=== PATIENT | male | born 1960 | race Caucasian/White ===

== ENCOUNTER 2023-01-26 08:10 | Outpatient (OUT) | payer OTHER, SELFPAY ==
[2023-01-26 08:33] LABS: Basophils Percent Auto 0.6 % (0.2-2.0); Eosinophils Absolute Auto 0.2 10^3/uL (0.0-0.7); Eosinophils Percent Auto 2.9 % (0.9-7.0); Hematocrit 41.9 % (42.0-54.0); Hemoglobin 14.2 g/dL (14.0-18.0); Immature Granulocytes Abs Auto 0.03 10^3/uL (0.00-0.03); Immature Granulocytes Pct Auto 0.4 % (0.0-0.5); Lymphocytes Absolute Auto 1.2 10^3/uL (1.2-3.8); Lymphocytes Percent Auto 17.4 % (20.5-60.0); Mean Corpuscular HGB Conc 33.9 g/dL (29.9-35.2); Mean Corpuscular Hemoglobin 29.8 pg (25.9-34.0); Mean Platelet Volume 7.7 fL (9.5-13.5); Monocytes Absolute Auto 0.7 10^3/uL (0.3-0.8); Monocytes Percent Auto 9.1 % (1.7-12.0); Neutrophils Percent Auto 69.6 % (43.0-75.0); Platelet Count 237 10^3/uL (150-450); Red Blood Count 4.76 10^6/uL (4.70-6.10); Red Cell Distribution Width 12.8 % (11.0-15.0); White Blood Count 7.1 10^3/uL (4.0-11.0)
[2023-01-26 08:52] LABS: Alanine Aminotransferase 31 U/L (16-63); Albumin Globulin Ratio 1.2; Albumin Level 3.9 g/dL (3.4-5.0); Alkaline Phosphatase 53 U/L (46-116); Anion Gap 12.2; Aspartate Amino Transferase 17 U/L (15-37); Bilirubin Total 0.6 mg/dL (0.2-1.0); Calcium 8.9 mg/dL (8.5-10.1); Carbon Dioxide 29.5 mmol/L (21.0-32.0); Chloride 103 mmol/L (98-107); Chol HDL Ratio 5.6; Cholesterol 225 mg/dL (<=200); Estimated GFR (African America >60 (>=60); Estimated GFR (Non-African Ame 52 (>=60); Globulin 3.3 g/dL; Glucose 102 mg/dL (74-106); HDL Cholesterol 40 mg/dL (40-60); Potassium 3.7 mmol/L (3.5-5.1); Sodium 141 mmol/L (136-145); Total Protein 7.2 g/dL (6.4-8.2); Triglycerides 177 mg/dL (<=150); VLDL CHOLESTEROL 35.4 mg/dL
[2023-01-26 10:10] LABS: Prostate Specific Antigen Scrn 1.54 ng/mL (<=4.00)
== END 2023-01-26 08:11 | disposition home or self-care (01) ==
PROVIDERS: PCP Internal Medicine; Visit Provider Internal Medicine
DX: Z00.00 Encounter for general adult medical examination without abnormal findings (principal); Z12.5 Encounter for screening for malignant neoplasm of prostate
CPT/HCPCS: 36415; 80053; 80061; 85025; G0103

== ENCOUNTER 2023-03-08 08:54 | Outpatient (OUT) | payer OTHER, SELFPAY ==
[2023-03-08 09:40] LABS: Anion Gap 10.4; BUN Creatinine Ratio 16.5; Calcium 8.6 mg/dL (8.5-10.1); Carbon Dioxide 25.9 mmol/L (21.0-32.0); Chloride 104 mmol/L (98-107); Estimated GFR (African America >60 (>=60); Estimated GFR (Non-African Ame 52 (>=60); Glucose 100 mg/dL (74-106); Potassium 3.3 mmol/L (3.5-5.1); Sodium 137 mmol/L (136-145)
== END 2023-03-08 08:55 | disposition home or self-care (01) ==
LOC: LAB 08:56
PROVIDERS: PCP Internal Medicine; Visit Provider Internal Medicine
DX: N18.31 Chronic kidney disease, stage 3a (principal)
CPT/HCPCS: 36415; 80048

== ENCOUNTER 2023-08-09 13:22 | Outpatient (OUT) | payer OTHER, SELFPAY ==
--- NOTE | 2023-08-09 13:31 | MR_ITS ---
The [address] [address] Patient Name: RICHY AVERY MRN: [id number] date: 1960 Sex: M Assigned Patient Location: MRI Current Patient Location: MRI Accession/Order Number: [id number] Exam Date: 08/09/2023 13:55 Report Date: 08/09/2023 14:37 At the request of: JOHNNIE GILL Procedure: MR head/brain wo con MR head/brain wo con HISTORY: Dysesthesia, Intermittent Paresthesia Of Right Hand Foot COMPARISON: None. TECHNIQUE: Multi-planar, multi-sequence brain MRI was performed without IV contrast. FINDINGS: Brain volume: Normal. Sagittal midline structures: Normal. Ventricles: Normal. Acute ischemic changes: None. Hemorrhage: None. Masses/edema: None. Kelly-white: Negative. White matter: Small number of nonspecific subcortical and periventricular white matter hyperintensities. Vessels: Normal. Extra-axial: None. Calvarium/scalp: Negative. Skull base: Negative. Visualized sinuses/orbits: Mucous retention cyst left maxillary sinus. Minimal mucoperiosteal thickening. Visualized upper neck: Negative. MR/MR head/brain wo con IMPRESSION: 1. No acute ischemia. 2. Small number of nonspecific white matter hyperintensities, likely related to microangiopathy. Electronically authenticated by: PARTH VILLELA Date: 08/09/2023 14:37
--- NOTE | 2023-08-09 13:40 | XR_ITS ---
The [address] [address] Patient Name: RICHY AVERY MRN: [id number] date: 1960 Sex: M Assigned Patient Location: MRI Current Patient Location: MRI Accession/Order Number: [id number] Exam Date: 08/09/2023 13:40 Report Date: 08/09/2023 13:57 At the request of: JOHNNIE GILL Procedure: XR foreign body eye EXAMINATION: XR foreign body eye HISTORY: Foreign Body Eye COMPARISON: No relevant comparison available. FINDINGS: ORBITS: Negative for a metallic foreign body. OTHER: Negative. XR/XR foreign body eye IMPRESSION: 1. No metallic foreign body within the orbits. Electronically authenticated by: NICOLLE MATTSON Date: 08/09/2023 13:57
[2023-08-09 14:56] LABS: Basophils Percent Auto 0.4 % (0.2-2.0); Eosinophils Absolute Auto 0.2 10^3/uL (0.0-0.7); Eosinophils Percent Auto 2.6 % (0.9-7.0); Hematocrit 42.7 % (42.0-54.0); Immature Granulocytes Abs Auto 0.02 10^3/uL (0.00-0.03); Immature Granulocytes Pct Auto 0.3 % (0.0-0.5); Lymphocytes Absolute Auto 1.2 10^3/uL (1.2-3.8); Mean Corpuscular HGB Conc 32.8 g/dL (29.9-35.2); Mean Corpuscular Hemoglobin 28.9 pg (25.9-34.0); Mean Corpuscular Volume 88.2 fL (80.0-94.0); Mean Platelet Volume 8.1 fL (9.5-13.5); Monocytes Absolute Auto 0.8 10^3/uL (0.3-0.8); Monocytes Percent Auto 11.1 % (1.7-12.0); Neutrophils Absolute Auto 4.6 10^3/uL (1.4-6.5); Neutrophils Percent Auto 67.6 % (43.0-75.0); Platelet Count 257 10^3/uL (150-450); Red Blood Count 4.84 10^6/uL (4.70-6.10); Red Cell Distribution Width 13.1 % (11.0-15.0); White Blood Count 6.8 10^3/uL (4.0-11.0)
[2023-08-09 15:11] LABS: Alanine Aminotransferase 30 U/L (16-63); Albumin Globulin Ratio 1.1; Albumin Level 3.7 g/dL (3.4-5.0); Alkaline Phosphatase 57 U/L (46-116); Anion Gap 13.3; Aspartate Amino Transferase 17 U/L (15-37); BUN Creatinine Ratio 18.7; Bilirubin Total 0.4 mg/dL (0.2-1.0); Calcium 9.2 mg/dL (8.5-10.1); Carbon Dioxide 30.3 mmol/L (21.0-32.0); Chloride 104 mmol/L (98-107); Estimated GFR (African America 55 (>=60); Estimated GFR (Non-African Ame 46 (>=60); Globulin 3.4 g/dL; Glucose 99 mg/dL (74-106); Potassium 3.6 mmol/L (3.5-5.1); Sodium 144 mmol/L (136-145); Thyroid Stimulating Hormone 2.981 uIU/mL (0.358-3.740); Total Protein 7.1 g/dL (6.4-8.2)
== END 2023-08-09 13:23 | disposition home or self-care (01) ==
LOC: MRI 13:23
PROVIDERS: PCP Internal Medicine; Visit Provider Internal Medicine
DX: R20.8 Other disturbances of skin sensation (principal); R20.2 Paresthesia of skin; G45.9 Transient cerebral ischemic attack, unspecified; I10 Essential (primary) hypertension; E78.00 Pure hypercholesterolemia, unspecified
CPT/HCPCS: 36415; 70030; 70551; 80053; 82607; 84443; 85025

== ENCOUNTER 2023-08-15 18:51 | Outpatient (OUT) | payer OTHER, SELFPAY ==
--- OUTSIDE RECORDS SUMMARY | 2023-08-15 18:54 | XMS_ITS | CCD ---
Author Organization [facility] Care Team Providers Care Personal Development Educator Name Role Phone Rice, Jos W Unavailable Unavailable Rice, Jos W Unavailable Unavailable Rice, Jos W Unavailable Unavailable BALL, MARCELO~[phone] UNKNOWN Unavailable Unavailable Marcelo Thompson DO Primary Care Provider [phone] MARCELO THOMPSON Primary Care Unavailable Marcelo Thompson Unavailable JAY, DR BLAIR Consulting Unavailable BALL, DR BLAIR Primary Care Unavailable BALL, DR BLAIR Admitting Unavailable BALL, DR BLAIR Attending Unavailable WEST, DR ANSHUL Aguilera Consulting Unavailable BALL, DR BLAIR Consulting Unavailable BALL, DR BLAIR Primary Care Unavailable BALL, DR BLAIR Admitting Unavailable BALL, DR BLAIR Attending Unavailable BALL, DR BLAIR Consulting Unavailable BALL, DR BLAIR Primary Care Unavailable BALL, DR BLAIR Admitting Unavailable BALL, DR BLAIR Attending Unavailable Allergies Allergy Classification Reported Allergen(s) Allergy Type Date of Onset Reaction(s) Facility (1 source) Sulfonamides (Antibiotic); Translations: [sulfa drugs] Propensity to adverse reactions (disorder) [facility]ository (1 source) Sulfonamides (Antibiotic) Propensity to adverse reactions to drug 09-25-19 Nausea And Vomiting [facility] (9 sources) Ciprofloxacin Drug Allergy 07-19-19 Unknown, Unknown Reaction [facility] (4 sources) Hmg-Coa Reductase Inhibitors (Statins) Propensity to adverse reactions MUSCLE PAIN [facility] Other (8 sources) Sulfacetamide / Sulfur Drug Allergy Unknown [facility] Other (9 sources) sulfADIAZINE Drug Allergy 07-19-19 Unknown, Comment:Sulfa [facility] (8 sources) tamsulosin Drug Allergy Unknown [facility] Other (1 source) black walnut pollen extract Drug Allergy [facility] (1 source) Sulfonamides (Antibiotic) Drug allergy (disorder) 03-02-20 14 [facility] Rep[facility] (5 sources) predniSONE Drug Allergy 07-19-19 Unknown, Unknown Reaction [facility] (4 sources) Statins Depletion *DIETARY PRODUCTS/DIETARY MANAGE Propensity to adverse reactions Comment:ALL Statins [facility] Other (1 source) tamsulosin Drug Allergy 07-19-19 24 Unknown Reaction [facility] (1 source) Vmpexel-ZTA-FiG Reductase Inhibitor Allergy to substance 07-19-19 Comment:ALL Statins [facility] Medications Current Medications Medication Drug Class(es) Dates Sig (Normalized) Sig (Original) amLODIPine 5 mg oral tablet (4 sources) Dihydropyridine Calcium Channel Cate take 1 tablet by mouth every twelve hours amLODIPine Besylate 5 MG 1 tablet Orally TWICE A DAY Active amLODIPine 10 mg / hydroCHLOROthiazide 25 mg / olmesartan medoxomil 40 mg oral tablet (5 sources) Thiazide Diuretic, Dihydropyridine Calcium Channel Cate, Angiotensin 2 Receptor Cate Start: 07-18-2023 take 1 tablet by mouth once daily Olmesartan-Aml odipin-Hcthiaz id Active 1 TAB PO Daily July 18, 2023 12:00am Start: 01-25-2023 take 1 tablet by james th every twenty-four hours Pxpynwisrg-wvKCAJHiet-TCBD 40-10-25 MG 1 tablet Orally Once a day for 30 days Dec, Active benazepril hydrochloride 40 mg oral tablet (4 sources) Angiotensin Converting Enzyme Inhibitor take 1 tablet by mouth every twenty-four hours Benazepril HCl 40 MG 1 tablet Orally Once a day Active chlorthalidone 25 mg oral tablet (3 sources) Thiazide-like Diuretic Start: 023 take 0.5 tablet by mouth once daily Chlorthalidone 25 MG 1/2 tablet Orally Once a day for 30 days Jul, Active doxycycline hyclate 100 mg oral tablet (1 source) Tetracycline-class Drug Start: 022 End: take 1 tablet by mouth twice daily doxycycline hyclate (VIBRA-TABS) 100 MG tablet Take 1 tablet by mouth 2 times daily for 7 days 14 tablet 0 09/24/2021 10/01/2021 Active ezetimibe 10 mg oral tablet (9 sources) Dietary Cholesterol Absorption Inhibitor Start: 024 take 10 mg by mouth once daily Ezetimibe Active 10 MG PO Daily July 18, 2023 12:00am take 1 tablet by mouth once abdirizak y Ezetimibe 10 MG TAKE 1 TABLET BY MOUTH EVERY DAY Active fluticasone propionate 0.05 mg/actuat metered dose nasal spray (9 sources) Corticosteroid Start: 07-18-2023 Fluticasone Pr opionate Active 2 SPRAY INTRANASAL Daily July 18, 2023 12:00am take 2 spray(s) nasal route once daily Fluticasone Propionate 50 MCG/ACT USE 2 SPRAYS IN EACH NOSTRIL ONCE DAILY for 30 Active take 2 spray(s) nasal route once daily Fluticasone Propionate 50 MCG/ACT USE 2 SPRAYS IN EACH NOSTRIL ONCE DAILY for 30 Active labetalol hydrochloride 300 mg oral tablet (9 sources) beta-Adrenergic Cate Start: 07-18-2023 take 300 mg by mouth twice daily Labetalol Active 300 MG PO Twice daily July 18, 2023 12:00am Labetalol HCl 30 0 MG TAKE 1 TABLET BY MOUTH TWICE A DAY FOR 30 DAYS for 30 Active take 2 tablets by mo [facility] every twelve hours Labetalol HCl 100 MG 2 TABLETS Orally Twice a day Active Completed/Discontinued Medications Medication Drug Class(es) Dates Sig (Normalized) Sig (Original) potassium chloride 10 meq extended release oral tablet (3 sources) Start: 07-18-2023 End: 07-19-2023 take 10 mEq by mouth once daily Potassium Chloride Discontinued 10 MEQ PO Daily July 18, 2023 12:00am July 19, 2023 1:31pm Start: 03-08-2023 take 1 tablet by james every twenty-four hours Potassium Chloride ER 10 MEQ 1 tablet with food Orally Once a day for 30 days Feb, Active Problems Active Problems Problem Classification Problem Date Documented Date Episodic/Chronic Abdominal pain (6 sources) Left lower quadrant pain; Translations: [LEFT LOWER QUADRANT PAIN] Onset: 08-17-2022 Episodic Calculus of urinary tract (11 sources) History of calculus of kidney; Translations: [Personal history of urinary calculi] Episodic Cardiac dysrhythmias (8 sources) Ventricular premature complex; Translations: [Ventricular premature depolarization] Chronic Chronic kidney disease (20 sources) Chronic kidney disease stage 3; Translations: [Chronic kidney disease, stage 3 (moderate)] 07-18-2023 Chronic Chronic ulcer of skin (8 sources) Non-pressure chronic ulcer of other part of left foot limited to breakdown of skin; Translations: [Ulcer of left foot (disorder)] Chronic Deficiency and other anemia (8 sources) Anemia; Translations: [Anemia, unspecified] Episodic Disorders of lipid metabolism (20 sources) Dyslipidemia; Translations: [Hyperlipidemia, unspecified] Chronic Essential hypertension (14 sources) Essential hypertension; Translations: [Essential (primary) hypertension] Chronic Fluid and electrolyte disorders (1 source) Hypokalemia Episodic Genitourinary symptoms and ill-defined conditions (8 sources) Francisco J hematuria; Translations: [Gross hematuria] Episodic Hyperplasia of prostate (9 sources) Lower urinary tract symptoms due to benign prostatic hypertrophy; Translations: [Benign prostatic hyperplasia with lower urinary tract symptoms] Chronic Hypertension with complications and secondary hypertension (8 sources) Chronic kidney disease due to hypertension; Translations: [Hypertensive chronic kidney disease with stage 1 through stage 4 chronic kidney disease, or unspecified chronic kidney disease] Chronic Osteoarthritis (8 sources) Localized, primary osteoarthritis of the shoulder region; Translations: [Primary osteoarthritis, right shoulder] Chronic Other connective tissue disease (8 sources) Synovial cyst of popliteal space; Translations: [Synovial cyst of popliteal space [Yousif], left knee] Episodic Other connective tissue disease (8 sources) Prepatellar bursitis, left knee; Translations: [Bursitis, prepatellar, left] Episodic Other diseases of kidney and ureters (8 sources) Acquired renal cystic disease; Translations: [Cyst of kidney, acquired] Episodic Other diseases of kidney and ureters (1 source) Cyst of kidney; Translations: [Cyst of kidney, acquired] 07-18-2023 Episodic Other diseases of kidney and ureters (1 source) Cyst of kidney, acquired; Translations: [Cystic kidney disease, unspecified] 07-19-2023 Episodic Other hereditary and degenerative nervous system conditions (8 sources) Restless legs; Translations: [Restless legs syndrome] Chronic Other nutritional; endocrine; and metabolic disorders (1 source) Overweight Episodic Skin and subcutaneous tissue infections (9 sources) Cellulitis of left lower limb; Translations: [Cellulitis of left lower limb] Episodic Past or Other Problems Problem Classification Problem Date Documented Da te Episodic/Chronic Chronic kidney disease (6 sources) Chronic kidney disease; Translations: [CHRONIC KIDNEY DISEASE STAGE 3A] Onset: 07-13-2022 Other screening for suspected conditions (not mental disorders or infectious disease) (1 source) Encounter for screening for malignant neoplasm of prostate; Translations: [ENC SCREEN MALIG NEOPLASM PROSTATE] Onset: 01-23-2022 Episodic Results Test Name Value Interpretation Reference Range Facility CREATININEon 08-17-2022 Creatinine [Mass/Vol] 1.59 mg/dL Critically high 0.70-1.30 [facility] Comment on above: Performed By: #### C DIANELYS #### [facility] [address] [address] [address] Keanu Shafer EGFR-AF DOMINICAN 54 mL/min/1.73m2 Critically low >=60 [facility] Comment on above: Performed By: #### C DIANELYS #### [facility] [address] [address] [address] Keanu Shafer EGFR-NON AF DOMINICAN 44 mL/min/1.73m2 Critically low >=60 [facility] Comment on above: Performed By: #### C DIANELYS #### [facility] [address] [address] ABD/PELV W CONon 08-18-19 CT ABD/PELV W CON EXAMINATION: CT ABD/PELV W CON, 08/17/2022 7:13 AM EDT HISTORY: Left lower quadrant pain COMPARISON: 02/04/2020 TECHNIQUE: CT scan of the abdomen and pelvis was performed with IV contrast. CT dose reduction technique was used, including Automated Exposure Control. FINDINGS: LUNG BASES: No visible pulmonary or pleural disease. LIVER: No enlargement, atrophy, abnormal density, or significant focal lesion. BILIARY: No dilatation or calcification. PANCREAS: No lesion, fluid collection, ductal dilatation, or atrophy. SPLEEN: No enlargement or focal lesion. ADRENALS: No mass or enlargement. KIDNEYS: 2.1 cm left renal cortical cyst. No hydronephrosis or obstructing nephrolithiasis BOWEL/MESENTERY: Nonobstructive bowel gas pattern. Mild colonic diverticulosis. AORTA/VASCULAR: Mild atherosclerosis. Fusiform ectasia of the distal abdominal aorta measuring up to 2.6 cm. RETROPERITONEUM: No mass or adenopathy. LYMPH NODES: No adenopathy. URINARY BLADDER: No visible focal wall thickening, lesion, or calculus. PELVIC ORGANS: Heterogeneous prostate gland with central calcifications ABDOMINAL WALL: No mass or hernia. BONES: No bony lesion or fracture. OTHER: Negative. IMPRESSION: No acute intraperitoneal abnormality Electronically authenticated by: ANSHUL AMADOR Date: 2022-08-17 08:53 Normal [facility] Basic Metabolic Panelon 06-27 Calcium [Mass/Vol] 9.5464776 mg/dL 8.5-10 .1 mg/dL [facility] Other CO2 [Moles/Vol] 28.19351715 mmol/L 21.0-3 2.0 mmol/L [facility] Other Creatinine [Mass/Vol] 1.57468761 mg/dL Critically high 0.70-1.30 mg/dL [facility] Other Potassium [Moles/Vol] 4.46502937 mmol/L 3.5-5.1 mmol/L [facility] Other Urea nitrogen [Mass/Vol] 21.4447824 mg/dL Critically high 7.0-18.0 mg/dL [facility] Other Basic Metabolic Panel see note [facility] Other Basic Metabolic Panel 144 mmol/L 136-145 mmol/L [facility] Other Basic Metabolic Panel 99 mg/dL 74-106 mg/dL [facility] Other Basic Metabolic Panel 55 mL/min/1.73m2 Critically low >=60 mL/min/1.73m2 [facility] Other Basic Metabolic Panel >60 mL/min/1.73m2 >=60 mL/min/1.73m2 [facility] Other Anion gap [Moles/Vol] 11.0 mmol/L Normal [facility] Other Comment on above: Performed By: #### B MP #### [facility] [address] [place], [place] [id number] Dr. Keanu Shafer Chloride [Moles/Vol] 109 mmol/L Critically high 98-107 [facility] Other Comment on above: Performed By: #### B MP #### [facility] [address] [place] [address] Dr. Keanu Shafer Urea nitrogen/Creatinine [Mass ratio] 16.0 mg/mg Normal [facility] Other Comment on above: Performed By: #### B MP #### [facility] [address] [place] [address] Dr. Keanu Shafer PROF CHEM 8 (BAS METB)on Calcium [Mass/Vol] 9.0 mg/dL Normal 8.5-10.1 [facility] Comment on above: Performed By: #### B MP #### [facility] [address] [place] [address] Dr. Keanu Shafer CO2 [Moles/Vol] 28.3 mmol/L Normal 21.0-32.0 [facility] Comment on above: Performed By: #### B MP #### [facility] [address] [place] [address] Dr. Keanu Shafer Creatinine [Mass/Vol] 1.31 mg/dL Critically high 0.70-1.30 [facility] Comment on above: Performed By: #### B MP #### [facility] [address] [place] [address] Dr. Keanu Shafer EGFR-AF DOMINICAN >60 Normal >=60 [facility] Comment on above: Performed By: #### B MP #### [facility] [address] [place] [address] Dr. Keanu Shafer EGFR-NON AF DOMINICAN 55 mL/min/1.73m2 Critically low >=60 [facility] Comment on above: Performed By: #### B MP #### [facility] [address] [place] [address] Dr. Keanu Shafer Glucose [Mass/Vol] 99 mg/dL Normal 74-106 [facility] Comment on above: Performed By: #### B MP #### [facility] [address] [address] [address] Keanu Shafer Potassium [Moles/Vol] 4.3 mmol/L Normal 3.5-5.1 [facility] Comment on above: Performed By: #### B MP #### [facility] [address] [place] [address] Dr. Keanu Shafer Sodium [Moles/Vol] 144 mmol/L Normal 136-145 [facility] Comment on above: Performed By: #### B MP #### [facility] [address] [place] [address] Dr. Keanu Shafer Urea nitrogen [Mass/Vol] 21.0 mg/dL Critically high 7.0-18.0 [facility] Comment on above: Performed By: #### B MP #### [facility] [address] [place] [address] Dr. Keanu Shafer CBC AUTO DIFFon 01-19-2022 BASO # 0.0 103/ul Normal 0.0-0.1 [facility] Comment on above: Performed By: #### C BC #### [facility] [address] [place] [address] Dr. Keanu Shafer Basophils/100 WBC (Bld) 0.3 % Normal 0.2-2.0 [facility] Comment on above: Performed By: #### C BC #### [facility] [address] [place] [address] Dr. Keanu Shafer EO # 0.2 103/ul Normal 0.0-0.7 [facility] Comment on above: Performed By: #### C BC #### [facility] [address] [place] [address] Dr. Keanu Shafer Eosinophils/100 WBC (Bld) 2.4 % Normal 0.9-7.0 [facility] Comment on above: Performed By: #### C BC #### [facility] [address] [place] [address] Dr. Kenau Shafer Erythrocyte distribution width (RBC) [Ratio] 13.2 % Normal 11.0-15.0 [facility] Comment on above: Performed By: #### C BC #### [facility] [address] [address] [address] Keanu Shafer Hematocrit (Bld) [Volume fraction] 42.1 % Normal 42.0-54.0 [facility] Comment on above: Performed By: #### C BC #### [facility] [address] [address] [address] Keanu Shafer Hemoglobin (Bld) [Mass/Vol] 14.2 g/dL Normal 14.0-18.0 [facility] Comment on above: Performed By: #### C BC #### [facility] [address] [address] [address] Keanu Shafer IG # 0.02 10e3/ul Normal 0.00-0.03 [facility] Comment on above: Performed By: #### C BC #### [facility] [address] [place] [address] Dr. Keanu Shafer IG % 0.3 % Normal 0.0-0.5 [facility] Comment on above: Performed By: #### C BC #### [facility] [address] [place] [address] Dr. Keanu Shafer LYMPH # 1.0 103/ul Critically low 1.2-3.8 [facility] Comment on above: Performed By: #### C BC #### [facility] [address] [place] [address] Dr. Keanu Shafer Lymphocytes/100 WBC (Bld) 16.0 % Critically low 20.5-60.0 [facility] Comment on above: Performed By: #### C BC #### [facility] [address] [place] [address] Dr. Keanu Shafer MANUAL DIFF REQ NO Normal [facility] Comment on above: Performed By: #### C BC #### [facility] [address] [place] [address] Dr. Keanu Shafer MCH (RBC) [Entitic mass] 29.2 pg Normal 25.9-34.0 [facility] Comment on above: Performed By: #### C BC #### [facility] [address] [address] [address] Keanu Shafer MCHC (RBC) [Mass/Vol] 33.7 g/dL Normal 29.9-35.2 [facility] Comment on above: Performed By: #### C BC #### [facility] [address] [address] [address] Keanu Shafer MCV (RBC) [Entitic vol] 86.6 fL Normal 80.0-94.0 [facility] Comment on above: Performed By: #### C BC #### [facility] [address] [address] [address] Keanu Shafer MONO # 0.6 103/ul Normal 0.3-0.8 [facility] Comment on above: Performed By: #### C BC #### [facility] [address] [place] [address] Dr. Keanu Shafer Monocytes/100 WBC (Bld) 9.2 % Normal 1.7-12.0 [facility] Comment on above: Performed By: #### C BC #### [facility] [address] [place] [address] Dr. Keanu Shafer NEUT # 4.5 103/ul Normal 1.4-6.5 [facility] Comment on above: Performed By: #### C BC #### [facility] [address] [place] [address] Dr. Keanu Shafer Neutrophils/100 WBC (Bld) 71.8 % Normal 43.0-75.0 [facility] Comment on above: Performed By: #### C BC #### [facility] [address] [place] [address] Dr. Keanu Shafer Platelet mean volume (Bld) [Entitic vol] 7.8 fL Critically low 9.5-13.5 [facility] Comment on above: Performed By: #### C BC #### [facility] [address] [place] [address] Dr. Keanu Shafer PLT 233 103/ul Normal 150-450 [facility] Comment on above: Performed By: #### C BC #### [facility] [address] [address] [address] Keanu Shafer RBC 4.86 106/ul Normal 4.70-6.10 [facility] Comment on above: Performed By: #### C BC #### [facility] [address] [address] [address] Keanu Shafer WBC 6.2 103/ul Normal 4.0-11.0 [facility] Comment on above: Performed By: #### C BC #### [facility] [address] [address] [address] Keanu Shafer LIPID PROFILEon 01-19-2022 CHOL-HDL RATIO NORM SEE BELOW Normal [facility] Comment on above: Result Comment: 3.3 - 4.4 LOW RISK 4.4 - 7.1 AVERAGE RISK 7.1 - 11.0 MODERATE RISK >11.0 HIGH RISK Performed By: #### C MP, LIPID #### [facility] [address] [place] [address] Dr. Keanu Shafer Cholesterol [Mass/Vol] 222 mg/dL Critically high <=200 [facility] Comment on above: Performed By: #### C MP, LIPID #### [facility] [address] [place] [address] Dr. Keanu Shafer Cholesterol in HDL [Mass/Vol] 40 mg/dL Normal 40-60 [facility] Comment on above: Performed By: #### C MP, LIPID #### [facility] [address] [address] [address] Keanu Shafer Cholesterol in LDL [Mass/Vol] 160.6 mg/dL Normal [facility] Comment on above: Performed By: #### C MP, LIPID #### [facility] [address] [address] [address] Keanu Shafer Cholesterol.total/C holesterol in HDL [Mass ratio] 5.6 {ratio} Normal [facility] Comment on above: Performed By: #### C MP, LIPID #### [facility] [address] [place] [address] Dr. Keanu Shafer HDL NORMAL > or = 60 mg/dl - LO W CARDIOVASCULAR RISK <40 mg/dl - HIGH CARDIOVASCULAR RISK Normal [facility] Comment on above: Performed By: #### C MP, LIPID #### [facility] [address] [address] [address] Keanu Shafer LDL CALC NORMAL SEE BELOW Normal [facility] Comment on above: Result Comment: <100 mg/dl OPTIMAL 100 - 129 mg/dl NEAR OR ABOVE OPTIMAL 130 - 159 mg/dl BORDERLINE HIGH 160 - 189 mg/dl HIGH >190 mg/dl VERY HIGH Performed By: #### C MP, LIPID #### [facility] [address] [place] [address] Dr. Keanu Shafer Triglyceride [Mass/Vol] 107 mg/dL Normal <=150 [facility] Comment on above: Performed By: #### C MP, LIPID #### [facility] [address] [place] [address] Dr. Keanu Shafer VLDL CALC 21.4 mg/dL Normal [facility] Comment on above: Performed By: #### C MP, LIPID #### [facility] [address] [place] [address] Dr. Keanu Shafer PROF 14(COMP METB)on 022 Albumin [Mass/Vol] 3.9 g/dL Normal 3.4-5.0 [facility] Comment on above: Performed By: #### C MP, LIPID #### [facility] [address] [place] [address] Dr. Keanu Shafer Albumin/Globulin [Mass ratio] 1.3 {ratio} Normal [facility] Comment on above: Performed By: #### C MP, LIPID #### [facility] [address] [place] [address] Dr. Keanu Shafer ALP [Catalytic activity/Vol] 55 U/L Normal 46-116 [facility] Comment on above: Performed By: #### C MP, LIPID #### [facility] [address] [place] [address] Dr. Keanu Shafer ALT [Catalytic activity/Vol] 25 U/L Normal 16-63 [facility] Comment on above: Performed By: #### C MP, LIPID #### [facility] [address] [place] [address] Dr. Keanu Shafer Anion gap [Moles/Vol] 8.8 mmol/L Normal [facility] Comment on above: Performed By: #### C MP, LIPID #### [facility] [address] [place] [address] Dr. Keanu Shafer AST [Catalytic activity/Vol] 15 U/L Normal 15-37 [facility] Comment on above: Performed By: #### C MP, LIPID #### [facility] [address] [place] [address] Dr. Keanu Shafer Bilirubin [Mass/Vol] 0.7 mg/dL Normal 0.2-1.0 [facility] Comment on above: Performed By: #### C MP, LIPID #### [facility] [address] [place] [address] Dr. Keanu Shafer Calcium [Mass/Vol] 8.7 mg/dL Normal 8.5-10.1 [facility] Comment on above: Performed By: #### C MP, LIPID #### [facility] [address] [place] [address] Dr. Keanu Shafer Chloride [Moles/Vol] 106 mmol/L Normal 98-107 [facility] Comment on above: Performed By: #### C MP, LIPID #### [facility] [address] [place] [address] Dr. Keanu Shafer CO2 [Moles/Vol] 28.4 mmol/L Normal 21.0-32.0 [facility] Comment on above: Performed By: #### C MP, LIPID #### [facility] [address] [place] [address] Dr. Keanu Shafer Creatinine [Mass/Vol] 1.25 mg/dL Normal 0.70-1.30 [facility] Comment on above: Performed By: #### C MP, LIPID #### [facility] [address] [place] [address] Dr. Keanu Shafer EGFR-AF DOMINICAN >60 Normal >=60 [facility] Comment on above: Performed By: #### C MP, LIPID #### [facility] [address] [place] [address] Dr. Keanu Shafer EGFR-NON AF DOMINICAN 59 mL/min/1.73m2 Critically low >=60 [facility] Comment on above: Performed By: #### C MP, LIPID #### [facility] [address] [address] [address] Keanu Shafer Globulin (S) [Mass/Vol] 3.1 g/dL Normal [facility] Comment on above: Performed By: #### C MP, LIPID #### [facility] [address] [address] [address] Keanu Shafer Glucose [Mass/Vol] 99 mg/dL Normal 74-106 [facility] Comment on above: Performed By: #### C MP, LIPID #### [facility] [address] [place] [address] Dr. Keanu Shafer Potassium [Moles/Vol] 4.2 mmol/L Normal 3.5-5.1 [facility] Comment on above: Performed By: #### C MP, LIPID #### [facility] [address] [place] [address] Dr. Keanu Shfaer Protein [Mass/Vol] 7.0 g/dL Normal 6.4-8.2 [facility] Comment on above: Performed By: #### C MP, LIPID #### [facility] [address] [place] [address] Dr. Keanu Shafer Sodium [Moles/Vol] 139 mmol/L Normal 136-145 [facility] Comment on above: Performed By: #### C MP, LIPID #### [facility] [address] [place] [address] Dr. Keanu Shafer Urea nitrogen [Mass/Vol] 18.0 mg/dL Normal 7.0-18.0 [facility] Comment on above: Performed By: #### C MP, LIPID #### [facility] [address] [place] [address] Dr. Keanu Shafer Urea nitrogen/Creatinine [Mass ratio] 14.4 mg/mg Normal [facility] Comment on above: Performed By: #### C MP, LIPID #### [facility] [address] [place], [place] [id number] Dr. Keanu Shafer CBC With Platelet and Differ entialon 09-24-2021 Basophils (Bld) [#/Vol] 0.0 10*3/uL Normal 0.0-0.2 [facility] Comment on above: Performed By: #### C BCWD #### [facility] [address] [place] [address] Basophils/100 WBC (Bld) 0.3 % Normal [facility] Comment on above: Performed By: #### C BCWD #### [facility] [address] [place] [address] Eosinophils (Bld) [#/Vol] 0.1 10*3/uL Normal 0.0-0.7 [facility] Comment on above: Performed By: #### C BCWD #### [facility] [address] [place] [address] Eosinophils/100 WBC (Bld) 0.9 % Normal [facility] Comment on above: Performed By: #### C BCWD #### [facility] [address] [place] [address] Erythrocyte distribution width (RBC) [Ratio] 13.9 % Normal 11.5-14.5 [facility] Comment on above: Performed By: #### C BCWD #### [facility] [address] [place] [address] Hematocrit (Bld) [Volume fraction] 42.6 % Normal 42.0-52.0 [facility] Comment on above: Performed By: #### C BCWD #### [facility] [address] [place] [address] Hemoglobin (Bld) [Mass/Vol] 14.2 g/dL Normal 14.0-18.0 [facility] Comment on above: Performed By: #### C BCWD #### [facility] [address] [place] [address] Lymphocytes (Bld) [#/Vol] 0.9 10*3/uL Low 1.0-4.8 [facility] Comment on above: Performed By: #### C BCWD #### [facility] [address] [place] [address] Lymphocytes/100 WBC (Bld) 8.1 % Normal [facility] Comment on above: Performed By: #### C BCWD #### [facility] [address] [place] [address] MCH (RBC) [Entitic mass] 28.9 pg Normal 27.0-31.3 [facility] Comment on above: Performed By: #### C BCWD #### [facility] [address] [place] [address] MCHC 33.3 % Normal 33.0-37.0 [facility] Comment on above: Performed By: #### C BCWD #### [facility] [address] [place] [address] MCV (RBC) [Entitic vol] 86.8 fL Normal 80.0-100.0 [facility] Comment on above: Performed By: #### C BCWD #### [facility] [address] [place] [address] Monocytes (Bld) [#/Vol] 0.8 10*3/uL Normal 0.2-0.8 [facility] Comment on above: Performed By: #### C BCWD #### [facility] [address] [place] [address] Monocytes/100 WBC (Bld) 7.4 % Normal [facility] Comment on above: Performed By: #### C BCWD #### [facility] [address] [place] [address] Neutrophils (Bld) [#/Vol] 9.5 10*3/uL Critically high 1.4-6.5 [facility] Comment on above: Performed By: #### C BCWD #### [facility] [address] [place] [address] Neutrophils/100 WBC (Bld) 83.3 % Normal [facility] Comment on above: Performed By: #### C BCWD #### [facility] [address] [place] [address] Platelets (Bld) [#/Vol] 289 10*3/uL Normal 130-400 [facility] Comment on above: Performed By: #### C BCWD #### [facility] [address] [place] [address] RBC (Bld) [#/Vol] 4.90 10*6/uL Normal 4.70-6.10 [facility] Comment on above: Performed By: #### C BCWD #### [facility] [address] [place] [address] WBC (Bld) [#/Vol] 11.4 10*3/uL Critically high 4.8-10.8 [facility] Comment on above: Performed By: #### C BCWD #### [facility] [address] [place] [address] CBC with Auto Differentialon 09-24-2021 Basophils (Bld) [#/Vol] 0.0 10*3/uL 0.0 - 0.2 K/uL [facility] Basophils/100 WBC (Bld) 0.3 % [facility] Eosinophils (Bld) [#/Vol] 0.1 10*3/uL 0.0 - 0.7 K/uL [facility] Eosinophils/100 WBC (Bld) 0.9 % [facility] Hematocrit (Bld) [Volume fraction] 42.6 % 42.0 - 52.0 % [facility] Hemoglobin.gastroin testinal spec 1 Ql (Stl) 14.2 g/dL 14.0 - 18.0 g/dL [facility] Interpretation and review of laboratory results Abnormal [facility] Lymphocytes (Bld) [#/Vol] 0.9 10*3/uL Low 1.0 - 4.8 K/uL [facility] Lymphocytes/100 WBC (Bld) 8.1 % [facility] MCH (RBC) [Entitic mass] 28.9 pg 27.0 - 31.3 pg [facility] MCHC (RBC) [Mass/Vol] 33.3 % 33.0 - 37.0 % [facility] MCV (RBC) [Entitic vol] 86.8 fL 80.0 - 100.0 fL [facility] Monocytes (Bld) [#/Vol] 0.8 10*3/uL 0.2 - 0.8 K/uL [facility] Monocytes/100 WBC (Bld) 7.4 % [facility] Neutrophils Absolute 9.5 K/uL High 1.4 - 6.5 K/uL [facility] Neutrophils/100 WBC (Bld) 83.3 % [facility] Platelet distribution width (Bld) [Ratio] 13.9 % 11.5 - 14.5 % [facility] Platelets (Bld) [#/Vol] 289 10*3/uL 130 - 400 K/uL [facility] RBC (Bld) [#/Vol] 4.90 10*6/uL [facility] WBC (Bld) [#/Vol] 11.4 10*3/uL High 4.8 - 10.8 K/uL [facility] Comprehensive Metabolic Pane erasmo 09-24-2021 Albumin [Mass/Vol] 4.3 g/dL Normal 3.5-4.6 [facility] Comment on above: Performed By: #### C MP #### [facility] [address] [place] [address] ALP [Catalytic activity/Vol] 68 U/L Normal 35-104 [facility] Comment on above: Performed By: #### C MP #### [facility] [address] [place] [address] ALT [Catalytic activity/Vol] 14 U/L Normal 0-41 [facility] Comment on above: Performed By: #### C MP #### [facility] [address] [place] [address] Anion gap [Moles/Vol] 11 mmol/L Normal 9-15 [facility] Comment on above: Performed By: #### C MP #### [facility] [address] [place] [address] AST [Catalytic activity/Vol] 14 U/L Normal 0-40 [facility] Comment on above: Result Comment: Spec imen hemolysis has exceeded the interference as defined by Ayla. Value may be falsely increased. Suggest recollection if clinically indicated. Performed By: #### C MP #### [facility] [address] [place] [address] Bilirubin [Mass/Vol] 0.3 mg/dL Normal 0.2-0.7 [facility] Comment on above: Performed By: #### C MP #### [facility] [address] [place] [address] Calcium [Mass/Vol] 9.0 mg/dL Normal 8.5-9.9 [facility] Comment on above: Performed By: #### C MP #### [facility] [address] [place] [address] Chloride [Moles/Vol] 102 mmol/L Normal 95-107 [facility] Comment on above: Performed By: #### C MP #### [facility] [address] [place] [address] CO2 [Moles/Vol] 27 mmol/L Normal 20-31 [facility] Comment on above: Performed By: #### C MP #### [facility] [address] [place] [address] Creatinine [Mass/Vol] 1.27 mg/dL Critically high 0.70-1.20 [facility] Comment on above: Performed By: #### C MP #### [facility] [address] [place] [address] GFR 57.5 Low >60 [facility] Comment on above: Result Comment: >60 mL/min/1.73m2 EGFR, calc. for ages 18 and older using the MDRD formula (not corrected for weight), is valid for stable renal function. Performed By: #### C MP #### [facility] [address] [place] [address] GFR/1.73 sq M.predicted among blacks MDRD (S/P/Bld) [Vol rate/Area] mL/min/{1.73_m2} Normal >60 [facility] Comment on above: Result Comment: >60 mL/min/1.73m2 EGFR, calc. for ages 18 and older using the MDRD formula (not corrected for weight), is valid for stable renal function. Performed By: #### C MP #### [facility] [address] [place] [address] Globulin (S) [Mass/Vol] 2.9 g/dL Normal 2.3-3.5 [facility] Comment on above: Performed By: #### C MP #### [facility] [address] [place] [address] Glucose [Mass/Vol] 114 mg/dL Critically high 70-99 [facility] Comment on above: Performed By: #### C MP #### [facility] [address] [place] [address] Potassium [Moles/Vol] 4.2 mmol/L Normal 3.4-4.9 [facility] Comment on above: Performed By: #### C MP #### [facility] [address] [place] [address] Protein [Mass/Vol] 7.2 g/dL Normal 6.3-8.0 [facility] Comment on above: Performed By: #### C MP #### [facility] [address] [place] [address] Sodium [Moles/Vol] 140 mmol/L Normal 135-144 [facility] Comment on above: Performed By: #### C MP #### [facility] [address] [place] [address] Urea nitrogen [Mass/Vol] 18 mg/dL Normal 8-23 [facility] Comment on above: Performed By: #### C MP #### [facility] [address] [place] [address] Albumin [Mass/Vol] 4.3 g/dL 3.5 - 4.6 g/dL [facility] ALP (Bld) [Catalytic activity/Vol] 68 U/L 35 - 104 U/L [facility] ALT [Catalytic activity/Vol] 14 U/L 0 - 41 U/L [facility] Anion gap [Moles/Vol] 11 mmol/L [facility] AST [Catalytic activity/Vol] 14 U/L 0 - 40 U/L [facility] Comment on above: Specimen hemolysis h as exceeded the interference as defined by Ayla. Value may be falsely increased. Suggest recollection if clinically indicated. Bilirubin [Mass/Vol] 0.3 mg/dL 0.2 - 0.7 mg/dL [facility] Calcium [Mass/Vol] 9.0 mg/dL 8.5 - 9.9 mg/dL [facility] Chloride [Moles/Vol] 102 mmol/L [facility] CO2 [Moles/Vol] 27 mmol/L [facility] Creatinine [Mass/Vol] 1.27 mg/dL High 0.70 - 1.20 mg/dL [facility] Free PSA/Total PSA [Mass fraction] 7.2 g/dL 6.3 - 8.0 g/dL [facility] GFR >60.0 >60 [facility] Comment on above: >60 mL/min/1.73m2 EG FR, calc. for ages 18 and older using the MDRD formula (not corrected for weight), is valid for stable renal function. GFR Non- 57.5 Low >60 [facility] Comment on above: >60 mL/min/1.73m2 EG FR, calc. for ages 18 and older using the MDRD formula (not corrected for weight), is valid for stable renal function. Globulin (S) [Mass/Vol] 2.9 g/dL 2.3 - 3.5 g/dL [facility] Glucose [Mass/Vol] 114 mg/dL High 70 - 99 mg/dL [facility] Interpretation and review of laboratory results Abnormal [facility] Potassium [Moles/Vol] 4.2 mmol/L [facility] Sodium [Moles/Vol] 140 mmol/L [facility] Urea nitrogen (BldV) [Mass/Vol] 18 mg/dL 8 - 23 mg/dL [facility] US DUP LOWER EXTREMITY LEFT VENon 09-24-2021 US DUP LOWER EXTREMITY LEFT MEGAN LEFT LOWER EXTREMITY DEEP VENOUS ULTRASOUND WITH DOPPLER IMAGING CLINICAL HISTORY: Lower extremity swelling COMPARISON: None TECHNIQUE: Kelly scale with compression maneuvers, Color Doppler and Spectral Doppler at rest and with augmentation of the left distal external iliac, common femoral, femoral and popliteal veins was performed. Rutledge scale with compression maneuvers of the peroneal and posterior tibial veins was performed. The great and small saphenous veins were imaged in rutledge scale with compression maneuvers at their insertion to the deep system. The contralateral external iliac vein and common femoral vein were imaged for comparison. Images were obtained and stored in a permanent archive. RESULT: LEFT LOWER EXTREMITY PROXIMAL DEEP VEINS Distal External Iliac and Common Femoral Veins: Compression: Normal Doppler: Normal, spontaneous respirophasic flow Normal response to augmentation Femoral vein: Compression: Normal Doppler: Normal, spontaneous flow Normal response to augmentation Popliteal vein: Compression: Normal Doppler: Normal, spontaneous flow Normal response to augmentation CALF DEEP VEINS Peroneal veins: Normal compression Posterior tibial veins: Normal compression Gastrocnemius and Soleal veins: Not imaged SUPERFICIAL VEINS Great saphenous: Patent and compressible at insertion into common femoral vein; not otherwise assessed. Small Saphenous: Patent and compressible in the proximal calf, not otherwise assessed. IMPRESSION: NEGATIVE STUDY FOR ACUTE PROXIMAL DVT IN THE LEFT LOWER EXTREMITY. NEGATIVE STUDY FOR ACUTE CALF DVT IN THE LEFT LOWER EXTREMITY. NEGATIVE STUDY FOR SUPERFICIAL THROMBOPHLEBITIS IN THE LEFT LOWER EXTREMITY Interpreted by: Jamie Thornton MD Signed by: Jamie Thornton MD 09/24/21 Final result Normal [facility] NEGATIVE STUDY FOR ACUTE PROXIMAL DVT IN THE LEFT LOWER EXTREMITY. NEGATIVE STUDY FOR ACUTE CALF DVT IN THE LEFT LOWER EXTREMITY. NEGATIVE STUDY FOR SUPERFICIAL THROMBOPHLEBITIS IN THE LEFT LOWER EXTREMITY [facility] LEFT LOWER EXTREMITY DEEP VENOUS ULTRASOUND WITH DOPPLER IMAGING CLINICAL HISTORY: Lower extremity swelling COMPARISON: None TECHNIQUE: Kelly scale with compression maneuvers, Color Doppler and Spectral Doppler at rest and with augmentation of the left distal external iliac, common femoral, femoral and popliteal veins was performed. Rutledge scale with compression maneuvers of the peroneal and posterior tibial veins was performed. The great and small saphenous veins were imaged in rutledge scale with compression maneuvers at their insertion to the deep system. The contralateral external iliac vein and common femoral vein were imaged for comparison. Images were obtained and stored in a permanent archive. RESULT: LEFT LOWER EXTREMITY PROXIMAL DEEP VEINS Distal External Iliac and Common Femoral Veins: Compression: Normal Doppler: Normal, spontaneous respirophasic flow Normal response to augmentation Femoral vein: Compression: Normal Doppler: Normal, spontaneous flow Normal response to augmentation Popliteal vein: Compression: Normal Doppler: Normal, spontaneous flow Normal response to augmentation CALF DEEP VEINS Peroneal veins: Normal compression Posterior tibial veins: Normal compression Gastrocnemius and Soleal veins: Not imaged SUPERFICIAL VEINS Great saphenous: Patent and compressible at insertion into common femoral vein; not otherwise assessed. Small Saphenous: Patent and compressible in the proximal calf, not otherwise assessed. [facility] Jamie Thornton M D - 09/24/2021 LEFT LOWER EXTREMITY DEEP VENOUS ULTRASOUND WITH DOPPLER IMAGING CLINICAL HISTORY: Lower extremity swelling COMPARISON: None TECHNIQUE: Kelly scale with compression maneuvers, Color Doppler and Spectral Doppler at rest and with augmentation of the left distal external iliac, common femoral, femoral and popliteal veins was performed. Rutledge scale with compression maneuvers of the peroneal and posterior tibial veins was performed. The great and small saphenous veins were imaged in rutledge scale with compression maneuvers at their insertion to the deep system. The contralateral external iliac vein and common femoral vein were imaged for comparison. Images were obtained and stored in a permanent archive. RESULT: LEFT LOWER EXTREMITY PROXIMAL DEEP VEINS Distal External Iliac and Common Femoral Veins: Compression: Normal Doppler: Normal, spontaneous respirophasic flow Normal response to augmentation Femoral vein: Compression: Normal Doppler: Normal, spontaneous flow Normal response to augmentation Popliteal vein: Compression: Normal Doppler: Normal, spontaneous flow Normal response to augmentation CALF DEEP VEINS Peroneal veins: Normal compression Posterior tibial veins: Normal compression Gastrocnemius and Soleal veins: Not imaged SUPERFICIAL VEINS Great saphenous: Patent and compressible at insertion into common femoral vein; not otherwise assessed. Small Saphenous: Patent and compressible in the proximal calf, not otherwise assessed. IMPRESSION: NEGATIVE STUDY FOR ACUTE PROXIMAL DVT IN THE LEFT LOWER EXTREMITY. NEGATIVE STUDY FOR ACUTE CALF DVT IN THE LEFT LOWER EXTREMITY. NEGATIVE STUDY FOR SUPERFICIAL THROMBOPHLEBITIS IN THE LEFT LOWER EXTREMITY [employer] Phone: Radiology Study observation (narrative) [employer] Phone: US DUP LOWER EXTREMITY LEFT VENOrdered By: Jamie Thornton on 09-24-2021 [employer] Phone: Coding Summary.on 01-21-2017 Coding Summary. CODING DATE: 01/21/2017 FINAL [facility] DSC STATUS: Home (Routine DC) PAYOR: [facility] [place] APC DESCRIPTION 5372 Level 2 Urology and Related Services ADMIT DX: REASON FOR VISIT DX: R31.0 Gross hematuria FINAL DX: PRINCIPAL: R31.0 Gross hematuria SECONDARY: N40.1 Benign prostatic hyperplasia with lower urinary tract symptoms R31.21 Asymptomatic microscopic hematuria R36.1 Hematospermia I10 Essential (primary) hypertension J30.2 Other seasonal allergic rhinitis PYMT PROC APC STAT DESCRIPTION DOCTOR NAME DATE NOTE: The code number assigned matches the documented diagnosis and / or procedure in the patient's chart. However, the narrative phrase printed from the coding software may appear abbreviated, or result in slightly different terminology. Coded By: Kelsie Arriaza Date Saved: 01/21/2017 08:35 pm Normal [facility] Main OR Intraoperative Recor don 01-17-2017 Main OR Intraoperative Record IntraOp Document Type FTURO Summary Primary Physician: Royer Daniels Jr., MD Finalized Date/Time: 01/17/17 15:22:06 Pt. Name: ASHWIN AVERY/Sex: 1960 Male Med Rec #: [id number] Physician: Royer Daniels Jr., MD Financial #: [id number] Pt. Type: O Room/Bed: / Admit/Disch: 01/17/17 14:24:05 - Institution: Case Times FTURO Entry 1 Patient Times In Room 01/17/17 15:04:00 Out Room 01/17/17 15:17:00 Procedure Times Start 01/17/17 15:09:00 Stop 01/17/17 15:12:00 Anesthesia Times Last Modified By: ARIELLE Alejandro RN, Radha 01/17/17 15:12:44 Case Attendance FTURO Entry 1 Entry 2 Entry 3 Case Attendee Javon MCCOLLUM, KAROLINAOR, [facility], Ivy Daniels Jr., MD, Royer Garcia Role Performed Wind Energy Engineer - Primary Scrub - Primary Surgeon - Primary Time In 01/17/17 15:04:00 01/17/17 15:04:00 01/17/17 15:04:00 Time Out 01/17/17 15:17:00 01/17/17 15:17:00 01/17/17 15:17:00 Procedure CYSTOSCOPY LOCAL(.) CYSTOSCOPY LOCAL(.) CYSTOSCOPY LOCAL(.) Comments Last Modified By: KAROLINA Alejandro RNOR, ARIELLE Alejandro RN, ARIELLE Alejandro RN, Radha 01/17/17 Radha 01/17/17 Radha 01/17/17 15:17:54 15:17:54 15:17:54 Surgical Procedures FTURO Entry 1 Procedure Description Procedure CYSTOSCOPY LOCAL Modifiers . Surgeon Description CYSTOSCOPY, Primary Procedure Yes Primary Surgeon eJremiah Moore MD, Royer Stuart Start 01/17/17 15:09:00 Stop 01/17/17 15:12:00 Anesthesia Type Local Surgical Service Urology Wound Class 2 - Clean-Contaminated Last Modified By: ARIELLE Alejandro RN, Ruthann 01/17/17 15:17:58 General Case Data FTURO Pre-Care Text: Classifies surgical wound, implements aseptic technique, initiates traffic control Entry 1 Case Information OR URO 1 FT Case Level None Wound Class 2 - Clean-Contaminated Specialty Urology Preop Diagnosis GROSS HEMATURIA, BPH Postop Same As Preop No WITH LUTS Postop Diagnosis , BPH WITH LUTS Outcomes Met? Yes Last Modified By: ARIELLE Alejandro RN, Ruthann 01/17/17 15:10:43 Post-Care Text: The patient is free from signs and symptoms of infection EU IntraOp - FTURO Pre-Care Text: Implements protective measures prior to operative or invasive procedure, confirms identity before the operative or invasive procedure, verifies operative procedure, surgical site, and laterality Entry 1 EU Perioperative Protocols Procedure(s) CYSTOSCOPY LOCAL(.) Patient Identity Birthday, ID Band Verified (select at Check, Patient least 2): Participation Consents / H and P HandP, Surgery/Procedure Operative Site N/A Verified Consent Marking Verified Surgical Site Yes Laterality Verified Yes Verified Procedure Verified Yes Availability Equipment, Medication Verified (If Applicable) Time Out Jenny SUBRAMANIAN Ivy Lopez, Time Out Complete 01/17/17 15:08:00 Participants ARIELLE Alejandro RN, Ruthann, Royer Daniels Jr., MD Allergies Reviewed? Yes Allergies Reviewed Self/Patient With Body Position Supine Prep Area PENIS Prep Agents Betadine Solution Skin. Condition Intact Additional None Specimens Collected Vitals - EU Blood Pressure 132/80 Pulse 85 bpm Respirations SPO2 EBL 0 IandO - EU Total Intake 0 mL Total Output 0 mL Outcomes Met? Yes Last Modified By: ARIELLE Alejandro RN, Ruthann 01/17/17 15:22:02 Post-Care Text: The patient is free from signs and symptoms of injury caused by extraneous objects Case Comments Finalized By: ARIELLE Alejandro RN, Ruthann Document Signatures Signed By: ARIELLE Alejandro RN, Ruthann 01/17/17 15:22 Normal [facility] Main OR Preoperative Recordo n 01-17-2017 Main OR Preoperative Record Holding Area Document Type FTURO Summary Primary Physician: Royer Daniels Jr., MD Finalized Date/Time: 01/17/17 15:14:14 Pt. Name: ASHWIN AVERY Elvis/Sex: 1960 Male Med Rec #: [id number] Physician: Royer Daniels Jr., MD Financial #: [id number] Pt. Type: O Room/Bed: / Admit/Disch: 01/17/17 14:24:05 - Institution: Case Times Holding FTURO Pre-Care Text: Verifies consent for planned procedure, identifies individual values and wishes concerning care, includes family members in perioperative teaching Secures patient's records' belongings, and valuables, maintains patient's dignity and privacy, and maintains patient confidentiality Entry 1 In Holding 01/17/17 14:34:00 Outcomes Met? Yes Last Modified By: Kamla Spears LPN 01/17/17 14:34:54 Post-Care Text: The patient participates in decisions affecting his or her perioperative plan of care The patient's right to privacy is maintained Surgery Checklist FTURO Entry 1 Patient Birthday, ID Band Procedure History and Physical, Identification: Check, Patient Verification: Surgical Consent, With Participation Patient NPO after Midnight: n/a Personal Items: Jewelry Personal Items watch on Complaints of Pain: No Comment: Skin Integrity Intact, [place], Warm, & Dry Vitals - EU Blood Pressure 132/80 Pulse 88 bpm Respirations 16 br/min SPO2 RN Reviewed Yes Last Modified By: ARIELLE Alejandro RN, Ruthann 01/17/17 15:14:11 Finalized By: ARIELLE Alejandro RN, Ruthann Document Signatures Signed By: Kamla Spears LPN 01/17/17 14:38 ARIELLE Alejandro RN, Ruthann 01/17/17 15:13 ARIELLE Alejandro RN, Ruthann 01/17/17 15:14 Normal [facility] Operative Reporton Operative Report Patient: ASHWIN AVERY Age: 56 years Sex: Male : 1960 Associated Diagnoses: None Author: Jeremiah Moore MD, Royer Stuart Procedure Operative Information Details: Date/ Time: 01/17/17 15:13:00. Pre-Op Dx: Gross Hematuria - R31.0, Micro Hematuria - Asymptomatic - R31.21, BPH w/ LUTS - N40.1. Post-Op Dx: Same. Anesthesia Type: Local. Procedure: Local Cystoscopy. Complications: None. Risks/Benefits/Inform ed Consent: Surgical risks, benefits, details of the procedure have been explained to the patient, Full informed consent has been obtained. Intraoperative Information Prepped: Patient is brought back to the endoscopy suite, Patient is placed in supine position, Patient prepped in the usual fashion with Betadine solution, 2% Xylocaine Jelly is placed per Urethra, After waiting several minutes the Cystoscope is introduced. The Urethra is: Normal. The Prostatic Urethra is: Moderate Hypertrophy. The Bladder is: Normal, Trabeculated None (0), No tumor or other mucocal lesion noted.. The ureteral orifices: Show efflux of clear urine. Specimens Removed: Both are pending.. Devices Implanted: None. Removal: Cystoscope is removed, The patient tolerated it well. Postoperative Information Discharge: Patient is discharged home with antibiotic coverage, Follow up arranged. Normal [facility] Comment on above: Result Comment: Elec tronically Signed By: Jeremiah Moore MD, Royer Haney.ricky\Date and Time Signed: 01/17/17 15:16 EDT Vital Signs Date Time Vital Sign Value Performing Clinician Facility 07-19-2023 13:32-0400 Body height 177.8 cm [facility] 07-19-2023 13:32-0400 Body mass index (BMI) [Ratio] 30 kg/m2 [facility] 07-19-2023 13:32-0400 Body weight 94.97 kg [facility] 07-19-2023 13:32-0400 Diastolic blood pressure 77 mm[Hg] [facility] 07-19-2023 13:32-0400 Heart rate 71 /min [facility] 07-19-2023 13:32-0400 Systolic blood pressure 128 mm[Hg] [facility] 08-10-2022 10:00-0400 Body height 177.8 cm Marcelo Ball Other [facility] Other 08-10-2022 10:00-0400 Body mass index (BMI) [Ratio] 28.15 kg/m2 Marcelo Ball Other [facility] Other 08-10-2022 10:00-0400 Body weight 89 kg Marcelo Ball Other [facility] Other 08-10-2022 10:00-0400 Diastolic blood pressure 80 mm[Hg] Marcelo Ball Other [facility] Other 08-10-2022 10:00-0400 Respiratory rate 12 /min Marcelo Ball Other [facility] Other 08-10-2022 10:00-0400 Systolic blood pressure 143 mm[Hg] Marcelo Ball Other [facility] Other 07-13-2022 11:00-0400 Body height 177.8 cm Marcelo Ball Other [facility] Other 07-13-2022 11:00-0400 Body mass index (BMI) [Ratio] 28.64 kg/m2 Marcelo Ball Other [facility] Other 07-13-2022 11:00-0400 Body weight 90.54 kg Marcelo Ball Other [facility] Other 07-13-2022 11:00-0400 Diastolic blood pressure 85 mm[Hg] Marcelo Ball Other [facility] Other 07-13-2022 11:00-0400 Respiratory rate 16 /min Marcelo Ball Other [facility] Other 07-13-2022 11:00-0400 Systolic blood pressure 141 mm[Hg] Marcelo Ball Other [facility] Other 09-24-2021 14:07-0400 Body height 177.8 cm Marcelo Ball DO Work Phone: [facility] 09-24-2021 14:07-0400 Body mass index (BMI) [Ratio] 27.98 kg/m2 Marcelo Ball DO Work Phone: [facility] 09-24-2021 14:07-0400 Body temperature 97.7 [degF] Marcelo Ball DO Work Phone: [facility] 09-24-2021 14:07-0400 Body weight 88.45 kg Marcelo Ball DO Work Phone: [facility] 09-24-2021 14:07-0400 Diastolic blood pressure 83 mm[Hg] Marcelo Ball DO Work Phone: [facility] 09-24-2021 14:07-0400 Heart rate 82 /min Marcelo Ball DO Work Phone: [facility] 09-24-2021 14:07-0400 Respiratory rate 18 /min Marcelo Thompson DO Work Phone: [facility] 09-24-2021 14:07-0400 SaO2% (BldA) [Mass fraction] 97 % Marcelo Thompson DO Work Phone: [facility] 09-24-2021 14:07-0400 Systolic blood pressure 138 mm[Hg] Marcelo Thompson DO Work Phone: [facility] Encounters Encounter Date Encounter Type Care Provider Facility Start: 07-19-2023 End: 07-19-2023 ambulatory [facility] Work Phone: Start: 07-19-2023 End: 07-19-2023 Patient encounter procedure [facility] Work Phone: Start: 06-07-2023 End: 06-07-2023 ambulatory Marcelo Thompson Other [facility] Other Start: 06-07-2023 Telephone encounter Marcelo [facility] Start: 03-08-2023 End: 03-08-2023 ambulatory Marcelo Thompson Other [facility] Other Start: 03-08-2023 Telephone encounter Marcelo [facility]OU [facility] Start: 02-22-2023 End: 02-22-2023 ambulatory Marcelo Thompson Other [facility] Other Start: 02-22-2023 Telephone encounter Marcelo [facility] Start: 01-26-2023 End: 01-26-2023 ambulatory Marcelo Thompson Other [facility] Other Start: 01-26-2023 Encounter for genera l adult medical examination without abnormal findings Marcelo Thompson [facility] Start: 01-26-2023 Telephone encounter Marcelo [facility] Start: 08-17-2022 End: 08-18-[address] MARCELO THOMPSON Facility:[facility] Start: 08-15-2022 End: 08-15-2022 ambulatory Marcelo Thompson Other [facility] Other Start: 08-15-2022 Telephone encounter Marcelo LOU [facility] Start: 08-10-2022 End: 08-10-2022 ambulatory Marcelo Thomposn Other [facility] Other Start: 08-10-2022 Office outpatient vi sit 15 minutes Marcelo Thompson [facility] Start: 07-30-2022 End: 07-30-2022 ambulatory Marcelo Thompson Other [facility] Other Start: 07-30-2022 Telephone encounter Marcelo LOU [facility] Start: 07-13-2022 Office outpatient vi sit 25 minutes Marcelo Thompson [facility] Start: 07-13-2022 End: 07-14-[address] MARCELO THOMPSON [facility] Other Start: 01-23-2022 Encounter for genera l adult medical examination without abnormal findings DR MARCELO THOMPSON [facility] Start: 01-19-2022 End: 01-20-[address] MARCELO THOMPSON Facility:[facility] Start: 01-19-2022 End: 01-20-2022 Encounter for general adult medical examination without abnormal findings DR MARCELO THOMPSON Facility:[facility] Start: 09-24-2021 End: 09-24-2021 Emergency department patient visit MARCELO THOMPSON [facility] Start: 09-24-2021 End: 09-24-2021 Emergency department patient visit Marcelo Thompson DO Work Phone: [facility] Comment on above: Cellulitis of left l ower extremity (Primary Dx) Start: 01-17-2017 End: 01-18-2017 Ambulatory Jos Mclaughlin Facility:[facility] Procedures Date Procedure Procedure Detail Performing Clinician Start: 01-19-[address] MITESH THOMPSON Comment on above: Performed By: #### [facility] #### [facility] [address] [place] [address] Dr. Keanu Shafer Start: 09-24-2021 Dup-scan xtr veins unilateral/limited study Luciano Maradiaga PA-C Work Phone: Start: 09-24-2021 Comprehensive metabo lic panel Luciano Maradiaga PA-C Work Phone: Plan of Treatment Date Care Activity Detail Author Start: 12-28-2021 Influenza vaccination Flu vacc ine (Season Ended) [facility] Start: 10-20-2009 Shingles vaccine (1 of 2) Shingles vaccine (1 of 2) [facility] Start: 10-20-2004 Screening for malign ant neoplasm of colon [facility] Start: 1999 Lipid panel Lipids [facility] Start: 1999 Prostate specific antigen measurement Prostate Specific Antigen (PSA) Screening or Monitoring [facility] Start: 10-20-1994 Diabetes screen Diabetes screen [facility] Start: 10-20-1978 DTaP/Tdap/Td vaccine (1 - Tdap) DTaP/Tdap/Td vaccine (1 - Tdap) [facility] Start: 10-20-1977 Hepatitis C screening Hepatitis C sc reen [facility] Start: 10-20-1974 HIV screening HIV screen [facility] Start: 1971 Depression Screen Depression Screen [facility] Start: 10-20-1964 COVID-19 Vaccine (1) COVID-19 Vaccin e (1) [facility] Payers Date Payer Category Payer Unknown [id number] 1960 Unknown [id number] 1960 Unknown [id number] 1960 Unknown [id number] [id number] 1960 Unknown [id number] 1960 Unknown [id number] Self-pay Self Pay [id number] Social History Date Type Detail Facility Start: 09-24-2021 End: 07-19-2023 Tobacco smoking status NHIS Never smoked tobacco [employer] Phone: Start: 09-24-2021 Tobacco use and exposure Smokeless tobacco non-user [employer] Phone: Start: 09-24-2021 Alcohol intake Ex-drinker (finding) [employer] Phone: Start: 1960 Sex Assigned At Not on file B [facility] Phone: Start: 09-14-2021 End: 09-24-2021 Exposure to SARS-CoV-2 (event) Not sure [employer] Phone: Sex Assigned At Sex Assigned At Bir th [facility] Other Start: 1960 Sex Assigned At Male F [facility] Clinical Notes 07-13-2022 to 07-19-2023 Note Date & Type Note Facility 07-19-2023 Evaluation note Diagnosis Onset Date Elevated cholesterol acute Essential hypertension acute Renal cyst, left acute Stage 3a chronic kidney disease [facility] Work Phone: [phone] 258-553811-10-2023 Evaluation note* Encounter Date Diagnosis Assessment Notes Treatment Notes Treatment Clinical Notes Feb, Hypokalemia (ICD-10 - E87.6) [facility] Other 10-27-2023 Evaluation note* Encounter Date Diagnosis Assessment Notes Treatment Notes Treatment Clinical Notes Jan, Stage 3a chronic kidney disease (ICD-10 - N18.31) [facility] Other 09-30-2023 Evaluation note* Encounter Date Diagnosis Assessment Notes Treatment Notes Treatment Clinical Notes Dec, Essential hypertension (ICD-10 - I10) Dec, Wellness examination (ICD-10 - Z00.00) [facility] Other 04-19-2023 Evaluation note* Encounter Date Diagnosis Assessment Notes Treatment Notes Treatment Clinical Notes Jul, Left lower quadrant abdominal pain (ICD-10 - R10.32) [facility] Other 04-14-2023 Evaluation note* Encounter Date Diagnosis Assessment Notes Treatment Notes Treatment Clinical Notes Jul, Left lower quadrant abdominal pain (ICD-10 - R10.32) Increase dietary fiber. Hydrate CT to r/o ureteral stone, hydronephrosis and diverticulitis Jul, Essential hypertension (ICD-10 - I10) This patient is instructed to consume a healthy, low-fat, low-salt diet. They are also encouraged to continue exercise to achieve/maintain a normal BMI. Jul, History of nephrolithiasis (ICD-10 - Z87.442) Push fluids, check CT [facility] Other 04-03-2023 Evaluation note* Encounter Date Diagnosis Assessment Notes Treatment Notes Treatment Clinical Notes Jul, Essential hypertension (ICD-10 - I10) [facility] Other 03-17-2023 Evaluation note* Encounter Date Diagnosis Assessment Notes Treatment Notes Treatment Clinical Notes Jun, Essential hypertension (ICD-10 - I10) This patient is instructed to consume a healthy, low-fat, low-salt diet. They are also encouraged to continue exercise to achieve/maintain a normal BMI. Elevated in office today. INstructed on checking BP at home over the next week. - feet on floor, arm supported and take 3 readings - average lowest 2 readings together Jun, Stage 3a chronic kidney disease (ICD-10 - N18.31) The patient is instructed on adequate control of hypertension and diabetes, if appropriate. They are also educated on the associated risks of NSAIDs and PPI use with kidney disease. They were instructed on adequate fluid balance and to avoid dehydration. Jun, Hyperlipidemia type II (ICD-10 - E78.01) Diet and exercise with continued statin therapy. Jun, Overweight (BMI 25.0-29.9) (ICD-10 - E66.3) This patient has been instructed on a low-fat, high-fiber diet. They are instructed to reduce calories, portion sizes and snacks. It is recommended that they exercise for 30 minutes, 3-5 times weekly. Jun, Benign prostatic hyperplasia with lower urinary tract symptoms (ICD-10 - N40.1) Symptoms tolerable, yearly PSA Jun, History of nephrolithiasis (ICD-10 - Z87.442) Push fluids [facility] Other Evaluation note* Diagnosis Cellulitis of left lower extremity- Primary Cellulitis and abscess of leg, except foot documented in this encounter [facility] Phone: evaluation noteNo [employer] Other History general Narrative - Reported* Type Description Date Medical History hypertension Medical History CKD CHRONIC KIDNEY DISEASE STAGE 3 Medical History History of nephrolithiasis Medical History Arthritis of shoulder region, ri ght Medical History Benign prostatic hyp erplasia with lower urinary tract symptoms Medical History Premature ventricular contractio ns Medical History Hyperlipidemia type II Medical History Ulcer of left foot, limited to b reakdown of skin Medical History Gross hematuria Medical History Anemia Medical History Cellulitis of left leg Medical History Bursitis, prepatellar, left Medical History Unruptured cyst of left poplitea l space Medical History Restless leg syndrome Medical History Cyst of right kidney Medical History Essential hypertension Surgical History knee surgery Surgical History hernia repair Surgical History RIGHT SHOULDER AND RIGHT ARM 20 18 Hospitalization History See Above [facility] Other Hospital Discharge instructions* Attachments The following attachments cannot be sent through Care Everywhere. * Cellulitis (Amharic) documented in this encounterBON [facility] Phone: Summary Purpose Family History Relationship Condition Age at Onset Recorded Date/T kameron father Heart disease Unknown Diabetes mellitus Unknown Dementia Unknown Malignant neoplasm Unknown Not Specified Unknown Hypertension Unknown Heart disease Unknown sister Hypertension Unknown Advance Directives Advance Directive Response Recorded Date/ Time Advance Directives No May 21, 2023 4:29pm Chief Complaint and Reason for Visit Chief Complaint 6 month follow up Reason for Visit Elevated cholesterol Essential hypertension Renal cyst, left Stage 3a chronic kidney disease Additional Source Comments (unrecognized sect ion and content) No Status Records FoundNo Status Records FoundNo Status Records Found INFORMATION SOURCE (unrecogn ized section and content) DATE CREATED AUTHOR 10/23/2017 Stuart Bravo [facility] DATE CREATED AUTHOR AUTHOR'S ORGANIZ ATION 09/24/2021 [facility] DATE CREATED AUTHOR AUTHOR'S ORGANIZ ATION 08/24/2022 [facility] Reason for Visit (unrecogniz ed section and content) Reason Comments Leg Swelling left lower leg Ordered Prescriptions (unrec ognized section and content) Prescription Sig Dispensed Refills Start Date End Da te doxycycline hyclate (VIBRA-TABS) 100 MG tablet Take 1 tablet by mouth 2 times daily for 7 days 14 tablet 0 09/24/2021 10/01/2021 Care Teams (unrecognized sec tion and content) Personal Development Educator Relationship Specialty Start Date End Date Marcelo Thompson DO [address] [facility] [place] [address] PCP - General Internal Medicine 09/24/21 Team Status: Active Member Role Status Dates Marcelo Thompson DO Primary Care Provider Active Team Status: Inactive Member Role Status Dates Marcelo Thompson DO Primary Care Provide r, Attending Provider Active Start: July 19, 2023 End: July 19, 2023 Goals (unrecognized section and content) Goals may be documented in a n alternate section FOR RECORDS PERTAINING TO PATIENTS WHO ARE OR HAVE BEEN ENROLLED IN A CHEMICAL DEPENDENCY/SUBSTANCEABUSE PROGRAM, SOME INFORMATION MAY BE OMITTED. This clinical summary was aggregated from multiple sources. Caution should be exercised in using it in the provision of clinical care. This summary normalizes information from multiple sources, and as a consequence, information in this document may materially change the coding, format and clinical context of patient data. In addition, data may be omitted in some cases. CLINICAL DECISIONS SHOULD BE BASED ON THE PRIMARY CLINICAL RECORDS. [facility]. provides no warranty or guarantee of the accuracy or completeness of information in this document.
--- NOTE | 2023-08-15 19:07 | US_ITS ---
[address] [address] Patient Name: RICHY AVERY MRN: [id number] date: 1960 Sex: M Assigned Patient Location: Current Patient Location: Accession/Order Number: [id number] Exam Date: 08/15/2023 19:10 Report Date: 08/16/2023 13:11 At the request of: JOHNNIE GILL Procedure: US carotid duplex BI EXAMINATION: US carotid duplex BI HISTORY: Transient cerebral Ischaemic attack, unspecified G45.9 COMPARISON: No relevant comparison available. TECHNIQUE: Duplex Doppler ultrasound analysis of carotid and vertebral arteries. . Bilateral carotid arterial duplex examination was performed using B-mode, color flow and spectral analysis. Carotid stenosis is reported according to validated velocity parameters, similar to NASCET criteria. FINDINGS: RIGHT CAROTID ARTERY: Mild plaque without significant stenosis. RIGHT VERTEBRAL: Antegrade flow. Subclavian: PSV: 229.2 cm/s EDV: 15.8 cm/s CCA: Prox: PSV: 196.7 cm/s EDV: 22.3 cm/s Mid: PSV: 125.1 cm/s EDV: 19.2 cm/s Distal: PSV: 108.3 cm/s EDV: 27.6 cm/s BULB: PSV: 99.9 cm/s EDV: 19.2 cm/s ICA: Prox: PSV: 72.7 cm/s EDV: 21.5 cm/s Mid: PSV: 76.7 cm/s EDV: 21.5 cm/s Distal: PSV: 90.5 cm/s EDV: 29.4 cm/s ECA: PSV: 141.4 cm/s EDV: 25.3 cm/s VERTEBRAL: PSV: 44.9 cm/s EDV: 9.8 cm/s ICA/CCA ratio: PSV: 0.7 EDV: 1.5 LEFT CAROTID ARTERY: Mild plaque without significant stenosis. LEFT VERTEBRAL: Antegrade flow. Subclavian: PSV: 255.0 cm/s EDV: 0.0 cm/s CCA: Prox: PSV: 135.3 cm/s EDV: 22.3 cm/s Mid: PSV: 115.9 cm/s EDV: 28.7 cm/s Distal: PSV: 108.3 cm/s EDV: 27.6 cm/s BULB: PSV: 72.7 cm/s EDV: 23.5 cm/s ICA: Prox: PSV: 102.3 cm/s EDV: 27.4 cm/s Mid: PSV: 68.8 cm/s EDV: 19.5 cm/s Distal: PSV: 82.6 cm/s EDV: 31.3 cm/s ECA: PSV: 139.2 cm/s EDV: 20.7 cm/s VERTEBRAL: PSV: 54.8 cm/s EDV: 12.8 cm/s ICA/CCA ratio: PSV: 0.9 EDV: 1.0 US/US carotid duplex BI IMPRESSION: 1. 0-49% flow stenosis within the right and left carotid arteries. 2. Mild atherosclerotic disease. Spectral Doppler US Thresholds Stenosis (%) PSV (cm/sec) VICA/VCCA 0-49 <150 <2.5 50-69 150-225 2.5-4.0 >70 >225 >4.0 Electronically authenticated by: NICOLLE MATTSON Date: 08/16/2023 13:11
== END 2023-08-15 18:52 | disposition home or self-care (01) ==
LOC: US 18:51
PROVIDERS: PCP Internal Medicine; Visit Provider Internal Medicine
DX: R20.8 Other disturbances of skin sensation (principal); R20.2 Paresthesia of skin; G45.9 Transient cerebral ischemic attack, unspecified; I10 Essential (primary) hypertension; E78.00 Pure hypercholesterolemia, unspecified; I70.90 Unspecified atherosclerosis
CPT/HCPCS: 93880

== ENCOUNTER 2023-10-13 14:12 | Emergency (ER) | payer OTHER, SELFPAY ==
[2023-10-13 14:17] VITALS: BP 125/79; PULSE 86; TEMP 37; O2SAT 98; BMI 29.4
--- OUTSIDE RECORDS SUMMARY | 2023-10-13 14:32 | XMS_ITS | CCD ---
Author Organization [facility] Inform ion Partnership [facility] Care Team Providers Care Medical Billing Associate Name Role Phone Arnoldo, Jos W Unavailable Unavailable Rice, Jos W Unavailable Unavailable Rice, Jos W Unavailable Unavailable JAY, MARCELO~[phone] UNKNOWN Unavailable Unavailable Marcelo Thompson DO Primary Care Provider [phone] MARCELO THOMPSON Primary Care Unavailable Marcelo Thompson [...] [sulfa drugs] Propensity to adverse reactions (disorder) [facility] (1 source) Sulfonamides (Antibiotic) Propensity to adverse reactions to drug 09-25-19 Nausea And Vomiting [facility] (10 sources) Ciprofloxacin Drug Allergy 07-19-19 Unknown, Unknown Reaction [facility] (4 sources) Hmg-Coa Reductase Inhibitors (Statins) Propensity to adverse reactions MUSCLE PAIN [facility] (8 sources) Sulfacetamide / Sulfur Drug Allergy Unknown [facility] (10 sources) sulfADIAZINE Drug Allergy 07-19-19 Unknown, Comment:Sulfa [facility] (8 sources) tamsulosin Drug Allergy Unknown [facility] (1 source) black walnut pollen extract Drug Allergy [facility] (1 source) Sulfonamides (Antibiotic) Drug allergy (disorder) 03-02-20 14 [facility] (6 sources) predniSONE Drug Allergy 07-19-19 Unknown, Unknown Reaction [facility] (4 sources) Statins Depletion *DIETARY PRODUCTS/DIETARY MANAGE Propensity to adverse reactions Comment:ALL Statins [facility] (2 sources) tamsulosin Drug Allergy 07-19-19 Unknown Reaction [facility] (2 sources) Kgdwbed-SXI-OwJ Reductase Inhibitor Allergy to substance 07-19-19 Comment:ALL Statins [facility] Medications Current Medications Medication Drug Class(es) Dates Sig (Normalized) Sig (Original) amLODIPine 5 mg oral tablet (4 sources) Dihydropyridine Calcium Channel Cate take 1 tablet by mouth every twelve hours amLODIPine Besylate 5 MG 1 tablet Orally TWICE A DAY Active amLODIPine 10 mg / hydroCHLOROthiazide 25 mg / olmesartan medoxomil 40 mg oral tablet (6 sources) Thiazide Diuretic, Dihydropyridine Calcium Channel Cate, Angiotensin 2 Receptor Cate Start: 07-18-2023 take 1 tablet by mouth once daily Olmesartan-Aml odipin-Hcthiaz id Active 1 TAB PO Daily July 18, 2023 12:00am Start: 01-25-2023 take 1 tablet by james th every twenty-four hours Kzohrieqab-nkCHILCsdk-YVSX 40-10-25 MG 1 tablet Orally Once a day for 30 days Dec, Active azithromycin 250 mg oral tablet (1 source) Macrolide Antimicrobial Start: 10-07-2023 Azithromycin Active 250 MG PO As Directed 6 October 07, 2023 12:00am benazepril hydrochloride 40 mg oral tablet (4 sources) Angiotensin Converting Enzyme Inhibitor take 1 tablet by mouth every twenty-four hours Benazepril HCl 40 MG 1 tablet Orally Once a day Active chlorthalidone 25 mg oral tablet (3 sources) Thiazide-like Diuretic Start: 07-30-2022 take 0.5 tablet by mouth once daily Chlorthalidone 25 MG 1/2 tablet Orally Once a day for 30 days Jul, Active doxycycline hyclate 100 mg oral tablet (1 source) Tetracycline-class Drug Start: 09-24-2021 End: 06-05-2022 take 1 tablet by mouth twice daily doxycycline hyclate (VIBRA-TABS) 100 MG tablet Take 1 tablet by mouth 2 times daily for 7 days 14 tablet 0 09/24/2021 10/01/2021 Active ezetimibe 10 mg oral tablet (10 sources) Dietary Cholesterol Absorption Inhibitor Start: 07-18-2023 take 10 mg by mouth once daily Ezetimibe Active 10 MG PO Daily July 18, 2023 12:00am take 1 tablet by mouth once abdirizak y Ezetimibe 10 MG TAKE 1 TABLET BY MOUTH EVERY DAY Active fluticasone propionate 0.05 mg/actuat metered dose nasal spray (10 sources) Corticosteroid Start: 07-18-2023 Fluticasone Pr opionate [...] Active labetalol hydrochloride 300 mg oral tablet (10 sources) beta-Adrenergic Cate Start: 07-18-2023 take 300 mg by mouth twice daily Labetalol Active 300 MG PO Twice daily July 18, 2023 12:00am Labetalol HCl 30 0 MG TAKE 1 TABLET BY MOUTH TWICE A DAY FOR 30 DAYS for 30 Active take 2 tablets by mo [facility] every twelve hours Labetalol HCl 100 MG 2 TABLETS Orally Twice a day Active Completed/Discontinued Medications Medication Drug Class(es) Dates Sig (Normalized) Sig (Original) potassium chloride 10 meq extended release oral tablet (4 sources) Start: 07-18-2023 End: 07-19-2023 take 10 [...] [LEFT LOWER QUADRANT PAIN] Onset: 08-17-2022 Episodic Acute bronchitis (1 source) Acute bronchitis due to other specified organisms; Translations: [Acute bronchitis] 10-07-2023 Episodic Calculus of urinary tract (12 sources) History of calculus of kidney; Translations: [...] Dyslipidemia; Translations: [Hyperlipidemia, unspecified] Chronic Essential hypertension (17 sources) Essential hypertension; Translations: [Essential (primary) hypertension] [...] disease, or unspecified chronic kidney disease] Chronic Mycoses (2 sources) Onychomycosis due to dermatophyte ; Translations: [Tinea unguium] 07-19-2023 Episodic Osteoarthritis (8 sources) Localized, primary osteoarthritis of [...] Episodic Other diseases of kidney and ureters (2 sources) Cyst of kidney; Translations: [Cyst of kidney, acquired] 07-18-2023 Episodic Other diseases of kidney and ureters (2 sources) Cyst of kidney, acquired; Translations: [Cystic kidney disease, unspecified] 07-19-2023 Episodic Other hereditary and degenerative nervous system conditions (8 sources) Restless legs; Translations: [Restless legs syndrome] Chronic Other nervous system disorders (1 source) Abnormal sensation; Translations: [Other disturbances of skin sensation] 07-19-2023 Episodic Other nervous system disorders (1 source) Other disturbances of skin sensation; Translations: [Disturbance of skin sensation] 07-19-2023 Episodic Other nervous system disorders (1 source) Paresthesia of skin; Translations: [Disturbance of skin sensation] 07-19-2023 Episodic Other nutritional; endocrine; and metabolic disorders (1 source) Overweight Episodic Skin and subcutaneous tissue infections (9 sources) Cellulitis of left lower limb; Translations: [Cellulitis of left lower limb] Episodic Transient cerebral ischemia (1 source) Transient cerebral ischemia; Translations: [Transient cerebral ischemic attack, unspecified] 07-19-2023 Chronic Past or Other Problems Problem Classification Problem [...] Test Name Value Interpretation Reference Range Facility Basophils Auto (Bld) [#/Vol] on 08-09-2023 Basophils (Bld) [#/Vol] 0.0 10 3/uL 0.0-0.1 [facility] Basophils/100 WBC Auto (Bld) on 08-09-2023 Basophils/100 WBC (Bld) 0.4 % 0.2-2.0 [facility] Eosinophils/100 WBC Auto (Bl d)on 08-09-2023 Eosinophils/100 WBC (Bld) 2.6 % 0.9-7.0 [facility] Erythrocyte distribution wid th Auto (RBC) [Ratio]on 08-09-2023 Erythrocyte distribution width (RBC) [Ratio] 13.1 % 11.0-15.0 [facility] Estimated glomerular filtrat ion rate (GFR) non- Americanon 08-09-2023 GFR/1.73 sq M.predicted among non-blacks MDRD (S/P/Bld) [Vol rate/Area] 46 mL/min/{1.73_m2} >=60 [facility] Globulin Calc (S) [Mass/Vol] on 08-09-2023 Globulin (S) [Mass/Vol] 3.4 g/dL [facility] Hematocrit Auto (Bld) [Volum e fraction]on 08-09-2023 Hematocrit (Bld) [Volume fraction] 42.7 % 42.0-54.0 [facility] Hemoglobin [Mass/volume] in Bloodon 08-09-2023 Hemoglobin (Bld) [Mass/Vol] 14.0 g/dL 14.0-18.0 [facility] Laboratory - Chemistry and C hemistry - challengeon 08-09-2023 Albumin [Mass/Vol] 3.7 g/dL 3.4-5.0 [facility] ALP [Catalytic activity/Vol] 57 U/L 46-116 [facility] ALT [Catalytic activity/Vol] 30 U/L 16-63 [facility] AST [Catalytic activity/Vol] 17 U/L 15-37 [facility] Bilirubin [Mass/Vol] 0.4 mg/dL 0.2-1.0 [facility] Calcium [Mass/Vol] 9.2 mg/dL 8.5-10.1 [facility] Chloride [Moles/Vol] 104 mmol/L 98-107 [facility] CO2 [Moles/Vol] 30.3 mmol/L 21.0-32.0 [facility] Cobalamin (Vitamin B12) [Mass/Vol] 270.0 pg/mL 193.0-986.0 [facility] Creatinine [Mass/Vol] 1.55 mg/dL 0.70-1.30 [facility] GFR/1.73 sq M.predicted MDRD (S/P/Bld) [Vol rate/Area] 55 mL/min/{1.73_m2} >=60 [facility] Glucose [Mass/Vol] 99 mg/dL 74-106 [facility] Potassium [Moles/Vol] 3.6 mmol/L 3.5-5.1 [facility] Protein [Mass/Vol] 7.1 g/dL 6.4-8.2 [facility] Sodium [Moles/Vol] 144 mmol/L 136-145 [facility] TSH Qn 2.981 m[IU]/L 0.358-3.740 [facility] Urea nitrogen [Mass/Vol] 29.0 mg/dL 7.0-18.0 [facility] Urea nitrogen/Creatinine [Mass ratio] 18.7 mg/mg [facility] Laboratory - Hematology and Cell countson 08-09-2023 Immature granulocytes/100 WBC (Bld) 0.3 % 0.0-0.5 [facility] Leukocytes [#/volume] correc cipriano for nucleated erythrocytes in Blood by Automated counon 08-09-2023 WBC corrected for nucl RBC Auto (Bld) [#/Vol] 6.8 10 3/uL 4.0-11.0 [facility] Lymphocytes Auto (Bld) [#/Vo l]on 08-09-2023 Lymphocytes (Bld) [#/Vol] 1.2 10 3/uL 1.2-3.8 [facility] Lymphocytes/100 WBC Auto (Bl d)on 08-09-2023 Lymphocytes/100 WBC (Bld) 18.0 % 20.5-60.0 [facility] MCH Auto (RBC) [Entitic mass ]on 08-09-2023 MCH (RBC) [Entitic mass] 28.9 pg 25.9-34.0 [facility] MCHC Auto (RBC) [Mass/Vol]on 08-09-2023 MCHC (RBC) [Mass/Vol] 32.8 g/dL 29.9-35.2 [facility] MCV Auto (RBC) [Entitic vol] on 08-09-2023 MCV (RBC) [Entitic vol] 88.2 fL 80.0-94.0 [facility] Monocytes Auto (Bld) [#/Vol] on 08-09-2023 Monocytes (Bld) [#/Vol] 0.8 10 3/uL 0.3-0.8 [facility] Monocytes/100 WBC Auto (Bld) on 08-09-2023 Monocytes/100 WBC (Bld) 11.1 % 1.7-12.0 [facility] Neutrophils Auto (Bld) [#/Vo l]on 08-09-2023 Neutrophils (Bld) [#/Vol] 4.6 10 3/uL 1.4-6.5 [facility] Neutrophils/100 WBC Auto (Bl d)on 08-09-2023 Neutrophils/100 WBC (Bld) 67.6 % 43.0-75.0 [facility] No Panel Informationon 08-08 Eosinophils # (Auto) 0.2 10 3/uL 0.0-0.7 [facility] Immature Granulocyte # (Auto) 0.02 10 3/uL 0.00-0.03 [facility] Platelet mean volume Auto (B ld) [Entitic vol]on 08-09-2023 Platelet mean volume (Bld) [Entitic vol] 8.1 fL 9.5-13.5 [facility] Platelets Auto (Bld) [#/Vol] on 08-09-2023 Platelets (Bld) [#/Vol] 257 10 3/uL 150-450 [facility] RBC Auto (Bld) [#/Vol]on RBC (Bld) [#/Vol] 4.84 10 6/uL 4.70-6.10 [facility] [place] [facility] Serum or plasma albumin/glob ulin mass ratioon 08-09-2023 Albumin/Globulin [Mass ratio] 1.1 {ratio} [facility] Serum or plasma anion gap de terminationon 08-09-2023 Anion gap [Moles/Vol] 13.3 mmol/L [facility] CREATININEon 08-17-2022 Creatinine [Mass/Vol] 1.59 mg/dL Critically high 0.70-1.30 [facility] Comment on above: Performed By: #### C DIANELYS #### [facility] [address] [address] [address] Keanu Shafer EGFR-AF CZECH 54 mL/min/1.73m2 Critically low >=60 [facility] Comment on above: Performed By: #### C DIANELYS #### [facility] [address] [place], [place] [address] Dr. Keanu Shafer EGFR-NON AF CZECH 44 mL/min/1.73m2 Critically low >=60 [facility] Comment on above: Performed By: #### C DIANELYS #### [facility] [address] [place], [place] [address] ABD/PELV W CONon 08-18-[address] ABD/PELV W CON EXAMINATION: CT ABD/PELV [...] ANSHUL AMADOR Date: 2022-08-17 08:53 Normal [facility] Basic Metabolic Panelon 03-1 Calcium [Mass/Vol] 9.4131119 mg/dL 8.5-10 .1 mg/dL [facility] Other CO2 [Moles/Vol] 28.41336878 mmol/L 21.0-3 2.0 mmol/L [facility] Other Creatinine [Mass/Vol] 1.86760241 mg/dL Critically high 0.70-1.30 mg/dL [facility] Other Potassium [Moles/Vol] 4.28871133 mmol/L 3.5-5.1 mmol/L [facility] Other Urea nitrogen [Mass/Vol] 21.2311993 mg/dL Critically high 7.0-18.0 mg/dL [facility] Other Basic Metabolic Panel see note [facility] Other Basic Metabolic Panel 144 mmol/L 136-145 mmol/L [facility] Other Basic Metabolic Panel 99 mg/dL 74-106 mg/dL [facility] Other Basic Metabolic Panel 55 mL/min/1.73m2 Critically low >=60 mL/min/1.73m2 [facility] Other Basic Metabolic Panel >60 mL/min/1.73m2 >=60 mL/min/1.73m2 [facility] Other Anion gap [Moles/Vol] 11.0 mmol/L Normal [facility] Other Comment on above: Performed By: #### B MP #### [facility] [address] [place] [address] Dr. Keanu Shafer Chloride [Moles/Vol] 109 mmol/L Critically high 98-107 [facility] Other Comment on above: Performed By: #### B MP #### [facility] [address] [address] [address] Keanu Shafer Urea nitrogen/Creatinine [Mass ratio] 16.0 mg/mg Normal [facility] [employer] Other Comment on above: Performed By: #### B MP #### [facility] [address] [place] [address] Dr. Keanu Shafer PROF CHEM 8 (BAS METB)on Calcium [Mass/Vol] 9.0 mg/dL Normal 8.5-10.1 [facility] Comment on above: Performed By: #### B MP #### [facility] [address] [address] [address] Keanu Shafer CO2 [Moles/Vol] 28.3 mmol/L Normal 21.0-32.0 [facility] Comment on above: Performed By: #### B MP #### [facility] [address] [address] [address] Keanu Shafer Creatinine [Mass/Vol] 1.31 mg/dL Critically high 0.70-1.30 [facility] Comment on above: Performed By: #### B MP #### [facility] [address] [address] [address] Keanu Shafer EGFR-AF CZECH >60 Normal >=60 [facility] Comment on above: Performed By: #### B MP #### [facility] [address] [address] [address] Keanu Shafer EGFR-NON AF CZECH 55 mL/min/1.73m2 Critically low >=60 [facility] Comment on above: Performed By: #### B MP #### [facility] [address] [address] [address] Keanu Shafer Glucose [Mass/Vol] 99 mg/dL Normal 74-106 [facility] Comment on above: Performed By: #### B MP #### [facility] [address] [address] [address] Keanu Shafer Potassium [Moles/Vol] 4.3 mmol/L Normal 3.5-5.1 [facility] Comment on above: Performed By: #### B MP #### [facility] [address] [address] [address] Keanu Shafer Sodium [Moles/Vol] 144 mmol/L Normal 136-145 [facility] Comment on above: Performed By: #### B MP #### [facility] [address] [address] [address] Keanu Shafer Urea nitrogen [Mass/Vol] 21.0 mg/dL Critically high 7.0-18.0 [facility] Comment on above: Performed By: #### B MP #### [facility] [address] [address] [address] Keanu Shafer CBC AUTO DIFFon 01-19-2022 BASO # 0.0 103/ul Normal 0.0-0.1 [facility] Comment on above: Performed By: #### C BC #### [facility] [address] [place] [address] Dr. Keanu Shafer Basophils/100 WBC (Bld) 0.3 % Normal 0.2-2.0 [facility] Comment on above: Performed By: #### C BC #### [facility] [address] [place] [address] Dr. Keanu Shafer EO # 0.2 103/ul Normal 0.0-0.7 [facility] Comment on above: Performed By: #### C BC #### [facility] [address] [place] [address] Dr. Keanu Shafer Eosinophils/100 WBC (Bld) 2.4 % Normal 0.9-7.0 [facility] Comment on above: Performed By: #### C BC #### [facility] [address] [place] [address] Dr. Keanu Shafer Erythrocyte distribution width (RBC) [Ratio] 13.2 % Normal 11.0-15.0 [facility] Comment on above: Performed By: #### C BC #### [facility] [address] [place] [address] Dr. Keanu Shafer Hematocrit (Bld) [Volume fraction] 42.1 % Normal 42.0-54.0 [facility] Comment on above: Performed By: #### C BC #### [facility] [address] [place] [address] Dr. Keanu Shafer Hemoglobin (Bld) [Mass/Vol] 14.2 g/dL Normal 14.0-18.0 [facility] Comment on above: Performed By: #### C BC #### [facility] [address] [place] [address] Dr. Keanu Shafer IG # 0.02 10e3/ul Normal 0.00-0.03 [facility] Comment on above: Performed By: #### C BC #### [facility] [address] [place] [address] Dr. Keanu Shafer IG % 0.3 % Normal 0.0-0.5 [facility] Comment on above: Performed By: #### C BC #### [facility] [address] [place] [address] Dr. Keanu Shafer LYMPH # 1.0 103/ul Critically low 1.2-3.[address] [facility] Comment on above: Performed By: #### C BC #### [facility] [address] [place] [address] Dr. Keanu Shafer Lymphocytes/100 WBC (Bld) 16.0 % Critically low 20.5-60.0 [facility] Comment on above: Performed By: #### C BC #### [facility] [address] [place] [address] Dr. Keanu Shafer MANUAL DIFF REQ NO Normal [facility] Comment on above: Performed By: #### C BC #### [facility] [address] [place] [address] Dr. Keanu Shafer MCH (RBC) [Entitic mass] 29.2 pg Normal 25.9-34.0 [facility] Comment on above: Performed By: #### C BC #### [facility] [address] [place] [address] Dr. Keanu Shafer MCHC (RBC) [Mass/Vol] 33.7 g/dL Normal 29.9-35.2 [facility] Comment on above: Performed By: #### C BC #### [facility] [address] [place] [address] Dr. Keanu Shafer MCV (RBC) [Entitic vol] 86.6 fL Normal 80.0-94.0 [facility] Comment on above: Performed By: #### C BC #### [facility] [address] [place] [address] Dr. Keanu Shafer MONO # 0.6 103/ul Normal 0.3-0.8 [facility] Comment on above: Performed By: #### C BC #### [facility] [address] [place] [address] Dr. Keanu Shafer Monocytes/100 WBC (Bld) 9.2 % Normal 1.7-12.0 [facility] Comment on above: Performed By: #### C BC #### [facility] [address] [place] [address] Dr. Keanu Shafer NEUT # 4.5 103/ul Normal 1.4-6.5 [facility] Comment on above: Performed By: #### C BC #### [facility] [address] [place] [address] Dr. Keanu Shafer Neutrophils/100 WBC (Bld) 71.8 % Normal 43.0-75.0 [facility] Comment on above: Performed By: #### C BC #### [facility] [address] [place] [address] Dr. Keanu Shafer Platelet mean volume (Bld) [Entitic vol] 7.8 fL Critically low 9.5-13.5 [facility] Comment on above: Performed By: #### C BC #### [facility] [address] [place] [address] Dr. Keanu Shafer PLT 233 103/ul Normal 150-450 [facility] Comment on above: Performed By: #### C BC #### [facility] [address] [place] [address] Dr. Keanu Shafer RBC 4.86 106/ul Normal 4.70-6.10 [facility] Comment on above: Performed By: #### C BC #### [facility] [address] [place] [address] Dr. Keanu Shafer WBC 6.2 103/ul Normal 4.0-11.0 [facility] Comment on above: Performed By: #### C BC #### [facility] [address] [place] [address] Dr. Keanu Shafer LIPID PROFILEon 01-19-2022 CHOL-HDL RATIO NORM SEE BELOW Normal [facility] Comment on above: Result Comment: 3.3 - 4.4 LOW RISK 4.4 - 7.1 AVERAGE RISK 7.1 - 11.0 MODERATE RISK >11.0 HIGH RISK Performed By: #### C MP, LIPID #### [facility] [address] [address] [address] Keanu Shafer Cholesterol [Mass/Vol] 222 mg/dL Critically high <=200 [facility] Comment on above: Performed By: #### C MP, LIPID #### [facility] [address] [address] [address] Keanu Shafer Cholesterol in HDL [Mass/Vol] 40 mg/dL Normal 40-60 [facility] Comment on above: Performed By: #### C MP, LIPID #### [facility] [address] [address] [address] Keanu Shafer Cholesterol in LDL [Mass/Vol] 160.6 mg/dL Normal [facility] Comment on above: Performed By: #### C MP, LIPID #### [facility] [address] [address] [address] Keanu Shafer Cholesterol.total/Ch olesterol in HDL [Mass ratio] 5.6 {ratio} Normal [facility] Comment on above: Performed By: #### C MP, LIPID #### [facility] [address] [address] [address] Keanu Shafer HDL NORMAL > or = 60 mg/dl - LOW CARDIOVASCULAR RISK <40 mg/dl - HIGH CARDIOVASCULAR RISK Normal [facility] Comment on above: Performed By: #### C MP, LIPID #### [facility] [address] [address] [address] Keanu Shafer LDL CALC NORMAL SEE BELOW Normal [facility] Comment on above: Result Comment: <100 mg/dl OPTIMAL 100 - 129 mg/dl NEAR OR ABOVE OPTIMAL 130 - 159 mg/dl BORDERLINE HIGH 160 - 189 mg/dl HIGH >190 mg/dl VERY HIGH Performed By: #### C MP, LIPID #### [facility] [address] [address] [address] Keanu Shafer Triglyceride [Mass/Vol] 107 mg/dL Normal <=150 [facility] Comment on above: Performed By: #### C MP, LIPID #### [facility] [address] [address] [address] Keanu Shafer VLDL CALC 21.4 mg/dL Normal [facility] Comment on above: Performed By: #### C MP, LIPID #### [facility] [address] [place] [address] Dr. Keanu Shafer PROF 14(COMP METB)on 022 Albumin [Mass/Vol] 3.9 g/dL Normal 3.4-5.0 [facility] Comment on above: Performed By: #### C MP, LIPID #### [facility] [address] [place] [address] Dr. Keanu Shafer Albumin/Globulin [Mass ratio] 1.3 {ratio} Normal [facility] Comment on above: Performed By: #### C MP, LIPID #### [facility] [address] [place] [address] Dr. Keanu Shafer ALP [Catalytic activity/Vol] 55 U/L Normal 46-116 [facility] Comment on above: Performed By: #### C MP, LIPID #### [facility] [address] [place] [address] Dr. Keanu Shafer ALT [Catalytic activity/Vol] 25 U/L Normal 16-63 [facility] Comment on above: Performed By: #### C MP, LIPID #### [facility] [address] [place] [address] Dr. Keanu Shafer Anion gap [Moles/Vol] 8.8 mmol/L Normal [facility] Comment on above: Performed By: #### C MP, LIPID #### [facility] [address] [place] [address] Dr. Keanu Shafer AST [Catalytic activity/Vol] 15 U/L Normal 15-37 [facility] Comment on above: Performed By: #### C MP, LIPID #### [facility] [address] [place] [address] Dr. Keanu Shafer Bilirubin [Mass/Vol] 0.7 mg/dL Normal 0.2-1.0 [facility] Comment on above: Performed By: #### C MP, LIPID #### [facility] [address] [place] [address] Dr. Keanu Shafer Calcium [Mass/Vol] 8.7 mg/dL Normal 8.5-10.1 [facility] Comment on above: Performed By: #### C MP, LIPID #### [facility] [address] [place] [address] Dr. Keanu Shafer Chloride [Moles/Vol] 106 mmol/L Normal 98-107 [facility] Comment on above: Performed By: #### C MP, LIPID #### [facility] [address] [place] [address] Dr. Keanu Shafer CO2 [Moles/Vol] 28.4 mmol/L Normal 21.0-32.0 [facility] Comment on above: Performed By: #### C MP, LIPID #### [facility] [address] [place] [address] Dr. Keanu Shafer Creatinine [Mass/Vol] 1.25 mg/dL Normal 0.70-1.30 [facility] Comment on above: Performed By: #### C MP, LIPID #### [facility] [address] [place] [address] Dr. Keanu Shafer EGFR-AF CZECH >60 Normal >=60 [facility] Comment on above: Performed By: #### C MP, LIPID #### [facility] [address] [place] [address] Dr. Keanu Shafer EGFR-NON AF CZECH 59 mL/min/1.73m2 Critically low >=60 [facility] Comment on above: Performed By: #### C MP, LIPID #### [facility] [address] [place] [address] Dr. Keanu Shafer Globulin (S) [Mass/Vol] 3.1 g/dL Normal [facility] Comment on above: Performed By: #### C MP, LIPID #### [facility] [address] [place] [address] Dr. Keanu Shafer Glucose [Mass/Vol] 99 mg/dL Normal 74-106 [facility] Comment on above: Performed By: #### C MP, LIPID #### [facility] [address] [place] [address] Dr. Keanu Shafer Potassium [Moles/Vol] 4.2 mmol/L Normal 3.5-5.1 [facility] Comment on above: Performed By: #### C MP, LIPID #### [facility] [address] [place] [address] Dr. Keanu Shafer Protein [Mass/Vol] 7.0 g/dL Normal 6.4-8.2 [facility] Comment on above: Performed By: #### C MP, LIPID #### [facility] [address] [address] [address] Keanu Shafer Sodium [Moles/Vol] 139 mmol/L Normal 136-145 [facility] Comment on above: Performed By: #### C MP, LIPID #### [facility] [address] [place] [address] Dr. Keanu Shafer Urea nitrogen [Mass/Vol] 18.0 mg/dL Normal 7.0-18.0 [facility] Comment on above: Performed By: #### C MP, LIPID #### [facility] [address] [place] [address] Dr. Keanu Shafer Urea nitrogen/Creatinine [Mass ratio] 14.4 mg/mg Normal [facility] Comment on above: Performed By: #### C MP, LIPID #### [facility] [address] [place] [address] Dr. Keanu Shafer CBC With Platelet and Differ entialon 09-24-2021 Basophils (Bld) [#/Vol] 0.0 10*3/uL Normal 0.0-0.2 [facility] Comment on above: Performed By: #### C BCWD #### [facility] [address] [place] [address] Basophils/100 WBC (Bld) 0.3 % Normal [facility] Comment on above: Performed By: #### C BCWD #### [facility] [address] [place] [address] Eosinophils (Bld) [#/Vol] 0.1 10*3/uL Normal 0.0-0.7 [facility] Comment on above: Performed By: #### C BCWD #### [facility] [address] [place] [address] Eosinophils/100 WBC (Bld) 0.9 % Normal [facility] Comment on above: Performed By: #### C BCWD #### [facility] [address] [place] [address] Erythrocyte distribution width (RBC) [Ratio] 13.9 % Normal 11.5-14.5 [facility] Comment on above: Performed By: #### C BCWD #### [facility] [address] [place] [address] Hematocrit (Bld) [Volume fraction] 42.6 % Normal 42.0-52.0 [facility] Comment on above: Performed By: #### C BCWD #### [facility] [address] [place] [address] Hemoglobin (Bld) [Mass/Vol] 14.2 g/dL Normal 14.0-18.0 [facility] Comment on above: Performed By: #### C BCWD #### [facility] [address] [place] [address] Lymphocytes (Bld) [#/Vol] 0.9 10*3/uL Low 1.0-4.8 [facility] Comment on above: Performed By: #### C BCWD #### [facility] [address] [place] [address] Lymphocytes/100 WBC (Bld) 8.1 % Normal [facility] Comment on above: Performed By: #### C BCWD #### [facility] [address] [place] [address] MCH (RBC) [Entitic mass] 28.9 pg Normal 27.0-31.3 [facility] Comment on above: Performed By: #### C BCWD #### [facility] [address] [place] [address] MCHC 33.3 % Normal 33.0-37.0 [facility] Comment on above: Performed By: #### C BCWD #### [facility] [address] [place] [address] MCV (RBC) [Entitic vol] 86.8 fL Normal 80.0-100.0 [facility] Comment on above: Performed By: #### C BCWD #### [facility] [address] [place] [address] Monocytes (Bld) [#/Vol] 0.8 10*3/uL Normal 0.2-0.8 [facility] Comment on above: Performed By: #### C BCWD #### [facility] [address] [place] [address] Monocytes/100 WBC (Bld) 7.4 % Normal [facility] Comment on above: Performed By: #### C BCWD #### [facility] [address] [place] [address] Neutrophils (Bld) [#/Vol] 9.5 10*3/uL Critically high 1.4-6.5 [facility] Comment on above: Performed By: #### C BCWD #### [facility] [address] [place] [address] Neutrophils/100 WBC (Bld) 83.3 % Normal [facility] Comment on above: Performed By: #### C BCWD #### [facility] [address] [place] [address] Platelets (Bld) [#/Vol] 289 10*3/uL Normal 130-400 [facility] Comment on above: Performed By: #### C BCWD #### [facility] [address] [place] [address] RBC (Bld) [#/Vol] 4.90 10*6/uL Normal 4.70-6.10 [facility] Comment on above: Performed By: #### C BCWD #### [facility] [address] [place] [address] WBC (Bld) [#/Vol] 11.4 10*3/uL Critically high 4.8-10.8 [facility] Comment on above: Performed By: #### C BCWD #### [facility] [address] [place] [id number] CBC with Auto Differentialon 09-24-2021 Basophils (Bld) [#/Vol] 0.0 10*3/uL 0.0 - 0.2 K/uL [facility] Basophils/100 WBC (Bld) 0.3 % [facility] Eosinophils (Bld) [#/Vol] 0.1 10*3/uL 0.0 - 0.7 K/uL [facility] Eosinophils/100 WBC (Bld) 0.9 % [facility] Hematocrit (Bld) [Volume fraction] 42.6 % 42.0 - 52.0 % [facility] Hemoglobin.gastroint estinal spec 1 Ql (Stl) 14.2 g/dL 14.0 - 18.0 g/dL [facility] Interpretation and review of laboratory results Abnormal [facility] Lymphocytes (Bld) [#/Vol] 0.9 10*3/uL Low 1.0 - 4.8 K/uL [facility] Lymphocytes/100 WBC (Bld) 8.1 % [facility] MCH (RBC) [Entitic mass] 28.9 pg 27.0 - 31.3 pg [facility] MCHC (RBC) [Mass/Vol] 33.3 % 33.0 - 37.0 % [facility] MCV (RBC) [Entitic vol] 86.8 fL 80.0 - 100.0 fL [facility] Monocytes (Bld) [#/Vol] 0.8 10*3/uL 0.2 - 0.8 K/uL [facility] Monocytes/100 WBC (Bld) 7.4 % [facility] Neutrophils Absolute 9.5 K/uL High 1.4 - 6 .5 K/uL [facility] Neutrophils/100 WBC (Bld) 83.3 % [facility] Platelet distribution width (Bld) [Ratio] 13.9 % 11.5 - 14.5 % [facility] Platelets (Bld) [#/Vol] 289 10*3/uL 130 - 400 K/uL [facility] RBC (Bld) [#/Vol] 4.90 10*6/uL KRISTEN Marie ECOGILDARDO [facility] WBC (Bld) [#/Vol] 11.4 10*3/uL High 4.8 - 10.8 K/uL [facility] Comprehensive Metabolic Pane erasmo 09-24-2021 Albumin [Mass/Vol] 4.3 g/dL Normal 3.5-4.6 [facility] Comment on above: Performed By: #### C MP #### [facility] [address] [place] [address] ALP [Catalytic activity/Vol] 68 U/L Normal 35-104 [facility] Comment on above: Performed By: #### C MP #### [facility] [address] [place] [address] ALT [Catalytic activity/Vol] 14 U/L Normal 0-41 [facility] Comment on above: Performed By: #### C MP #### [facility] [address] [place] [address] Anion gap [Moles/Vol] 11 mmol/L Normal 9-15 [facility] Comment on above: Performed By: #### C MP #### [facility] [address] [place] [address] AST [Catalytic activity/Vol] 14 U/L Normal 0-40 [facility] Comment on above: Result Comment: Spec imen hemolysis has exceeded the interference as defined by Ayla. Value may be falsely increased. Suggest recollection if clinically indicated. Performed By: #### C MP #### [facility] [address] [place] [address] Bilirubin [Mass/Vol] 0.3 mg/dL Normal 0.2-0.7 [facility] Comment on above: Performed By: #### C MP #### [facility] [address] [place] [address] Calcium [Mass/Vol] 9.0 mg/dL Normal 8.5-9.9 [facility] Comment on above: Performed By: #### C MP #### [facility] [address] [place] [address] Chloride [Moles/Vol] 102 mmol/L Normal 95-107 [facility] Comment on above: Performed By: #### C MP #### [facility] [address] [place] [address] CO2 [Moles/Vol] 27 mmol/L Normal 20-31 [facility] Comment on above: Performed By: #### C MP #### [facility] [address] [place] [address] Creatinine [Mass/Vol] 1.27 mg/dL Critically high 0.70-1.20 [facility] Comment on above: Performed By: #### C MP #### [facility] [address] [place] [address] GFR 57.5 Low >60 [facility] Comment on above: Result Comment: >60 mL/min/1.73m2 EGFR, calc. for ages 18 and older using the MDRD formula (not corrected for weight), is valid for stable renal function. Performed By: #### C MP #### [facility] [address] [place] [address] GFR/1.73 sq M.predicted among blacks MDRD (S/P/Bld) [Vol rate/Area] mL/min/{1.73_m2} Normal >60 [facility] Comment on above: Result Comment: >60 mL/min/1.73m2 EGFR, calc. for ages 18 and older using the MDRD formula (not corrected for weight), is valid for stable renal function. Performed By: #### C MP #### [facility] [address] [place] [address] Globulin (S) [Mass/Vol] 2.9 g/dL Normal 2.3-3.5 [facility] Comment on above: Performed By: #### C MP #### [facility] [address] [place] [address] Glucose [Mass/Vol] 114 mg/dL Critically high 70-99 [facility] Comment on above: Performed By: #### C MP #### [facility] [address] [place] [address] Potassium [Moles/Vol] 4.2 mmol/L Normal 3.4-4.9 [facility] Comment on above: Performed By: #### C MP #### [facility] [address] [place] [address] Protein [Mass/Vol] 7.2 g/dL Normal 6.3-8.0 [facility] Comment on above: Performed By: #### C MP #### [facility] [address] [place] [address] Sodium [Moles/Vol] 140 mmol/L Normal 135-144 [facility] Comment on above: Performed By: #### C MP #### [facility] [address] [place] [address] Urea nitrogen [Mass/Vol] 18 mg/dL Normal 8-23 [facility] Comment on above: Performed By: #### C MP #### [facility] [address] [place] [address] Albumin [Mass/Vol] 4.3 g/dL 3.5 - 4.6 g/dL [facility] ALP (Bld) [Catalytic activity/Vol] 68 U/L 35 - 104 U/L [facility] ALT [Catalytic activity/Vol] 14 U/L 0 - 41 U/L [facility] Anion gap [Moles/Vol] 11 mmol/L [facility] AST [Catalytic activity/Vol] 14 U/L 0 - 40 U/L [facility] Comment on above: Specimen hemolysis h as exceeded the interference as defined by Ayla. Value may be falsely increased. Suggest recollection if clinically indicated. Bilirubin [Mass/Vol] 0.3 mg/dL 0.2 - 0 .7 mg/dL [facility] Calcium [Mass/Vol] 9.0 mg/dL 8.5 - 9.9 mg/dL [facility] Chloride [Moles/Vol] 102 mmol/L [facility] CO2 [Moles/Vol] 27 mmol/L [facility] Creatinine [Mass/Vol] 1.27 mg/dL High 0.70 - 1.20 mg/dL [facility] Free PSA/Total PSA [Mass fraction] 7.2 g/dL 6.3 - 8.0 g/dL [facility] GFR >60.0 >60 [facility] Comment on above: >60 mL/min/1.73m2 EG FR, calc. for ages 18 and older using the MDRD formula (not corrected for weight), is valid for stable renal function. GFR Non- 57.5 Low >60 [facility] Comment on above: >60 mL/min/1.73m2 EG FR, calc. for ages 18 and older using the MDRD formula (not corrected for weight), is valid for stable renal function. Globulin (S) [Mass/Vol] 2.9 g/dL 2.3 - 3.5 g/dL [facility] Glucose [Mass/Vol] 114 mg/dL High 70 - 99 mg/dL [facility] Interpretation and review of laboratory results Abnormal [facility] Potassium [Moles/Vol] 4.2 mmol/L [facility] Sodium [Moles/Vol] 140 mmol/L [facility] Urea nitrogen (BldV) [Mass/Vol] 18 mg/dL 8 - 23 mg/dL [facility] US DUP LOWER EXTREMITY LEFT VENon 09-24-2021 [...] Jamie Thornton MD 09/24/[address] [facility] NEGATIVE STUDY FOR ACUTE PROXIMAL DVT IN THE LEFT LOWER EXTREMITY. NEGATIVE STUDY FOR ACUTE CALF DVT IN THE LEFT LOWER EXTREMITY. NEGATIVE STUDY FOR SUPERFICIAL THROMBOPHLEBITIS IN THE LEFT LOWER EXTREMITY [facility] LEFT LOWER EXTREMITY DEEP VENOUS ULTRASOUND WITH DOPPLER IMAGING CLINICAL HISTORY: Lower extremity swelling COMPARISON: None TECHNIQUE: Kelly scale with compression maneuvers, Color Doppler and Spectral Doppler at rest and with augmentation of the left distal external iliac, common femoral, femoral and popliteal veins was performed. Urtledge scale with compression maneuvers of the peroneal [...] in the proximal calf, not otherwise assessed. [facility] RADIOLOGY Jamie Thornton MD - 09/24/2021 LEFT LOWER EXTREMITY DEEP VENOUS [...] SUPERFICIAL THROMBOPHLEBITIS IN THE LEFT LOWER EXTREMITY [employer] Phone: Radiology Study observation (narrative) [employer]: DUP LOWER EXTREMITY LEFT VENOrdered By: Jamie Thornton on 09-24-2021 [employer]: Coding Summary.on 01-21-2017 Coding Summary. CODING DATE: 01/21/2017 FINAL [facility] STATUS: Home (Routine DC) PAYOR: [facility] [place] [facility] DESCRIPTION 5372 Level 2 Urology and [...] Arriaza Date Saved: 01/21/2017 08:35 pm Normal [facility] Main OR Intraoperative Recor hali 01-17-2017 Main OR Intraoperative Record IntraOp Document Type FTURO Summary Primary Physician: Royer Daniels Jr., MD Finalized Date/Time: 01/17/17 15:22:06 Pt. Name: ASHWIN AVERY /Sex: 1960 Male Med Rec #: [id number] Physician: Royer Daniels Jr., MD Financial #: [id number] Pt. Type: O Room/Bed: / Admit/Disch: 01/17/17 14:24:05 - Institution: Case Times FTURO Entry 1 Patient Times In Room 01/17/17 15:04:00 Out Room 01/17/17 15:17:00 Procedure Times Start 01/17/17 15:09:00 Stop 01/17/17 15:12:00 Anesthesia Times Last Modified By: ARIELLE Alejandro RN, Ruthann 01/17/17 15:12:44 Case Attendance FTURO Entry 1 Entry 2 Entry 3 Case Attendee Javon MCCOLLUM, KAROLINAOR, [facility], Royer Coleman Jr., MD Role Performed Osteologist - Primary Scrub - Primary Surgeon - Primary Time In 01/17/17 15:04:00 01/17/17 15:04:00 01/17/17 15:04:00 Time Out 01/17/17 15:17:00 01/17/17 15:17:00 01/17/17 15:17:00 Procedure CYSTOSCOPY LOCAL(.) CYSTOSCOPY LOCAL(.) CYSTOSCOPY LOCAL(.) Comments Last Modified By: Javon RN, KAROLINAOR, Javon MCCOLLUM, KAROLINAOR, Javon MCCOLLUM, Radha GUZMÁN 01/17/17 Radha 01/17/17 Radha 01/17/17 15:17:54 15:17:54 15:17:54 Surgical Procedures FTURO Entry 1 Procedure Description Procedure CYSTOSCOPY LOCAL Modifiers . Surgeon Description CYSTOSCOPY, Primary Procedure Yes Primary Surgeon Royer Daniels Jr., MD Start 01/17/17 15:09:00 Stop 01/17/17 15:12:00 Anesthesia [...] Equipment, Medication Verified (If Applicable) Time Out Ivy Alvarado CST Time Out Complete 01/17/17 15:08:00 Participants ARIELLE Alejandro RN, Jeremiah Garcia Jr., MD, Royer Stuart Allergies Reviewed? Yes Allergies Reviewed Self/Patient With [...] ARIELLE Alejandro RN, Ruthann 01/17/17 15:22 Normal [facility] Main OR Preoperative Recordo n 01-17-2017 Main OR Preoperative Record Holding Area Document Type FTURO Summary Primary Physician: Royer Daniels Jr., MD Finalized Date/Time: 01/17/17 15:14:14 Pt. Name: ASHWIN AVERY Elvis/Sex: 1960 Male Med Rec #: [id number] Physician: Royer Daniels Jr., MD Financial #: [id number] Pt. Type: O Room/Bed: / Admit/Disch: 01/17/17 [...] of Pain: No Comment: Skin Integrity Intact, [place], Warm, & Dry Vitals - EU Blood Pressure 132/80 Pulse 88 bpm Respirations 16 br/min SPO2 RN Reviewed Yes Last Modified By: ARIELLE Alejandro RN, Ruthann 01/17/17 15:14:11 Finalized By: ARIELLE Alejandro RN, Ruthann Document Signatures Signed By: Kamla Spears LPN 01/17/17 14:38 ARIELLE Alejandro RN, Ruthann 01/17/17 15:13 ARIELLE Alejandro RN, Ruthann 01/17/17 15:14 Normal [facility] Operative Reporton 7 Operative Report Patient: ASHWIN AVERY Age: 56 years Sex: Male : 1960 Associated Diagnoses: None Author: Royer Daniels Jr., MD Procedure Operative Information Details: Date/ Time: 01/17/17 15:13:00. Pre-Op Dx: Gross Hematuria - R31.0, Micro Hematuria - Asymptomatic - R31.21, BPH w/ LUTS - N40.1. Post-Op Dx: Same. Anesthesia Type: Local. Procedure: Local Cystoscopy. Complications: None. Risks/Benefits/Infor med Consent: Surgical risks, benefits, details of the [...] with antibiotic coverage, Follow up arranged. Normal [facility] Comment on above: Result Comment: Elec tronically Signed By: Jeremiah Moore MD, Royer Stuart\.br\Date and Time Signed: 01/17/17 15:16 EDT Vital Signs Date Time Vital Sign Value Performing Clinician Facility 07-19-2023 [id number] Body height 177.8 cm [facility] 07-19-2023 13:32-0400 Body mass index (BMI) [Ratio] 30 kg/m2 [facility] 07-19-2023 13:32-0400 Body weight 94.97 kg [facility] 07-19-2023 13:32-0400 Diastolic blood pressure 77 mm[Hg] [facility] 07-19-2023 13:32-0400 Heart rate 71 /min [facility] 07-19-2023 13:32-0400 Systolic blood pressure 128 mm[Hg] [facility] 08-10-2022 10:00-0400 Body height 177.8 cm Marcelo Ball Other [facility] Other 08-10-2022 10:00-0400 Body mass index (BMI) [Ratio] 28.15 kg/m2 Marcelo Ball Other [facility] Other 08-10-2022 10:00-0400 Body weight 89 kg Marcelo Ball Other [facility] Other 08-10-2022 10:00-0400 Diastolic blood pressure 80 mm[Hg] Marcelo Ball Other [facility] Other 08-10-2022 10:00-0400 Respiratory rate 12 /min Marcelo Ball Other [facility] Other 08-10-2022 10:00-0400 Systolic blood pressure 143 mm[Hg] Marcelo Ball Other [facility] Other 07-13-2022 11:00-0400 Body height 177.8 cm Marcelo Ball Other [facility] Other 07-13-2022 11:00-0400 Body mass index (BMI) [Ratio] 28.64 kg/m2 Marcelo Ball Other [facility] Other 07-13-2022 11:00-0400 Body weight 90.54 kg Marcelo Ball Other [facility] Other 07-13-2022 11:00-0400 Diastolic blood pressure 85 mm[Hg] Marcelo Ball Other [facility] Other 07-13-2022 11:00-0400 Respiratory rate 16 /min Marcelo Ball Other [facility] Other 07-13-2022 11:00-0400 Systolic blood pressure 141 mm[Hg] Marcelo Thompson Other [facility] Other 09-24-2021 14:07-0400 Body height 177.8 cm [email or web address] [email or web address] DO Work Phone: [employer] 09-24-2021 14:07-0400 Body mass index (BMI) [Ratio] 27.98 kg/m2 Marcelo [email or web address] DO Work Phone: [employer] 09-24-2021 14:07-0400 Body temperature 97.7 [degF] Marcelo [email or web address] DO Work Phone: [employer] 09-24-2021 14:07-0400 Body weight 88.45 kg Marcelo [email or web address] DO Work Phone: [employer] 09-24-2021 14:07-0400 Diastolic blood pressure 83 mm[Hg] Marcelo [email or web address] DO Work Phone: [employer] 09-24-2021 14:07-0400 Heart rate 82 /min [email or web address] [email or web address] DO Work Phone: [employer] 09-24-2021 14:07-0400 Respiratory rate 18 /min [email or web address] [email or web address] DO Work Phone: [employer] 09-24-2021 14:07-0400 SaO2% (BldA) [Mass fraction] 97 % Marcelo [email or web address] DO Work Phone: [employer] 09-24-2021 14:07-0400 Systolic blood pressure 138 mm[Hg] Marcelo [email or web address] DO Work Phone: [employer] Encounters Encounter Date Encounter Type Care Provider Facility Start: 10-07-2023 End: 10-07-2023 ambulatory [facility] Work Phone: Start: 10-07-2023 End: 10-07-2023 Patient encounter procedure [facility] Work Phone: Start: 08-09-2023 Non-patient / Non-visit [facility] [employer] Work Phone: Start: 07-19-2023 End: 07-19-2023 ambulatory [facility] Work Phone: Start: 07-19-2023 End: 07-19-2023 Patient encounter procedure [facility] Work Phone: Start: 06-07-2023 End: 06-07-2023 ambulatory Marcelo Thompson Other [employer] Other Start: 06-07-2023 Telephone encounter Marcelo LOU [facility] Start: 03-08-2023 End: 03-08-2023 ambulatory Marcelo Thompson Other [employer] Other Start: 03-08-2023 Telephone encounter Marcelo Thompson [facility] Start: 02-22-2023 End: 02-22-2023 ambulatory Marcelo Thompson Other [employer] Other Start: 02-22-2023 Telephone encounter Marcelo Thompson [facility] Start: 01-26-2023 End: 01-26-2023 ambulatory Marcelo Thompson Other [employer] Other Start: 01-26-2023 Encounter for genera l adult medical examination without abnormal findings Marcelo Thompson [facility] Start: 01-26-2023 Telephone encounter Marcelo LOU [facility] Start: 08-17-2022 End: 08-18-[address] MARCELO THOMPSON Facility:[facility] Start: 08-15-2022 End: 08-15-2022 ambulatory Marcelo Thompson Other [employer] Other Start: 08-15-2022 Telephone encounter Marcelo Thompson [facility] Start: 08-10-2022 End: 08-10-2022 ambulatory Marcelo Thompson Other [employer] Other Start: 08-10-2022 Office outpatient vi sit 15 minutes Marcelo Thompson [facility] Start: 07-30-2022 End: 07-30-2022 ambulatory Marcelo Thompson Other [employer] Other Start: 07-30-2022 Telephone encounter Marcelo Thompson [facility] Start: 07-13-2022 Office outpatient vi sit 25 minutes Marcelo Thompson [facility] Start: 07-13-2022 End: 07-14-[address] MARCELO THOMPSON [facility] [employer] Other Start: 01-23-2022 Encounter for genera l adult medical examination without abnormal findings DR MARCELO THOMPSON [facility] Start: 01-19-2022 End: 01-20-[address] MARCELO THOMPSON Facility:[facility] Start: 01-19-2022 End: 01-20-2022 Encounter for general adult medical examination without abnormal findings DR MARCELO THOMPSON Facility:[facility] Start: 09-24-2021 End: 09-24-2021 Emergency department patient visit MARCELO THOMPSON [facility] Start: 09-24-2021 End: 09-24-2021 Emergency department patient visit Marcelo Thompson DO Work Phone: [facility] ED Comment on above: Cellulitis of left l ower extremity (Primary Dx) Start: 01-17-2017 End: 01-18-2017 Ambulatory Jos Mclaughlin Facility:[facility] Procedures Date Procedure Procedure Detail Performing Clinician Start: 01-19-[address] MITESH THOMPSON Comment on above: Performed By: #### P [facility] #### [facility] [address] [place] [address] Dr. Keanu Shafer Start: 09-24-2021 Dup-scan xtr veins unilateral/limited study Luciano Maradiaga PA-C Work Phone: Start: 09-24-2021 Comprehensive metabo lic panel Luciano Maradiaga PA-C Work Phone: Plan of Treatment Date Care Activity Detail Author Start: 12-28-2021 Influenza vaccination Flu vacc ine (Season Ended) [facility] Start: 10-20-2009 Shingles vaccine (1 of 2) [place] gles vaccine (1 of 2) [facility] Start: 10-20-2004 Screening for malign ant neoplasm of colon [facility] Start: 1999 Lipid panel Lipids [facility] Start: 1999 Prostate specific an tigen measurement Prostate Specific Antigen (PSA) Screening or Monitoring [facility] Start: 10-20-1994 Diabetes screen Diabetes screen [facility] Start: 10-20-1978 DTaP/Tdap/Td vaccine (1 - Tdap) DTaP/Tdap/Td vaccine (1 - Tdap) [facility] Start: 10-20-1977 Hepatitis C screening Hepatitis C sc reen [facility] Start: 10-20-1974 HIV screening HIV screen [facility] Start: 1971 Depression Screen Depression Screen [facility] Start: 10-20-1964 COVID-19 Vaccine (1) COVID-19 Vaccin e (1) [facility] Comprehensive metabo lic 2000 panel - Serum or Plasma [facility] MR Brain WO contrast [facility] US.doppler Carotid arteries - bilateral [facility] Payers Date Payer Category Payer Unknown [id number] 1960 Unknown [id number] 1960 Unknown [id number] [id number] [id number] 1960 Unknown [id number] [id number] 1960 Unknown [id number] [id number] 1960 Unknown [id number] Self-pay Self Pay [id number] Social History Date Type Detail Facility Start: 09-24-2021 End: 07-19-2023 Tobacco smoking status NHIS Never smoked tobacco [facility] Phone: Start: 09-24-2021 Tobacco use and exposure Smokeless tobacco non-user [facility]: Start: 09-24-2021 Alcohol intake Ex-drinker (finding) [facility]: Start: 1960 Sex Assigned At Not on file [facility] Phone: Start: 09-14-2021 End: 09-24-2021 Exposure to SARS-CoV-2 (event) Not sure [facility]: Sex Assigned At Sex Assigned At [facility] Start: 1960 Sex Assigned At Male F [facility] Clinical Notes 07-13-2022 to 10-07-2023 Note Date & Type Note Facility 10-07-2023 Evaluation note Diagnosis Onset Date Dysesthesia acute Elevated cholesterol acute Essential hypertension acute Renal cyst, left acute Stage 3a chronic kidney disease acute Tinea unguium acute Intermittent paresthesia of right hand and foot noneactive Essential hypertension acute Acute bronchitis due to othe r specified organisms noneactive [facility] Work Phone: 1(403) 572-314603-22-2024 Evaluation note* Diagnosis Onset Date Resolution Status Elevated cholesterol acute Essential hypertension acute Renal cyst, left acute Stage 3a chronic kidney disease acute [facility] Work Phone: [phone]) 811-321011-10-2023 Evaluation note* Encounter Date Diagnosis Assessment Notes Treatment Notes Treatment Clinical Notes Feb, Hypokalemia (ICD-10 - E87.6) [facility] 10-27-2023 Evaluation note* Encounter Date Diagnosis Assessment Notes Treatment Notes Treatment Clinical Notes Jan, Stage 3a chronic kidney disease (ICD-10 - N18.31) [facility] 09-30-2023 Evaluation note* Encounter Date Diagnosis Assessment Notes Treatment Notes Treatment Clinical Notes Dec, Essential hypertension (ICD-10 - I10) Dec, Wellness examination (ICD-10 - Z00.00) [facility] 04-19-2023 Evaluation note* Encounter Date Diagnosis Assessment Notes Treatment Notes Treatment Clinical Notes Jul, Left lower quadrant abdominal pain (ICD-10 - R10.32) [facility] 04-14-2023 Evaluation note* Encounter Date Diagnosis [...] (ICD-10 - Z87.442) Push fluids, check CT [facility] 04-03-2023 Evaluation note* Encounter Date Diagnosis Assessment Notes Treatment Notes Treatment Clinical Notes Jul, Essential hypertension (ICD-10 - I10) [facility] 03-17-2023 Evaluation note* Encounter Date Diagnosis [...] of nephrolithiasis (ICD-10 - Z87.442) Push fluids [facility] Other Evaluation note* Diagnosis Cellulitis of left lower extremity- Primary Cellulitis and abscess of leg, except foot documented in this encounter [facility] Phone: evaluation noteNo InformationNort[facility] Other History general Narrative - Reported* Type [...] ARM 20 18 Hospitalization History See Above [facility] Other Hospital Discharge instructions* Attachments The following attachments cannot be sent through Care Everywhere. * Cellulitis (Spanish) documented in this encounterBON [facility] Phone: Summary Purpose Family History Relationship Condition [...] cyst, left Stage 3a chronic kidney disease Chief Complaint 6 month follow up [phone] URI Reason for Visit Dysesthesia Elevated cholesterol Essential hypertension Renal cyst, left Stage 3a chronic kidney disease Tinea unguium Intermittent paresthesia of right hand and foot Essential hypertension Acute bronchitis due to other specified organisms Additional Source Comments (unrecognized sect ion and content) No Status Records FoundNo Status Records FoundNo Status Records Found INFORMATION SOURCE (unrecogn ized section and content) DATE CREATED AUTHOR 10/23/2017 [place] [employer] [facility] DATE CREATED AUTHOR AUTHOR'S ORGANIZ ATION 09/24/2021 [facility] DATE CREATED AUTHOR AUTHOR'S ORGANIZ ATION 08/24/2022 [...] Care Teams (unrecognized sec tion and content) Medical Billing Associate Relationship Specialty Start Date End Date Marcelo Thompson DO [address] [place] [address] PCP - General Internal Medicine 09/24/21 Team Status: Active Member Role Status Dates Marcelo Thompson DO Primary Care Provider Active Team Status: Inactive Member Role Status Dates Marcelo Thompson DO Primary Care Provide r, Attending Provider Active Start: July 19, 2023 End: July 19, 2023 Team Status: Active Member Role Status Dates Marcelo Thompson DO Primary Care Provide r, Attending Provider Active Start: August 09, 2023 Team Status: Inactive Member Role Status Dates Marcelo Thompson DO Primary Care Provide r, Attending Provider Active Start: October 07, 2023 End: October 07, 2023 Goals (unrecognized section and content) Goals [...] BE BASED ON THE PRIMARY CLINICAL RECORDS. [facility] [employer] [facility]. provides no warranty or guarantee of the accuracy or completeness of information in this document.
--- NOTE | 2023-10-13 14:49 | ECG_ITS ---
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
--- NOTE | 2023-10-13 14:50 | XR_ITS ---
[address] [address] Patient Name: RICHY AVERY MRN: [id number] date: 1960 Sex: M Assigned Patient Location: ER Current Patient Location: ER Accession/Order Number: [id number] Exam Date: 10/13/2023 15:00 Report Date: 10/13/2023 15:54 At the request of: ELIO AGUILAR Procedure: XR chest 1V EXAM: XR chest 1V HISTORY: SOB, cough COMPARISON: None FINDINGS/IMPRESSION: 1. Lungs are clear 2. No pneumothorax. No pleural effusion. 3. Heart size and mediastinal contours are normal 4. No acute osseous abnormality Electronically authenticated by: GIOVANNI WASHINGTON Date: 10/13/2023 15:54
--- NOTE | 2023-10-13 14:50 | ED_ITS ---
HPI - URI/Sore Throat General Chief Complaint: Upper Respiratory Infection Stated Complaint: SOB Time Seen by Provider: 10/13/23 14:39 Source: patient History of Present Illness HPI Narrative: 62-year-old male presents to the emergency department for chief complaint of shortness of breath and cough. He has had it for about 10 days and finished a course of Zithromax, prescribed by his PCP. This started while he was on a trip to [place], about 10 days ago. His cough has been nonproductive, no hemoptysis either. No documented fever. No personal history of DVT or PE. Related Data Home Medications ?Medication ?Instructions ?Recorded ?Confirmed amlodipine 5 mg tablet mg 10/13/23 ezetimibe 10 mg tablet mg 10/13/23 fluticasone propionate 50 intranasal 10/13/23 mcg/actuation nasal spray,suspension labetalol 300 mg tablet mg 10/13/23 olmesartan 40 mg-amlodipine 10 tab PO 10/13/23 mg-hydrochlorothiazide 25 mg tablet Previous Rx's ?Medication ?Instructions ?Recorded benzonatate 100 mg capsule 100 mg PO TID PRN cough #20 caps 10/13/23 levofloxacin 750 mg tablet 750 mg PO DAILY 7 days #7 tabs 10/13/23 loratadine 5 mg-pseudoephedrine ER 1 tab PO Q12H PRN nasal congestion 10/13/23 120 mg tablet,extended #20 tabs release,12hr (Claritin-D 12 Hour) Allergies Allergy/AdvReac Type Severity Reaction Status Date / Time No Known Drug Allergies Allergy Verified 10/13/23 14:21 Review of Systems ROS Narrative A ten point review of systems is negative except as noted above. Exam Narrative Exam Narrative: Nurses note and vital signs reviewed and patient is not hypoxic. General: The patient appears well and in no apparent distress. Patient is resting comfortably on cart. Skin: Warm, dry, no pallor noted. There is no rash noted. Head: Normocephalic, atraumatic Eye: Normal conjunctiva, no drainage Ears, Nose, Mouth, and Throat: oral mucosa is moist. Nares patent. Cardiovascular: Regular Rate and Rhythm Respiratory: Patient is in no distress, no accessory muscle use, lungs are clear to auscultation, no wheezing, rales or rhonchi Back: non-tender GI: Soft and nontender Musculoskeletal: The patient has no evidence of calf tenderness, no pitting edema, symmetrical pulses noted bilaterally Neurological: A&O, normal speech Psychiatric: Cooperative Constitutional Vital Signs, click to edit/add: Last Vital Signs Temp 98.6 F 10/13/23 14:17 Pulse 71 10/13/23 16:00 Resp 94 H 10/13/23 16:00 BP 128/77 10/13/23 16:00 Pulse Ox 95 10/13/23 16:00 O2 Del Method Room Air 10/13/23 14:17 Course Vital Signs Vital signs: Vital Signs Temperature 98.6 F 10/13/23 14:17 Pulse Rate 86 10/13/23 14:17 Respiratory Rate 24 H 10/13/23 14:17 Blood Pressure 125/79 10/13/23 14:17 Pulse Oximetry 98 10/13/23 14:17 Oxygen Delivery Method Room Air 10/13/23 14:17 Temperature 98.6 F 10/13/23 14:17 Pulse Rate 71 10/13/23 16:00 Respiratory Rate 94 H 10/13/23 16:00 Blood Pressure 128/77 10/13/23 16:00 Pulse Oximetry 95 10/13/23 16:00 Oxygen Delivery Method Room Air 10/13/23 14:17 MDM - URI/Sore Throat MDM Narrative Medical decision making narrative: His workup including CTA chest is negative. He was offered a COVID test but does not feel he needs 1. He is prescribed Levaquin and Tessalon and Claritin- D. Treatment diagnosis and follow-up were discussed with the patient and his . Differential Diagnosis Differential diagnosis: Likely upper respiratory infection, viral infection, bro nchitis and other (PE, pneumonia) Lab Data Attestation: I reviewed the patient's lab results. Labs: Lab Results 10/13/23 Range/Units 14:30 WBC 5.0 (4.0-11.0) 10^3/uL RBC 4.61 L (4.70-6.10) 10^6/uL Hgb 13.3 L (14.0-18.0) g/dL Hct 39.9 L (42.0-54.0) % MCV 86.6 (80.0-94.0) fL MCH 28.9 (25.9-34.0) pg MCHC 33.3 (29.9-35.2) g/dL RDW 12.9 (11.0-15.0) % Plt Count 233 (150-450) 10^3/uL MPV 8.3 L (9.5-13.5) fL Neut % (Auto) 65.0 (43.0-75.0) % Lymph % (Auto) 23.8 (20.5-60.0) % Lewis % (Auto) 8.8 (1.7-12.0) % Eos % (Auto) 1.8 (0.9-7.0) % Baso % (Auto) 0.2 (0.2-2.0) % Neut # (Auto) 3.2 (1.4-6.5) 10^3/uL Lymph # (Auto) 1.2 (1.2-3.8) 10^3/uL Lewis # (Auto) 0.4 (0.3-0.8) 10^3/uL Eos # (Auto) 0.1 (0.0-0.7) 10^3/uL Baso # (Auto) 0.0 (0.0-0.1) 10^3/uL Abs Immat Gran (auto) 0.02 (0.00-0.03) 10^3/uL Imm/Tot Granulo (auto) 0.4 (0.0-0.5) % Sodium 141 (136-145) mmol/L Potassium 4.2 (3.5-5.1) mmol/L Chloride 102 (98-107) mmol/L Carbon Dioxide 25.9 (21.0-32.0) mmol/L Anion Gap 17.3 BUN 32.0 H (7.0-18.0) mg/dL Creatinine 1.59 H (0.70-1.30) mg/dL Est GFR ( Amer) 54 L (>=60) Est GFR (Non-Af Amer) 44 L (>=60) BUN/Creatinine Ratio 20.1 Glucose 100 (74-106) mg/dL Calcium 8.7 (8.5-10.1) mg/dL Troponin I High Sens 6.5 (4.0-76.1) pg/mL Imaging Data Chest x-ray: Radiologist's impression: ITS Impressions Chest CTA 10/13/23 15:22 IMPRESSION:No evidence of pulmonary embolus or acute intrathoracic abnormality. Electronically authenticated by: BYRON YARELYBLAINE Date: 10/13/2023 16:22 ECG Data Attestation: I personally reviewed and interpreted this ECG as follows: (EKG on my interpretation shows sinus rhythm with a rate of 61) Discharge Plan Discharge Stand Alone Forms: Portal Instructions Chief Complaint: Upper Respiratory Infection Clinical Impression: Upper respiratory infection Patient Disposition: Home, Self-Care Time of Disposition Decision: 16:39 Condition: Good Mode of Transportation: Private Vehicle Prescriptions / Home Meds: New levofloxacin 750 mg tablet 750 mg PO DAILY 7 Days Qty: 7 0RF benzonatate 100 mg capsule 100 mg PO TID PRN (Reason: cough) Qty: 20 0RF Claritin-D 12 Hour 5-120 mg tablet extended release 12 hr 1 tab PO Q12H PRN (Reason: nasal congestion) Qty: 20 0RF No Action amlodipine 5 mg tablet labetalol 300 mg tablet fluticasone propionate 50 mcg/actuation spray,suspension INTRANASAL ezetimibe 10 mg tablet ysxqilihoa-mzowmbkos-scuvlunfn 40-10-25 mg tablet PO Print Language: Lithuanian Instructions: Upper Respiratory Infection (ED) Referrals: Marcelo Thompson DO [Primary Care Provider] - 1 week
[2023-10-13 15:03] LABS: Basophils Percent Auto 0.2 % (0.2-2.0); Eosinophils Absolute Auto 0.1 10^3/uL (0.0-0.7); Eosinophils Percent Auto 1.8 % (0.9-7.0); Hematocrit 39.9 % (42.0-54.0); Hemoglobin 13.3 g/dL (14.0-18.0); Immature Granulocytes Abs Auto 0.02 10^3/uL (0.00-0.03); Immature Granulocytes Pct Auto 0.4 % (0.0-0.5); Lymphocytes Absolute Auto 1.2 10^3/uL (1.2-3.8); Lymphocytes Percent Auto 23.8 % (20.5-60.0); Mean Corpuscular HGB Conc 33.3 g/dL (29.9-35.2); Mean Corpuscular Hemoglobin 28.9 pg (25.9-34.0); Mean Corpuscular Volume 86.6 fL (80.0-94.0); Mean Platelet Volume 8.3 fL (9.5-13.5); Monocytes Absolute Auto 0.4 10^3/uL (0.3-0.8); Monocytes Percent Auto 8.8 % (1.7-12.0); Neutrophils Absolute Auto 3.2 10^3/uL (1.4-6.5); Platelet Count 233 10^3/uL (150-450); Red Blood Count 4.61 10^6/uL (4.70-6.10); Red Cell Distribution Width 12.9 % (11.0-15.0)
[2023-10-13 15:10] LABS: Anion Gap 17.3; BUN Creatinine Ratio 20.1; Calcium 8.7 mg/dL (8.5-10.1); Carbon Dioxide 25.9 mmol/L (21.0-32.0); Chloride 102 mmol/L (98-107); Estimated GFR (African America 54 (>=60); Estimated GFR (Non-African Ame 44 (>=60); Glucose 100 mg/dL (74-106); Potassium 4.2 mmol/L (3.5-5.1); Sodium 141 mmol/L (136-145)
[2023-10-13 15:18] LABS: Troponin I High Sensitivity 6.5 pg/mL (4.0-76.1)
--- NOTE | 2023-10-13 15:22 | CT_ITS ---
The [address] [address] Patient Name: RICHY AVERY MRN: [id number] date: 1960 Sex: M Assigned Patient Location: ER Current Patient Location: ER Accession/Order Number: [id number] Exam Date: 10/13/2023 15:35 Report Date: 10/13/2023 16:22 At the request of: ELIO AGUILAR Procedure: CT angio chest EXAM: CT angio chest HISTORY: Short of breath, rule out PE COMPARISON: None. TECHNIQUE: CT chest with intravenous contrast was performed with timing for the evaluation for pulmonary arteries. Multiplanar reformats were performed. MIP (maximum intensity projection) images or 3D post processing was performed. Dose reduction techniques were achieved by using automated exposure control and/or adjustment of mA and/or kV according to patient size and/or use of iterative reconstruction technique. FINDINGS: Lungs: No consolidation, pneumothorax, or effusion. Airways: Normal. Mediastinum: No adenopathy. Aorta: No aneurysm. Cardiac: Normal size. No pericardial effusion. Pulmonary vasculature: Diagnostic opacification of pulmonary arteries without evidence of pulmonary embolus. Normal morphology. Bones: No acute bony abnormality. Axilla: No adenopathy. Thyroid gland: No abnormality demonstrated on provided imaging. Soft tissues: Unremarkable. Upper abdomen: Unremarkable. Additional findings: None. CT/CT angio chest IMPRESSION:No evidence of pulmonary embolus or acute intrathoracic abnormality. Electronically authenticated by: BYRON GARCIA Date: 10/13/2023 16:22
[2023-10-13 16:00] VITALS: BP 128/77; PULSE 71; O2SAT 95
[2023-10-13 16:44] VITALS: BP 117/68; PULSE 88; O2SAT 98
== END 2023-10-13 16:51 | disposition home or self-care (01) ==
PROVIDERS: Emergency Provider Emergency Medicine; PCP Internal Medicine
DX: J06.9 Acute upper respiratory infection, unspecified (principal)
CPT/HCPCS: 36415; 71045; 71275; 80048; 84484; 85025; 93005; 99285; Q9966

== ENCOUNTER 2023-12-24 12:58 | Outpatient (OUT) | payer OTHER, SELFPAY ==
--- NOTE | 2023-12-24 13:01 | FL_ITS ---
[address] [address] Patient Name: RICHY AVERY MRN: [id number] date: 1960 Sex: M [facility] Accession/Order Number: [id number] Exam Date: 12/24/2023 13:15 Report Date: 12/24/2023 14:31 At the request of: JOHNNIE GILL Procedure: FL modified barium swallow EXAMINATION: FL modified barium swallow HISTORY: Thyromegaly, Globus Sensation FLUORO DOSE: 0.4 minutes of fluoroscopy COMPARISON: No relevant comparison available. TECHNIQUE: A swallowing evaluation was performed with fluoroscopy in the usual manner. Standard level fluoroscopic mode of operation utilized. Speech pathology was present for the procedure was recorded FINDINGS: ORAL PHASE: Normal deglutition. PHARYNGEAL PHASE: Normal swallowing. ASPIRATION: None. STRUCTURE: Normal. No visible obstruction, stricture, or dilatation. OTHER: Negative. FL/FL modified barium swallow IMPRESSION: Normal examination. Electronically authenticated by: ANSHUL AMADOR Date: 12/24/2023 14:31
--- NOTE | 2023-12-24 13:01 | US_ITS ---
The [address] [address] Patient Name: RICHY AVERY MRN: [id number] date: 1960 Sex: M Assigned Patient Location: [place] Current Patient Location: Accession/Order Number: [id number] Exam Date: 12/24/2023 13:02 Report Date: 12/25/2023 09:14 At the request of: JOHNNIE GILL Procedure: US thyroid EXAMINATION: US thyroid HISTORY: Thyromegaly, Globus Sensation COMPARISON: No relevant comparison available. FINDINGS: RIGHT LOBE: Normal size and echotexture. Lobe size: 4.0 x 2.1 x 1.2 cm LEFT LOBE: Within medial mid body versus between the left lobe and larynx is a 12 x 8 x 6 mm TR 3 nodule. Lobe size: 3.2 x 1.0 x 1.0 cm ISTHMUS: Minimally thickened. Normal echogenicity. Thickness: 4 mm US/US thyroid IMPRESSION: 1. Nonspecific 12 mm nodule/lesion which appears to be between the left thyroid lobe and larynx, but may be within the thyroid gland. Given patient's symptoms, consider CT neck soft tissue with IV contrast for further evaluation. Electronically authenticated by: NICOLLE MATTSON Date: 12/25/2023 09:14
== END 2023-12-24 12:59 | disposition home or self-care (01) ==
LOC: FL 12:58
PROVIDERS: PCP Internal Medicine; Visit Provider Internal Medicine
DX: R09.A2 Foreign body sensation, throat (principal); E01.0 Iodine-deficiency related diffuse (endemic) goiter
CPT/HCPCS: 74230; 76536; 92611

== ENCOUNTER 2024-01-08 07:23 | Outpatient (OUT) | payer OTHER, SELFPAY ==
--- OUTSIDE RECORDS SUMMARY | 2024-01-08 07:25 | XMS_ITS | CCD ---
Author Organization [facility] Inform ion Partnership [facility] Care Team Providers Care Salvage Repairer Name Role Phone Arnoldo, Jos W Unavailable Unavailable Rice, Jos W Unavailable Unavailable Rice, Jos W Unavailable Unavailable BALL, MARCELO~[phone] UNKNOWN Unavailable Unavailable Marcelo Thompson DO Primary Care Provider MARCELO THOMPSON Primary Care Unavailable Marcelo Thompson [...] [sulfa drugs] Propensity to adverse reactions (disorder) [facility] Repository (1 source) Sulfonamides (Antibiotic) Propensity to adverse reactions to drug 09-25-19 Nausea And Vomiting [facility] (12 sources) Ciprofloxacin Drug Allergy 07-19-19 Unknown, Unknown Reaction [facility] (4 sources) Hmg-Coa Reductase Inhibitors (Statins) Propensity to adverse reactions MUSCLE PAIN [facility] [employer] Other (8 sources) Sulfacetamide / Sulfur Drug Allergy Unknown [employer] Other (12 sources) sulfADIAZINE Drug Allergy 07-19-19 Unknown, Comment:Sulfa [facility] (8 sources) tamsulosin Drug Allergy Unknown [employer] Other (1 source) black walnut pollen extract Drug Allergy [facility] Repository (1 source) Sulfonamides (Antibiotic) Drug allergy (disorder) 03-02-20 14 [facility] Repository (8 sources) predniSONE Drug Allergy 07-19-19 Unknown, Unknown Reaction [facility] (4 sources) Statins Depletion *DIETARY PRODUCTS/DIETARY MANAGE Propensity to adverse reactions Comment:ALL Statins [employer] Other (4 sources) tamsulosin Drug Allergy 07-19-19 24 Unknown Reaction [facility] (4 sources) Luikxnr-GJT-PkE Reductase Inhibitor Allergy to substance 07-19-19 Comment:ALL Statins [facility] Medications Current Medications Medication Drug Class(es) Dates Sig (Normalized) Sig (Original) amLODIPine 5 mg oral tablet (4 sources) Dihydropyridine Calcium Channel Cate take 1 tablet by mouth every twelve hours amLODIPine Besylate 5 MG 1 tablet Orally TWICE A DAY Active amLODIPine 10 mg / hydroCHLOROthiazide 25 mg / olmesartan medoxomil 40 mg oral tablet (8 sources) Thiazide Diuretic, Dihydropyridine Calcium Channel Cate, Angiotensin 2 Receptor Cate Start: 07-18-2023 take 1 tablet by mouth once daily Olmesartan-Aml odipin-Hcthiaz id Active 1 TAB PO Daily July 18, 2023 12:00am Start: 01-25-2023 take 1 tablet by james th every twenty-four hours Kcellmrpya-ejBYVAKdmt-VRSB 40-10-25 MG 1 tablet Orally Once a day for 30 days Dec, Active benazepril hydrochloride 40 mg oral tablet (4 sources) Angiotensin Converting Enzyme Inhibitor take 1 tablet by mouth every twenty-four hours Benazepril HCl 40 MG 1 tablet Orally Once a day Active chlorthalidone 25 mg oral tablet (3 sources) Thiazide-like Diuretic Start: take 0.5 tablet by mouth once daily [...] 10/01/2021 Active ezetimibe 10 mg oral tablet (13 sources) Dietary Cholesterol Absorption Inhibitor Start: take 1 tablet by mouth once daily Ezetimibe Active 0 .ROUTE .COMPLEX November 01, 2023 7:29am TAKE 1 TABLET BY MOUTH EVERY DAY Start: 07-18-2023 End: 11-01-2023 take 10 mg by mouth once daily Ezetimibe Discontinued 10 MG PO Daily July 18, 2023 12:00am November 01, 2023 7:29am take 1 tablet by james th once daily Ezetimibe 10 MG TAKE 1 TABLET BY MOUTH EVERY DAY Active fluticasone propionate 0.05 mg/actuat metered dose nasal spray (12 sources) Corticosteroid Start: 07-18-2023 Fluticasone Pr opionate [...] Active labetalol hydrochloride 300 mg oral tablet (12 sources) beta-Adrenergic Cate Start: 07-18-2023 take 300 mg by mouth twice daily Labetalol Active 300 MG PO Twice daily July 18, 2023 12:00am Labetalol HCl 30 0 MG TAKE 1 TABLET BY MOUTH TWICE A DAY FOR 30 DAYS for 30 Active take 2 tablets by mo [facility] every twelve hours Labetalol HCl 100 MG 2 TABLETS Orally Twice a day Active Completed/Discontinued Medications Medication Drug Class(es) Dates Sig (Normalized) Sig (Original) azithromycin 250 mg oral tablet (3 sources) Macrolide Antimicrobial Start: 10-07-2023 End: 12-13-2023 Azithromycin Discontinued 250 MG PO As Directed 6 October 07, 2023 12:00am December 13, 2023 11:50am potassium chloride 10 meq extended release oral tablet (6 sources) Start: 07-18-2023 End: 07-19-2023 take 10 mEq by mouth once daily Potassium Chloride Discontinued 10 MEQ PO Daily July 18, 2023 12:00am July 19, 2023 1:31pm Start: 03-08-2023 take 1 tablet by james th every twenty-four hours Potassium Chloride ER 10 MEQ 1 tablet with food Orally Once a day for 30 days Feb, Active Problems Active Problems Problem Classification Problem Date Documented Date Episodic/Chronic Abdominal pain (6 sources) Left lower quadrant pain; Translations: [LEFT LOWER QUADRANT PAIN] Onset: 08-17-2022 Episodic Acute bronchitis (4 sources) Acute bronchitis due to other specified organisms; Translations: [Acute bronchitis] 10-07-2023 Episodic Calculus of urinary tract (14 sources) History of calculus of kidney; Translations: [...] Dyslipidemia; Translations: [Hyperlipidemia, unspecified] Chronic Essential hypertension (20 sources) Essential hypertension; Translations: [Essential (primary) hypertension] [...] or unspecified chronic kidney disease] Chronic Mycoses (4 sources) Onychomycosis due to dermatophyte ; Translations: [...] Episodic Other diseases of kidney and ureters (4 sources) Cyst of kidney; Translations: [Cyst of kidney, acquired] 07-18-2023 Episodic Other diseases of kidney and ureters (2 sources) Cyst of kidney, acquired; Translations: [Cystic kidney disease, unspecified] 07-19-2023 Episodic Other hereditary and degenerative nervous system conditions (8 sources) Restless legs; Translations: [Restless legs syndrome] Chronic Other lower respiratory disease (1 source) Postviral cough; Translations: [Cough with frothy sputum] 2023 Episodic Other nervous system disorders (3 sources) Abnormal sensation; Translations: [Other disturbances of skin sensation] 07-19-2023 Episodic Other nervous system disorders (1 source) Other disturbances of skin sensation; Translations: [Disturbance of skin sensation] 07-19-2023 Episodic Other nervous system disorders (1 source) Paresthesia of skin; Translations: [Disturbance of skin sensation] 07-19-2023 Episodic Other nutritional; endocrine; and metabolic disorders (1 source) Overweight Episodic Other upper respiratory disease (1 source) Allergic rhinitis; Translations: [Allergic rhinitis, unspecified] 2023 Chronic Other upper respiratory disease (1 source) Allergic rhinitis, unspecified; Translations: [Allergic rhinitis, cause unspecified] 2023 Chronic Skin and subcutaneous tissue infections (9 sources) Cellulitis of left lower limb; Translations: [Cellulitis of left lower limb] Episodic Transient cerebral ischemia (3 sources) Transient cerebral ischemia; Translations: [Transient cerebral ischemic [...] [facility] Basophils Auto (Bld) [#/Vol] on 10-13-2023 Basophils (Bld) [#/Vol] 0.0 10 3/uL 0.0-0.1 [facility] Basophils/100 WBC Auto (Bld) on 10-13-2023 Basophils/100 WBC (Bld) 0.2 % 0.2-2.0 [facility] Eosinophils/100 WBC Auto (Bl d)on 10-13-2023 Eosinophils/100 WBC (Bld) 1.8 % 0.9-7.0 [facility] Erythrocyte distribution wid th Auto (RBC) [Ratio]on 10-13-2023 Erythrocyte distribution width (RBC) [Ratio] 12.9 % 11.0-15.0 [facility] Estimated glomerular filtrat ion rate (GFR) non- Americanon 10-13-2023 GFR/1.73 sq M.predicted among non-blacks MDRD (S/P/Bld) [Vol rate/Area] 44 mL/min/{1.73_m2} Low >=60 [facility] Hematocrit Auto (Bld) [Volum e fraction]on 10-13-2023 Hematocrit (Bld) [Volume fraction] 39.9 % Low 42.0-54.0 [facility] Hemoglobin [Mass/volume] in Bloodon 10-13-2023 Hemoglobin (Bld) [Mass/Vol] 13.3 g/dL Low 14.0-18.0 [facility] Laboratory - Chemistry and C hemistry - challengeon 10-13-2023 Calcium [Mass/Vol] 8.7 mg/dL 8.5-10.1 [facility] Chloride [Moles/Vol] 102 mmol/L 98-107 [facility] CO2 [Moles/Vol] 25.9 mmol/L 21.0-32.0 [facility] Creatinine [Mass/Vol] 1.59 mg/dL High 0.70-1.30 [facility] GFR/1.73 sq M.predicted MDRD (S/P/Bld) [Vol rate/Area] 54 mL/min/{1.73_m2} Low >=60 [facility] Glucose [Mass/Vol] 100 mg/dL 74-106 [facility] Potassium [Moles/Vol] 4.2 mmol/L 3.5-5.1 [facility] Sodium [Moles/Vol] 141 mmol/L 136-145 [facility] Urea nitrogen [Mass/Vol] 32.0 mg/dL High 7.0-18.0 [facility] Urea nitrogen/Creatinine [Mass ratio] 20.1 mg/mg [facility] Laboratory - Hematology and Cell countson 10-13-2023 Immature granulocytes/100 WBC (Bld) 0.4 % 0.0-0.5 [facility] Leukocytes [#/volume] correc cipriano for nucleated erythrocytes in Blood by Automated counon 10-13-2023 WBC corrected for nucl RBC Auto (Bld) [#/Vol] 5.0 10 3/uL 4.0-11.0 [facility] Lymphocytes Auto (Bld) [#/Vo l]on 10-13-2023 Lymphocytes (Bld) [#/Vol] 1.2 10 3/uL 1.2-3.8 [facility] Lymphocytes/100 WBC Auto (Bl d)on 10-13-2023 Lymphocytes/100 WBC (Bld) 23.8 % 20.5-60.0 [facility] MCH Auto (RBC) [Entitic mass ]on 10-13-2023 MCH (RBC) [Entitic mass] 28.9 pg 25.9-34.0 [facility] MCHC Auto (RBC) [Mass/Vol]on 10-13-2023 MCHC (RBC) [Mass/Vol] 33.3 g/dL 29.9-35.2 [facility] MCV Auto (RBC) [Entitic vol] on 10-13-2023 MCV (RBC) [Entitic vol] 86.6 fL 80.0-94.0 [facility] Monocytes Auto (Bld) [#/Vol] on 10-13-2023 Monocytes (Bld) [#/Vol] 0.4 10 3/uL 0.3-0.8 [facility] Monocytes/100 WBC Auto (Bld) on 10-13-2023 Monocytes/100 WBC (Bld) 8.8 % 1.7-12.0 [facility] Neutrophils Auto (Bld) [#/Vo l]on 10-13-2023 Neutrophils (Bld) [#/Vol] 3.2 10 3/uL 1.4-6.5 [facility] Neutrophils/100 WBC Auto (Bl d)on 10-13-2023 Neutrophils/100 WBC (Bld) 65.0 % 43.0-75.0 [facility] No Panel Informationon 10-12 Eosinophils # (Auto) 0.1 10 3/uL 0.0-0.7 [facility] Immature Granulocyte # (Auto) 0.02 10 3/uL 0.00-0.03 [facility] Troponin I High Sensitivity 6.5 pg/mL 4.0-76.1 [facility] Comment on above: CUT-OFF POINTS HAVE BEEN ESTABLISHED BASED ON THE FOURTHUNIVERSAL DEFINITION OF MYOCARDIAL INFARCTION. THE UPPERREFERENCE LIMIT (URL) OF TROPONIN, DEFINED THE 99THPERCENTILE OF cTnI DISTRIBUTION IN A REFERENCE POPULATION,HAS BEEN CONFIRMED THE DECISION THRESHOLD FOR MIDIAGNOSIS.99TH PERCENTILE = 76.2 PG/MLNOTE: HIGH-SENSITIVITY TROPONIN ASSAY IS NOT INTENDED TO BEUSED IN ISOLATION BUT SHOULD BE INTERPRETED IN CONJUNCTIONWITH OTHER DIAGNOSTIC AND CLINICAL INFORMATION. Platelet mean volume Auto (B ld) [Entitic vol]on 10-13-2023 Platelet mean volume (Bld) [Entitic vol] 8.3 fL Low 9.5-13.5 [facility] Platelets Auto (Bld) [#/Vol] on 10-13-2023 Platelets (Bld) [#/Vol] 233 10 3/uL 150-450 [facility] RBC Auto (Bld) [#/Vol]on RBC (Bld) [#/Vol] 4.61 10 6/uL Low 4.70-6.10 [facility] Serum or plasma anion gap de terminationon 10-13-2023 Anion gap [Moles/Vol] 17.3 mmol/L [facility] Basophils Auto (Bld) [#/Vol] on 08-09-2023 Basophils (Bld) [#/Vol] 0.0 10 3/uL 0.0-0.1 [facility] Basophils/100 WBC Auto (Bld) on 08-09-2023 Basophils/100 WBC (Bld) 0.4 % 0.2-2.0 [facility] Eosinophils/100 WBC Auto (Bl d)on 08-09-2023 Eosinophils/100 WBC (Bld) 2.6 % 0.9-7.0 [facility] Erythrocyte distribution wid th Auto (RBC) [Ratio]on 08-09-2023 Erythrocyte distribution width (RBC) [Ratio] 13.1 % 11.0-15.0 [facility] Estimated glomerular filtrat ion rate (GFR) non- Americanon 08-09-2023 GFR/1.73 sq M.predicted among non-blacks MDRD (S/P/Bld) [Vol rate/Area] 46 mL/min/{1.73_m2} >=60 [facility] Globulin Calc (S) [Mass/Vol] on 08-09-2023 Globulin (S) [Mass/Vol] 3.4 g/dL [facility] Hematocrit Auto (Bld) [Volum e fraction]on 08-09-2023 Hematocrit (Bld) [Volume fraction] 42.7 % 42.0-54.0 [facility] Hemoglobin [Mass/volume] in Bloodon 08-09-2023 Hemoglobin (Bld) [Mass/Vol] 14.0 g/dL 14.0-18.0 [facility] Laboratory - Chemistry and C hemistry - challengeon 08-09-2023 Albumin [Mass/Vol] 3.7 g/dL 3.4-5.0 [facility] ALP [Catalytic activity/Vol] 57 U/L 46-116 [facility] ALT [Catalytic activity/Vol] 30 U/L 16-63 [facility] AST [Catalytic activity/Vol] 17 U/L 15-37 [facility] Bilirubin [Mass/Vol] 0.4 mg/dL 0.2-1.0 [facility] Calcium [Mass/Vol] 9.2 mg/dL 8.5-10.1 [facility] Chloride [Moles/Vol] 104 mmol/L 98-107 [facility] CO2 [Moles/Vol] 30.3 mmol/L 21.0-32.0 [facility] Cobalamin (Vitamin B12) [Mass/Vol] 270.0 pg/mL 193.0-986.0 [facility] Creatinine [Mass/Vol] 1.55 mg/dL 0.70-1.30 [facility] GFR/1.73 sq M.predicted MDRD (S/P/Bld) [Vol rate/Area] 55 mL/min/{1.73_m2} >=60 [facility] Glucose [Mass/Vol] 99 mg/dL 74-106 [facility] Potassium [Moles/Vol] 3.6 mmol/L 3.5-5.1 [facility] Protein [Mass/Vol] 7.1 g/dL 6.4-8.2 [facility] Sodium [Moles/Vol] 144 mmol/L 136-145 [facility] TSH Qn 2.981 m[IU]/L 0.358-3.740 [facility] Urea nitrogen [Mass/Vol] 29.0 mg/dL 7.0-18.0 [facility] Urea nitrogen/Creatinine [Mass ratio] 18.7 mg/mg [facility] Laboratory - Hematology and Cell countson 08-09-2023 Immature granulocytes/100 WBC (Bld) 0.3 % 0.0-0.5 [facility] Leukocytes [#/volume] correc cipriaon for nucleated erythrocytes in Blood by Automated counon 08-09-2023 WBC corrected for nucl RBC Auto (Bld) [#/Vol] 6.8 10 3/uL 4.0-11.0 [facility] Lymphocytes Auto (Bld) [#/Vo l]on 08-09-2023 Lymphocytes (Bld) [#/Vol] 1.2 10 3/uL 1.2-3.8 [facility] Lymphocytes/100 WBC Auto (Bl d)on 08-09-2023 Lymphocytes/100 WBC (Bld) 18.0 % 20.5-60.0 [facility] MCH Auto (RBC) [Entitic mass ]on 08-09-2023 MCH (RBC) [Entitic mass] 28.9 pg 25.9-34.0 [facility] MCHC Auto (RBC) [Mass/Vol]on 08-09-2023 MCHC (RBC) [Mass/Vol] 32.8 g/dL 29.9-35.2 [facility] MCV Auto (RBC) [Entitic vol] on 08-09-2023 MCV (RBC) [Entitic vol] 88.2 fL 80.0-94.0 [facility] Monocytes Auto (Bld) [#/Vol] on 08-09-2023 Monocytes (Bld) [#/Vol] 0.8 10 3/uL 0.3-0.8 [facility] Monocytes/100 WBC Auto (Bld) on 08-09-2023 Monocytes/100 WBC (Bld) 11.1 % 1.7-12.0 [facility] Neutrophils Auto (Bld) [#/Vo l]on 08-09-2023 Neutrophils (Bld) [#/Vol] 4.6 10 3/uL 1.4-6.5 [facility] Neutrophils/100 WBC Auto (Bl d)on 08-09-2023 Neutrophils/100 WBC (Bld) 67.6 % 43.0-75.0 [facility] No Panel Informationon 08-08 Eosinophils # (Auto) 0.2 10 3/uL 0.0-0.7 [facility] Immature Granulocyte # (Auto) 0.02 10 3/uL 0.00-0.03 [facility] Platelet mean volume Auto (B ld) [Entitic vol]on 08-09-2023 Platelet mean volume (Bld) [Entitic vol] 8.1 fL 9.5-13.5 [facility] Platelets Auto (Bld) [#/Vol] on 08-09-2023 Platelets (Bld) [#/Vol] 257 10 3/uL 150-450 [facility] RBC Auto (Bld) [#/Vol]on RBC (Bld) [#/Vol] 4.84 10 6/uL 4.70-6.10 [facility] Serum or plasma albumin/glob ulin mass ratioon 08-09-2023 Albumin/Globulin [Mass ratio] 1.1 {ratio} [facility] Serum or plasma anion gap de terminationon 08-09-2023 Anion gap [Moles/Vol] 13.3 mmol/L [facility] CREATININEon 08-17-2022 Creatinine [Mass/Vol] 1.59 mg/dL Critically high 0.70-1.30 [facility] Comment on above: Performed By: #### C DIANELYS #### [facility] [address] [address] [address] Keanu Shafer EGFR-AF LITHUANIAN 54 mL/min/1.73m2 Critically low >=60 [facility] Comment on above: Performed By: #### C DIANELYS #### [facility] [address] [address] [address] Keanu Shafer EGFR-NON AF LITHUANIAN 44 mL/min/1.73m2 Critically low >=60 [facility] Comment on above: Performed By: #### C DIANELYS #### [facility] [address] ABD/PELV W CONon [...] ANSHUL AMADOR Date: 2022-08-17 08:[address] [facility] Basic Metabolic Panelon 03-1 7-2023 Calcium [Mass/Vol] 9.5023369 mg/dL 8.5-10 .1 mg/dL [employer] Other CO2 [Moles/Vol] 28.58063869 mmol/L 21.0-3 2.0 mmol/L [employer] Other Creatinine [Mass/Vol] 1.47959279 mg/dL Critically high 0.70-1.30 mg/dL [employer] Other Potassium [Moles/Vol] 4.38827619 mmol/L 3.5-5.1 mmol/L [employer] Other Urea nitrogen [Mass/Vol] 21.8532049 mg/dL Critically high 7.0-18.0 mg/dL [employer] Other Basic Metabolic Panel see note [employer] Other Basic Metabolic Panel 144 mmol/L 136-145 mmol/L [employer] Other Basic Metabolic Panel 99 mg/dL 74-106 mg/dL [employer] Other Basic Metabolic Panel 55 mL/min/1.73m2 Critically low >=60 mL/min/1.73m2 [employer] Other Basic Metabolic Panel >60 mL/min/1.73m2 >=60 mL/min/1.73m2 [employer] Other Anion gap [Moles/Vol] 11.0 mmol/L Normal [employer] Other Comment on above: Performed By: #### B MP #### [facility] [address] [address] [address] Keanu Shafer Chloride [Moles/Vol] 109 mmol/L Critically high 98-107 [employer] Other Comment on above: Performed By: #### B MP #### [facility] [address] [address] [address] Keanu Shafer Urea nitrogen/Creatinine [Mass ratio] 16.0 mg/mg Normal [employer] Other Comment on above: Performed By: #### B MP #### [facility] [address] [address] [address] Keanu Shafer PROF CHEM 8 (BAS METB)on Calcium [Mass/Vol] 9.0 mg/dL Normal 8.5-10.1 [facility] Comment on above: Performed By: #### B MP #### [facility] [address] [address] [address] Keanu Shafer CO2 [Moles/Vol] 28.3 mmol/L Normal 21.0-32.0 [facility] Comment on above: Performed By: #### B MP #### [facility] [address] [place] [address] Dr. Keanu Shafer Creatinine [Mass/Vol] 1.31 mg/dL Critically high 0.70-1.[address] [facility] Comment on above: Performed By: #### B MP #### [facility] [address] [address] [address] Keanu Shafer EGFR-AF LITHUANIAN >60 Normal >=60 [facility] Comment on above: Performed By: #### B MP #### [facility] [address] [place] [address] Dr. Keanu Shafer EGFR-NON AF LITHUANIAN 55 mL/min/1.73m2 Critically low >=[address] [facility] Comment on above: Performed By: #### B MP #### [facility] [address] [address] [address] Keanu Shafer Glucose [Mass/Vol] 99 mg/dL Normal 74-106 [facility] Comment on above: Performed By: #### B MP #### [facility] [address] [address] [address] Keanu Shafer Potassium [Moles/Vol] 4.3 mmol/L Normal 3.5-5.[address] [facility] Comment on above: Performed By: #### B MP #### [facility] [address] [address] [address] Keanu Shafer Sodium [Moles/Vol] 144 mmol/L Normal 136-145 [facility] Comment on above: Performed By: #### B MP #### [facility] [address] [place] [address] Dr. Keanu Shafer Urea nitrogen [Mass/Vol] 21.0 mg/dL Critically high 7.0-18.0 [facility] Comment on above: Performed By: #### B MP #### [facility] [address] [place] [address] Dr. Keanu Shafer CBC AUTO DIFFon 01-19-2022 BASO # 0.0 103/ul Normal 0.0-0.1 [facility] Comment on above: Performed By: #### C BC #### [facility] [address] [place] [address] Dr. Keanu Shafer Basophils/100 WBC (Bld) 0.3 % Normal 0.2-2.0 [facility] Comment on above: Performed By: #### C BC #### [facility] [address] [place] [address] Dr. Keanu Shafer EO # 0.2 103/ul Normal 0.0-0.7 [facility] Comment on above: Performed By: #### C BC #### [facility] [address] [place] [address] Dr. Keanu Shafer Eosinophils/100 WBC (Bld) 2.4 % Normal 0.9-7.0 [facility] Comment on above: Performed By: #### C BC #### [facility] [address] [place] [address] Dr. Keanu Shafer Erythrocyte distribution width (RBC) [Ratio] 13.2 % Normal 11.0-15.0 [facility] Comment on above: Performed By: #### C BC #### [facility] [address] [place] [address] Dr. Keanu Shafer Hematocrit (Bld) [Volume fraction] 42.1 % Normal 42.0-54.0 [facility] Comment on above: Performed By: #### C BC #### [facility] [address] [place] [address] Dr. Keanu Shafer Hemoglobin (Bld) [Mass/Vol] 14.2 g/dL Normal 14.0-18.0 [facility] Comment on above: Performed By: #### C BC #### [facility] [address] [place] [address] Dr. Keanu Shafer IG # 0.02 10e3/ul Normal 0.00-0.03 [facility] Comment on above: Performed By: #### C BC #### [facility] [address] [place] [address] Dr. Keanu Shafer IG % 0.3 % Normal 0.0-0.5 [facility] Comment on above: Performed By: #### C BC #### [facility] [address] [place] [address] Dr. Keanu Shafer LYMPH # 1.0 103/ul Critically low 1.2-3.8 [facility] Comment on above: Performed By: #### C BC #### [facility] [address] [place] [address] Dr. Keanu Shafer Lymphocytes/100 WBC (Bld) 16.0 % Critically low 20.5-60.0 [facility] Comment on above: Performed By: #### C BC #### [facility] [address] [place] [address] Dr. Keanu Shafer MANUAL DIFF REQ NO Normal [facility] Comment on above: Performed By: #### C BC #### [facility] [address] [place] [address] Dr. Keanu Shafer MCH (RBC) [Entitic mass] 29.2 pg Normal 25.9-34.0 [facility] Comment on above: Performed By: #### C BC #### [facility] [address] [place] [address] Dr. Keanu Shafer MCHC (RBC) [Mass/Vol] 33.7 g/dL Normal 29.9-35.2 [facility] Comment on above: Performed By: #### C BC #### [facility] [address] [place] [address] Dr. Keanu Shafer MCV (RBC) [Entitic vol] 86.6 fL Normal 80.0-94.0 [facility] Comment on above: Performed By: #### C BC #### [facility] [address] [place] [address] Dr. Keanu Shafer MONO # 0.6 103/ul Normal 0.3-0.8 [facility] Comment on above: Performed By: #### C BC #### [facility] [address] [address] [address] Keanu Shafer Monocytes/100 WBC (Bld) 9.2 % Normal 1.7-12.0 [facility] Comment on above: Performed By: #### C BC #### [facility] [address] [place] [address] Dr. Keanu Shafer NEUT # 4.5 103/ul Normal 1.4-6.5 [facility] Comment on above: Performed By: #### C BC #### [facility] [address] [place] [address] Dr. Keanu Shafer Neutrophils/100 WBC (Bld) 71.8 % Normal 43.0-75.0 [facility] Comment on above: Performed By: #### C BC #### [facility] [address] [place] [address] Dr. Keanu Shafer Platelet mean volume (Bld) [Entitic vol] 7.8 fL Critically low 9.5-13.5 [facility] Comment on above: Performed By: #### C BC #### [facility] [address] [place] [address] Dr. Keanu Shafer PLT 233 103/ul Normal 150-[address] [facility] Comment on above: Performed By: #### C BC #### [facility] [address] [place] [address] Dr. Keanu Shafer RBC 4.86 106/ul Normal 4.70-6.[address] [facility] Comment on above: Performed By: #### C BC #### [facility] [address] [place] [address] Dr. Keanu Shafer WBC 6.2 103/ul Normal 4.0-11.[address] [facility] Comment on above: Performed By: #### C BC #### [facility] [address] [address] [address] Keanu Shafer LIPID PROFILEon 01-19-2022 CHOL-HDL RATIO NORM SEE BELOW Normal [facility] Comment on above: Result Comment: 3.3 - 4.4 LOW RISK 4.4 - 7.1 AVERAGE RISK 7.1 - 11.0 MODERATE RISK >11.0 HIGH RISK Performed By: #### C MP, LIPID #### [facility] [address] [address] [address] Keanu Shafer Cholesterol [Mass/Vol] 222 mg/dL Critically high <=200 [facility] Comment on above: Performed By: #### C MP, LIPID #### [facility] [address] [address] [address] Keanu Shafer Cholesterol in HDL [Mass/Vol] 40 mg/dL Normal 40-60 [facility] Comment on above: Performed By: #### C MP, LIPID #### [facility] [address] [address] [address] Keanu Shafer Cholesterol in LDL [Mass/Vol] 160.6 mg/dL Normal [facility] Comment on above: Performed By: #### C MP, LIPID #### [facility] [address] [place] [address] Dr. Keanu Shafer Cholesterol.total/Ch olesterol in HDL [Mass ratio] 5.6 {ratio} Normal [facility] Comment on above: Performed By: #### C MP, LIPID #### [facility] [address] [address] [address] Keanu Shafer HDL NORMAL > or = 60 mg/dl - LOW CARDIOVASCULAR RISK <40 mg/dl - HIGH CARDIOVASCULAR RISK Normal [facility] Comment on above: Performed By: #### C MP, LIPID #### [facility] [address] [address] [address] Keanu Shafer LDL CALC NORMAL SEE BELOW Normal [facility] Comment on above: Result Comment: <100 mg/dl OPTIMAL 100 - 129 mg/dl NEAR OR ABOVE OPTIMAL 130 - 159 mg/dl BORDERLINE HIGH 160 - 189 mg/dl HIGH >190 mg/dl VERY HIGH Performed By: #### C MP, LIPID #### [facility] [address] [address] [address] Keanu Shafer Triglyceride [Mass/Vol] 107 mg/dL Normal <=150 [facility] Comment on above: Performed By: #### C MP, LIPID #### [facility] [address] [place] [address] Dr. Keanu Shafer VLDL CALC 21.4 mg/dL Normal [facility] Comment on above: Performed By: #### C MP, LIPID #### [facility] [address] [address] [address] Keanu Shafer PROF 14(COMP METB)on 022 Albumin [Mass/Vol] 3.9 g/dL Normal 3.4-5.0 [facility] Comment on above: Performed By: #### C MP, LIPID #### [facility] [address] [place] [address] Dr. Keanu Shafer Albumin/Globulin [Mass ratio] 1.3 {ratio} Normal [facility] Comment on above: Performed By: #### C MP, LIPID #### [facility] [address] [place] [address] Dr. Keanu Shafer ALP [Catalytic activity/Vol] 55 U/L Normal 46-116 [facility] Comment on above: Performed By: #### C MP, LIPID #### [facility] [address] [place] [address] Dr. Keanu Shafer ALT [Catalytic activity/Vol] 25 U/L Normal 16-63 [facility] Comment on above: Performed By: #### C MP, LIPID #### [facility] [address] [place] [address] Dr. Keanu Shafer Anion gap [Moles/Vol] 8.8 mmol/L Normal [facility] Comment on above: Performed By: #### C MP, LIPID #### [facility] [address] [place] [address] Dr. Keanu Shafer AST [Catalytic activity/Vol] 15 U/L Normal 15-37 [facility] Comment on above: Performed By: #### C MP, LIPID #### [facility] [address] [address] [address] Keanu Shafer Bilirubin [Mass/Vol] 0.7 mg/dL Normal 0.2-1.0 [facility] Comment on above: Performed By: #### C MP, LIPID #### [facility] [address] [address] [address] Keanu Shafer Calcium [Mass/Vol] 8.7 mg/dL Normal 8.5-10.1 [facility] Comment on above: Performed By: #### C MP, LIPID #### [facility] [address] [address] [address] Keanu Shafer Chloride [Moles/Vol] 106 mmol/L Normal 98-107 [facility] Comment on above: Performed By: #### C MP, LIPID #### [facility] [address] [place] [address] Dr. Keanu Shafer CO2 [Moles/Vol] 28.4 mmol/L Normal 21.0-32.0 [facility] Comment on above: Performed By: #### C MP, LIPID #### [facility] [address] [place] [address] Dr. Keanu Shafer Creatinine [Mass/Vol] 1.25 mg/dL Normal 0.70-1.30 [facility] Comment on above: Performed By: #### C MP, LIPID #### [facility] [address] [place] [address] Dr. Keanu Shafer EGFR-AF LITHUANIAN >60 Normal >=60 [facility] Comment on above: Performed By: #### C MP, LIPID #### [facility] [address] [place] [address] Dr. Keanu Shafer EGFR-NON AF LITHUANIAN 59 mL/min/1.73m2 Critically low >=60 [facility] Comment on above: Performed By: #### C MP, LIPID #### [facility] [address] [address] [address] Keanu Shafer Globulin (S) [Mass/Vol] 3.1 g/dL Normal [facility] Comment on above: Performed By: #### C MP, LIPID #### [facility] [address] [address] [address] Keanu Shafer Glucose [Mass/Vol] 99 mg/dL Normal 74-106 [facility] Comment on above: Performed By: #### C MP, LIPID #### [facility] [address] [address] [address] Keanu Shafer Potassium [Moles/Vol] 4.2 mmol/L Normal 3.5-5.1 [facility] Comment on above: Performed By: #### C MP, LIPID #### [facility] [address] [address] [address] Keanu Shafer Protein [Mass/Vol] 7.0 g/dL Normal 6.4-8.2 [facility] Comment on above: Performed By: #### C MP, LIPID #### [facility] [address] [place] [address] Dr. Keanu Shafer Sodium [Moles/Vol] 139 mmol/L Normal 136-145 [facility] Comment on above: Performed By: #### C MP, LIPID #### [facility] [address] [address] [address] Keanu Shafer Urea nitrogen [Mass/Vol] 18.0 mg/dL Normal 7.0-18.0 [facility] Comment on above: Performed By: #### C MP, LIPID #### [facility] [address] [place] [address] Dr. Keanu Shafer Urea nitrogen/Creatinine [Mass ratio] 14.4 mg/mg Normal [facility] Comment on above: Performed By: #### C MP, LIPID #### [facility] [address] [address] [address] Keanu Shafer CBC With Platelet and Differ entialon 09-24-2021 Basophils (Bld) [#/Vol] 0.0 10*3/uL Normal 0.0-0.2 [facility] Comment on above: Performed By: #### C BCWD #### [facility] [address] [place] [address] Basophils/100 WBC (Bld) 0.3 % Normal [facility] Comment on above: Performed By: #### C BCWD #### [facility] [address] [place] [address] Eosinophils (Bld) [#/Vol] 0.1 10*3/uL Normal 0.0-0.7 [facility] Comment on above: Performed By: #### C BCWD #### [facility] [address] [place] [address] Eosinophils/100 WBC (Bld) 0.9 % Normal [facility] Comment on above: Performed By: #### C BCWD #### [facility] [address] [place] [address] Erythrocyte distribution width (RBC) [Ratio] 13.9 % Normal 11.5-14.5 [facility] Comment on above: Performed By: #### C BCWD #### [facility] [address] [place] [address] Hematocrit (Bld) [Volume fraction] 42.6 % Normal 42.0-52.0 [facility] Comment on above: Performed By: #### C BCWD #### [facility] [address] [place] [address] Hemoglobin (Bld) [Mass/Vol] 14.2 g/dL Normal 14.0-18.0 [facility] Comment on above: Performed By: #### C BCWD #### [facility] [address] [place] [address] Lymphocytes (Bld) [#/Vol] 0.9 10*3/uL Low 1.0-4.8 [facility] Comment on above: Performed By: #### C BCWD #### [facility] [address] [place] [address] Lymphocytes/100 WBC (Bld) 8.1 % Normal [facility] Comment on above: Performed By: #### C BCWD #### [facility] [address] [place] [address] MCH (RBC) [Entitic mass] 28.9 pg Normal 27.0-31.3 [facility] Comment on above: Performed By: #### C BCWD #### [facility] [address] [place] [address] MCHC 33.3 % Normal 33.0-37.0 [facility] Comment on above: Performed By: #### C BCWD #### [facility] [address] [place] [address] MCV (RBC) [Entitic vol] 86.8 fL Normal 80.0-100.0 [facility] Comment on above: Performed By: #### C BCWD #### [facility] [address] [place] [address] Monocytes (Bld) [#/Vol] 0.8 10*3/uL Normal 0.2-0.8 [facility] Comment on above: Performed By: #### C BCWD #### [facility] [address] [place] [address] Monocytes/100 WBC (Bld) 7.4 % Normal [facility] Comment on above: Performed By: #### C BCWD #### [facility] [address] [place] [address] Neutrophils (Bld) [#/Vol] 9.5 10*3/uL Critically high 1.4-6.5 [facility] Comment on above: Performed By: #### C BCWD #### [facility] [address] [place] [address] Neutrophils/100 WBC (Bld) 83.3 % Normal [facility] Comment on above: Performed By: #### C BCWD #### [facility] [address] [place] [address] Platelets (Bld) [#/Vol] 289 10*3/uL Normal 130-400 [facility] Comment on above: Performed By: #### C BCWD #### [facility] [address] [place] [address] RBC (Bld) [#/Vol] 4.90 10*6/uL Normal 4.70-6.10 [facility] Comment on above: Performed By: #### C BCWD #### [facility] [address] [place] [address] WBC (Bld) [#/Vol] 11.4 10*3/uL Critically high 4.8-10.8 [facility] Comment on above: Performed By: #### C BCWD #### [facility] [address] [place] [address] CBC with Auto Differentialon 09-24-2021 Basophils (Bld) [#/Vol] 0.0 10*3/uL 0.0 - 0.2 K/uL [facility] Basophils/100 WBC (Bld) 0.3 % [facility] Eosinophils (Bld) [#/Vol] 0.1 10*3/uL 0.0 - 0.7 K/uL [facility] Eosinophils/100 WBC (Bld) 0.9 % [facility] Hematocrit (Bld) [Volume fraction] 42.6 % 42.0 - 52.0 % [facility] Hemoglobin.gastroint estinal spec 1 Ql (Stl) 14.2 g/dL 14.0 - 18.0 g/dL [facility] Interpretation and review of laboratory results Abnormal [facility] Lymphocytes (Bld) [#/Vol] 0.9 10*3/uL Low 1.0 - 4.8 K/uL [facility] Lymphocytes/100 WBC (Bld) 8.1 % [facility] MCH (RBC) [Entitic mass] 28.9 pg 27.0 - 31.3 pg [facility] MCHC (RBC) [Mass/Vol] 33.3 % 33.0 - 37.0 % [facility] MCV (RBC) [Entitic vol] 86.8 fL 80.0 - 100.0 fL [facility] Monocytes (Bld) [#/Vol] 0.8 10*3/uL 0.2 - 0.8 K/uL [facility] Monocytes/100 WBC (Bld) 7.4 % [facility] Neutrophils Absolute 9.5 K/uL High 1.4 - 6 .5 K/uL [facility] Neutrophils/100 WBC (Bld) 83.3 % [facility] Platelet distribution width (Bld) [Ratio] 13.9 % 11.5 - 14.5 % [facility] Platelets (Bld) [#/Vol] 289 10*3/uL 130 - 400 K/uL [facility] RBC (Bld) [#/Vol] 4.90 10*6/uL [facility] WBC (Bld) [#/Vol] 11.4 10*3/uL High 4.8 - 10.8 K/uL [facility] Comprehensive Metabolic Pane erasmo 09-24-2021 Albumin [Mass/Vol] 4.3 g/dL Normal 3.5-4.6 [facility] Comment on above: Performed By: #### C MP #### [facility] [address] [place] [address] ALP [Catalytic activity/Vol] 68 U/L Normal 35-104 [facility] Comment on above: Performed By: #### C MP #### [facility] [address] [place] [address] ALT [Catalytic activity/Vol] 14 U/L Normal 0-41 [facility] Comment on above: Performed By: #### C MP #### [facility] [address] [place] [address] Anion gap [Moles/Vol] 11 mmol/L Normal 9-15 [facility] Comment on above: Performed By: #### C MP #### [facility] [address] [place] [address] AST [Catalytic activity/Vol] 14 U/L Normal 0-40 [facility] Comment on above: Result Comment: Spec imen hemolysis has exceeded the interference as defined by Ayla. Value may be falsely increased. Suggest recollection if clinically indicated. Performed By: #### C MP #### [facility] [address] [place] [address] Bilirubin [Mass/Vol] 0.3 mg/dL Normal 0.2-0.7 [facility] Comment on above: Performed By: #### C MP #### [facility] [address] [place] [address] Calcium [Mass/Vol] 9.0 mg/dL Normal 8.5-9.9 [facility] Comment on above: Performed By: #### C MP #### [facility] [address] [place] [address] Chloride [Moles/Vol] 102 mmol/L Normal 95-107 [facility] Comment on above: Performed By: #### C MP #### [facility] [address] [place] [address] CO2 [Moles/Vol] 27 mmol/L Normal 20-31 [facility] Comment on above: Performed By: #### C MP #### [facility] [address] [place] [address] Creatinine [Mass/Vol] 1.27 mg/dL Critically high 0.70-1.20 [facility] Comment on above: Performed By: #### C MP #### [facility] [address] [place] [address] GFR 57.5 Low >60 [facility] Comment on above: Result Comment: >60 mL/min/1.73m2 EGFR, calc. for ages 18 and older using the MDRD formula (not corrected for weight), is valid for stable renal function. Performed By: #### C MP #### [facility] [address] [place] [address] GFR/1.73 sq M.predicted among blacks MDRD (S/P/Bld) [Vol rate/Area] mL/min/{1.73_m2} Normal >60 [facility] Comment on above: Result Comment: >60 mL/min/1.73m2 EGFR, calc. for ages 18 and older using the MDRD formula (not corrected for weight), is valid for stable renal function. Performed By: #### C MP #### [facility] [address] [place] [address] Globulin (S) [Mass/Vol] 2.9 g/dL Normal 2.3-3.5 [facility] Comment on above: Performed By: #### C MP #### [facility] [address] [place] [address] Glucose [Mass/Vol] 114 mg/dL Critically high 70-99 [facility] Comment on above: Performed By: #### C MP #### [facility] [address] [place] [address] Potassium [Moles/Vol] 4.2 mmol/L Normal 3.4-4.9 [facility] Comment on above: Performed By: #### C MP #### [facility] [address] [place] [address] Protein [Mass/Vol] 7.2 g/dL Normal 6.3-8.0 [facility] Comment on above: Performed By: #### C MP #### [facility] [address] [place] [address] Sodium [Moles/Vol] 140 mmol/L Normal 135-144 [facility] Comment on above: Performed By: #### C MP #### [facility] [address] [place] [address] Urea nitrogen [Mass/Vol] 18 mg/dL Normal 8-23 [facility] Comment on above: Performed By: #### C MP #### [facility] [address] [place] [address] Albumin [Mass/Vol] 4.3 g/dL 3.5 - 4.6 g/dL [facility] ALP (Bld) [Catalytic activity/Vol] 68 U/L 35 - 104 U/L [facility] ALT [Catalytic activity/Vol] 14 U/L 0 - 41 U/L [facility] Anion gap [Moles/Vol] 11 mmol/L [facility] AST [Catalytic activity/Vol] 14 U/L 0 - 40 U/L [facility] Comment on above: Specimen hemolysis h as exceeded the interference as defined by Ayla. Value may be falsely increased. Suggest recollection if clinically indicated. Bilirubin [Mass/Vol] 0.3 mg/dL 0.2 - 0 .7 mg/dL [facility] Calcium [Mass/Vol] 9.0 mg/dL 8.5 - 9.9 mg/dL [facility] Chloride [Moles/Vol] 102 mmol/L [facility] CO2 [Moles/Vol] 27 mmol/L [facility] Creatinine [Mass/Vol] 1.27 mg/dL High 0.70 - 1.20 mg/dL [facility] Free PSA/Total PSA [Mass fraction] 7.2 g/dL 6.3 - 8.0 g/dL [facility] GFR >60.0 >60 [facility] Comment on above: >60 mL/min/1.73m2 EG FR, calc. for ages 18 and older using the MDRD formula (not corrected for weight), is valid for stable renal function. GFR Non- 57.5 Low >60 [facility] Comment on above: >60 mL/min/1.73m2 EG FR, calc. for ages 18 and older using the MDRD formula (not corrected for weight), is valid for stable renal function. Globulin (S) [Mass/Vol] 2.9 g/dL 2.3 - 3.5 g/dL [facility] Glucose [Mass/Vol] 114 mg/dL High 70 - 99 mg/dL [facility] Interpretation and review of laboratory results Abnormal [facility] Potassium [Moles/Vol] 4.2 mmol/L [facility] Sodium [Moles/Vol] 140 mmol/L [facility] Urea nitrogen (BldV) [Mass/Vol] 18 mg/dL 8 - 23 mg/dL [facility] US DUP LOWER EXTREMITY LEFT VENon [...] Jamie Thornton MD 09/24/21 Final result Normal [facility] NEGATIVE STUDY FOR ACUTE PROXIMAL DVT IN THE LEFT LOWER EXTREMITY. NEGATIVE STUDY FOR ACUTE CALF DVT IN THE LEFT LOWER EXTREMITY. NEGATIVE STUDY FOR SUPERFICIAL THROMBOPHLEBITIS IN THE LEFT LOWER EXTREMITY [facility] LEFT LOWER EXTREMITY DEEP [...] in the proximal calf, not otherwise assessed. [facility] RADIOLOGY Jamie Thornton MD - 09/24/2021 [...] SUPERFICIAL THROMBOPHLEBITIS IN THE LEFT LOWER EXTREMITY Locately Phone: Radiology Study observation (narrative) Locately Phone: DUP LOWER EXTREMITY LEFT VENOrdered By: Jamie Thornton on 09-24-2021 [employer] Work Phone: Coding Summary.on 01-21-2017 Coding Summary. CODING DATE: 01/21/2017 [facility] STATUS: Home (Routine DC) PAYOR: [facility] [place] [employer] DESCRIPTION 5372 Level 2 Urology and [...] Arriaza Date Saved: 01/21/2017 08:[address] [facility] Main OR Intraoperative Recor don 01-17-2017 Main OR Intraoperative Record IntraOp Document Type FTURO Summary Primary Physician: Royer Daniels Jr., MD Finalized Date/Time: 01/17/17 15:22:06 Pt. Name: ASHWIN AVERY/Sex: 1960 Male Med Rec #: [id number] Physician: Royer Daniels Jr., MD Financial #: [id number] Pt. Type: O Room/Bed: / Admit/Disch: 01/17/17 14:24:05 - Institution: Case Times FTURO Entry 1 Patient Times In Room 01/17/17 15:04:00 Out Room 01/17/17 15:17:00 Procedure Times Start 01/17/17 15:09:00 Stop 01/17/17 15:12:00 Anesthesia Times Last Modified By: Javon MCCOLLUM, Radha GUZMÁN 01/17/17 15:12:44 Case Attendance FTURO Entry 1 Entry 2 Entry 3 Case Attendee Javon MCCOLLUM, KAROLINAOR, Jenny SUBRAMANIAN, Royer Coleman Jr., MD Role Performed Training Developer - Primary Scrub - Primary Surgeon - Primary Time In 01/17/17 15:04:00 01/17/17 15:04:00 01/17/17 15:04:00 Time Out 01/17/17 15:17:00 01/17/17 15:17:00 01/17/17 15:17:00 Procedure CYSTOSCOPY LOCAL(.) CYSTOSCOPY LOCAL(.) CYSTOSCOPY LOCAL(.) Comments Last Modified By: Javon MCCOLLUM, CNOR, Javon MCCOLLUM, KAROLINAOR, Javon MCCOLLUM, KAROLINAOR, Radha 01/17/17 Radha 01/17/17 Radha 01/17/17 15:17:54 [...] LUTS Outcomes Met? Yes Last Modified By: Javon MCCOLLUM, KAROLINAOR, Radha 01/17/17 15:10:43 Post-Care Text: The patient is [...] Verified (If Applicable) Time Out Ivy Alvarado CST, Time Out Complete 01/17/17 15:08:00 Participants Javon MCCOLLUM, KAROLINAOR, Radha, Royer Daniels Jr., MD Allergies Reviewed? Yes [...] ARIELLE Alejandro RN, Ruthann 01/17/17 15:[address] [facility] Main OR Preoperative Recordo n 01-17-2017 Main OR Preoperative Record Holding Area Document Type FTURO Summary Primary Physician: Royer Daniels Jr., MD Finalized Date/Time: 01/17/17 15:14:14 Pt. Name: OLAYINKACOOKIEASHWIN/Sex: 1960 Male Med Rec #: [id number] Physician: Royer Daniels Jr., MD Financial #: [id number] Pt. Type: O Room/Bed: / Admit/Disch: 01/17/17 [...] of Pain: No Comment: Skin Integrity Intact, [place], Warm, & Dry Vitals - EU Blood Pressure 132/80 Pulse 88 bpm Respirations 16 br/min SPO2 RN Reviewed Yes Last Modified By: ARIELLE Alejandro RN, Ruthann 01/17/17 15:14:11 Finalized By: ARIELLE Alejandro RN, Ruthann Document Signatures Signed By: Kamla Spears LPN 01/17/17 14:38 ARIELLE Alejandro RN, Ruthann 01/17/17 15:13 ARIELLE Alejandro RN, Ruthann 01/17/17 15:[address] [facility] Operative Reporton Operative Report Patient: ASHWIN [...] with antibiotic coverage, Follow up arranged. Normal [facility] Comment on above: Result Comment: Elec tronically Signed By: Jeremiah Moore MD, Royer Stuart\.br\Date and Time Signed: 01/17/17 15:16 EDT Vital Signs Date Time Vital Sign Value Performing Clinician Facility 12-13-2023 11:57-0400 Body height 177.8 cm [facility] 12-13-2023 11:57-0400 Body mass index (BMI) [Ratio] 29.1 kg/m2 [facility] 12-13-2023 11:57-0400 Body weight 92.07 kg [facility] 12-13-2023 11:57-0400 Diastolic blood pressure 73 mm[Hg] [facility] 12-13-2023 11:57-0400 Heart rate 68 /min [facility] 12-13-2023 11:57-0400 Respiratory rate 12 /min [facility] 12-13-2023 11:57-0400 Systolic blood pressure 128 mm[Hg] [facility] 2023 15:09-0400 Body height 177.8 cm [facility] 2023 15:09-0400 Body mass index (BMI) [Ratio] 29 kg/m2 [facility] 2023 15:09-0400 Body weight 91.85 kg [facility] 2023 15:09-0400 Diastolic blood pressure 70 mm[Hg] [facility] 2023 15:09-0400 Heart rate 86 /min [facility] 2023 15:09-0400 Respiratory rate 12 /min [facility] 2023 15:09-0400 Systolic blood pressure 112 mm[Hg] [facility] 07-19-2023 13:32-0400 Body height 177.8 cm [facility] 07-19-2023 13:32-0400 Body mass index (BMI) [Ratio] 30 kg/m2 [facility] 07-19-2023 13:32-0400 Body weight 94.97 kg [facility] 07-19-2023 13:32-0400 Diastolic blood pressure 77 mm[Hg] [facility] 07-19-2023 13:32-0400 Heart rate 71 /min [facility] 07-19-2023 13:32-0400 Systolic blood pressure 128 mm[Hg] [facility] 08-10-2022 10:00-0400 Body height 177.8 cm Marcelo Ball Other [employer] Other 08-10-2022 10:00-0400 Body mass index (BMI) [Ratio] 28.15 kg/m2 Marcelo Ball Other [employer] Other 08-10-2022 10:00-0400 Body weight 89 kg Marcelo Ball Other [employer] Other 08-10-2022 10:00-0400 Diastolic blood pressure 80 mm[Hg] Marcelo Ball Other [employer] Other 08-10-2022 10:00-0400 Respiratory rate 12 /min Marcelo Ball Other [employer] Other 08-10-2022 10:00-0400 Systolic blood pressure 143 mm[Hg] Marcelo Ball Other [employer] Other 07-13-2022 11:00-0400 Body height 177.8 cm Marcelo Ball Other [employer] Other 07-13-2022 11:00-0400 Body mass index (BMI) [Ratio] 28.64 kg/m2 Marcelo Ball Other [employer] Other 07-13-2022 11:00-0400 Body weight 90.54 kg Marcelo Ball Other [employer] Other 07-13-2022 11:00-0400 Diastolic blood pressure 85 mm[Hg] Marcelo Ball Other [employer] Other 07-13-2022 11:00-0400 Respiratory rate 16 /min Marcelo Ball Other [employer] Other 07-13-2022 11:00-0400 Systolic blood pressure 141 mm[Hg] Marcelo Ball Other [facility] [employer] Other 09-24-2021 14:07-0400 Body height 177.8 cm Marcelo Ball DO Work Phone: [employer] 09-24-2021 14:07-0400 Body mass index (BMI) [Ratio] 27.98 kg/m2 Marcelo Ball DO Work Phone: [employer] 09-24-2021 14:07-0400 Body temperature 97.7 [degF] Marcelo Ball DO Work Phone: [employer] 09-24-2021 14:07-0400 Body weight 88.45 kg Marcelo [employer] DO Work Phone: [employer] 09-24-2021 14:07-0400 Diastolic blood pressure 83 mm[Hg] Marcelo TextRecruit DO Work Phone: [employer] 09-24-2021 14:07-0400 Heart rate 82 /min Macrelo Text[employer] DO Work Phone: [employer] 09-24-2021 14:07-0400 Respiratory rate 18 /min Marcelo Text[employer] DO Work Phone: [employer] 09-24-2021 14:07-0400 SaO2% (BldA) [Mass fraction] 97 % Marcelo Ball DO Work Phone: [employer] 09-24-2021 14:07-0400 Systolic blood pressure 138 mm[Hg] Marcelo TextRecruit DO Work Phone: [facility] [employer] Encounters Encounter Date Encounter Type Care Provider Facility Start: 12-13-2023 End: 12-13-2023 ambulatory [facility] Work Phone: Start: 12-13-2023 End: 12-13-2023 Patient encounter procedure Formerly [facility], [facility] Work Phone: Start: 2023 End: 2023 ambulatory [facility] Work Phone: Start: 2023 End: 2023 Patient encounter procedure Formerly [facility] Work Phone: Start: 10-13-2023 Non-patient / Non-visit Formerly [facility] Work Phone: Start: 10-07-2023 End: 10-07-2023 ambulatory [facility] Work Phone: Start: 10-07-2023 End: 10-07-2023 Patient encounter procedure Formerly [facility] Work Phone: Start: 08-09-2023 Non-patient / Non-visit Formerly [facility]ician [facility] Work Phone: Start: 07-19-2023 End: 07-19-2023 ambulatory [facility] Work Phone: Start: 07-19-2023 End: 07-19-2023 Patient encounter procedure Formerly [facility] Work Phone: Start: 06-07-2023 End: 06-07-2023 ambulatory Marcelo Ball Other [employer] Other Start: 06-07-2023 Telephone encounter Marcelo Ball [facility] Start: 03-08-2023 End: 03-08-2023 ambulatory Marcelo Ball Other [employer] Other Start: 03-08-2023 Telephone encounter Marcelo Ball [facility] Start: 02-22-2023 End: 02-22-2023 ambulatory Marcelo Ball Other [employer] Other Start: 02-22-2023 Telephone encounter Marcelo Ball [facility] Start: 01-26-2023 End: 01-26-2023 ambulatory Marcelo Ball Other [employer] Other Start: 01-26-2023 Encounter for genera l adult medical examination without abnormal findings Marcelo Ball [facility] Start: 01-26-2023 Telephone encounter Marcelo Thompson [facility] Start: 08-17-2022 End: 08-18-[address] MARCELO THOMPSON Facility:[facility] Start: 08-15-2022 End: 08-15-2022 ambulatory Marcelo Thompson Other [employer] Other Start: 08-15-2022 Telephone encounter Marcelo LOU [facility] Start: 08-10-2022 End: 08-10-2022 ambulatory Marcelo Thompson Other [employer] Other Start: 08-10-2022 Office outpatient vi sit 15 minutes Marcelo Thompson [facility] Start: 07-30-2022 End: 07-30-2022 ambulatory Marcelo Thompson Other [employer] Other Start: 07-30-2022 Telephone encounter Marcelo LOU [facility] Start: 07-13-2022 Office outpatient vi sit 25 minutes Marcelo Thompson [facility] Start: 07-13-2022 End: 07-14-[address] MARCELO THOMPSON [facility] [employer] Other Start: 01-23-2022 Encounter for genera l adult medical examination without abnormal findings DR MARCELO THOMPSON [facility] Start: 01-19-2022 End: 01-20-[address] MARCELO THOMPSON Facility:[facility] Start: 01-19-2022 End: 01-20-2022 Encounter for general adult medical examination without abnormal findings DR MARCELO THOMPSON Facility:[facility] Start: 09-24-2021 End: 09-24-2021 Emergency department patient visit MARCELO THOMPSON [facility] Start: 09-24-2021 End: 09-24-2021 Emergency department patient visit Marcelo Thompson DO Work Phone: [facility] Comment on above: Cellulitis of left l ower extremity (Primary Dx) Start: 01-17-2017 End: 01-18-2017 Ambulatory Jos Mclaughlin Facility:[facility] Procedures Date Procedure Procedure Detail Performing Clinician Start: 01-19-[address] MITESH THOMPSON Comment on above: Performed By: #### [facility] #### [facility] [address] [address] [address] Keanu Shafer Start: 09-24-2021 Dup-scan xtr veins unilateral/limited study Luciano Maradiaga PA-C Work Phone: Start: 09-24-2021 Comprehensive metabo lic panel Luciano Maradiaga PA-C Work Phone: Plan of Treatment Date Care Activity Detail Author Start: 12-28-2021 Influenza vaccination Flu vacc ine (Season Ended) [facility] Start: 10-20-2009 Shingles vaccine (1 of 2) Newton gles vaccine (1 of 2) [facility] Start: 10-20-2004 Screening for malign ant neoplasm of colon [facility] Start: 1999 Lipid panel Lipids [facility] Start: 1999 Prostate specific an tigen measurement Prostate Specific Antigen (PSA) Screening or Monitoring [facility] Start: 10-20-1994 Diabetes screen Diabetes screen [facility] Start: 10-20-1978 DTaP/Tdap/Td vaccine (1 - Tdap) DTaP/Tdap/Td vaccine (1 - Tdap) [facility] Start: 10-20-1977 Hepatitis C screening Hepatitis C sc reen [facility] Start: 10-20-1974 HIV screening HIV screen [facility] Start: 1971 Depression Screen Depression Screen [facility] Start: 10-20-1964 COVID-19 Vaccine (1) COVID-19 Vaccin e (1) [facility] Comprehensive metabo lic 1999 panel - Serum or Plasma [facility] MR Brain WO contrast [facility] US.doppler Carotid arteries - bilateral [facility] Payers Date Payer Category Payer Unknown [id number] 1960 Unknown [id number] 1960 Unknown [id number] 1960 Unknown [id number] 1960 Unknown [id number] 1960 Unknown [id number] Self-pay Self Pay [id number] Social History Date Type Detail Facility Start: 09-24-2021 End: 07-19-2023 Tobacco smoking status AKIS Never smoked tobacco [employer] Phone: Start: 09-24-2021 Tobacco use and exposure Smokeless tobacco non-user [employer] Phone: Start: 09-24-2021 Alcohol intake Ex-drinker (finding) [employer] Phone: Start: 1960 Sex Assigned At Not on file B [employer] Phone: Start: 09-14-2021 End: 09-24-2021 Exposure to SARS-CoV-2 (event) Not sure [employer] Phone: Sex Assigned At Sex Assigned At [facility] [employer] Other Start: 1960 Sex Assigned At Male F [facility] Clinical Notes 07-13-2022 to 10-07-2023 Note Date & Type Note Facility 10-07-2023 Evaluation note Diagnosis Onset Date Dysesthesia acute Elevated cholesterol acute Essential hypertension acute Renal cyst, left acute Stage 3a chronic kidney disease acute Tinea unguium acute Intermittent paresthesia of right hand and foot noneactive Essential hypertension acute Acute bronchitis due to othe r specified organisms noneactive [facility] Work Phone: 1(401) 276-797003-22-2024 Evaluation note* Diagnosis Onset Date Resolution Status Elevated cholesterol acute Essential hypertension acute Renal cyst, left acute Stage 3a chronic kidney disease acute [facility] Work Phone: 1(128) 572-971511-10-2023 Evaluation note* Encounter Date Diagnosis Assessment Notes Treatment Notes Treatment Clinical Notes Feb, Hypokalemia (ICD-10 - E87.6) [employer] Other 10-27-2023 Evaluation note* Encounter Date Diagnosis Assessment Notes Treatment Notes Treatment Clinical Notes Jan, Stage 3a chronic kidney disease (ICD-10 - N18.31) [employer] Other 09-30-2023 Evaluation note* Encounter Date Diagnosis Assessment Notes Treatment Notes Treatment Clinical Notes Dec, Essential hypertension (ICD-10 - I10) Dec, Wellness examination (ICD-10 - Z00.00) [employer] Other 04-19-2023 Evaluation note* Encounter Date Diagnosis Assessment Notes Treatment Notes Treatment Clinical Notes Jul, Left lower quadrant abdominal pain (ICD-10 - R10.32) [employer] Other 04-14-2023 Evaluation note* Encounter Date Diagnosis [...] (ICD-10 - Z87.442) Push fluids, check CT [employer] Other 04-03-2023 Evaluation note* Encounter Date Diagnosis Assessment Notes Treatment Notes Treatment Clinical Notes Jul, Essential hypertension (ICD-10 - I10) [employer] Other 03-17-2023 Evaluation note* Encounter Date Diagnosis [...] of nephrolithiasis (ICD-10 - Z87.442) Push fluids [facility] [employer] Other Evaluation note* Diagnosis Cellulitis of left lower extremity- Primary Cellulitis and abscess of leg, except foot documented in this encounter [facility] Work Phone: evaluation noteNo [facility] [employer] Other Evaluation note* Diagnosis Onset Date Resolution Status Essential hypertension acute Acute bronchitis due to other specified organisms noneactive [facility] [employer] Work Phone: Evaluation note* Diagnosis Onset Date Resolution Status Essential hypertension acute Acute bronchitis due to other specified organisms noneactive Allergic rhinitis acute Post-viral cough syndrome no neactive Acute bronchitis due to other specified organisms noneactive [facility] [employer] Work Phone: History general Narrative - Reported* Type Description [...] ARM 20 18 Hospitalization History See Above [employer] Other Hospital Discharge instructions* Attachments The following attachments cannot be sent through Care Everywhere. * Cellulitis (Uzbek) documented in this encounterBON [employer] Work Phone: Summary Purpose Family History Relationship Condition Age at Onset Recorded Date/T kameron father Heart disease Unknown Diabetes mellitus Unknown Dementia Unknown Malignant neoplasm Unknown Not Specified Unknown Hypertension Unknown Heart disease Unknown sister Hypertension Unknown Relationship Condition Age at Onset Recorded Date/T kameron father Heart disease Unknown Diabetes mellitus Unknown Dementia Unknown Malignant neoplasm Unknown mother Unknown Hypertension Unknown Heart disease Unknown sister Hypertension Unknown Advance Directives Advance Directive Response Recorded Date/ Time Advance Directives No May 21, 2023 4:29pm Chief Complaint and Reason for Visit Chief Complaint 6 month follow up Reason for Visit Elevated cholesterol Essential hypertension Renal cyst, left Stage 3a chronic kidney disease Chief Complaint 6 month follow up [phone] URI Reason for Visit Dysesthesia Elevated cholesterol Essential hypertension Renal cyst, left Stage 3a chronic kidney disease Tinea unguium Intermittent paresthesia of right hand and foot Essential hypertension Acute bronchitis due to other specified organisms Chief Complaint [phone] URI TB ER follow up Reason for Visit Essential hypertensi on Acute bronchitis due to other specified organisms Chief Complaint [phone] URI TBH ER follow up lump in throat Reason for Visit Essential hypertensi on Acute bronchitis due to other specified organisms Allergic rhinitis Post-viral cough syndrome Acute bronchitis due to other specified organisms Additional Source Comments (unrecognized sect ion and content) No Status Records FoundNo Status Records FoundNo Status Records Found INFORMATION SOURCE (unrecogn ized section and content) DATE CREATED AUTHOR 10/23/2017 [employer] [facility] DATE CREATED AUTHOR AUTHOR'S ORGANIZ ATION [facility]24/2021 [facility] DATE CREATED AUTHOR AUTHOR'S ORGANIZ ATION [...] Care Teams (unrecognized sec tion and content) Team Status: Active Member Role Status Dates Marcelo Thompson DO Primary Care Provider Active Team Status: Inactive Member Role Status Irma Thompson DO Primary Care Provide r, Attending Provider Active Start: October 07, 2023 End: October 07, 2023 Team Status: Active Member Role Status Irma Thompson DO Primary Care Provider Active Start: October 13, 2023 Paulo Alford , Attending Provider Active S tart: October 13, 2023 Team Status: Inactive Member Role Status Irma Thompson DO Primary Care Provide r, Attending Provider Active Start: 2023 End: 2023 Team Status: Inactive Member Role Status Irma Thompson DO Primary Care Provide r, Attending Provider Active Start: December 13, 2023 End: December 13, 2023 Team Status: Active Member Role Status Irma Thompson DO Primary Care Provider Active Team Status: Active Member Role Status Irma Thompson DO Primary Care Provide r, Attending Provider Active Start: August 09, 2023 Team Status: Inactive Member Role Status Irma Thompson DO Primary Care Provide r, Attending Provider Active Start: October 07, 2023 End: October 07, 2023 Team Status: Active Member Role Status Irma Thompson DO Primary Care Provider Active Start: October 13, 2023 Paulo Alford , Attending Provider Active S tart: October 13, 2023 Team Status: Inactive Member Role Status Irma Thompson DO Primary Care Provide r, Attending Provider Active Start: 2023 End: 2023 [employer] Relationship Specialty Start Date End Date Marcelo Thompson DO [address] [place] [address] PCP - General Internal Medicine 09/24/21 Team Status: Inactive Member Role Status Irma Thompson DO Primary Care Provide r, Attending Provider Active Start: July 19, 2023 End: July 19, 2023 Team Status: Inactive Member Role Status Dates Marcelo Thompson , DO Primary Care Provide r, Attending Provider Active Start: December 13, 2023 End: December 13, 2023 Goals (unrecognized section and content) Goals [...] BE BASED ON THE PRIMARY CLINICAL RECORDS. Otto Clave [facility]. provides no warranty or guarantee of the accuracy or completeness of information in this document.
[2024-01-08 07:42] LABS: Estimated GFR (African America 57 (>=60); Estimated GFR (Non-African Ame 47 (>=60)
--- NOTE | 2024-01-08 07:42 | CT_ITS ---
The [address] [address] Patient Name: RICHY AVERY MRN: [id number] date: 1960 Sex: M Assigned Patient Location: LAB Current Patient Location: LAB Accession/Order Number: [id number] Exam Date: 01/08/2024 07:58 Report Date: 01/08/2024 08:30 At the request of: JOHNNIE GILL Procedure: CT soft tissue neck w con EXAM: CT soft tissue neck w con HISTORY: Thyroid Nodule COMPARISON: Thyroid ultrasound 08/24/2023. TECHNIQUE: Axial postcontrast CT imaging of the neck soft tissues was performed with coronal and sagittal reformats. This CT exam was performed using one or more of the following dose reduction techniques: Automated exposure control, adjustment of the MA and/or kV according to patient size, or use of iterative reconstruction technique. FINDINGS: Skull base/intracranial: Intracranial atherosclerosis. The visualized portions of the intracranial structures are otherwise unremarkable. Inferior left maxillary sinus mucosal retention cyst. Mastoid and middle ears are well aerated. Visualized portions of the orbits are unremarkable. Neck soft tissues: Evaluation of the oral cavity and facial soft tissues is degraded by streak artifact from dental amalgam. The oropharynx, hypopharynx and glottis demonstrate no significant abnormality. The submandibular glands and parotid glands demonstrate normal CT appearance. 8 mm hypoattenuating inferior right thyroid nodule. The previously described nodule involving the posterior aspect of the left thyroid region is mildly hypoattenuating on the current study measuring approximately 5 mm and does appear contiguous with the thyroid. No overt extrathyroidal soft tissue mass is seen. Lymph nodes: No enlarged or morphologically abnormal neck lymph nodes are identified. Vasculature: Mild vascular sclerosis. Musculoskeletal: Multilevel mild degenerative changes of the cervical spine. No destructive osseous lesions are identified. Upper thorax: The visualized portions of the lungs are clear. CT/CT soft tissue neck w con IMPRESSION: 1. The previously described nodule involving the posterior aspect of the left thyroid region is mildly hypoattenuating on the current study measuring approximately 5 mm and does appear contiguous with the thyroid. No overt extrathyroidal soft tissue mass is seen. 2. Additional 7 mm hypoattenuating right thyroid nodule. Otherwise grossly unremarkable CT appearance of the neck soft tissues. Electronically authenticated by: FARNCISCA SEGOVIA Date: 01/08/2024 08:30
== END 2024-01-08 07:24 | disposition home or self-care (01) ==
LOC: LAB 07:23
PROVIDERS: PCP Internal Medicine; Visit Provider Internal Medicine
DX: E04.1 Nontoxic single thyroid nodule (principal)
CPT/HCPCS: 36415; 70491; 82565; Q9966

== ENCOUNTER 2024-02-01 08:33 | Outpatient (OUT) | payer OTHER, SELFPAY ==
--- OUTSIDE RECORDS SUMMARY | 2024-01-31 09:27 | XMS_ITS | CCD ---
Author Organization [facility] Inform ion Partnership [facility] Care Team Providers Care Director Consumer Name Role Phone Arnoldo, Jos W Unavailable Unavailable Rice, Jos W Unavailable Unavailable Rice, Jos W Unavailable Unavailable BALL, [phone] UNKNOWN Unavailable Unavailable Marcelo Thompson DO Primary Care Provider [phone] MARCELO THOMPSON Primary Care Unavailable Marcelo Thompson [...] DR BLAIR Primary Care Unavailable BALL, DR BLARI Admitting Unavailable BALL, DR LBAIR Attending Unavailable Allergies Allergy Classification Reported Allergen(s) Allergy Type Date of Onset Reaction(s) Facility (1 source) Sulfonamides (Antibiotic); Translations: [sulfa drugs] Propensity to adverse reactions (disorder) [facility] Repository (1 source) Sulfonamides (Antibiotic) Propensity to adverse reactions to drug 09-25-19 Nausea And Vomiting [facility] (12 sources) Ciprofloxacin Drug Allergy 07-19-19 Unknown, Unknown Reaction [facility] (4 sources) Hmg-Coa Reductase Inhibitors (Statins) Propensity to adverse reactions MUSCLE PAIN [facility] Other (8 sources) Sulfacetamide / Sulfur Drug Allergy Unknown [employer] Other (12 sources) sulfADIAZINE Drug Allergy 07-19-19 Unknown, Comment:Sulfa [facility] (8 sources) tamsulosin Drug Allergy Unknown [employer] Other (1 source) black walnut pollen extract Drug Allergy [facility] Repository (1 source) Sulfonamides (Antibiotic) Drug allergy (disorder) 03-02-20 14 [facility] Repository (8 sources) predniSONE Drug Allergy 07-19-19 Unknown, Unknown Reaction [facility] (4 sources) Statins Depletion *DIETARY PRODUCTS/DIETARY MANAGE Propensity to adverse reactions Comment:ALL Statins [employer] Other (4 sources) tamsulosin Drug Allergy 07-19-19 24 Unknown Reaction [facility] (4 sources) Ocpdzjn-XLB-PaR Reductase Inhibitor Allergy to substance 07-19-19 Comment:ALL Statins [facility] Medications Current Medications Medication Drug [...] tablet by james th every twenty-four hours Zmcgwuzryo-tnDHPOCfny-HZRQ 40-10-25 MG 1 tablet Orally Once a [...] 30 Active take 2 tablets by mo [facility] every twelve hours Labetalol HCl 100 MG [...] Basophils (Bld) [#/Vol] 0.0 10 3/uL 0.0-0.1 [facility] Basophils/100 WBC Auto (Bld) on 10-13-2023 Basophils/100 WBC (Bld) 0.2 % 0.2-2.0 [facility] Eosinophils/100 WBC Auto (Bl d)on 10-13-2023 Eosinophils/100 WBC (Bld) 1.8 % 0.9-7.0 [facility] Erythrocyte distribution wid th Auto (RBC) [Ratio]on 10-13-2023 Erythrocyte distribution width (RBC) [Ratio] 12.9 % 11.0-15.0 [facility] Estimated glomerular filtrat ion rate (GFR) non- Americanon 10-13-2023 GFR/1.73 sq M.predicted among non-blacks MDRD (S/P/Bld) [Vol rate/Area] 44 mL/min/{1.73_m2} Low >=60 [facility] Hematocrit Auto (Bld) [Volum e fraction]on 10-13-2023 Hematocrit (Bld) [Volume fraction] 39.9 % Low 42.0-54.0 [facility] Hemoglobin [Mass/volume] in Bloodon 10-13-2023 Hemoglobin (Bld) [Mass/Vol] 13.3 g/dL Low 14.0-18.0 [facility] Laboratory - Chemistry and C hemistry - challengeon 10-13-2023 Calcium [Mass/Vol] 8.7 mg/dL 8.5-10.1 [facility] Chloride [Moles/Vol] 102 mmol/L 98-107 [facility] CO2 [Moles/Vol] 25.9 mmol/L 21.0-32.0 [facility] Creatinine [Mass/Vol] 1.59 mg/dL High 0.70-1.30 [facility] GFR/1.73 sq M.predicted MDRD (S/P/Bld) [Vol rate/Area] 54 mL/min/{1.73_m2} Low >=60 [facility] Glucose [Mass/Vol] 100 mg/dL 74-106 [facility] Potassium [Moles/Vol] 4.2 mmol/L 3.5-5.1 [facility] Sodium [Moles/Vol] 141 mmol/L 136-145 [facility] Urea nitrogen [Mass/Vol] 32.0 mg/dL High 7.0-18.0 [facility] Urea nitrogen/Creatinine [Mass ratio] 20.1 mg/mg [facility] Laboratory - Hematology and Cell countson 10-13-2023 Immature granulocytes/100 WBC (Bld) 0.4 % 0.0-0.5 [facility] Leukocytes [#/volume] correc cipriano for nucleated erythrocytes in Blood by Automated counon 10-13-2023 WBC corrected for nucl RBC Auto (Bld) [#/Vol] 5.0 10 3/uL 4.0-11.0 [facility] Lymphocytes Auto (Bld) [#/Vo l]on 10-13-2023 Lymphocytes (Bld) [#/Vol] 1.2 10 3/uL 1.2-3.8 [facility] Lymphocytes/100 WBC Auto (Bl d)on 10-13-2023 Lymphocytes/100 WBC (Bld) 23.8 % 20.5-60.0 [facility] MCH Auto (RBC) [Entitic mass ]on 10-13-2023 MCH (RBC) [Entitic mass] 28.9 pg 25.9-34.0 [facility] MCHC Auto (RBC) [Mass/Vol]on 10-13-2023 MCHC (RBC) [Mass/Vol] 33.3 g/dL 29.9-35.2 [facility] MCV Auto (RBC) [Entitic vol] on 10-13-2023 MCV (RBC) [Entitic vol] 86.6 fL 80.0-94.0 [facility] Monocytes Auto (Bld) [#/Vol] on 10-13-2023 Monocytes (Bld) [#/Vol] 0.4 10 3/uL 0.3-0.8 [facility] Monocytes/100 WBC Auto (Bld) on 10-13-2023 Monocytes/100 WBC (Bld) 8.8 % 1.7-12.0 [facility] Neutrophils Auto (Bld) [#/Vo l]on 10-13-2023 Neutrophils (Bld) [#/Vol] 3.2 10 3/uL 1.4-6.5 [facility] Neutrophils/100 WBC Auto (Bl d)on 10-13-2023 Neutrophils/100 WBC (Bld) 65.0 % 43.0-75.0 [facility] No Panel Informationon 10-12 Eosinophils # (Auto) 0.1 10 3/uL 0.0-0.7 [facility] Immature Granulocyte # (Auto) 0.02 10 3/uL 0.00-0.03 [facility] Troponin I High Sensitivity 6.5 pg/mL 4.0-76.1 [facility] Comment on above: CUT-OFF POINTS HAVE BEEN [...] (Bld) [Entitic vol] 8.3 fL Low 9.5-13.5 [facility] Platelets Auto (Bld) [#/Vol] on 10-13-2023 Platelets (Bld) [#/Vol] 233 10 3/uL 150-450 [facility] RBC Auto (Bld) [#/Vol]on RBC (Bld) [#/Vol] 4.61 10 6/uL Low 4.70-6.10 [facility] Serum or plasma anion gap de terminationon 10-13-2023 Anion gap [Moles/Vol] 17.3 mmol/L [facility] Basophils Auto (Bld) [#/Vol] on 08-09-2023 Basophils (Bld) [#/Vol] 0.0 10 3/uL 0.0-0.1 [facility] Basophils/100 WBC Auto (Bld) on 08-09-2023 Basophils/100 WBC (Bld) 0.4 % 0.2-2.0 [facility] Eosinophils/100 WBC Auto (Bl d)on 08-09-2023 Eosinophils/100 WBC (Bld) 2.6 % 0.9-7.0 [facility] Erythrocyte distribution wid th Auto (RBC) [Ratio]on 08-09-2023 Erythrocyte distribution width (RBC) [Ratio] 13.1 % 11.0-15.0 [facility] Estimated glomerular filtrat ion rate (GFR) non- Americanon 08-09-2023 GFR/1.73 sq M.predicted among non-blacks MDRD (S/P/Bld) [Vol rate/Area] 46 mL/min/{1.73_m2} >=60 [facility] Globulin Calc (S) [Mass/Vol] on 08-09-2023 Globulin (S) [Mass/Vol] 3.4 g/dL [facility] Hematocrit Auto (Bld) [Volum e fraction]on 08-09-2023 Hematocrit (Bld) [Volume fraction] 42.7 % 42.0-54.0 [facility] Hemoglobin [Mass/volume] in Bloodon 08-09-2023 Hemoglobin (Bld) [Mass/Vol] 14.0 g/dL 14.0-18.0 [facility] Laboratory - Chemistry and C hemistry - challengeon 08-09-2023 Albumin [Mass/Vol] 3.7 g/dL 3.4-5.0 [facility] ALP [Catalytic activity/Vol] 57 U/L 46-116 [facility] ALT [Catalytic activity/Vol] 30 U/L 16-63 [facility] AST [Catalytic activity/Vol] 17 U/L 15-37 [facility] Bilirubin [Mass/Vol] 0.4 mg/dL 0.2-1.0 [facility] Calcium [Mass/Vol] 9.2 mg/dL 8.5-10.1 [facility] Chloride [Moles/Vol] 104 mmol/L 98-107 [facility] CO2 [Moles/Vol] 30.3 mmol/L 21.0-32.0 [facility] Cobalamin (Vitamin B12) [Mass/Vol] 270.0 pg/mL 193.0-986.0 [facility] Creatinine [Mass/Vol] 1.55 mg/dL 0.70-1.30 [facility] GFR/1.73 sq M.predicted MDRD (S/P/Bld) [Vol rate/Area] 55 mL/min/{1.73_m2} >=60 [facility] Glucose [Mass/Vol] 99 mg/dL 74-106 [facility] Potassium [Moles/Vol] 3.6 mmol/L 3.5-5.1 [facility] Protein [Mass/Vol] 7.1 g/dL 6.4-8.2 [facility] Sodium [Moles/Vol] 144 mmol/L 136-145 [facility] TSH Qn 2.981 m[IU]/L 0.358-3.740 [facility] Urea nitrogen [Mass/Vol] 29.0 mg/dL 7.0-18.0 [facility] Urea nitrogen/Creatinine [Mass ratio] 18.7 mg/mg [facility] Laboratory - Hematology and Cell countson 08-09-2023 Immature granulocytes/100 WBC (Bld) 0.3 % 0.0-0.5 [facility] Leukocytes [#/volume] correc cipriano for nucleated erythrocytes in Blood by Automated counon 08-09-2023 WBC corrected for nucl RBC Auto (Bld) [#/Vol] 6.8 10 3/uL 4.0-11.0 [facility] Lymphocytes Auto (Bld) [#/Vo l]on 08-09-2023 Lymphocytes (Bld) [#/Vol] 1.2 10 3/uL 1.2-3.8 [facility] Lymphocytes/100 WBC Auto (Bl d)on 08-09-2023 Lymphocytes/100 WBC (Bld) 18.0 % 20.5-60.0 [facility] MCH Auto (RBC) [Entitic mass ]on 08-09-2023 MCH (RBC) [Entitic mass] 28.9 pg 25.9-34.0 [facility] MCHC Auto (RBC) [Mass/Vol]on 08-09-2023 MCHC (RBC) [Mass/Vol] 32.8 g/dL 29.9-35.2 [facility] MCV Auto (RBC) [Entitic vol] on 08-09-2023 MCV (RBC) [Entitic vol] 88.2 fL 80.0-94.0 [facility] Monocytes Auto (Bld) [#/Vol] on 08-09-2023 Monocytes (Bld) [#/Vol] 0.8 10 3/uL 0.3-0.8 [facility] Monocytes/100 WBC Auto (Bld) on 08-09-2023 Monocytes/100 WBC (Bld) 11.1 % 1.7-12.0 [facility] Neutrophils Auto (Bld) [#/Vo l]on 08-09-2023 Neutrophils (Bld) [#/Vol] 4.6 10 3/uL 1.4-6.5 [facility] Neutrophils/100 WBC Auto (Bl d)on 08-09-2023 Neutrophils/100 WBC (Bld) 67.6 % 43.0-75.0 [facility] No Panel Informationon 08-08 Eosinophils # (Auto) 0.2 10 3/uL 0.0-0.7 [facility] Immature Granulocyte # (Auto) 0.02 10 3/uL 0.00-0.03 [facility] Platelet mean volume Auto (B ld) [Entitic vol]on 08-09-2023 Platelet mean volume (Bld) [Entitic vol] 8.1 fL 9.5-13.5 [facility] Platelets Auto (Bld) [#/Vol] on 08-09-2023 Platelets (Bld) [#/Vol] 257 10 3/uL 150-450 [facility] RBC Auto (Bld) [#/Vol]on RBC (Bld) [#/Vol] 4.84 10 6/uL 4.70-6.10 [facility] Serum or plasma albumin/glob ulin mass ratioon 08-09-2023 Albumin/Globulin [Mass ratio] 1.1 {ratio} [facility] Serum or plasma anion gap de terminationon 08-09-2023 Anion gap [Moles/Vol] 13.3 mmol/L [facility] CREATININEon 08-17-2022 Creatinine [Mass/Vol] 1.59 mg/dL Critically high 0.70-1.30 [facility] Comment on above: Performed By: #### C DIANELYS #### [facility] [address] [address] [address] Keanu Shafer EGFR-AF GUINEAN 54 mL/min/1.73m2 Critically low >=60 [facility] Comment on above: Performed By: #### C DIANELYS #### [facility] [address] [address] [address] Keanu Shafer EGFR-NON AF GUINEAN 44 mL/min/1.73m2 Critically low >=60 [facility] Comment on above: Performed By: #### C DIANELYS #### [facility] [address] [address] ABD/PELV W CONon [...] ANSHUL AMADOR Date: 2022-08-17 08:53 Normal [facility] Basic Metabolic Panelon 03-1 7-2023 Calcium [Mass/Vol] 9.9778037 mg/dL 8.5-10 .1 mg/dL [employer] Other CO2 [Moles/Vol] 28.09511274 mmol/L 21.0-3 2.0 mmol/L [employer] Other Creatinine [Mass/Vol] 1.89468782 mg/dL Critically high 0.70-1.30 mg/dL [employer] Other Potassium [Moles/Vol] 4.32282188 mmol/L 3.5-5.1 mmol/L [employer] Other Urea nitrogen [Mass/Vol] 21.9042793 mg/dL Critically high 7.0-18.0 mg/dL [employer] Other Basic Metabolic Panel see note [employer] Other Basic Metabolic Panel 144 mmol/L 136-145 mmol/L [employer] Other Basic Metabolic Panel 99 mg/dL 74-106 mg/dL [employer] Other Basic Metabolic Panel 55 mL/min/1.73m2 Critically low >=60 mL/min/1.73m2 [employer] Other Basic Metabolic Panel >60 mL/min/1.73m2 >=60 mL/min/1.73m2 [employer] Other Anion gap [Moles/Vol] 11.0 mmol/L Normal [employer] Other Comment on above: Performed By: #### B MP #### [facility] [address] [address] [address] Keanu Shafer Chloride [Moles/Vol] 109 mmol/L Critically high 98-107 [employer] Other Comment on above: Performed By: #### B MP #### [facility] [address] [address] [address] Keanu Shafer Urea nitrogen/Creatinine [Mass ratio] 16.0 mg/mg Normal [employer] Other Comment on above: Performed By: #### B MP #### [facility] [address] [address] [address] Keanu Shafer PROF CHEM 8 (BAS METB)on Calcium [Mass/Vol] 9.0 mg/dL Normal 8.5-10.1 [facility] Comment on above: Performed By: #### B MP #### [facility] [address] [address] [address] Keanu Shafer CO2 [Moles/Vol] 28.3 mmol/L Normal 21.0-32.0 [facility] Comment on above: Performed By: #### B MP #### [facility] [address] [place] [address] Dr. Keanu Shafer Creatinine [Mass/Vol] 1.31 mg/dL Critically high 0.70-1.30 [facility] Comment on above: Performed By: #### B MP #### [facility] [address] [address] [address] Keanu Shafer EGFR-AF GUINEAN >60 Normal >=60 [facility] Comment on above: Performed By: #### B MP #### [facility] [address] [place] [address] Dr. Keanu Shafer EGFR-NON AF GUINEAN 55 mL/min/1.73m2 Critically low >=60 [facility] Comment on above: Performed By: #### B MP #### [facility] [address] [address] [address] Keanu Shafer Glucose [Mass/Vol] 99 mg/dL Normal 74-106 [facility] Comment on above: Performed By: #### B MP #### [facility] [address] [address] [address] Keanu Shafer Potassium [Moles/Vol] 4.3 mmol/L Normal 3.5-5.1 [facility] Comment on above: Performed By: #### B MP #### [facility] [address] [address] [address] Keanu Shafer Sodium [Moles/Vol] 144 mmol/L Normal 136-145 [facility] Comment on above: Performed By: #### B MP #### [facility] [address] [place] [address] Dr. Keanu Shafer Urea nitrogen [Mass/Vol] 21.0 mg/dL Critically high 7.0-18.0 [facility] Comment on above: Performed By: #### B MP #### [facility] [address] [place] [address] Dr. Keanu Shafer CBC AUTO DIFFon 01-19-2022 BASO # 0.0 103/ul Normal 0.0-0.1 [facility] Comment on above: Performed By: #### C BC #### [facility] [address] [place] [address] Dr. Keanu Shafer Basophils/100 WBC (Bld) 0.3 % Normal 0.2-2.0 [facility] Comment on above: Performed By: #### C BC #### [facility] [address] [place] [address] Dr. Keanu Shafer EO # 0.2 103/ul Normal 0.0-0.7 [facility] Comment on above: Performed By: #### C BC #### [facility] [address] [place] [address] Dr. Keanu Shafer Eosinophils/100 WBC (Bld) 2.4 % Normal 0.9-7.0 [facility] Comment on above: Performed By: #### C BC #### [facility] [address] [place] [address] Dr. Keanu Shafer Erythrocyte distribution width (RBC) [Ratio] 13.2 % Normal 11.0-15.0 [facility] Comment on above: Performed By: #### C BC #### [facility] [address] [place] [address] Dr. Keanu Shafer Hematocrit (Bld) [Volume fraction] 42.1 % Normal 42.0-54.0 [facility] Comment on above: Performed By: #### C BC #### [facility] [address] [place] [address] Dr. Keanu Shafer Hemoglobin (Bld) [Mass/Vol] 14.2 g/dL Normal 14.0-18.0 [facility] Comment on above: Performed By: #### C BC #### [facility] [address] [place] [address] Dr. Keanu Shafer IG # 0.02 10e3/ul Normal 0.00-0.03 [facility] Comment on above: Performed By: #### C BC #### [facility] [address] [place] [address] Dr. Keanu Shafer IG % 0.3 % Normal 0.0-0.5 [facility] Comment on above: Performed By: #### C BC #### [facility] [address] [place] [address] Dr. Keanu Shafer LYMPH # 1.0 103/ul Critically low 1.2-3.8 [facility] Comment on above: Performed By: #### C BC #### [facility] [address] [place] [address] Dr. Keanu Shafer Lymphocytes/100 WBC (Bld) 16.0 % Critically low 20.5-60.0 [facility] Comment on above: Performed By: #### C BC #### [facility] [address] [place] [address] Dr. Keanu Shafer MANUAL DIFF REQ NO Normal [facility] Comment on above: Performed By: #### C BC #### [facility] [address] [place] [address] Dr. Keanu Shafer MCH (RBC) [Entitic mass] 29.2 pg Normal 25.9-34.0 [facility] Comment on above: Performed By: #### C BC #### [facility] [address] [place] [address] Dr. Keanu Shafer MCHC (RBC) [Mass/Vol] 33.7 g/dL Normal 29.9-35.2 [facility] Comment on above: Performed By: #### C BC #### [facility] [address] [place] [address] Dr. Keanu Shafer MCV (RBC) [Entitic vol] 86.6 fL Normal 80.0-94.0 [facility] Comment on above: Performed By: #### C BC #### [facility] [address] [place] [address] Dr. Keanu Shafer MONO # 0.6 103/ul Normal 0.3-0.8 [facility] Comment on above: Performed By: #### C BC #### [facility] [address] [address] [address] Keanu Shafer Monocytes/100 WBC (Bld) 9.2 % Normal 1.7-12.0 [facility] Comment on above: Performed By: #### C BC #### [facility] [address] [place] [address] Dr. Keanu Shafer NEUT # 4.5 103/ul Normal 1.4-6.5 [facility] Comment on above: Performed By: #### C BC #### [facility] [address] [place] [address] Dr. Keanu Shafer Neutrophils/100 WBC (Bld) 71.8 % Normal 43.0-75.0 [facility] Comment on above: Performed By: #### C BC #### [facility] [address] [place] [address] Dr. Keanu Shafer Platelet mean volume (Bld) [Entitic vol] 7.8 fL Critically low 9.5-13.5 [facility] Comment on above: Performed By: #### C BC #### [facility] [address] [place] [address] Dr. Keanu Shafer PLT 233 103/ul Normal 150-450 [facility] Comment on above: Performed By: #### C BC #### [facility] [address] [place] [address] Dr. Keanu Shafer RBC 4.86 106/ul Normal 4.70-6.10 [facility] Comment on above: Performed By: #### C BC #### [facility] [address] [place] [address] Dr. Keanu Shafer WBC 6.2 103/ul Normal 4.0-11.0 [facility] Comment on above: Performed By: #### C BC #### [facility] [address] [address] [address] Keanu Shafer LIPID PROFILEon 01-19-2022 CHOL-HDL RATIO NORM SEE BELOW Normal [facility] Comment on above: Result Comment: 3.3 - 4.4 LOW RISK 4.4 - 7.1 AVERAGE RISK 7.1 - 11.0 MODERATE RISK >11.0 HIGH RISK Performed By: #### C MP, LIPID #### [facility] [address] [address] [address] Keanu Shafer Cholesterol [Mass/Vol] 222 mg/dL Critically high <=200 [facility] Comment on above: Performed By: #### C MP, LIPID #### [facility] [address] [address] [address] Keanu Shafer Cholesterol in HDL [Mass/Vol] 40 mg/dL Normal 40-60 [facility] Comment on above: Performed By: #### C MP, LIPID #### [facility] [address] [address] [address] Keanu Shafer Cholesterol in LDL [Mass/Vol] 160.6 mg/dL Normal [facility] Comment on above: Performed By: #### C MP, LIPID #### [facility] [address] [place] [address] Dr. Keanu Shafer Cholesterol.total/Ch olesterol in HDL [Mass ratio] 5.6 {ratio} Normal [facility] Comment on above: Performed By: #### C MP, LIPID #### [facility] [address] [address] [address] Keanu Shafer HDL NORMAL > or = 60 mg/dl - LOW CARDIOVASCULAR RISK <40 mg/dl - HIGH CARDIOVASCULAR RISK Normal [facility] Comment on above: Performed By: #### C MP, LIPID #### [facility] [address] [address] [address] Keanu Shafer LDL CALC NORMAL SEE BELOW Normal [facility] Comment on above: Result Comment: <100 mg/dl OPTIMAL 100 - 129 mg/dl NEAR OR ABOVE OPTIMAL 130 - 159 mg/dl BORDERLINE HIGH 160 - 189 mg/dl HIGH >190 mg/dl VERY HIGH Performed By: #### C MP, LIPID #### [facility] [address] [address] [address] Keanu Shafer Triglyceride [Mass/Vol] 107 mg/dL Normal <=150 [facility] Comment on above: Performed By: #### C MP, LIPID #### [facility] [address] [place] [address] Dr. Keanu Shafer VLDL CALC 21.4 mg/dL Normal [facility] Comment on above: Performed By: #### C MP, LIPID #### [facility] [address] [address] [address] Keanu Shafer PROF 14(COMP METB)on 022 Albumin [Mass/Vol] 3.9 g/dL Normal 3.4-5.0 [facility] Comment on above: Performed By: #### C MP, LIPID #### [facility] [address] [place] [address] Dr. Keanu Shafer Albumin/Globulin [Mass ratio] 1.3 {ratio} Normal [facility] Comment on above: Performed By: #### C MP, LIPID #### [facility] [address] [place] [address] Dr. Keanu Shafer ALP [Catalytic activity/Vol] 55 U/L Normal 46-116 [facility] Comment on above: Performed By: #### C MP, LIPID #### [facility] [address] [place] [address] Dr. Keanu Shafer ALT [Catalytic activity/Vol] 25 U/L Normal 16-63 [facility] Comment on above: Performed By: #### C MP, LIPID #### [facility] [address] [place] [address] Dr. Keanu Shafer Anion gap [Moles/Vol] 8.8 mmol/L Normal [facility] Comment on above: Performed By: #### C MP, LIPID #### [facility] [address] [place] [address] Dr. Keanu Shafer AST [Catalytic activity/Vol] 15 U/L Normal 15-37 [facility] Comment on above: Performed By: #### C MP, LIPID #### [facility] [address] [address] [address] Keanu Shafer Bilirubin [Mass/Vol] 0.7 mg/dL Normal 0.2-1.0 [facility] Comment on above: Performed By: #### C MP, LIPID #### [facility] [address] [place] [address] [address] Keanu Shafer Calcium [Mass/Vol] 8.7 mg/dL Normal 8.5-10.1 [facility] Comment on above: Performed By: #### C MP, LIPID #### [facility] [address] [address] [address] Keanu Shafer Chloride [Moles/Vol] 106 mmol/L Normal 98-107 [facility] Comment on above: Performed By: #### C MP, LIPID #### [facility] [address] [place] [address] Dr. Keanu Shafer CO2 [Moles/Vol] 28.4 mmol/L Normal 21.0-32.0 [facility] Comment on above: Performed By: #### C MP, LIPID #### [facility] [address] [place] [address] Dr. Keanu Shafer Creatinine [Mass/Vol] 1.25 mg/dL Normal 0.70-1.30 [facility] Comment on above: Performed By: #### C MP, LIPID #### [facility] [address] [place] [address] Dr. Keanu Shafer EGFR-AF GUINEAN >60 Normal >=60 [facility] Comment on above: Performed By: #### C MP, LIPID #### [facility] [address] [place] [address] Dr. Keanu Shafer EGFR-NON AF GUINEAN 59 mL/min/1.73m2 Critically low >=60 [facility] Comment on above: Performed By: #### C MP, LIPID #### [facility] [address] [address] [address] Keanu Shafer Globulin (S) [Mass/Vol] 3.1 g/dL Normal [facility] Comment on above: Performed By: #### C MP, LIPID #### [facility] [address] [address] [address] Keanu Shafer Glucose [Mass/Vol] 99 mg/dL Normal 74-106 [facility] Comment on above: Performed By: #### C MP, LIPID #### [facility] [address] [address] [address] Keanu Shafer Potassium [Moles/Vol] 4.2 mmol/L Normal 3.5-5.1 [facility] Comment on above: Performed By: #### C MP, LIPID #### [facility] [address] [address] [address] Keanu Shafer Protein [Mass/Vol] 7.0 g/dL Normal 6.4-8.2 [facility] Comment on above: Performed By: #### C MP, LIPID #### [facility] [address] [place] [address] Dr. Keanu Shafer Sodium [Moles/Vol] 139 mmol/L Normal 136-145 [facility] Comment on above: Performed By: #### C MP, LIPID #### [facility] [address] [address] [address] Keanu Shafer Urea nitrogen [Mass/Vol] 18.0 mg/dL Normal 7.0-18.0 [facility] Comment on above: Performed By: #### C MP, LIPID #### [facility] [address] [place] [address] Dr. Keanu Shafer Urea nitrogen/Creatinine [Mass ratio] 14.4 mg/mg Normal [facility] Comment on above: Performed By: #### C MP, LIPID #### [facility] [address] [address] [address] Keanu Shafer CBC With Platelet and Differ entialon 09-24-2021 Basophils (Bld) [#/Vol] 0.0 10*3/uL Normal 0.0-0.2 Comment on above: Performed By: #### C BCWD #### [address] [place] [address] Basophils/100 WBC (Bld) 0.3 % Normal Comment on above: Performed By: #### C BCWD #### [address] [place] [address] Eosinophils (Bld) [#/Vol] 0.1 10*3/uL Normal 0.0-0.7 Comment on above: Performed By: #### C BCWD #### [address] [place] [address] Eosinophils/100 WBC (Bld) 0.9 % Normal Comment on above: Performed By: #### C BCWD #### [address] [place] [address] Erythrocyte distribution width (RBC) [Ratio] 13.9 % Normal 11.5-14.5 Comment on above: Performed By: #### C BCWD #### [address] [place] [address] Hematocrit (Bld) [Volume fraction] 42.6 % Normal 42.0-52.0 Comment on above: Performed By: #### C BCWD #### [address] [place] [address] Hemoglobin (Bld) [Mass/Vol] 14.2 g/dL Normal 14.0-18.0 Comment on above: Performed By: #### C BCWD #### [address] [place] [address] Lymphocytes (Bld) [#/Vol] 0.9 10*3/uL Low 1.0-4.8 Comment on above: Performed By: #### C BCWD #### [address] [place] [address] Lymphocytes/100 WBC (Bld) 8.1 % Normal Comment on above: Performed By: #### C BCWD #### [address] [place] [address] MCH (RBC) [Entitic mass] 28.9 pg Normal 27.0-31.3 Comment on above: Performed By: #### C BCWD #### [address] [place] [address] MCHC 33.3 % Normal 33.0-37.0 Comment on above: Performed By: #### C BCWD #### [address] [place] [address] MCV (RBC) [Entitic vol] 86.8 fL Normal 80.0-100.0 Comment on above: Performed By: #### C BCWD #### [address] [place] [address] Monocytes (Bld) [#/Vol] 0.8 10*3/uL Normal 0.2-0.8 Comment on above: Performed By: #### C BCWD #### [address] [place] [address] Monocytes/100 WBC (Bld) 7.4 % Normal Comment on above: Performed By: #### C BCWD #### [address] [place] [address] Neutrophils (Bld) [#/Vol] 9.5 10*3/uL Critically high 1.4-6.5 Comment on above: Performed By: #### C BCWD #### [address] [place] [address] Neutrophils/100 WBC (Bld) 83.3 % Normal Comment on above: Performed By: #### C BCWD #### [address] [place] [address] Platelets (Bld) [#/Vol] 289 10*3/uL Normal 130-400 Comment on above: Performed By: #### C BCWD #### [address] [place] [address] RBC (Bld) [#/Vol] 4.90 10*6/uL Normal 4.70-6.10 Comment on above: Performed By: #### C BCWD #### [address] [place] [address] WBC (Bld) [#/Vol] 11.4 10*3/uL Critically high 4.8-10.8 Comment on above: Performed By: #### C BCWD #### [address] [place] [address] CBC with Auto Differentialon 09-24-2021 Basophils (Bld) [#/Vol] 0.0 10*3/uL 0.0 - 0.2 K/uL [facility] Basophils/100 WBC (Bld) 0.3 % [facility] Eosinophils (Bld) [#/Vol] 0.1 10*3/uL 0.0 - 0.7 K/uL [facility] Eosinophils/100 WBC (Bld) 0.9 % [facility] Hematocrit (Bld) [Volume fraction] 42.6 % 42.0 - 52.0 % [facility] Hemoglobin.gastroint estinal spec 1 Ql (Stl) 14.2 g/dL 14.0 - 18.0 g/dL [facility] Interpretation and review of laboratory results Abnormal [facility] Lymphocytes (Bld) [#/Vol] 0.9 10*3/uL Low 1.0 - 4.8 K/uL [facility] Lymphocytes/100 WBC (Bld) 8.1 % [facility] MCH (RBC) [Entitic mass] 28.9 pg 27.0 - 31.3 pg [facility] MCHC (RBC) [Mass/Vol] 33.3 % 33.0 - 37.0 % [facility] MCV (RBC) [Entitic vol] 86.8 fL 80.0 - 100.0 fL [facility] Monocytes (Bld) [#/Vol] 0.8 10*3/uL 0.2 - 0.8 K/uL [facility] Monocytes/100 WBC (Bld) 7.4 % [facility] Neutrophils Absolute 9.5 K/uL High 1.4 - 6 .5 K/uL [facility] Neutrophils/100 WBC (Bld) 83.3 % [facility] Platelet distribution width (Bld) [Ratio] 13.9 % 11.5 - 14.5 % [facility] Platelets (Bld) [#/Vol] 289 10*3/uL 130 - 400 K/uL [facility] RBC (Bld) [#/Vol] 4.90 10*6/uL [facility] WBC (Bld) [#/Vol] 11.4 10*3/uL High 4.8 - 10.8 K/uL [facility] Comprehensive Metabolic Pane erasmo 09-24-2021 Albumin [Mass/Vol] 4.3 g/dL Normal 3.5-4.6 Comment on above: Performed By: #### C MP #### [address] [place] [address] ALP [Catalytic activity/Vol] 68 U/L Normal 35-104 Comment on above: Performed By: #### C MP #### [address] [place] [address] ALT [Catalytic activity/Vol] 14 U/L Normal 0-41 Comment on above: Performed By: #### C MP #### [address] [place] [address] Anion gap [Moles/Vol] 11 mmol/L Normal 9-15 Comment on above: Performed By: #### C MP #### [address] [place] [address] AST [Catalytic activity/Vol] 14 U/L Normal 0-40 Comment on above: Result Comment: Spec imen hemolysis has exceeded the interference as defined by Ayla. Value may be falsely increased. Suggest recollection if clinically indicated. Performed By: #### C MP #### [address] [place] [address] Bilirubin [Mass/Vol] 0.3 mg/dL Normal 0.2-0.7 [facility] Comment on above: Performed By: #### C MP #### [address] [place] [address] Calcium [Mass/Vol] 9.0 mg/dL Normal 8.5-9.9 Comment on above: Performed By: #### C MP #### [address] [place] [address] Chloride [Moles/Vol] 102 mmol/L Normal 95-107 [facility] Comment on above: Performed By: #### C MP #### [address] [place] [address] CO2 [Moles/Vol] 27 mmol/L Normal 20-31 [facility] Comment on above: Performed By: #### C MP #### [address] [place] [address] Creatinine [Mass/Vol] 1.27 mg/dL Critically high 0.70-1.20 Comment on above: Performed By: #### C MP #### [address] [place] [address] GFR 57.5 Low >60 Comment on above: Result Comment: >60 mL/min/1.73m2 EGFR, calc. for ages 18 and older using the MDRD formula (not corrected for weight), is valid for stable renal function. Performed By: #### C MP #### [address] [place] [address] GFR/1.73 sq M.predicted among blacks MDRD (S/P/Bld) [Vol rate/Area] mL/min/{1.73_m2} Normal >60 Comment on above: Result Comment: >60 mL/min/1.73m2 EGFR, calc. for ages 18 and older using the MDRD formula (not corrected for weight), is valid for stable renal function. Performed By: #### C MP #### [address] [place] [address] Globulin (S) [Mass/Vol] 2.9 g/dL Normal 2.3-3.5 Comment on above: Performed By: #### C MP #### [address] [place] [address] Glucose [Mass/Vol] 114 mg/dL Critically high 70-99 [facility] Comment on above: Performed By: #### C MP #### [address] [place] [address] Potassium [Moles/Vol] 4.2 mmol/L Normal 3.4-4.9 Comment on above: Performed By: #### C MP #### [address] [place] [address] Protein [Mass/Vol] 7.2 g/dL Normal 6.3-8.0 Comment on above: Performed By: #### C MP #### [address] [place] [address] Sodium [Moles/Vol] 140 mmol/L Normal 135-144 Comment on above: Performed By: #### C MP #### [address] [place] [address] Urea nitrogen [Mass/Vol] 18 mg/dL Normal 8-23 Comment on above: Performed By: #### C MP #### [address] [place] [address] Albumin [Mass/Vol] 4.3 g/dL 3.5 - 4.6 g/dL [facility] ALP (Bld) [Catalytic activity/Vol] 68 U/L 35 - 104 U/L [facility] ALT [Catalytic activity/Vol] 14 U/L 0 - 41 U/L [facility] Anion gap [Moles/Vol] 11 mmol/L [facility] AST [Catalytic activity/Vol] 14 U/L 0 - 40 U/L [facility] Comment on above: Specimen hemolysis h as exceeded the interference as defined by Ayla. Value may be falsely increased. Suggest recollection if clinically indicated. Bilirubin [Mass/Vol] 0.3 mg/dL 0.2 - 0 .7 mg/dL [facility] Calcium [Mass/Vol] 9.0 mg/dL 8.5 - 9.9 mg/dL [facility] Chloride [Moles/Vol] 102 mmol/L [facility] CO2 [Moles/Vol] 27 mmol/L [facility] Creatinine [Mass/Vol] 1.27 mg/dL High 0.70 - 1.20 mg/dL [facility] Free PSA/Total PSA [Mass fraction] 7.2 g/dL 6.3 - 8.0 g/dL [facility] GFR >60.0 >60 [facility] Comment on above: >60 mL/min/1.73m2 EG FR, calc. for ages 18 and older using the MDRD formula (not corrected for weight), is valid for stable renal function. GFR Non- 57.5 Low >60 [facility] Comment on above: >60 mL/min/1.73m2 EG FR, calc. for ages 18 and older using the MDRD formula (not corrected for weight), is valid for stable renal function. Globulin (S) [Mass/Vol] 2.9 g/dL 2.3 - 3.5 g/dL [facility] Glucose [Mass/Vol] 114 mg/dL High 70 - 99 mg/dL [facility] Interpretation and review of laboratory results Abnormal [facility] Potassium [Moles/Vol] 4.2 mmol/L [facility] Sodium [Moles/Vol] 140 mmol/L [facility] Urea nitrogen (BldV) [Mass/Vol] 18 mg/dL 8 - 23 mg/dL [facility] US DUP LOWER EXTREMITY LEFT [...] Jamie Thornton MD 09/24/21 Final result Normal NEGATIVE STUDY FOR ACUTE PROXIMAL DVT IN THE LEFT LOWER EXTREMITY. NEGATIVE STUDY FOR ACUTE CALF DVT IN THE LEFT LOWER EXTREMITY. NEGATIVE STUDY FOR SUPERFICIAL THROMBOPHLEBITIS IN THE LEFT LOWER EXTREMITY [facility] LEFT LOWER EXTREMITY DEEP [...] in the proximal calf, not otherwise assessed. [facility] RADIOLOGY Jamie Thornton MD - 09/24/2021 [...] SUPERFICIAL THROMBOPHLEBITIS IN THE LEFT LOWER EXTREMITY [employer] Phone: Radiology Study observation (narrative) [employer] Phone: DUP LOWER EXTREMITY LEFT VENOrdered By: Jamie Thornton on 09-24-2021 [employer] Work Phone: Coding Summary.on 01-21-2017 Coding Summary. CODING DATE: 01/21/2017 [facility] STATUS: Home (Routine DC) PAYOR: [employer] DESCRIPTION 5372 Level 2 Urology and [...] Arriaza Date Saved: 01/21/2017 08:35 pm Normal [facility] Main OR Intraoperative Recor don 01-17-2017 Main OR Intraoperative Record IntraOp Document Type FTURO Summary Primary Physician: Royer Daniels Jr., MD Finalized Date/Time: 01/17/17 15:22:06 Pt. Name: ASHWIN AVERY/Sex: 1960 Male Med Rec #: [id number] Physician: Royer Daniels Jr., MD Financial #: [id number] Pt. 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 Name: OLAYINKACOOKIEASHWIN/Sex: 1960 Male Med Rec #: [id number] Physician: Royer Daniels Jr., MD Financial #: [id number] Pt. Type: O Room/Bed: / Admit/Disch: 01/17/17 [...] of Pain: No Comment: Skin Integrity Intact, [place], Warm, & Dry Vitals - EU Blood Pressure 132/80 Pulse 88 bpm Respirations 16 br/min SPO2 RN Reviewed Yes Last Modified By: ARIELLE Alejandro RN, Ruthann 01/17/17 15:14:11 Finalized By: ARIELLE Alejandro RN, Ruthann Document Signatures Signed By: Kamla Spears LPN 01/17/17 14:38 ARIELLE Alejandro RN, Ruthann 01/17/17 15:13 ARIELLE Alejandro RN, Ruthann 01/17/17 15:14 Normal [facility] Operative Reporton Operative Report Patient: ASHWIN AVERY [...] with antibiotic coverage, Follow up arranged. Normal [facility] Comment on above: Result Comment: Elec tronically Signed By: Jeremiah Moore MD, Royer Stuart\.br\Date and Time Signed: 01/17/17 15:16 EDT Vital Signs Date Time Vital Sign Value Performing Clinician Facility 12-13-2023 11:57-0400 Body height 177.8 cm [facility] 12-13-2023 11:57-0400 Body mass index (BMI) [Ratio] 29.1 kg/m2 [facility] 12-13-2023 11:57-0400 Body weight 92.07 kg [facility] 12-13-2023 11:57-0400 Diastolic blood pressure 73 mm[Hg] [facility] 12-13-2023 11:57-0400 Heart rate 68 /min [facility] 12-13-2023 11:57-0400 Respiratory rate 12 /min [facility] 12-13-2023 11:57-0400 Systolic blood pressure 128 mm[Hg] [facility] 2023 15:09-0400 Body height 177.8 cm [facility] 2023 15:09-0400 Body mass index (BMI) [Ratio] 29 kg/m2 [facility] 2023 15:09-0400 Body weight 91.85 kg [facility] 2023 15:09-0400 Diastolic blood pressure 70 mm[Hg] [facility] 2023 15:09-0400 Heart rate 86 /min [facility] 2023 15:09-0400 Respiratory rate 12 /min [facility] 2023 15:09-0400 Systolic blood pressure 112 mm[Hg] [facility] 07-19-2023 13:32-0400 Body height 177.8 cm [facility] 07-19-2023 13:32-0400 Body mass index (BMI) [Ratio] 30 kg/m2 [facility] 07-19-2023 13:32-0400 Body weight 94.97 kg [facility] 07-19-2023 13:32-0400 Diastolic blood pressure 77 mm[Hg] [facility] 07-19-2023 13:32-0400 Heart rate 71 /min [facility] 07-19-2023 13:32-0400 Systolic blood pressure 128 mm[Hg] [facility] 08-10-2022 10:00-0400 Body height 177.8 cm Marcelo Ball Other [employer] Other 08-10-2022 10:00-0400 Body mass index (BMI) [Ratio] 28.15 kg/m2 Marcelo Ball Other [employer] Other 08-10-2022 10:00-0400 Body weight 89 kg Marcelo Ball Other [employer] Other 08-10-2022 10:00-0400 Diastolic blood pressure 80 mm[Hg] Marcelo Ball Other [employer] Other 08-10-2022 10:00-0400 Respiratory rate 12 /min Marcelo Ball Other [employer] Other 08-10-2022 10:00-0400 Systolic blood pressure 143 mm[Hg] Marcelo Ball Other [employer] Other 07-13-2022 11:00-0400 Body height 177.8 cm Marcelo Ball Other [employer] Other 07-13-2022 11:00-0400 Body mass index (BMI) [Ratio] 28.64 kg/m2 Marcelo Ball Other [employer] Other 07-13-2022 11:00-0400 Body weight 90.54 kg Marcelo Ball Other [employer] Other 07-13-2022 11:00-0400 Diastolic blood pressure 85 mm[Hg] Marcelo Ball Other [employer] Other 07-13-2022 11:00-0400 Respiratory rate 16 /min Marcelo Ball Other [employer] Other 07-13-2022 11:00-0400 Systolic blood pressure 141 mm[Hg] Marcelo Ball Other [facility] [employer] Other 09-24-2021 14:07-0400 Body height 177.8 cm Marcelo Ball DO Work Phone: [employer] 09-24-2021 14:07-0400 Body mass index (BMI) [Ratio] 27.98 kg/m2 Marcelo Ball DO Work Phone: [employer] 09-24-2021 14:07-0400 Body temperature 97.7 [degF] Marcelo Ball DO Work Phone: [employer] 09-24-2021 14:07-0400 Body weight 88.45 kg Marcelo Davia DO Work Phone: [employer] 09-24-2021 14:07-0400 Diastolic blood pressure 83 mm[Hg] Marcelo Davia DO Work Phone: [employer] 09-24-2021 14:07-0400 Heart rate 82 /min Marcelo Davia DO Work Phone: [employer] 09-24-2021 14:07-0400 Respiratory rate 18 /min Marcelo Davia DO Work Phone: [employer] 09-24-2021 14:07-0400 SaO2% (BldA) [Mass fraction] 97 % Marcelo Ball DO Work Phone: [employer] 09-24-2021 14:07-0400 Systolic blood pressure 138 mm[Hg] Marcelo Davia DO Work Phone: [facility] [employer] Encounters Encounter Date Encounter Type Care Provider Facility Start: 12-13-2023 End: 12-13-2023 ambulatory [facility] Work Phone: Start: 12-13-2023 End: 12-13-2023 Patient encounter procedure [facility] Work Phone: Start: 2023 End: 2023 ambulatory [facility] Work Phone: Start: 2023 End: 2023 Patient encounter procedure [facility] Work Phone: Start: 10-13-2023 Non-patient / Non-visit [facility] Work Phone: Start: 10-07-2023 End: 10-07-2023 ambulatory [facility] Work Phone: Start: 10-07-2023 End: 10-07-2023 Patient encounter procedure [facility] Work Phone: Start: 08-09-2023 Non-patient / Non-visit [facility] Work Phone: Start: 07-19-2023 End: 07-19-2023 ambulatory [facility] Work Phone: Start: 07-19-2023 End: 07-19-2023 Patient encounter [facility] Work Phone: Start: 06-07-2023 End: 06-07-2023 ambulatory Marcelo Ball Other [employer] Other Start: 06-07-2023 Telephone encounter Marcelo Ball [facility] Start: 03-08-2023 End: 03-08-2023 ambulatory Marcelo Ball Other [employer] Other Start: 03-08-2023 Telephone encounter Marcelo Ball [facility] Start: 02-22-2023 End: 02-22-2023 ambulatory Marcelo Ball Other [employer] Other Start: 02-22-2023 Telephone encounter Marcelo Ball [facility] Start: 01-26-2023 End: 01-26-2023 ambulatory Marcelo Ball Other [employer] Other Start: 01-26-2023 Encounter for genera l adult medical examination without abnormal findings Marcelo Ball [facility] Start: 01-26-2023 Telephone encounter Marcelo Thompson [facility] Start: 08-17-2022 End: 08-18-[address] MARCELO THOMPSON Facility:[facility] Start: 08-15-2022 End: 08-15-2022 ambulatory Marcelo Thompson Other [employer] Other Start: 08-15-2022 Telephone encounter Marcelo LOU [facility] Start: 08-10-2022 End: 08-10-2022 ambulatory Marcelo Thompson Other [employer] Other Start: 08-10-2022 Office outpatient vi sit 15 minutes Marcelo Thompson [facility] Start: 07-30-2022 End: 07-30-2022 ambulatory Marcelo Thompson Other [employer] Other Start: 07-30-2022 Telephone encounter Marcelo LOU [facility] Start: 07-13-2022 Office outpatient vi sit 25 minutes Marcelo Thompson [facility] Start: 07-13-2022 End: 07-14-[address] MARCELO THOMPSON [facility] Other Start: 01-23-2022 Encounter for genera l adult medical examination without abnormal findings DR MARCELO THOMPSON [facility] Start: 01-19-2022 End: 01-20-[address] MARCELO THOMPSON Facility:[facility] Start: 01-19-2022 End: 01-20-2022 Encounter for general adult medical examination without abnormal findings DR MARCELO THOMPSON Facility:[facility] Start: 09-24-2021 End: 09-24-2021 Emergency department patient visit MARCELO THOMPSON Start: 09-24-2021 End: 09-24-2021 Emergency department patient visit Marcelo Thomposn DO Work Phone: [facility] ED Comment on above: Cellulitis of left l ower extremity (Primary Dx) Start: 01-17-2017 End: 01-18-2017 Ambulatory Jos Mclaughlin Facility:[facility] Procedures Date Procedure Procedure Detail Performing Clinician Start: 01-19-[address] MITESH THOMPSON Comment on above: Performed By: #### P [facility] #### [facility] [address] [address] [address] Keanu Shafer Start: 09-24-2021 Dup-scan xtr veins unilateral/limited study Luciano Maradiaga PA-C Work Phone: Start: 09-24-2021 Comprehensive metabo lic panel Luciano Maradiaga PA-C Work Phone: Plan of Treatment Date Care Activity Detail Author Start: 12-28-2021 Influenza vaccination Flu vacc ine (Season Ended) [facility] Start: 10-20-2009 Shingles vaccine (1 of 2) [place] gles vaccine (1 of 2) [facility] Start: 10-20-2004 Screening for malign ant neoplasm of colon [facility] Start: 1999 Lipid panel Lipids [facility] Start: 1999 Prostate specific an tigen measurement Prostate Specific Antigen (PSA) Screening or Monitoring [facility] Start: 10-20-1994 Diabetes screen Diabetes screen [facility] Start: 10-20-1978 DTaP/Tdap/Td vaccine (1 - Tdap) DTaP/Tdap/Td vaccine (1 - Tdap) [facility] Start: 10-20-1977 Hepatitis C screening Hepatitis C sc reen [facility] Start: 10-20-1974 HIV screening HIV screen [facility] Start: 1971 Depression Screen Depression Screen [facility] Start: 10-20-1964 COVID-19 Vaccine (1) COVID-19 Vaccin e (1) [facility] Comprehensive metabo lic 1999 panel - Serum or Plasma [facility] MR Brain WO contrast [facility] US.doppler Carotid arteries - bilateral [facility] Payers Date Payer Category Payer Unknown [id number] 1960 Unknown [id number] 2.16.8 [id number] 1960 Unknown [id number] 2.16.84 [id number] 1960 Unknown [id number] 2.16.84 [id number] 1959 Unknown [id number] 2.16.84 [id number] 1959 Unknown [id number] Self-pay Self Pay [id number] Social History Date Type Detail Facility Start: 09-24-2021 End: 07-19-2023 Tobacco smoking status SDIS Never smoked tobacco [employer] Phone: Start: 09-24-2021 Tobacco use and exposure Smokeless tobacco non-user [employer] Phone: Start: 09-24-2021 Alcohol intake Ex-drinker (finding) [employer] Phone: Start: 1960 Sex Assigned At Not on file B [facility] Phone: Start: 09-14-2021 End: 09-24-2021 Exposure to SARS-CoV-2 (event) Not sure [employer] Phone: Sex Assigned At Sex Assigned At [facility] [employer] Other Start: 1960 Sex Assigned At Male F [facility] Clinical Notes 07-13-2022 to 10-07-2023 Note Date & Type Note Facility 10-07-2023 Evaluation note Diagnosis Onset Date Dysesthesia acute Elevated cholesterol acute Essential hypertension acute Renal cyst, left acute Stage 3a chronic kidney disease acute Tinea unguium acute Intermittent paresthesia of right hand and foot noneactive Essential hypertension acute Acute bronchitis due to othe r specified organisms noneactive [facility] Work Phone: [phone]) 807-584303-22-2024 Evaluation note* Diagnosis Onset Date Resolution Status Elevated cholesterol acute Essential hypertension acute Renal cyst, left acute Stage 3a chronic kidney disease acute [facility] Work Phone: [phone]) 775-425511-10-2023 Evaluation note* Encounter Date Diagnosis Assessment Notes Treatment Notes Treatment Clinical Notes Feb, Hypokalemia (ICD-10 - E87.6) [employer] Other 10-27-2023 Evaluation note* Encounter Date Diagnosis Assessment Notes Treatment Notes Treatment Clinical Notes Jan, Stage 3a chronic kidney disease (ICD-10 - N18.31) [employer] Other 09-30-2023 Evaluation note* Encounter Date Diagnosis Assessment Notes Treatment Notes Treatment Clinical Notes Dec, Essential hypertension (ICD-10 - I10) Dec, Wellness examination (ICD-10 - Z00.00) [employer] Other 04-19-2023 Evaluation note* Encounter Date Diagnosis Assessment Notes Treatment Notes Treatment Clinical Notes Jul, Left lower quadrant abdominal pain (ICD-10 - R10.32) [employer] Other 04-14-2023 Evaluation note* Encounter Date Diagnosis [...] (ICD-10 - Z87.442) Push fluids, check CT [employer] Other 04-03-2023 Evaluation note* Encounter Date Diagnosis Assessment Notes Treatment Notes Treatment Clinical Notes Jul, Essential hypertension (ICD-10 - I10) [employer] Other 03-17-2023 Evaluation note* Encounter Date Diagnosis [...] of nephrolithiasis (ICD-10 - Z87.442) Push fluids [facility] [employer] Other Evaluation note* Diagnosis Cellulitis of left lower extremity- Primary Cellulitis and abscess of leg, except foot documented in this encounter [facility] Work Phone: [facility] Other Evaluation note* Diagnosis Onset Date Resolution Status Essential hypertension acute Acute bronchitis due to other specified organisms noneactive [facility] [employer] Work Phone: Evaluation note* Diagnosis Onset Date Resolution Status Essential hypertension acute Acute bronchitis due to other specified organisms noneactive Allergic rhinitis acute Post-viral cough syndrome no neactive Acute bronchitis due to other specified organisms noneactive [facility] [employer] Work Phone: History general Narrative - Reported* [...] ARM 20 18 Hospitalization History See Above [employer] Other Hospital Discharge instructions* Attachments The following attachments cannot be sent through Care Everywhere. * Cellulitis (Portuguese) documented in [facility] Work Phone: Summary Purpose Family History Relationship [...] disease Chief Complaint 6 month follow up [phone] URI Reason for Visit Dysesthesia Elevated cholesterol Essential hypertension Renal cyst, left Stage 3a chronic kidney disease Tinea unguium Intermittent paresthesia of right hand and foot Essential hypertension Acute bronchitis due to other specified organisms Chief Complaint [phone] URI TB ER follow up Reason for Visit Essential hypertensi on Acute bronchitis due to other specified organisms Chief Complaint [phone] URI TBH ER follow up lump in throat Reason for Visit Essential hypertensi on Acute bronchitis due to other specified organisms Allergic rhinitis Post-viral cough syndrome Acute bronchitis due to other specified organisms Additional Source Comments (unrecognized sect ion and content) No Status Records FoundNo Status Records FoundNo Status Records Found INFORMATION SOURCE (unrecogn ized section and content) DATE CREATED AUTHOR 10/23/2017 [facility] DATE CREATED AUTHOR AUTHOR'S ORGANIZ ATION [facility] DATE CREATED AUTHOR AUTHOR'S ORGANIZ [...] Attending Provider Active Start: 2023 End: 2023 Director Consumer Relationship Specialty Start Date End Date Marcelo Thompson DO [address] [facility] [place] [address] PCP - General Internal Medicine 09/24/21 Team [...] BE BASED ON THE PRIMARY CLINICAL RECORDS. [employer] [facility]. provides no warranty or guarantee of the accuracy or completeness of information in this document.
--- OUTSIDE RECORDS SUMMARY | 2024-02-01 08:35 | XMS_ITS | CCD ---
Author Organization [facility] Inform ion Partnership [facility] Care Team Providers Care Belly Packer Name Role Phone Arnoldo, Jos W Unavailable Unavailable Rice, Jos W Unavailable Unavailable Rice, Jos W Unavailable Unavailable BALL, MARCELO~[phone] UNKNOWN Unavailable Unavailable Marcelo Thompson DO Primary Care Provider MARCELO THOMPSON Primary Care Unavailable Marcleo Thompson Unavailable JAY, DR BLAIR Consulting Unavailable [...] [sulfa drugs] Propensity to adverse reactions (disorder) [facility] (1 source) Sulfonamides (Antibiotic) Propensity to adverse reactions to drug 09-25-19 Nausea And Vomiting [facility] (12 sources) Ciprofloxacin Drug Allergy 07-19-19 Unknown, Unknown Reaction [facility] (4 sources) Hmg-Coa Reductase Inhibitors (Statins) Propensity to adverse reactions MUSCLE PAIN [facility] Other (8 sources) Sulfacetamide / Sulfur Drug Allergy Unknown [facility] Other (12 sources) sulfADIAZINE Drug Allergy 07-19-19 Unknown, Comment:Sulfa [facility] (8 sources) tamsulosin Drug Allergy Unknown [facility] Other (1 source) black walnut pollen extract Drug Allergy [facility] Repository (1 source) Sulfonamides (Antibiotic) Drug allergy (disorder) 03-02-20 14 [facility] Repository (8 sources) predniSONE Drug Allergy 07-19-19 Unknown, Unknown Reaction [facility] (4 sources) Statins Depletion *DIETARY PRODUCTS/DIETARY MANAGE Propensity to adverse reactions Comment:ALL Statins QBE Other (4 sources) tamsulosin Drug Allergy 07-19-19 24 Unknown Reaction [facility] (4 sources) Lmsbobg-PIC-UuN Reductase Inhibitor Allergy to substance 07-19-19 Comment:ALL Statins [facility] Medications Current Medications Medication Drug Class(es) [...] tablet by james th every twenty-four hours Ulapjgwtwg-rkSMDJQibh-MQHV 40-10-25 MG 1 tablet Orally Once a [...] 30 Active take 2 tablets by mo [facility] every twelve hours Labetalol HCl [...] Basophils (Bld) [#/Vol] 0.0 10 3/uL 0.0-0.1 [facility] Basophils/100 WBC Auto (Bld) on 10-13-2023 Basophils/100 WBC (Bld) 0.2 % 0.2-2.0 [facility] Eosinophils/100 WBC Auto (Bl d)on 10-13-2023 Eosinophils/100 WBC (Bld) 1.8 % 0.9-7.0 [facility] Erythrocyte distribution wid th Auto (RBC) [Ratio]on 10-13-2023 Erythrocyte distribution width (RBC) [Ratio] 12.9 % 11.0-15.0 [facility] Estimated glomerular filtrat ion rate (GFR) non- Americanon 10-13-2023 GFR/1.73 sq M.predicted among non-blacks MDRD (S/P/Bld) [Vol rate/Area] 44 mL/min/{1.73_m2} Low >=60 [facility] Hematocrit Auto (Bld) [Volum e fraction]on 10-13-2023 Hematocrit (Bld) [Volume fraction] 39.9 % Low 42.0-54.0 [facility] Hemoglobin [Mass/volume] in Bloodon 10-13-2023 Hemoglobin (Bld) [Mass/Vol] 13.3 g/dL Low 14.0-18.0 [facility] Laboratory - Chemistry and C hemistry - challengeon 10-13-2023 Calcium [Mass/Vol] 8.7 mg/dL 8.5-10.1 [facility] Chloride [Moles/Vol] 102 mmol/L 98-107 [facility] CO2 [Moles/Vol] 25.9 mmol/L 21.0-32.0 [facility] Creatinine [Mass/Vol] 1.59 mg/dL High 0.70-1.30 [facility] GFR/1.73 sq M.predicted MDRD (S/P/Bld) [Vol rate/Area] 54 mL/min/{1.73_m2} Low >=60 [facility] Glucose [Mass/Vol] 100 mg/dL 74-106 [facility] Potassium [Moles/Vol] 4.2 mmol/L 3.5-5.1 [facility] Sodium [Moles/Vol] 141 mmol/L 136-145 [facility] Urea nitrogen [Mass/Vol] 32.0 mg/dL High 7.0-18.0 [facility] Urea nitrogen/Creatinine [Mass ratio] 20.1 mg/mg [facility] Laboratory - Hematology and Cell countson 10-13-2023 Immature granulocytes/100 WBC (Bld) 0.4 % 0.0-0.5 [facility] Leukocytes [#/volume] correc cipriano for nucleated erythrocytes in Blood by Automated counon 10-13-2023 WBC corrected for nucl RBC Auto (Bld) [#/Vol] 5.0 10 3/uL 4.0-11.0 [facility] Lymphocytes Auto (Bld) [#/Vo l]on 10-13-2023 Lymphocytes (Bld) [#/Vol] 1.2 10 3/uL 1.2-3.8 [facility] Lymphocytes/100 WBC Auto (Bl d)on 10-13-2023 Lymphocytes/100 WBC (Bld) 23.8 % 20.5-60.0 [facility] MCH Auto (RBC) [Entitic mass ]on 10-13-2023 MCH (RBC) [Entitic mass] 28.9 pg 25.9-34.0 [facility] MCHC Auto (RBC) [Mass/Vol]on 10-13-2023 MCHC (RBC) [Mass/Vol] 33.3 g/dL 29.9-35.2 [facility] MCV Auto (RBC) [Entitic vol] on 10-13-2023 MCV (RBC) [Entitic vol] 86.6 fL 80.0-94.0 [facility] Monocytes Auto (Bld) [#/Vol] on 10-13-2023 Monocytes (Bld) [#/Vol] 0.4 10 3/uL 0.3-0.8 [facility] Monocytes/100 WBC Auto (Bld) on 10-13-2023 Monocytes/100 WBC (Bld) 8.8 % 1.7-12.0 [facility] Neutrophils Auto (Bld) [#/Vo l]on 10-13-2023 Neutrophils (Bld) [#/Vol] 3.2 10 3/uL 1.4-6.5 [facility] Neutrophils/100 WBC Auto (Bl d)on 10-13-2023 Neutrophils/100 WBC (Bld) 65.0 % 43.0-75.0 [facility] No Panel Informationon 10-12 Eosinophils # (Auto) 0.1 10 3/uL 0.0-0.7 [facility] Immature Granulocyte # (Auto) 0.02 10 3/uL 0.00-0.03 [facility] Troponin I High Sensitivity 6.5 pg/mL 4.0-76.1 [facility] Comment on above: CUT-OFF POINTS HAVE BEEN [...] (Bld) [Entitic vol] 8.3 fL Low 9.5-13.5 [facility] Platelets Auto (Bld) [#/Vol] on 10-13-2023 Platelets (Bld) [#/Vol] 233 10 3/uL 150-450 [facility] RBC Auto (Bld) [#/Vol]on RBC (Bld) [#/Vol] 4.61 10 6/uL Low 4.70-6.10 [facility] Serum or plasma anion gap de terminationon 10-13-2023 Anion gap [Moles/Vol] 17.3 mmol/L [facility] Basophils Auto (Bld) [#/Vol] on 08-09-2023 Basophils (Bld) [#/Vol] 0.0 10 3/uL 0.0-0.1 [facility] Basophils/100 WBC Auto (Bld) on 08-09-2023 Basophils/100 WBC (Bld) 0.4 % 0.2-2.0 [facility] Eosinophils/100 WBC Auto (Bl d)on 08-09-2023 Eosinophils/100 WBC (Bld) 2.6 % 0.9-7.0 [facility] Erythrocyte distribution wid th Auto (RBC) [Ratio]on 08-09-2023 Erythrocyte distribution width (RBC) [Ratio] 13.1 % 11.0-15.0 [facility] Estimated glomerular filtrat ion rate (GFR) non- Americanon 08-09-2023 GFR/1.73 sq M.predicted among non-blacks MDRD (S/P/Bld) [Vol rate/Area] 46 mL/min/{1.73_m2} >=60 [facility] Globulin Calc (S) [Mass/Vol] on 08-09-2023 Globulin (S) [Mass/Vol] 3.4 g/dL [facility] Hematocrit Auto (Bld) [Volum e fraction]on 08-09-2023 Hematocrit (Bld) [Volume fraction] 42.7 % 42.0-54.0 [facility] Hemoglobin [Mass/volume] in Bloodon 08-09-2023 Hemoglobin (Bld) [Mass/Vol] 14.0 g/dL 14.0-18.0 [facility] Laboratory - Chemistry and C hemistry - challengeon 08-09-2023 Albumin [Mass/Vol] 3.7 g/dL 3.4-5.0 [facility] ALP [Catalytic activity/Vol] 57 U/L 46-116 [facility] ALT [Catalytic activity/Vol] 30 U/L 16-63 [facility] AST [Catalytic activity/Vol] 17 U/L 15-37 [facility] Bilirubin [Mass/Vol] 0.4 mg/dL 0.2-1.0 [facility] Calcium [Mass/Vol] 9.2 mg/dL 8.5-10.1 [facility] Chloride [Moles/Vol] 104 mmol/L 98-107 [facility] CO2 [Moles/Vol] 30.3 mmol/L 21.0-32.0 [facility] Cobalamin (Vitamin B12) [Mass/Vol] 270.0 pg/mL 193.0-986.0 [facility] Creatinine [Mass/Vol] 1.55 mg/dL 0.70-1.30 [facility] GFR/1.73 sq M.predicted MDRD (S/P/Bld) [Vol rate/Area] 55 mL/min/{1.73_m2} >=60 [facility] Glucose [Mass/Vol] 99 mg/dL 74-106 [facility] Potassium [Moles/Vol] 3.6 mmol/L 3.5-5.1 [facility] Protein [Mass/Vol] 7.1 g/dL 6.4-8.2 [facility] Sodium [Moles/Vol] 144 mmol/L 136-145 [facility] TSH Qn 2.981 m[IU]/L 0.358-3.740 [facility] Urea nitrogen [Mass/Vol] 29.0 mg/dL 7.0-18.0 [facility] Urea nitrogen/Creatinine [Mass ratio] 18.7 mg/mg [facility] Laboratory - Hematology and Cell countson 08-09-2023 Immature granulocytes/100 WBC (Bld) 0.3 % 0.0-0.5 [facility] Leukocytes [#/volume] correc cipriano for nucleated erythrocytes in Blood by Automated counon 08-09-2023 WBC corrected for nucl RBC Auto (Bld) [#/Vol] 6.8 10 3/uL 4.0-11.0 [facility] Lymphocytes Auto (Bld) [#/Vo l]on 08-09-2023 Lymphocytes (Bld) [#/Vol] 1.2 10 3/uL 1.2-3.8 [facility] Lymphocytes/100 WBC Auto (Bl d)on 08-09-2023 Lymphocytes/100 WBC (Bld) 18.0 % 20.5-60.0 [facility] MCH Auto (RBC) [Entitic mass ]on 08-09-2023 MCH (RBC) [Entitic mass] 28.9 pg 25.9-34.0 [facility] MCHC Auto (RBC) [Mass/Vol]on 08-09-2023 MCHC (RBC) [Mass/Vol] 32.8 g/dL 29.9-35.2 [facility] MCV Auto (RBC) [Entitic vol] on 08-09-2023 MCV (RBC) [Entitic vol] 88.2 fL 80.0-94.0 [facility] Monocytes Auto (Bld) [#/Vol] on 08-09-2023 Monocytes (Bld) [#/Vol] 0.8 10 3/uL 0.3-0.8 [facility] Monocytes/100 WBC Auto (Bld) on 08-09-2023 Monocytes/100 WBC (Bld) 11.1 % 1.7-12.0 [facility] Neutrophils Auto (Bld) [#/Vo l]on 08-09-2023 Neutrophils (Bld) [#/Vol] 4.6 10 3/uL 1.4-6.5 [facility] Neutrophils/100 WBC Auto (Bl d)on 08-09-2023 Neutrophils/100 WBC (Bld) 67.6 % 43.0-75.0 [facility] No Panel Informationon 08-08 Eosinophils # (Auto) 0.2 10 3/uL 0.0-0.7 [facility] Immature Granulocyte # (Auto) 0.02 10 3/uL 0.00-0.03 [facility] Platelet mean volume Auto (B ld) [Entitic vol]on 08-09-2023 Platelet mean volume (Bld) [Entitic vol] 8.1 fL 9.5-13.5 [facility] Platelets Auto (Bld) [#/Vol] on 08-09-2023 Platelets (Bld) [#/Vol] 257 10 3/uL 150-450 [facility] RBC Auto (Bld) [#/Vol]on RBC (Bld) [#/Vol] 4.84 10 6/uL 4.70-6.10 [facility] Serum or plasma albumin/glob ulin mass ratioon 08-09-2023 Albumin/Globulin [Mass ratio] 1.1 {ratio} [facility] Serum or plasma anion gap de terminationon 08-09-2023 Anion gap [Moles/Vol] 13.3 mmol/L [facility] CREATININEon 08-17-2022 Creatinine [Mass/Vol] 1.59 mg/dL Critically high 0.70-1.30 [facility] Comment on above: Performed By: #### C DIANELYS #### [facility] [address] [address] [address] Keanu Shafer EGFR-AF MAURITANIAN 54 mL/min/1.73m2 Critically low >=60 [facility] Comment on above: Performed By: #### C DIANELYS #### [facility] [address] [address] [address] Keanu Shafer EGFR-NON AF MAURITANIAN 44 mL/min/1.73m2 Critically low >=60 [facility] Comment on above: Performed By: #### C DIANELYS #### [facility] [address] ABD/PELV W CONon [...] ANSHUL AMADOR Date: 2022-08-17 08:53 Normal [facility] Basic Metabolic Panelon 03-1 7-2023 Calcium [Mass/Vol] 9.2023324 mg/dL 8.5-10 .1 mg/dL [facility] Other CO2 [Moles/Vol] 28.49003593 mmol/L 21.0-3 2.0 mmol/L [facility] Other Creatinine [Mass/Vol] 1.50399985 mg/dL Critically high 0.70-1.30 mg/dL [facility] Other Potassium [Moles/Vol] 4.93038910 mmol/L 3.5-5.1 mmol/L [facility] Other Urea nitrogen [Mass/Vol] 21.7647387 mg/dL Critically high 7.0-18.0 mg/dL [facility] Other Basic Metabolic Panel see note [facility] Other Basic Metabolic Panel 144 mmol/L 136-145 mmol/L [facility] Other Basic Metabolic Panel 99 mg/dL 74-106 mg/dL [facility] Other Basic Metabolic Panel 55 mL/min/1.73m2 Critically low >=60 mL/min/1.73m2 [facility] Other Basic Metabolic Panel >60 mL/min/1.73m2 >=60 mL/min/1.73m2 [facility] Other Anion gap [Moles/Vol] 11.0 mmol/L Normal [facility] Other Comment on above: Performed By: #### B MP #### [facility] [address] [address] [address] Keanu Shafer Chloride [Moles/Vol] 109 mmol/L Critically high 98-107 [facility] Other Comment on above: Performed By: #### B MP #### [facility] [address] [address] [address] Keanu Shafer Urea nitrogen/Creatinine [Mass ratio] 16.0 mg/mg Normal [facility] Other Comment on above: Performed By: #### B MP #### [facility] [address] [address] [address] Keanu Shafer PROF CHEM 8 (BAS METB)on Calcium [Mass/Vol] 9.0 mg/dL Normal 8.5-10.1 [facility] Comment on above: Performed By: #### B MP #### [facility] [address] [address] [address] Keanu Shafer CO2 [Moles/Vol] 28.3 mmol/L Normal 21.0-32.0 [facility] Comment on above: Performed By: #### B MP #### [facility] [address] [place] [address] Dr. Kenau Shfaer Creatinine [Mass/Vol] 1.31 mg/dL Critically high 0.70-1.[address] [facility] Comment on above: Performed By: #### B MP #### [facility] [address] [address] [address] Keanu Shafer EGFR-AF MAURITANIAN >60 Normal >=60 [facility] Comment on above: Performed By: #### B MP #### [facility] [address] [place] [address] Dr. Keanu Shafer EGFR-NON AF MAURITANIAN 55 mL/min/1.73m2 Critically low >=[address] [facility] Comment on above: Performed By: #### B MP #### [facility] [address] [address] [address] Keanu Shafer Glucose [Mass/Vol] 99 mg/dL Normal 74-106 [facility] Comment on above: Performed By: #### B MP #### [facility] [address] [address] [address] Keanu Shafer Potassium [Moles/Vol] 4.3 mmol/L Normal 3.5-5.[address] [facility] Comment on above: Performed By: #### B MP #### [facility] [address] [address] [address] Keanu Shafer Sodium [Moles/Vol] 144 mmol/L Normal 136-145 [facility] Comment on above: Performed By: #### B MP #### [facility] [address] [place] [address] Dr. Keanu Shafer Urea nitrogen [Mass/Vol] 21.0 mg/dL Critically high 7.0-18.0 [facility] Comment on above: Performed By: #### B MP #### [facility] [address] [place] [address] Dr. Keanu Shafer CBC AUTO DIFFon 01-19-2022 BASO # 0.0 103/ul Normal 0.0-0.1 [facility] Comment on above: Performed By: #### C BC #### [facility] [address] [place] [address] Dr. Keanu Shafer Basophils/100 WBC (Bld) 0.3 % Normal 0.2-2.0 [facility] Comment on above: Performed By: #### C BC #### [facility] [address] [place] [address] Dr. Keanu Shafer EO # 0.2 103/ul Normal 0.0-0.7 [facility] Comment on above: Performed By: #### C BC #### [facility] [address] [place] [address] Dr. Keanu Shafer Eosinophils/100 WBC (Bld) 2.4 % Normal 0.9-7.0 [facility] Comment on above: Performed By: #### C BC #### [facility] [address] [place] [address] Dr. Keanu Shafer Erythrocyte distribution width (RBC) [Ratio] 13.2 % Normal 11.0-15.0 [facility] Comment on above: Performed By: #### C BC #### [facility] [address] [place] [address] Dr. Keanu Shafer Hematocrit (Bld) [Volume fraction] 42.1 % Normal 42.0-54.0 [facility] Comment on above: Performed By: #### C BC #### [facility] [address] [place] [address] Dr. Keanu Shafer Hemoglobin (Bld) [Mass/Vol] 14.2 g/dL Normal 14.0-18.0 [facility] Comment on above: Performed By: #### C BC #### [facility] [address] [place] [address] Dr. Keanu Shafer IG # 0.02 10e3/ul Normal 0.00-0.03 [facility] Comment on above: Performed By: #### C BC #### [facility] [address] [place] [address] Dr. Keanu Shafer IG % 0.3 % Normal 0.0-0.5 [facility] Comment on above: Performed By: #### C BC #### [facility] [address] [place] [address] Dr. Keanu Shafer LYMPH # 1.0 103/ul Critically low 1.2-3.8 [facility] Comment on above: Performed By: #### C BC #### [facility] [address] [place] [address] Dr. Keanu Shafer Lymphocytes/100 WBC (Bld) 16.0 % Critically low 20.5-60.0 [facility] Comment on above: Performed By: #### C BC #### [facility] [address] [place] [address] Dr. Keanu Shafer MANUAL DIFF REQ NO Normal [facility] Comment on above: Performed By: #### C BC #### [facility] [address] [place] [address] Dr. Keanu Shafer MCH (RBC) [Entitic mass] 29.2 pg Normal 25.9-34.0 [facility] Comment on above: Performed By: #### C BC #### [facility] [address] [place] [address] Dr. Keanu Shafer MCHC (RBC) [Mass/Vol] 33.7 g/dL Normal 29.9-35.2 [facility] Comment on above: Performed By: #### C BC #### [facility] [address] [place] [address] Dr. Keanu Shafer MCV (RBC) [Entitic vol] 86.6 fL Normal 80.0-94.0 [facility] Comment on above: Performed By: #### C BC #### [facility] [address] [place] [address] Dr. Keanu Shafer MONO # 0.6 103/ul Normal 0.3-0.8 [facility] Comment on above: Performed By: #### C BC #### [facility] [address] [address] [address] Keanu Shafer Monocytes/100 WBC (Bld) 9.2 % Normal 1.7-12.0 [facility] Comment on above: Performed By: #### C BC #### [facility] [address] [place] [address] Dr. Keanu Shafer NEUT # 4.5 103/ul Normal 1.4-6.5 [facility] Comment on above: Performed By: #### C BC #### [facility] [address] [place] [address] Dr. Keanu Shafer Neutrophils/100 WBC (Bld) 71.8 % Normal 43.0-75.0 [facility] Comment on above: Performed By: #### C BC #### [facility] [address] [place] [address] Dr. Keanu Shafer Platelet mean volume (Bld) [Entitic vol] 7.8 fL Critically low 9.5-13.5 [facility] Comment on above: Performed By: #### C BC #### [facility] [address] [place] [address] Dr. Keanu Shafer PLT 233 103/ul Normal 150-[address] [facility] Comment on above: Performed By: #### C BC #### [facility] [address] [place] [address] Dr. Keanu Shafer RBC 4.86 106/ul Normal 4.70-6.[address] [facility] Comment on above: Performed By: #### C BC #### [facility] [address] [place] [address] Dr. Keanu Shafer WBC 6.2 103/ul Normal 4.0-11.[address] [facility] Comment on above: Performed By: #### C BC #### [facility] [address] [address] [address] Keanu Shafer LIPID PROFILEon 01-19-2022 CHOL-HDL RATIO NORM SEE BELOW Normal [facility] Comment on above: Result Comment: 3.3 - 4.4 LOW RISK 4.4 - 7.1 AVERAGE RISK 7.1 - 11.0 MODERATE RISK >11.0 HIGH RISK Performed By: #### C MP, LIPID #### [facility] [address] [address] [address] Keanu Shafer Cholesterol [Mass/Vol] 222 mg/dL Critically high <=200 [facility] Comment on above: Performed By: #### C MP, LIPID #### [facility] [address] [address] [address] Keanu Shafer Cholesterol in HDL [Mass/Vol] 40 mg/dL Normal 40-60 [facility] Comment on above: Performed By: #### C MP, LIPID #### [facility] [address] [address] [address] Keanu Shafer Cholesterol in LDL [Mass/Vol] 160.6 mg/dL Normal [facility] Comment on above: Performed By: #### C MP, LIPID #### [facility] [address] [place] [address] Dr. Keanu Shafer Cholesterol.total/Ch olesterol in HDL [Mass ratio] 5.6 {ratio} Normal [facility] Comment on above: Performed By: #### C MP, LIPID #### [facility] [address] [address] [address] Keanu Shafer HDL NORMAL > or = 60 mg/dl - LOW CARDIOVASCULAR RISK <40 mg/dl - HIGH CARDIOVASCULAR RISK Normal [facility] Comment on above: Performed By: #### C MP, LIPID #### [facility] [address] [address] [address] Keanu Shafer LDL CALC NORMAL SEE BELOW Normal [facility] Comment on above: Result Comment: <100 mg/dl OPTIMAL 100 - 129 mg/dl NEAR OR ABOVE OPTIMAL 130 - 159 mg/dl BORDERLINE HIGH 160 - 189 mg/dl HIGH >190 mg/dl VERY HIGH Performed By: #### C MP, LIPID #### [facility] [address] [address] [address] Keanu Shafer Triglyceride [Mass/Vol] 107 mg/dL Normal <=150 [facility] Comment on above: Performed By: #### C MP, LIPID #### [facility] [address] [place] [address] Dr. Keanu Shafer VLDL CALC 21.4 mg/dL Normal [facility] Comment on above: Performed By: #### C MP, LIPID #### [facility] [address] [address] [address] Keanu Shafer PROF 14(COMP METB)on 022 Albumin [Mass/Vol] 3.9 g/dL Normal 3.4-5.0 [facility] Comment on above: Performed By: #### C MP, LIPID #### [facility] [address] [place] [place] [address] Dr. Keanu Shafer Albumin/Globulin [Mass ratio] 1.3 {ratio} Normal [facility] Comment on above: Performed By: #### C MP, LIPID #### [facility] [address] [place] [address] Dr. Keanu Shafer ALP [Catalytic activity/Vol] 55 U/L Normal 46-116 [facility] Comment on above: Performed By: #### C MP, LIPID #### [facility] [address] [place] [address] Dr. Keanu Shafer ALT [Catalytic activity/Vol] 25 U/L Normal 16-63 [facility] Comment on above: Performed By: #### C MP, LIPID #### [facility] [address] [place] [address] Dr. Keanu Shafer Anion gap [Moles/Vol] 8.8 mmol/L Normal [facility] Comment on above: Performed By: #### C MP, LIPID #### [facility] [address] [place] [address] Dr. Keanu Shafer AST [Catalytic activity/Vol] 15 U/L Normal 15-37 [facility] Comment on above: Performed By: #### C MP, LIPID #### [facility] [address] [address] [address] Keanu Shafer Bilirubin [Mass/Vol] 0.7 mg/dL Normal 0.2-1.0 [facility] Comment on above: Performed By: #### C MP, LIPID #### [facility] [address] [address] [address] Keanu Shafer Calcium [Mass/Vol] 8.7 mg/dL Normal 8.5-10.1 [facility] Comment on above: Performed By: #### C MP, LIPID #### [facility] [address] [address] [address] Keanu Shafer Chloride [Moles/Vol] 106 mmol/L Normal 98-107 [facility] Comment on above: Performed By: #### C MP, LIPID #### [facility] [address] [place] [address] Dr. Keanu Shafer CO2 [Moles/Vol] 28.4 mmol/L Normal 21.0-32.0 [facility] Comment on above: Performed By: #### C MP, LIPID #### [facility] [address] [place] [address] Dr. Keanu Shafer Creatinine [Mass/Vol] 1.25 mg/dL Normal 0.70-1.30 [facility] Comment on above: Performed By: #### C MP, LIPID #### [facility] [address] [place] [address] Dr. Keanu Shafer EGFR-AF MAURITANIAN >60 Normal >=60 [facility] Comment on above: Performed By: #### C MP, LIPID #### [facility] [address] [place] [address] Dr. Keanu Shafer EGFR-NON AF MAURITANIAN 59 mL/min/1.73m2 Critically low >=60 [facility] Comment on above: Performed By: #### C MP, LIPID #### [facility] [address] [address] [address] Keanu Shafer Globulin (S) [Mass/Vol] 3.1 g/dL Normal [facility] Comment on above: Performed By: #### C MP, LIPID #### [facility] [address] [address] [address] Keanu Shafer Glucose [Mass/Vol] 99 mg/dL Normal 74-106 [facility] Comment on above: Performed By: #### C MP, LIPID #### [facility] [address] [address] [address] Keanu Shafer Potassium [Moles/Vol] 4.2 mmol/L Normal 3.5-5.1 [facility] Comment on above: Performed By: #### C MP, LIPID #### [facility] [address] [address] [address] Keanu Shafer Protein [Mass/Vol] 7.0 g/dL Normal 6.4-8.2 [facility] Comment on above: Performed By: #### C MP, LIPID #### [facility] [address] [place] [address] Dr. Keanu Shafer Sodium [Moles/Vol] 139 mmol/L Normal 136-145 [facility] Comment on above: Performed By: #### C MP, LIPID #### [facility] [address] [address] [address] Keanu Shafer Urea nitrogen [Mass/Vol] 18.0 mg/dL Normal 7.0-18.0 [facility] Comment on above: Performed By: #### C MP, LIPID #### [facility] [address] [place] [address] Dr. Keanu Shafer Urea nitrogen/Creatinine [Mass ratio] 14.4 mg/mg Normal [facility] Comment on above: Performed By: #### C MP, LIPID #### [facility] [address] [address] [address] Keanu Shafer CBC With Platelet and Differ entialon 09-24-2021 Basophils (Bld) [#/Vol] 0.0 10*3/uL Normal 0.0-0.2 [facility] Comment on above: Performed By: #### C BCWD #### [facility] [address] [place] [address] Basophils/100 WBC (Bld) 0.3 % Normal [facility] Comment on above: Performed By: #### C BCWD #### [facility] [address] [place] [address] Eosinophils (Bld) [#/Vol] 0.1 10*3/uL Normal 0.0-0.7 [facility] Comment on above: Performed By: #### C BCWD #### [facility] [address] [place] [address] Eosinophils/100 WBC (Bld) 0.9 % Normal [facility] Comment on above: Performed By: #### C BCWD #### [facility] [address] [place] [address] Erythrocyte distribution width (RBC) [Ratio] 13.9 % Normal 11.5-14.5 [facility] Comment on above: Performed By: #### C BCWD #### [facility] [address] [place] [address] Hematocrit (Bld) [Volume fraction] 42.6 % Normal 42.0-52.0 [facility] Comment on above: Performed By: #### C BCWD #### [facility] [address] [place] [address] Hemoglobin (Bld) [Mass/Vol] 14.2 g/dL Normal 14.0-18.0 [facility] Comment on above: Performed By: #### C BCWD #### [facility] [address] [place] [address] Lymphocytes (Bld) [#/Vol] 0.9 10*3/uL Low 1.0-4.8 [facility] Comment on above: Performed By: #### C BCWD #### [facility] [address] [place] [address] Lymphocytes/100 WBC (Bld) 8.1 % Normal [facility] Comment on above: Performed By: #### C BCWD #### [facility] [address] [place] [address] MCH (RBC) [Entitic mass] 28.9 pg Normal 27.0-31.3 [facility] Comment on above: Performed By: #### C BCWD #### [facility] [address] [place] [address] MCHC 33.3 % Normal 33.0-37.0 [facility] Comment on above: Performed By: #### C BCWD #### [facility] [address] [place] [address] MCV (RBC) [Entitic vol] 86.8 fL Normal 80.0-100.0 [facility] Comment on above: Performed By: #### C BCWD #### [facility] [address] [place] [address] Monocytes (Bld) [#/Vol] 0.8 10*3/uL Normal 0.2-0.8 [facility] Comment on above: Performed By: #### C BCWD #### [facility] [address] [place] [address] Monocytes/100 WBC (Bld) 7.4 % Normal [facility] Comment on above: Performed By: #### C BCWD #### [facility] [address] [place] [address] Neutrophils (Bld) [#/Vol] 9.5 10*3/uL Critically high 1.4-6.5 [facility] Comment on above: Performed By: #### C BCWD #### [facility] [address] [place] [address] Neutrophils/100 WBC (Bld) 83.3 % Normal [facility] Comment on above: Performed By: #### C BCWD #### [facility] [address] [place] [address] Platelets (Bld) [#/Vol] 289 10*3/uL Normal 130-400 [facility] Comment on above: Performed By: #### C BCWD #### [facility] [address] [place] [address] RBC (Bld) [#/Vol] 4.90 10*6/uL Normal 4.70-6.10 [facility] Comment on above: Performed By: #### C BCWD #### [facility] [address] [place] [address] WBC (Bld) [#/Vol] 11.4 10*3/uL Critically high 4.8-10.8 [facility] Comment on above: Performed By: #### C BCWD #### [facility] [address] [place] [address] CBC with Auto Differentialon 09-24-2021 Basophils (Bld) [#/Vol] 0.0 10*3/uL 0.0 - 0.2 K/uL [facility] Basophils/100 WBC (Bld) 0.3 % [facility] Eosinophils (Bld) [#/Vol] 0.1 10*3/uL 0.0 - 0.7 K/uL [facility] Eosinophils/100 WBC (Bld) 0.9 % [facility] Hematocrit (Bld) [Volume fraction] 42.6 % 42.0 - 52.0 % [facility] Hemoglobin.gastroint estinal spec 1 Ql (Stl) 14.2 g/dL 14.0 - 18.0 g/dL [facility] Interpretation and review of laboratory results Abnormal [facility] Lymphocytes (Bld) [#/Vol] 0.9 10*3/uL Low 1.0 - 4.8 K/uL [facility] Lymphocytes/100 WBC (Bld) 8.1 % [facility] MCH (RBC) [Entitic mass] 28.9 pg 27.0 - 31.3 pg [facility] MCHC (RBC) [Mass/Vol] 33.3 % 33.0 - 37.0 % [facility] MCV (RBC) [Entitic vol] 86.8 fL 80.0 - 100.0 fL [facility] Monocytes (Bld) [#/Vol] 0.8 10*3/uL 0.2 - 0.8 K/uL [facility] Monocytes/100 WBC (Bld) 7.4 % [facility] Neutrophils Absolute 9.5 K/uL High 1.4 - 6 .5 K/uL [facility] Neutrophils/100 WBC (Bld) 83.3 % [facility] Platelet distribution width (Bld) [Ratio] 13.9 % 11.5 - 14.5 % [facility] Platelets (Bld) [#/Vol] 289 10*3/uL 130 - 400 K/uL [facility] RBC (Bld) [#/Vol] 4.90 10*6/uL [facility] WBC (Bld) [#/Vol] 11.4 10*3/uL High 4.8 - 10.8 K/uL [facility] Comprehensive Metabolic Pane erasmo 09-24-2021 Albumin [Mass/Vol] 4.3 g/dL Normal 3.5-4.6 [facility] Comment on above: Performed By: #### C MP #### [facility] [address] [address] ALP [Catalytic activity/Vol] 68 U/L Normal 35-104 [facility] Comment on above: Performed By: #### C MP #### [facility] [address] [place] [address] ALT [Catalytic activity/Vol] 14 U/L Normal 0-41 [facility] Comment on above: Performed By: #### C MP #### [facility] [address] [place] [address] Anion gap [Moles/Vol] 11 mmol/L Normal 9-15 [facility] Comment on above: Performed By: #### C MP #### [facility] [address] [place] [address] AST [Catalytic activity/Vol] 14 U/L Normal 0-40 [facility] Comment on above: Result Comment: Spec imen hemolysis has exceeded the interference as defined by Ayla. Value may be falsely increased. Suggest recollection if clinically indicated. Performed By: #### C MP #### [facility] [address] [place] [address] Bilirubin [Mass/Vol] 0.3 mg/dL Normal 0.2-0.7 [facility] Comment on above: Performed By: #### C MP #### [facility] [address] [place] [address] Calcium [Mass/Vol] 9.0 mg/dL Normal 8.5-9.9 [facility] Comment on above: Performed By: #### C MP #### [facility] [address] [place] [address] Chloride [Moles/Vol] 102 mmol/L Normal 95-107 [facility] Comment on above: Performed By: #### C MP #### [facility] [address] [place] [address] CO2 [Moles/Vol] 27 mmol/L Normal 20-31 [facility] Comment on above: Performed By: #### C MP #### [facility] [address] [place] [address] Creatinine [Mass/Vol] 1.27 mg/dL Critically high 0.70-1.20 [facility] Comment on above: Performed By: #### C MP #### [facility] [address] [place] [address] GFR 57.5 Low >60 [facility] Comment on above: Result Comment: >60 mL/min/1.73m2 EGFR, calc. for ages 18 and older using the MDRD formula (not corrected for weight), is valid for stable renal function. Performed By: #### C MP #### [facility] [address] [place] [address] GFR/1.73 sq M.predicted among blacks MDRD (S/P/Bld) [Vol rate/Area] mL/min/{1.73_m2} Normal >60 [facility] Comment on above: Result Comment: >60 mL/min/1.73m2 EGFR, calc. for ages 18 and older using the MDRD formula (not corrected for weight), is valid for stable renal function. Performed By: #### C MP #### [facility] [address] [place] [address] Globulin (S) [Mass/Vol] 2.9 g/dL Normal 2.3-3.5 [facility] Comment on above: Performed By: #### C MP #### [facility] [address] [place] [address] Glucose [Mass/Vol] 114 mg/dL Critically high 70-99 [facility] Comment on above: Performed By: #### C MP #### [facility] [address] [place] [address] Potassium [Moles/Vol] 4.2 mmol/L Normal 3.4-4.9 [facility] Comment on above: Performed By: #### C MP #### [facility] [address] [place] [address] Protein [Mass/Vol] 7.2 g/dL Normal 6.3-8.0 [facility] Comment on above: Performed By: #### C MP #### [facility] [address] [place] [address] Sodium [Moles/Vol] 140 mmol/L Normal 135-144 [facility] Comment on above: Performed By: #### C MP #### [facility] [address] [place] [address] Urea nitrogen [Mass/Vol] 18 mg/dL Normal 8-23 [facility] Comment on above: Performed By: #### C MP #### [facility] [address] [place] [address] Albumin [Mass/Vol] 4.3 g/dL 3.5 - 4.6 g/dL [facility] ALP (Bld) [Catalytic activity/Vol] 68 U/L 35 - 104 U/L [facility] ALT [Catalytic activity/Vol] 14 U/L 0 - 41 U/L [facility] Anion gap [Moles/Vol] 11 mmol/L [facility] AST [Catalytic activity/Vol] 14 U/L 0 - 40 U/L [facility] Comment on above: Specimen hemolysis h as exceeded the interference as defined by Ayla. Value may be falsely increased. Suggest recollection if clinically indicated. Bilirubin [Mass/Vol] 0.3 mg/dL 0.2 - 0 .7 mg/dL [facility] Calcium [Mass/Vol] 9.0 mg/dL 8.5 - 9.9 mg/dL [facility] Chloride [Moles/Vol] 102 mmol/L [facility] CO2 [Moles/Vol] 27 mmol/L [facility] Creatinine [Mass/Vol] 1.27 mg/dL High 0.70 - 1.20 mg/dL [facility] Free PSA/Total PSA [Mass fraction] 7.2 g/dL 6.3 - 8.0 g/dL [facility] GFR >60.0 >60 [facility] Comment on above: >60 mL/min/1.73m2 EG FR, calc. for ages 18 and older using the MDRD formula (not corrected for weight), is valid for stable renal function. GFR Non- 57.5 Low >60 [facility] Comment on above: >60 mL/min/1.73m2 EG FR, calc. for ages 18 and older using the MDRD formula (not corrected for weight), is valid for stable renal function. Globulin (S) [Mass/Vol] 2.9 g/dL 2.3 - 3.5 g/dL [facility] Glucose [Mass/Vol] 114 mg/dL High 70 - 99 mg/dL [facility] Interpretation and review of laboratory results Abnormal [facility] Potassium [Moles/Vol] 4.2 mmol/L [facility] Sodium [Moles/Vol] 140 mmol/L [facility] Urea nitrogen (BldV) [Mass/Vol] 18 mg/dL 8 - 23 mg/dL [facility] US DUP LOWER EXTREMITY LEFT VENon [...] Jamie Thornton MD 09/24/21 Final result Normal [facility] NEGATIVE STUDY FOR ACUTE PROXIMAL DVT IN THE LEFT LOWER EXTREMITY. NEGATIVE STUDY FOR ACUTE CALF DVT IN THE LEFT LOWER EXTREMITY. NEGATIVE STUDY FOR SUPERFICIAL THROMBOPHLEBITIS IN THE LEFT LOWER EXTREMITY [facility] LEFT LOWER EXTREMITY DEEP [...] in the proximal calf, not otherwise assessed. [facility] RAD[facility]Y Jamie Thornton MD - 09/24/2021 LEFT [...] SUPERFICIAL THROMBOPHLEBITIS IN THE LEFT LOWER EXTREMITY [email or web address] Phone: Radiology Study observation (narrative) [email or web address] Phone: DUP LOWER EXTREMITY LEFT VENOrdered By: Jamie Thornton on 09-24-2021 [employer] Work Phone: Coding Summary.on 01-21-2017 Coding Summary. CODING DATE: 01/21/2017 [facility] STATUS: Home (Routine DC) PAYOR: [facility] [place] [facility] DESCRIPTION 5372 Level 2 Urology and [...] Arriaza Date Saved: 01/21/2017 08:35 pm Normal [facility] Main OR Intraoperative Recor don 01-17-2017 Main OR Intraoperative Record IntraOp Document Type FTURO Summary Primary Physician: Royer Daniels Jr., MD Finalized Date/Time: 01/17/17 15:22:06 Pt. Name: ASHWIN AVERY/Sex: 1960 Male Med Rec #: [id number] Physician: Royer Daniels Jr., MD Financial #: [id number] Pt. 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 Name: OLAYINKACOOKIEASHWIN/Sex: 1960 Male Med Rec #: [id number] Physician: Royer Daniels Jr., MD Financial #: [id number] Pt. Type: O Room/Bed: / Admit/Disch: 01/17/17 [...] of Pain: No Comment: Skin Integrity Intact, [place], Warm, & Dry Vitals - EU Blood Pressure 132/80 Pulse 88 bpm Respirations 16 br/min SPO2 RN Reviewed Yes Last Modified By: ARIELLE Alejandro RN, Ruthann 01/17/17 15:14:11 Finalized By: ARIELLE Alejandro RN, Ruthann Document Signatures Signed By: Kamla Spears LPN 01/17/17 14:38 ARIELLE Alejandro RN, Ruthann 01/17/17 15:13 ARIELLE Alejandro RN, Ruthann 01/17/17 15:14 Normal [facility] Operative Reporton Operative Report Patient: ASHWIN AVERY [...] with antibiotic coverage, Follow up arranged. Normal [facility] Comment on above: Result Comment: Elec tronically Signed By: Jeremiah Moore MD, Royer Stuart\.br\Date and Time Signed: 01/17/17 15:16 EDT Vital Signs Date Time Vital Sign Value Performing Clinician Facility 12-13-2023 11:57-0400 Body height 177.8 cm [facility] 12-13-2023 11:57-0400 Body mass index (BMI) [Ratio] 29.1 kg/m2 [facility] 12-13-2023 11:57-0400 Body weight 92.07 kg [facility] 12-13-2023 11:57-0400 Diastolic blood pressure 73 mm[Hg] [facility] 12-13-2023 11:57-0400 Heart rate 68 /min [facility] 12-13-2023 11:57-0400 Respiratory rate 12 /min [facility] 12-13-2023 11:57-0400 Systolic blood pressure 128 mm[Hg] [facility] 2023 15:09-0400 Body height 177.8 cm [facility] 2023 15:09-0400 Body mass index (BMI) [Ratio] 29 kg/m2 [facility] 2023 15:09-0400 Body weight 91.85 kg [facility] 2023 15:09-0400 Diastolic blood pressure 70 mm[Hg] [facility] 2023 15:09-0400 Heart rate 86 /min [facility] 2023 15:09-0400 Respiratory rate 12 /min [facility] 2023 15:09-0400 Systolic blood pressure 112 mm[Hg] [facility] 07-19-2023 13:32-0400 Body height 177.8 cm [facility] 07-19-2023 13:32-0400 Body mass index (BMI) [Ratio] 30 kg/m2 [facility] 07-19-2023 13:32-0400 Body weight 94.97 kg [facility] 07-19-2023 13:32-0400 Diastolic blood pressure 77 mm[Hg] [facility] 07-19-2023 13:32-0400 Heart rate 71 /min [facility] 07-19-2023 13:32-0400 Systolic blood pressure 128 mm[Hg] [facility] 08-10-2022 10:00-0400 Body height 177.8 cm Marcelo Ball Other [employer] Other 08-10-2022 10:00-0400 Body mass index (BMI) [Ratio] 28.15 kg/m2 Marcelo Ball Other [facility] Other 08-10-2022 10:00-0400 Body weight 89 kg Marcelo Ball Other [facility] Other 08-10-2022 10:00-0400 Diastolic blood pressure 80 mm[Hg] Marcelo Ball Other [facility] Other 08-10-2022 10:00-0400 Respiratory rate 12 /min Marcelo Ball Other [facility] Other 08-10-2022 10:00-0400 Systolic blood pressure 143 mm[Hg] Marcelo Ball Other [facility] Other 07-13-2022 11:00-0400 Body height 177.8 cm Marcelo Ball Other [facility] Other 07-13-2022 11:00-0400 Body mass index (BMI) [Ratio] 28.64 kg/m2 Marcelo Ball Other [facility] Other 07-13-2022 11:00-0400 Body weight 90.54 kg Marcelo Ball Other [facility] Other 07-13-2022 11:00-0400 Diastolic blood pressure 85 mm[Hg] Marcelo Ball Other [facility] Other 07-13-2022 11:00-0400 Respiratory rate 16 /min Marcelo Ball Other [facility] Other 07-13-2022 11:00-0400 Systolic blood pressure 141 mm[Hg] Marcelo Ball Other [facility] [employer] Other 09-24-2021 14:07-0400 Body height 177.8 cm Marcelo Ball DO Work Phone: [employer] 09-24-2021 14:07-0400 Body mass index (BMI) [Ratio] 27.98 kg/m2 Marcelo Ball DO Work Phone: [employer] 09-24-2021 14:07-0400 Body temperature 97.7 [degF] Marcelo Ball DO Work Phone: [employer] 09-24-2021 14:07-0400 Body weight 88.45 kg Marcelo Tablo DO Work Phone: [employer] 09-24-2021 14:07-0400 Diastolic blood pressure 83 mm[Hg] Marcelo Tablo DO Work Phone: [employer] 09-24-2021 14:07-0400 Heart rate 82 /min Marcelo Tablo DO Work Phone: [employer] 09-24-2021 14:07-0400 Respiratory rate 18 /min Marcelo Tablo DO Work Phone: [employer] 09-24-2021 14:07-0400 SaO2% (BldA) [Mass fraction] 97 % Marcelo Ball DO Work Phone: [employer] 09-24-2021 14:07-0400 Systolic blood pressure 138 mm[Hg] Marcelo Tablo DO Work Phone: [facility] [employer] Encounters Encounter Date Encounter Type Care Provider Facility Start: 12-13-2023 End: 12-13-2023 ambulatory [facility] Work Phone: Start: 12-13-2023 End: 12-13-2023 Patient encounter procedure [facility] Work Phone: Start: 2023 End: 2023 ambulatory [facility] Work Phone: Start: 2023 End: 2023 Patient encounter procedure [facility] Work Phone: Start: 10-13-2023 Non-patient / Non-visit [facility] Work Phone: Start: 10-07-2023 End: 10-07-2023 ambulatory [facility] Work Phone: Start: 10-07-2023 End: 10-07-2023 Patient encounter procedure [facility] Work Phone: Start: 08-09-2023 Non-patient / Non-visit [facility] Work Phone: Start: 07-19-2023 End: 07-19-2023 ambulatory [facility] Work Phone: Start: 07-19-2023 End: 07-19-2023 Patient encounter procedure [facility] Work Phone: Start: 06-07-2023 End: 06-07-2023 ambulatory Marcelo Ball Other [facility] Other Start: 06-07-2023 Telephone encounter Marcelo Ball [facility] Start: 03-08-2023 End: 03-08-2023 ambulatory Marcelo Ball Other [facility] Other Start: 03-08-2023 Telephone encounter Marcelo Ball [facility] Start: 02-22-2023 End: 02-22-2023 ambulatory Marcelo Ball Other [facility] Other Start: 02-22-2023 Telephone encounter Marcelo Ball [facility] Start: 01-26-2023 End: 01-26-2023 ambulatory Marcelo Ball Other [facility] Other Start: 01-26-2023 Encounter for genera l adult medical examination without abnormal findings Marcelo Ball [facility] Start: 01-26-2023 Telephone encounter Marcelo Thompson [facility] Start: 08-17-2022 End: 08-18-[address] MARCELO THOMPSON Facility:[facility] Start: 08-15-2022 End: 08-15-2022 ambulatory Marcelo Thompson Other [facility] Other Start: 08-15-2022 Telephone encounter Marcelo LOU [facility] Start: 08-10-2022 End: 08-10-2022 ambulatory Marcelo Thompson Other [facility] Other Start: 08-10-2022 Office outpatient vi sit 15 minutes Marcelo Thompson [facility] Start: 07-30-2022 End: 07-30-2022 ambulatory Marcelo Thompson Other [facility] Other Start: 07-30-2022 Telephone encounter Marcelo LOU [facility] Start: 07-13-2022 Office outpatient vi sit 25 minutes Marcelo Thompson [facility] Start: 07-13-2022 End: 07-14-[address] MARCELO THOMPSON [facility] Other Start: 01-23-2022 Encounter for genera l adult medical examination without abnormal findings DR MARCELO THOMPSON [facility] Start: 01-19-2022 End: 01-20-[address] MARCELO THOMPSON Facility:[facility] Start: 01-19-2022 End: 01-20-2022 Encounter for general adult medical examination without abnormal findings DR MARCELO THOMPSON Facility:[facility] Start: 09-24-2021 End: 09-24-2021 Emergency department patient visit MARCELO THOMPSON [facility] Start: 09-24-2021 End: 09-24-2021 Emergency department patient visit Marcelo Thompson DO Work Phone: [facility] ED Comment on above: Cellulitis of left l ower extremity (Primary Dx) Start: 01-17-2017 End: 01-18-2017 Ambulatory Jos Mclaughlin Facility:[facility] Procedures Date Procedure Procedure Detail Performing Clinician Start: 01-19-[address] MITESH THOMPSON Comment on above: Performed By: #### P [facility] #### [facility] [address] [address] [address] Keanu Shafer Start: 09-24-2021 Dup-scan xtr veins unilateral/limited study Luciano Maradiaga PA-C Work Phone: Start: 09-24-2021 Comprehensive metabo lic panel Luciano Maradiaga PA-C Work Phone: Plan of Treatment Date Care Activity Detail Author Start: 12-28-2021 Influenza vaccination Flu vacc ine (Season Ended) [facility] Start: 10-20-2009 Shingles vaccine (1 of 2) [place] gles vaccine (1 of 2) [facility] Start: 10-20-2004 Screening for malign ant neoplasm of colon [facility] Start: 1999 Lipid panel Lipids [facility] Start: 1999 Prostate specific an tigen measurement Prostate Specific Antigen (PSA) Screening or Monitoring [facility] Start: 10-20-1994 Diabetes screen Diabetes screen [facility] Start: 10-20-1978 DTaP/Tdap/Td vaccine (1 - Tdap) DTaP/Tdap/Td vaccine (1 - Tdap) [facility] Start: 10-20-1977 Hepatitis C screening Hepatitis C sc reen [facility] Start: 10-20-1974 HIV screening HIV screen [facility] Start: 1971 Depression Screen Depression Screen [facility] Start: 10-20-1964 COVID-19 Vaccine (1) COVID-19 Vaccin e (1) [facility] Comprehensive metabo lic 1999 panel - Serum or Plasma [facility] MR Brain WO contrast [facility] US.doppler Carotid arteries - bilateral [facility] Payers Date Payer Category Payer Unknown [id number] 1960 Unknown [id number] 1960 Unknown [id number] [id number] 1960 Unknown [id number] 1960 Unknown [id number] [id number] [id number] 1960 Unknown [id number] Self-pay Self Pay [id number] Social History Date Type Detail Facility Start: 09-24-2021 End: 07-19-2023 Tobacco smoking status HIIS Never smoked tobacco [email or web address] Phone: Start: 09-24-2021 Tobacco use and exposure Smokeless tobacco non-user [email or web address] Phone: Start: 09-24-2021 Alcohol intake Ex-drinker (finding) [email or web address] Phone: Start: 1960 Sex Assigned At Not on file B ON [employer] Phone: Start: 09-14-2021 End: 09-24-2021 Exposure to SARS-CoV-2 (event) Not sure [email or web address] Phone: Sex Assigned At Sex Assigned At [facility] [employer] Other Start: 1960 Sex Assigned At Male F [facility] Clinical Notes 07-13-2022 to 10-07-2023 Note Date & Type Note Facility 10-07-2023 Evaluation note Diagnosis Onset Date Dysesthesia acute Elevated cholesterol acute Essential hypertension acute Renal cyst, left acute Stage 3a chronic kidney disease acute Tinea unguium acute Intermittent paresthesia of right hand and foot noneactive Essential hypertension acute Acute bronchitis due to othe r specified organisms noneactive [facility] Work Phone: 1(815) 912-684303-22-2024 Evaluation note* Diagnosis Onset Date Resolution Status Elevated cholesterol acute Essential hypertension acute Renal cyst, left acute Stage 3a chronic kidney disease acute [facility] Work Phone: 1(261) 134-710511-10-2023 Evaluation note* Encounter Date Diagnosis Assessment Notes Treatment Notes Treatment Clinical Notes Feb, Hypokalemia (ICD-10 - E87.6) [facility] Other 10-27-2023 Evaluation note* Encounter Date Diagnosis Assessment Notes Treatment Notes Treatment Clinical Notes Jan, Stage 3a chronic kidney disease (ICD-10 - N18.31) [facility] Other 09-30-2023 Evaluation note* Encounter Date Diagnosis Assessment Notes Treatment Notes Treatment Clinical Notes Dec, Essential hypertension (ICD-10 - I10) Dec, Wellness examination (ICD-10 - Z00.00) [facility] Other 04-19-2023 Evaluation note* Encounter Date Diagnosis Assessment Notes Treatment Notes Treatment Clinical Notes Jul, Left lower quadrant abdominal pain (ICD-10 - R10.32) [facility] Other 04-14-2023 Evaluation note* Encounter Date Diagnosis [...] (ICD-10 - Z87.442) Push fluids, check CT [facility] Other 04-03-2023 Evaluation note* Encounter Date Diagnosis Assessment Notes Treatment Notes Treatment Clinical Notes Jul, Essential hypertension (ICD-10 - I10) [facility] Other 03-17-2023 Evaluation note* Encounter Date Diagnosis [...] of nephrolithiasis (ICD-10 - Z87.442) Push fluids [facility] [employer] Other Evaluation note* Diagnosis Cellulitis of left lower extremity- Primary Cellulitis and abscess of leg, except foot documented in this encounter [facility] Work Phone: evaluation [facility]No [facility] Other Evaluation note* Diagnosis Onset Date Resolution Status Essential hypertension acute Acute bronchitis due to other specified organisms noneactive [facility] [employer] Work Phone: Evaluation note* Diagnosis Onset Date Resolution Status Essential hypertension acute Acute bronchitis due to other specified organisms noneactive Allergic rhinitis acute Post-viral cough syndrome no neactive Acute bronchitis due to other specified organisms noneactive [facility] [employer] Work Phone: History general Narrative - Reported* [...] ARM 20 18 Hospitalization History See Above [facility] Other Hospital Discharge instructions* Attachments The following attachments cannot be sent through Care Everywhere. * Cellulitis ([place] Island[place]) documented in this encounterBON [facility] [employer] [employer] [facility] Work Phone: Summary Purpose Family History Relationship [...] disease Chief Complaint 6 month follow up [phone] URI Reason for Visit Dysesthesia Elevated cholesterol Essential hypertension Renal cyst, left Stage 3a chronic kidney disease Tinea unguium Intermittent paresthesia of right hand and foot Essential hypertension Acute bronchitis due to other specified organisms Chief Complaint [phone] URI TB ER follow up Reason for Visit Essential hypertensi on Acute bronchitis due to other specified organisms Chief Complaint [phone] URI TBH ER follow up lump in throat Reason for Visit Essential hypertensi on Acute bronchitis due to other specified organisms Allergic rhinitis Post-viral cough syndrome Acute bronchitis due to other specified organisms Additional Source Comments (unrecognized sect ion and content) No Status Records FoundNo Status Records FoundNo Status Records Found INFORMATION SOURCE (unrecogn ized section and content) DATE CREATED AUTHOR 10/23/2017 Stuart Am[employer] [facility] DATE CREATED AUTHOR AUTHOR'S ORGANIZ ATION [facility]20[facility] DATE CREATED AUTHOR AUTHOR'S ORGANIZ ATION [...] Attending Provider Active Start: 2023 End: 2023 Belly Packer Relationship Specialty Start Date End Date Marcelo Thompson DO [address] [facility] [place] [address] PCP - General Internal Medicine 09/24/21 Team [...] BE BASED ON THE PRIMARY CLINICAL RECORDS. [employer] [facility]. provides no warranty or guarantee of the accuracy or completeness of information in this document.
[2024-02-01 09:44] LABS: Alanine Aminotransferase 23 U/L (16-63); Albumin Globulin Ratio 1.2; Albumin Level 3.7 g/dL (3.4-5.0); Alkaline Phosphatase 56 U/L (46-116); Aspartate Amino Transferase 14 U/L (15-37); BUN Creatinine Ratio 15.2; Bilirubin Total 0.4 mg/dL (0.2-1.0); Calcium 8.8 mg/dL (8.5-10.1); Carbon Dioxide 24.6 mmol/L (21.0-32.0); Chloride 103 mmol/L (98-107); Chol HDL Ratio 4.8; Cholesterol 193 mg/dL (<=200); Estimated GFR (African America 51 (>=60 mL/min/1.73m^2); Estimated GFR (Non-African Ame 42 (>=60 mL/min/1.73m^2); Globulin 3.1 g/dL; Glucose 116 mg/dL (74-106); HDL Cholesterol 40 mg/dL (40-60); LDL Cholesterol Calculated 127.8 mg/dL; Potassium 3.6 mmol/L (3.5-5.1); Sodium 141 mmol/L (136-145); Thyroid Stimulating Hormone 2.849 uIU/mL (0.358-3.740); Total Protein 6.8 g/dL (6.4-8.2); Triglycerides 126 mg/dL (<=150); VLDL CHOLESTEROL 25.2 mg/dL
[2024-02-01 09:48] LABS: Prostate Specific Antigen Scrn 2.24 ng/mL (<=4.00)
[2024-02-01 10:01] LABS: Basophils Percent Auto 0.4 % (0.2-2.0); Eosinophils Absolute Auto 0.2 10^3/uL (0.0-0.7); Eosinophils Percent Auto 2.6 % (0.9-7.0); Hemoglobin 13.7 g/dL (14.0-18.0); Immature Granulocytes Abs Auto 0.01 10^3/uL (0.00-0.03); Immature Granulocytes Pct Auto 0.1 % (0.0-0.5); Lymphocytes Absolute Auto 1.2 10^3/uL (1.2-3.8); Lymphocytes Percent Auto 15.9 % (20.5-60.0); Mean Corpuscular HGB Conc 33.4 g/dL (29.9-35.2); Mean Corpuscular Hemoglobin 29.5 pg (25.9-34.0); Mean Corpuscular Volume 88.4 fL (80.0-94.0); Mean Platelet Volume 8.4 fL (9.5-13.5); Monocytes Absolute Auto 0.6 10^3/uL (0.3-0.8); Monocytes Percent Auto 8.5 % (1.7-12.0); Neutrophils Absolute Auto 5.4 10^3/uL (1.4-6.5); Neutrophils Percent Auto 72.5 % (43.0-75.0); Platelet Count 290 10^3/uL (150-450); Red Blood Count 4.64 10^6/uL (4.70-6.10); Red Cell Distribution Width 13.2 % (11.0-15.0); White Blood Count 7.4 10^3/uL (4.0-11.0)
== END 2024-02-01 08:34 | disposition home or self-care (01) ==
LOC: LAB 08:33
PROVIDERS: PCP Internal Medicine; Visit Provider Internal Medicine
DX: Z00.00 Encounter for general adult medical examination without abnormal findings (principal); R53.83 Other fatigue
CPT/HCPCS: 36415; 80053; 80061; 84443; 85025; G0103

== ENCOUNTER 2024-05-15 09:07 | Outpatient (OUT) | payer OTHER, SELFPAY ==
--- OUTSIDE RECORDS SUMMARY | 2024-05-15 09:29 | XMS_ITS | CCD ---
Author Organization [facility] Care Team Providers Care Police Magistrate Name Role Phone Arnoldo, Jos W Unavailable Unavailable Rice, Jos W Unavailable Unavailable Rice, Jos W Unavailable Unavailable BALL, MARCELO~[phone] UNKNOWN Unavailable Unavailable Marcelo Thompson DO Primary Care Provider [phone] MARCELO THOMPSON Primary Care Unavailable Marcelo Thompson [...] Admitting Unavailable BALL, DR BLAIR Attending Unavailable Ball Marcelo NOONAN Primary Care Provider Marcelo Ma DO Unavailable MARCELO MA Attending Unavailable MARCELO THOMPSON Referring Unavailable MURMARCELO MELGOZA Attending Unavailable MARCELO THOMPSON Referring Unavailable Allergies Allergy Classification Reported Allergen(s) Allergy Type Date of Onset Reaction(s) Facility (1 source) Sulfonamides (Antibiotic); Translations: [sulfa drugs] Propensity to adverse reactions (disorder) [facility] Repository (7 sources) Sulfonamides (Antibiotic) Propensity to adverse reactions to drug 09-25-19 Nausea And Vomiting [facility] (20 sources) Ciprofloxacin Drug Allergy 07-19-19 Unknown, Unknown Reaction [facility] (4 sources) Hmg-Coa Reductase Inhibitors (Statins) Propensity to adverse reactions MUSCLE PAIN [employer] Other (8 sources) Sulfacetamide / Sulfur Drug Allergy Unknown [employer] Other (15 sources) sulfADIAZINE Drug Allergy 03-22-20 24 Unknown, Comment:Sulfa [facility] (8 sources) tamsulosin Drug Allergy Unknown [facility] [employer] Other (1 source) black walnut pollen extract Drug Allergy [facility] Repository (1 source) Sulfonamides (Antibiotic) Drug allergy (disorder) 03-02-20 14 [facility] Repository (17 sources) predniSONE Drug Allergy 07-19-19 24 Unknown, Unknown Reaction [facility] (4 sources) Statins Depletion *DIETARY PRODUCTS/DIETARY MANAGE Propensity to adverse reactions Comment:ALL Statins [facility] [employer] Other (13 sources) tamsulosin Drug Allergy 07-19-19 Unknown Reaction [facility] (7 sources) Urnlvml-MNI-FoN Reductase Inhibitor Allergy to substance 07-19-19 Comment:ALL Statins [facility] Medications Current Medications Medication Drug Class(es) Dates Sig (Normalized) Sig (Original) amLODIPine 10 mg oral tablet (5 sources) Dihydropyridine Calcium Channel Cate Start: 02-14-2024 take 1 tablet by mouth once daily Amlodipine 10 mg tablet Active 10 MG PO Daily February 13, 2024 11:00pm take 1 tablet by james th every twelve hours amLODIPine Besylate 5 MG 1 tablet Orally TWICE A DAY Active benazepril hydrochloride 40 mg oral tablet [...] oral tablet (1 source) Tetracycline-class Drug Start: End: take 1 tablet by mouth twice daily doxycycline hyclate (VIBRA-TABS) 100 MG tablet Take 1 tablet by mouth 2 times daily for 7 days 14 tablet 0 09/24/2021 10/01/2021 Active ezetimibe 10 mg oral tablet (20 sources) Dietary Cholesterol Absorption Inhibitor Start: take 1 tablet by mouth once daily Ezetimibe 10 mg tablet Active 0 .ROUTE .COMPLEX 30 Crissy 5th, 2024 6:29am TAKE 1 TABLET BY MOUTH EVERY DAY Start: 07-18-2023 End: 11-01-2023 take 1 tablet by mouth once daily Ezetimibe 10 mg tablet Discontinued 10 MG PO Daily July 17, 2023 11:00pm November 01, 2023 6:29am take 1 tablet by james once daily Ezetimibe 10 MG TAKE 1 TABLET BY MOUTH EVERY DAY Active fluticasone propionate 0.05 mg/actuat metered dose nasal spray (20 sources) Corticosteroid Start: 02-27-2024 take 2 spray(s) nasal route once daily Fluticasone Propionate 50 mcg/actuation spray,suspension Active 0 .ROUTE .COMPLEX February 27, 2024 12:31pm SPRAY 2 SPRAYS INTO EACH NOSTRIL ONCE DAILY Start: 07-18-2023 fluticasone (F lonase) 50 MCG/ACT nasal spray Daily 07/18/2023 Active Start: 07-18-2023 End: 02-27-2024 Fluticasone Propionate 50 mcg/actuation spray,suspension Discontinued 2 SPRAY INTRANASAL Daily July 17, 2023 11:00pm February 27, 2024 12:31pm take 2 spray(s) nasa l route once daily Fluticasone Propionate 50 MCG/ACT USE 2 SPRAYS IN EACH NOSTRIL ONCE DAILY for 30 Active take 2 spray(s) nasa l route once daily Fluticasone Propionate 50 MCG/ACT USE 2 SPRAYS IN EACH NOSTRIL ONCE DAILY for 30 Active hydroCHLOROthiazide 25 mg oral tablet (1 source) Thiazide Diuretic Start: 02-14-2024 take 1 tablet by mouth once daily Hydrochlorothiazide 25 mg tablet Active 25 MG PO Daily February 13, 2024 11:00pm labetalol hydrochloride 300 mg oral tablet (20 sources) beta-Adrenerg ic Cate Start: 07-18-2023 take 1 tablet by mouth twice daily Labetalol 300 mg tablet Active 300 MG PO Twice daily July 17, 2023 11:00pm Labetalol HCl 30 0 MG TAKE 1 TABLET BY MOUTH TWICE A DAY FOR 30 DAYS for 30 Active take 2 tablets by mo [facility] every twelve hours Labetalol HCl 100 MG 2 TABLETS Orally Twice a day Active olmesartan medoxomil 40 mg oral tablet (1 source) Angiotensin 2 Receptor Cate Start: 02-14-2024 take 1 tablet by mouth once daily Olmesartan 40 mg tablet Active 40 MG PO Daily February 13, 2024 11:00pm omeprazole 40 mg delayed release oral capsule (10 sources) Proton Pump Inhibitor Start: 01-14-2024 End: 05-08-2024 take 1 capsule by mouth once daily Omeprazole 40 mg capsule,delayed release(DR/EC) Active 40 MG PO Daily May 08, 2024 10:25am Completed/Discontinued Medications Medication Drug Class(es) Dates Sig (Normalized) Sig (Original) amLODIPine 10 mg / hydroCHLOROthiazide 25 mg / olmesartan medoxomil 40 mg oral tablet (18 sources) Thiazide Diuretic, Dihydropyridine Calcium Channel Cate, Angiotensin 2 Receptor Cate Start: End: take 1 tablet by mouth once daily Olmesartan-Amlod ipin-Hcthiazid 40-10-25 mg tablet Discontinued 0 .ROUTE .COMPLEX February 02, 2024 6:39pm May 08, 2024 10:18am TAKE 1 TABLET BY MOUTH EVERY DAY FOR 30 DAYS Start: 07-18-2023 Olmesartan-amL ODIPine-HCTZ 40-10-25 MG tablet 1 tablet 07/18/2023 Active Start: 07-18-2023 End: 02-02-2024 take 1 tablet by mouth once daily Hqnvqcsesr-Yploklowk-Vjsbaqllz 40-10-25 mg tablet Discontinued 1 TAB PO Daily July 17, 2023 11:00pm February 02, 2024 6:39pm Start: 01-25-2023 take 1 tablet by james th every twenty-four hours Gdpjzgnbcy-idOHPCFdzz-RYPF 40-10-25 MG 1 tablet Orally Once a day for 30 days Dec, Active azithromycin 250 mg oral tablet (6 sources) Macrolide Antimicrobial Start: 10-07-2023 End: 12-13-2023 Azithromycin 250 mg tablet Discontinued 250 MG PO As Directed 6 October 06, 2023 11:00pm December 13, 2023 10:50am potassium chloride 10 meq extended release oral tablet (9 sources) Start: 07-18-2023 End: 07-19-2023 take 1 tablet by mouth once daily Potassium Chloride 10 mEq tablet extended release Discontinued 10 MEQ PO Daily July 17, 2023 11:00pm July 19, 2023 12:31pm Start: 03-08-2023 take 1 tablet by james [...] bronchitis] 10-07-2023 Episodic Calculus of urinary tract (20 sources) History of calculus of kidney; Translations: [Personal history of urinary calculi] Onset: 03-09-2024 Resolved: 03-09-2024 Episodic Cardiac dysrhythmias (8 sources) Ventricular premature complex; Translations: [Ventricular premature depolarization] Chronic Chronic kidney disease (20 sources) Chronic kidney disease stage 3; Translations: [Chronic kidney disease, stage 3 (moderate)] Onset: 03-09-2024 Resolved: 03-09-2024 07-18-2023 Chronic Comment on above: Creat/GFR:1.65/42 - 01/2024, 1.50/47 - 12/2023, 1.59/44 - 09/2023, 1.59/44 - 07/2022, 1.25/59 - 12/2021, 1.21/60 - 03/2021 Chronic ulcer of skin (8 sources) Non-pressure chronic ulcer of other part of left foot limited to breakdown of skin; Translations: [Ulcer of left foot (disorder)] Chronic Deficiency and other anemia (8 sources) Anemia; Translations: [Anemia, unspecified] Episodic Disorders of lipid metabolism (20 sources) Dyslipidemia; Translations: [Hyperlipidemia, unspecified] Onset: 03-09-2024 Resolved: 03-09-2024 Chronic Essential hypertension (20 sources) Essential hypertension; Translations: [Essential (primary) hypertension] Onset: 03-09-2024 Resolved: 03-09-2024 Chronic Fluid and electrolyte disorders (1 source) [...] or unspecified chronic kidney disease] Chronic Mycoses (13 sources) Onychomycosis due to dermatophyte ; Translations: [Tinea unguium] Onset: 03-09-2024 Resolved: 03-09-2024 07-19-2023 Episodic Osteoarthritis (8 sources) Localized, primary [...] Episodic Other diseases of kidney and ureters (13 sources) Cyst of kidney; Translations: [Cyst of kidney, acquired] Onset: 03-09-2024 Resolved: 03-09-2024 07-18-2023 Episodic Comment on above: CT: 2.1cm cortical c yst - 07/2022 Other diseases of kidney and ureters (3 sources) Cyst of kidney, acquired; Translations: [Cystic kidney disease, unspecified] 07-19-2023 Episodic Other hereditary and degenerative nervous system conditions (8 sources) Restless legs; Translations: [Restless legs syndrome] Chronic Other lower respiratory disease (1 source) Postviral cough; Translations: [Cough with frothy sputum] 2023 Episodic Other nervous system disorders (12 sources) Abnormal sensation; Translations: [Other disturbances of skin sensation] Onset: 03-09-2024 Resolved: 03-09-2024 07-19-2023 Episodic Other nervous system disorders (1 source) Other disturbances of skin sensation; Translations: [Disturbance of skin sensation] 07-19-2023 Episodic Other nervous system disorders (2 sources) Paresthesia of skin; Translations: [Disturbance of skin sensation] 07-19-2023 Episodic Other nutritional; endocrine; and metabolic disorders (1 source) Obesity; Translations: [Obesity, unspecified] 05-08-2024 Chronic Other nutritional; endocrine; and metabolic disorders (1 source) Obesity, unspecified; Translations: [Obesity, unspecified] 05-08-2024 Chronic Other nutritional; endocrine; and metabolic disorders (1 source) Overweight Episodic Other screening for suspected conditions (not mental disorders or infectious disease) (13 sources) Encounter for screening for malignant neoplasm of prostate; Translations: [Patient encounter status] Onset: 01-23-2022 Resolved: 03-09-2024 01-29-2024 Episodic Comment on above: PSA: 1.64 - 12/2020, 1.68 - 12/2021, 1.54 - 12/2022, 2.85 - 01/2024 Other skin disorders (2 sources) Mass of neck; Translations: [Localized swelling, mass and lump, neck] 03-10-2024 Episodic Other upper respiratory disease (10 sources) Allergic rhinitis; Translations: [Allergic rhinitis, unspecified] Onset: 03-09-2024 Resolved: 03-09-2024 2023 Chronic Other upper respiratory disease (1 source) Allergic rhinitis, unspecified; Translations: [Allergic rhinitis, cause unspecified] 2023 Chronic Other upper respiratory disease (16 sources) Feeling of lump in throat; Translations: [Globus sensation] Onset: 03-09-2024 Resolved: 03-09-2024 12-13-2023 Episodic Skin and subcutaneous tissue infections (9 sources) Cellulitis of left lower limb; Translations: [Cellulitis of left lower limb] Episodic Thyroid disorders (13 sources) Thyroid nodule; Translations: [Nontoxic single thyroid nodule] Onset: 03-09-2024 Resolved: 03-09-2024 01-08-2024 Chronic Comment on above: US: 12mm TR3 left si ded nodule - T: 7mm right, 5mm left nodule - 12/2023 Transient cerebral ischemia (12 sources) Transient cerebral ischemia; Translations: [Transient cerebral ischemic attack, unspecified] Onset: 03-09-2024 Resolved: 03-09-2024 07-19-2023 Chronic Past or Other Problems Problem Classification Problem Date Documented Da te Episodic/Chronic Chronic kidney disease (6 sources) Chronic kidney disease; Translations: [CHRONIC KIDNEY DISEASE STAGE 3A] Onset: 07-13-2022 Results Test Name Value Interpretation Reference Range Facility Estimated glomerular filtrat ion rate (GFR) non- Americanon 01-08-2024 GFR/1.73 sq M.predicted among non-blacks MDRD (S/P/Bld) [Vol rate/Area] 47 mL/min/{1.73_m2} Low >=60 [facility] Laboratory - Chemistry and C hemistry - challengeon 01-08-2024 Creatinine [Mass/Vol] 1.50 mg/dL High 0.70-1.30 [facility] GFR/1.73 sq M.predicted MDRD (S/P/Bld) [Vol rate/Area] 57 mL/min/{1.73_m2} Low >=60 [facility] Basophils Auto (Bld) [#/Vol] on 10-13-2023 Basophils (Bld) [#/Vol] 0.0 10 3/uL 0.0-0.1 [facility] Basophils/100 WBC Auto (Bld) on 10-13-2023 Basophils/100 WBC (Bld) 0.2 % 0.2-2.0 [facility] Eosinophils/100 WBC Auto (Bl d)on 10-13-2023 Eosinophils/100 WBC (Bld) 1.8 % 0.9-7.0 [facility] Erythrocyte distribution wid th Auto (RBC) [Ratio]on 10-13-2023 Erythrocyte distribution width (RBC) [Ratio] 12.9 % 11.0-15.0 [facility] Estimated glomerular filtrat ion rate (GFR) non- Americanon 10-13-2023 GFR/1.73 sq M.predicted among non-blacks MDRD (S/P/Bld) [Vol rate/Area] 44 mL/min/{1.73_m2} Low >=60 [facility] Hematocrit Auto (Bld) [Volum e fraction]on 10-13-2023 Hematocrit (Bld) [Volume fraction] 39.9 % Low 42.0-54.0 [facility] Hemoglobin [Mass/volume] in Bloodon 10-13-2023 Hemoglobin (Bld) [Mass/Vol] 13.3 g/dL Low 14.0-18.0 [facility] Laboratory - Chemistry and C hemistry - challengeon 10-13-2023 Calcium [Mass/Vol] 8.7 mg/dL 8.5-10.1 [facility] Chloride [Moles/Vol] 102 mmol/L 98-107 [facility] CO2 [Moles/Vol] 25.9 mmol/L 21.0-32.0 [facility] Creatinine [Mass/Vol] 1.59 mg/dL High 0.70-1.30 [facility] GFR/1.73 sq M.predicted MDRD (S/P/Bld) [Vol rate/Area] 54 mL/min/{1.73_m2} Low >=60 [facility] Glucose [Mass/Vol] 100 mg/dL 74-106 [facility] Potassium [Moles/Vol] 4.2 mmol/L 3.5-5.1 [facility] Sodium [Moles/Vol] 141 mmol/L 136-145 [facility] Urea nitrogen [Mass/Vol] 32.0 mg/dL High 7.0-18.0 [facility] Urea nitrogen/Creatinine [Mass ratio] 20.1 mg/mg [facility] Laboratory - Hematology and Cell countson 10-13-2023 Immature granulocytes/100 WBC (Bld) 0.4 % 0.0-0.5 [facility] Leukocytes [#/volume] correc cipriano for nucleated erythrocytes in Blood by Automated counon 10-13-2023 WBC corrected for nucl RBC Auto (Bld) [#/Vol] 5.0 10 3/uL 4.0-11.0 [facility] Lymphocytes Auto (Bld) [#/Vo l]on 10-13-2023 Lymphocytes (Bld) [#/Vol] 1.2 10 3/uL 1.2-3.8 [facility] Lymphocytes/100 WBC Auto (Bl d)on 10-13-2023 Lymphocytes/100 WBC (Bld) 23.8 % 20.5-60.0 [facility] MCH Auto (RBC) [Entitic mass ]on 10-13-2023 MCH (RBC) [Entitic mass] 28.9 pg 25.9-34.0 [facility] MCHC Auto (RBC) [Mass/Vol]on 10-13-2023 MCHC (RBC) [Mass/Vol] 33.3 g/dL 29.9-35.2 [facility] MCV Auto (RBC) [Entitic vol] on 10-13-2023 MCV (RBC) [Entitic vol] 86.6 fL 80.0-94.0 [facility] Monocytes Auto (Bld) [#/Vol] on 10-13-2023 Monocytes (Bld) [#/Vol] 0.4 10 3/uL 0.3-0.8 [facility] Monocytes/100 WBC Auto (Bld) on 10-13-2023 Monocytes/100 WBC (Bld) 8.8 % 1.7-12.0 [facility] Neutrophils Auto (Bld) [#/Vo l]on 10-13-2023 Neutrophils (Bld) [#/Vol] 3.2 10 3/uL 1.4-6.5 [facility] Neutrophils/100 WBC Auto (Bl d)on 10-13-2023 Neutrophils/100 WBC (Bld) 65.0 % 43.0-75.0 [facility] No Panel Informationon 10-12 Eosinophils # (Auto) 0.1 10 3/uL 0.0-0.7 [facility] Immature Granulocyte # (Auto) 0.02 10 3/uL 0.00-0.03 [facility] Troponin I High Sensitivity 6.5 pg/mL 4.0-76.1 [facility] Comment on above: CUT-OFF POINTS HAVE BEEN [...] (Bld) [Entitic vol] 8.3 fL Low 9.5-13.5 [facility] Platelets Auto (Bld) [#/Vol] on 10-13-2023 Platelets (Bld) [#/Vol] 233 10 3/uL 150-450 [facility] RBC Auto (Bld) [#/Vol]on RBC (Bld) [#/Vol] 4.61 10 6/uL Low 4.70-6.10 [facility] Serum or plasma anion gap de terminationon 10-13-2023 Anion gap [Moles/Vol] 17.3 mmol/L [facility] Basophils Auto (Bld) [#/Vol] on 08-09-2023 Basophils (Bld) [#/Vol] 0.0 10 3/uL 0.0-0.1 [facility] Basophils/100 WBC Auto (Bld) on 08-09-2023 Basophils/100 WBC (Bld) 0.4 % 0.2-2.0 [facility] Eosinophils/100 WBC Auto (Bl d)on 08-09-2023 Eosinophils/100 WBC (Bld) 2.6 % 0.9-7.0 [facility] Erythrocyte distribution wid th Auto (RBC) [Ratio]on 08-09-2023 Erythrocyte distribution width (RBC) [Ratio] 13.1 % 11.0-15.0 [facility] Estimated glomerular filtrat ion rate (GFR) non- Americanon 08-09-2023 GFR/1.73 sq M.predicted among non-blacks MDRD (S/P/Bld) [Vol rate/Area] 46 mL/min/{1.73_m2} >=60 [facility] Globulin Calc (S) [Mass/Vol] on 08-09-2023 Globulin (S) [Mass/Vol] 3.4 g/dL [facility] Hematocrit Auto (Bld) [Volum e fraction]on 08-09-2023 Hematocrit (Bld) [Volume fraction] 42.7 % 42.0-54.0 [facility] Hemoglobin [Mass/volume] in Bloodon 08-09-2023 Hemoglobin (Bld) [Mass/Vol] 14.0 g/dL 14.0-18.0 [facility] Laboratory - Chemistry and C hemistry - challengeon 08-09-2023 Albumin [Mass/Vol] 3.7 g/dL 3.4-5.0 [facility] ALP [Catalytic activity/Vol] 57 U/L 46-116 [facility] ALT [Catalytic activity/Vol] 30 U/L 16-63 [facility] AST [Catalytic activity/Vol] 17 U/L 15-37 [facility] Bilirubin [Mass/Vol] 0.4 mg/dL 0.2-1.0 [facility] Calcium [Mass/Vol] 9.2 mg/dL 8.5-10.1 [facility] Chloride [Moles/Vol] 104 mmol/L 98-107 [facility] CO2 [Moles/Vol] 30.3 mmol/L 21.0-32.0 [facility] Cobalamin (Vitamin B12) [Mass/Vol] 270.0 pg/mL 193.0-986.0 [facility] Creatinine [Mass/Vol] 1.55 mg/dL 0.70-1.30 [facility] GFR/1.73 sq M.predicted MDRD (S/P/Bld) [Vol rate/Area] 55 mL/min/{1.73_m2} >=60 [facility] Glucose [Mass/Vol] 99 mg/dL 74-106 [facility] Potassium [Moles/Vol] 3.6 mmol/L 3.5-5.1 [facility] Protein [Mass/Vol] 7.1 g/dL 6.4-8.2 [facility] Sodium [Moles/Vol] 144 mmol/L 136-145 [facility] TSH Qn 2.981 m[IU]/L 0.358-3.740 [facility] Urea nitrogen [Mass/Vol] 29.0 mg/dL 7.0-18.0 [facility] Urea nitrogen/Creatinine [Mass ratio] 18.7 mg/mg [facility] Laboratory - Hematology and Cell countson 08-09-2023 Immature granulocytes/100 WBC (Bld) 0.3 % 0.0-0.5 [facility] Leukocytes [#/volume] correc cipriano for nucleated erythrocytes in Blood by Automated counon 08-09-2023 WBC corrected for nucl RBC Auto (Bld) [#/Vol] 6.8 10 3/uL 4.0-11.0 [facility] Lymphocytes Auto (Bld) [#/Vo l]on 08-09-2023 Lymphocytes (Bld) [#/Vol] 1.2 10 3/uL 1.2-3.8 [facility] Lymphocytes/100 WBC Auto (Bl d)on 08-09-2023 Lymphocytes/100 WBC (Bld) 18.0 % 20.5-60.0 [facility] MCH Auto (RBC) [Entitic mass ]on 08-09-2023 MCH (RBC) [Entitic mass] 28.9 pg 25.9-34.0 [facility] MCHC Auto (RBC) [Mass/Vol]on 08-09-2023 MCHC (RBC) [Mass/Vol] 32.8 g/dL 29.9-35.2 [facility] MCV Auto (RBC) [Entitic vol] on 08-09-2023 MCV (RBC) [Entitic vol] 88.2 fL 80.0-94.0 [facility] Monocytes Auto (Bld) [#/Vol] on 08-09-2023 Monocytes (Bld) [#/Vol] 0.8 10 3/uL 0.3-0.8 [facility] Monocytes/100 WBC Auto (Bld) on 08-09-2023 Monocytes/100 WBC (Bld) 11.1 % 1.7-12.0 [facility] Neutrophils Auto (Bld) [#/Vo l]on 08-09-2023 Neutrophils (Bld) [#/Vol] 4.6 10 3/uL 1.4-6.5 [facility] Neutrophils/100 WBC Auto (Bl d)on 08-09-2023 Neutrophils/100 WBC (Bld) 67.6 % 43.0-75.0 [facility] No Panel Informationon 08-08 Eosinophils # (Auto) 0.2 10 3/uL 0.0-0.7 [facility] Immature Granulocyte # (Auto) 0.02 10 3/uL 0.00-0.03 [facility] Platelet mean volume Auto (B ld) [Entitic vol]on 08-09-2023 Platelet mean volume (Bld) [Entitic vol] 8.1 fL 9.5-13.5 [facility] Platelets Auto (Bld) [#/Vol] on 08-09-2023 Platelets (Bld) [#/Vol] 257 10 3/uL 150-450 [facility] RBC Auto (Bld) [#/Vol]on RBC (Bld) [#/Vol] 4.84 10 6/uL 4.70-6.10 [facility] Serum or plasma albumin/glob ulin mass ratioon 08-09-2023 Albumin/Globulin [Mass ratio] 1.1 {ratio} [facility] Serum or plasma anion gap de terminationon 08-09-2023 Anion gap [Moles/Vol] 13.3 mmol/L [facility] CREATININEon 08-17-2022 Creatinine [Mass/Vol] 1.59 mg/dL Critically high 0.70-1.30 [facility] Comment on above: Performed By: #### C DIANELYS #### [facility] [address] [address] [address] Keanu Shafer EGFR-AF BURMESE 54 mL/min/1.73m2 Critically low >=60 [facility] Comment on above: Performed By: #### C DIANELYS #### [facility] [address] [address] [address] Keanu Shafer EGFR-NON AF BURMESE 44 mL/min/1.73m2 Critically low >=60 [facility] Comment on above: Performed By: #### C DIANELYS #### [facility] [address] ABD/PELV W CONon [...] by: ANSHUL AMADOR Date: 2022-08-17 08:53 Normal [facility] Basic Metabolic Panelon 06-27 Calcium [Mass/Vol] 9.1206127 mg/dL 8.5-10 .1 mg/dL [employer] Other CO2 [Moles/Vol] 28.91153819 mmol/L 21.0-3 2.0 mmol/L [employer] Other Creatinine [Mass/Vol] 1.90708954 mg/dL Critically high 0.70-1.30 mg/dL [employer] Other Potassium [Moles/Vol] 4.70670611 mmol/L 3.5-5.1 mmol/L [employer] Other Urea nitrogen [Mass/Vol] 21.7409197 mg/dL Critically high 7.0-18.0 mg/dL [employer] Other Basic Metabolic Panel see note [employer] Other Basic Metabolic Panel 144 mmol/L 136-145 mmol/L [employer] Other Basic Metabolic Panel 99 mg/dL 74-106 mg/dL [employer] Other Basic Metabolic Panel 55 mL/min/1.73m2 Critically low >=60 mL/min/1.73m2 [employer] Other Basic Metabolic Panel >60 mL/min/1.73m2 >=60 mL/min/1.73m2 [employer] Other Anion gap [Moles/Vol] 11.0 mmol/L Normal [employer] Other Comment on above: Performed By: #### B MP #### [facility] [address] [place] [address] Dr. Keanu Shafer Chloride [Moles/Vol] 109 mmol/L Critically high 98-107 [employer] Other Comment on above: Performed By: #### B MP #### [facility] [address] [place] [address] Dr. Keanu Shafer Urea nitrogen/Creatinine [Mass ratio] 16.0 mg/mg Normal [employer] Other Comment on above: Performed By: #### B MP #### [facility] [address] [place] [address] Dr. Keanu Shafer PROF CHEM 8 (BAS METB)on Calcium [Mass/Vol] 9.0 mg/dL Normal 8.5-10.1 [facility] Comment on above: Performed By: #### B MP #### [facility] [address] [place] [address] Dr. Keanu Shafer CO2 [Moles/Vol] 28.3 mmol/L Normal 21.0-32.0 [facility] Comment on above: Performed By: #### B MP #### [facility] [address] [place] [address] Dr. Keanu Shafer Creatinine [Mass/Vol] 1.31 mg/dL Critically high 0.70-1.30 [facility] Comment on above: Performed By: #### B MP #### [facility] [address] [place] [address] Dr. Keanu Shafer EGFR-AF BURMESE >60 Normal >=60 [facility] Comment on above: Performed By: #### B MP #### [facility] [address] [address] [address] Keanu Shafer EGFR-NON AF BURMESE 55 mL/min/1.73m2 Critically low >=60 [facility] Comment on above: Performed By: #### B MP #### [facility] [address] [place] [address] Dr. Keanu Shafer Glucose [Mass/Vol] 99 mg/dL Normal 74-106 [facility] Comment on above: Performed By: #### B MP #### [facility] [address] [place] [address] Dr. Keanu Shafer Potassium [Moles/Vol] 4.3 mmol/L Normal 3.5-5.1 [facility] Comment on above: Performed By: #### B MP #### [facility] [address] [place] [address] Dr. Keanu Shafer Sodium [Moles/Vol] 144 mmol/L Normal 136-145 [facility] Comment on above: Performed By: #### B MP #### [facility] [address] [place] [address] Dr. Keanu Shafer Urea nitrogen [Mass/Vol] 21.0 mg/dL Critically high 7.0-18.0 [facility] Comment on above: Performed By: #### B MP #### [facility] [address] [place] [address] Dr. Keanu Shafer CBC AUTO DIFFon 01-19-2022 BASO # 0.0 103/ul Normal 0.0-0.1 [facility] Comment on above: Performed By: #### C BC #### [facility] [address] [place] [address] Dr. Keanu Shafer Basophils/100 WBC (Bld) 0.3 % Normal 0.2-2.0 [facility] Comment on above: Performed By: #### C BC #### [facility] [address] [place] [address] Dr. Keanu Shafer EO # 0.2 103/ul Normal 0.0-0.7 [facility] Comment on above: Performed By: #### C BC #### [facility] [address] [place] [address] Dr. Keanu Shafer Eosinophils/100 WBC (Bld) 2.4 % Normal 0.9-7.0 [facility] Comment on above: Performed By: #### C BC #### [facility] [address] [place] [address] Dr. Keanu Shafer Erythrocyte distribution width (RBC) [Ratio] 13.2 % Normal 11.0-15.0 [facility] Comment on above: Performed By: #### C BC #### [facility] [address] [place] [address] Dr. Keanu Shafer Hematocrit (Bld) [Volume fraction] 42.1 % Normal 42.0-54.0 [facility] Comment on above: Performed By: #### C BC #### [facility] [address] [place] [address] Dr. Keanu Shafer Hemoglobin (Bld) [Mass/Vol] 14.2 g/dL Normal 14.0-18.0 [facility] Comment on above: Performed By: #### C BC #### [facility] [address] [place] [address] Dr. Keanu Shafer IG # 0.02 10e3/ul Normal 0.00-0.03 [facility] Comment on above: Performed By: #### C BC #### [facility] [address] [place] [address] Dr. Keanu Shafer IG % 0.3 % Normal 0.0-0.5 [facility] Comment on above: Performed By: #### C BC #### [facility] [address] [place] [address] Dr. Keanu Shafer LYMPH # 1.0 103/ul Critically low 1.2-3.8 [facility] Comment on above: Performed By: #### C BC #### [facility] [address] [place] [address] Dr. Keanu Shafer Lymphocytes/100 WBC (Bld) 16.0 % Critically low 20.5-60.0 [facility] Comment on above: Performed By: #### C BC #### [facility] [address] [place] [address] Dr. Keanu Shafer MANUAL DIFF REQ NO Normal [facility] Comment on above: Performed By: #### C BC #### [facility] [address] [place] [address] Dr. Keanu Shafer MCH (RBC) [Entitic mass] 29.2 pg Normal 25.9-34.0 [facility] Comment on above: Performed By: #### C BC #### [facility] [address] [place] [address] Dr. Keanu Shafer MCHC (RBC) [Mass/Vol] 33.7 g/dL Normal 29.9-35.2 [facility] Comment on above: Performed By: #### C BC #### [facility] [address] [place] [address] Dr. Keanu Shafer MCV (RBC) [Entitic vol] 86.6 fL Normal 80.0-94.0 [facility] Comment on above: Performed By: #### C BC #### [facility] [address] [place] [address] Dr. Keanu Shafer MONO # 0.6 103/ul Normal 0.3-0.8 [facility] Comment on above: Performed By: #### C BC #### [facility] [address] [place] [address] Dr. Keanu Shafer Monocytes/100 WBC (Bld) 9.2 % Normal 1.7-12.0 [facility] Comment on above: Performed By: #### C BC #### [facility] [address] [place] [address] Dr. Keanu Shafer NEUT # 4.5 103/ul Normal 1.4-6.5 [facility] Comment on above: Performed By: #### C BC #### [facility] [address] [place] [address] Dr. Keanu Shafer Neutrophils/100 WBC (Bld) 71.8 % Normal 43.0-75.0 [facility] Comment on above: Performed By: #### C BC #### [facility] [address] [place] [address] Dr. Keanu Shafer Platelet mean volume (Bld) [Entitic vol] 7.8 fL Critically low 9.5-13.5 [facility] Comment on above: Performed By: #### C BC #### [facility] [address] [place] [address] Dr. Keanu Shafer PLT 233 103/ul Normal 150-450 [facility] Comment on above: Performed By: #### C BC #### [facility] [address] [place] [address] Dr. Keanu Shafer RBC 4.86 106/ul Normal 4.70-6.10 [facility] Comment on above: Performed By: #### C BC #### [facility] [address] [place] [address] Dr. Keanu Shafer WBC 6.2 103/ul Normal 4.0-11.0 [facility] Comment on above: Performed By: #### C BC #### [facility] [address] [place] [address] Dr. Keanu Shafer LIPID PROFILEon 01-19-2022 CHOL-HDL RATIO NORM SEE BELOW Normal [facility] Comment on above: Result Comment: 3.3 - 4.4 LOW RISK 4.4 - 7.1 AVERAGE RISK 7.1 - 11.0 MODERATE RISK >11.0 HIGH RISK Performed By: #### C MP, LIPID #### [facility] [address] [place] [address] Dr. eKanu Shafer Cholesterol [Mass/Vol] 222 mg/dL Critically high <=200 [facility] Comment on above: Performed By: #### C MP, LIPID #### [facility] [address] [place] [address] Dr. Keanu Shafer Cholesterol in HDL [Mass/Vol] 40 mg/dL Normal 40-60 [facility] Comment on above: Performed By: #### C MP, LIPID #### [facility] [address] [place] [address] Dr. Keanu Shafer Cholesterol in LDL [Mass/Vol] 160.6 mg/dL Normal [facility] Comment on above: Performed By: #### C MP, LIPID #### [facility] [address] [place] [address] Dr. Keanu Shafer Cholesterol.total/Ch olesterol in HDL [Mass ratio] 5.6 {ratio} Normal [facility] Comment on above: Performed By: #### C MP, LIPID #### [facility] [address] [address] [address] Keanu Shafer HDL NORMAL > or = 60 mg/dl - LOW CARDIOVASCULAR RISK <40 mg/dl - HIGH CARDIOVASCULAR RISK Normal [facility] Comment on above: Performed By: #### C MP, LIPID #### [facility] [address] [place] [address] Dr. Keanu Shafer LDL CALC NORMAL SEE BELOW Normal [facility] Comment on above: Result Comment: <100 mg/dl OPTIMAL 100 - 129 mg/dl NEAR OR ABOVE OPTIMAL 130 - 159 mg/dl BORDERLINE HIGH 160 - 189 mg/dl HIGH >190 mg/dl VERY HIGH Performed By: #### C MP, LIPID #### [facility] [address] [place] [address] Dr. Keanu Shafer Triglyceride [Mass/Vol] 107 mg/dL Normal <=150 [facility] Comment on above: Performed By: #### C MP, LIPID #### [facility] [address] [place] [address] Dr. Keanu Shafer VLDL CALC 21.4 mg/dL Normal [facility] Comment on above: Performed By: #### C MP, LIPID #### [facility] [address] [place] [address] Dr. Keanu Shafer PROF 14(COMP METB)on 022 Albumin [Mass/Vol] 3.9 g/dL Normal 3.4-5.0 [facility] Comment on above: Performed By: #### C MP, LIPID #### [facility] [address] [place] [address] Dr. Keanu Shafer Albumin/Globulin [Mass ratio] 1.3 {ratio} Normal [facility] Comment on above: Performed By: #### C MP, LIPID #### [facility] [address] [place] [address] Dr. Keanu Shafer ALP [Catalytic activity/Vol] 55 U/L Normal 46-116 [facility] Comment on above: Performed By: #### C MP, LIPID #### [facility] [address] [place] [address] Dr. Keanu Shafer ALT [Catalytic activity/Vol] 25 U/L Normal 16-63 [facility] Comment on above: Performed By: #### C MP, LIPID #### [facility] [address] [place] [address] Dr. Keanu Shafer Anion gap [Moles/Vol] 8.8 mmol/L Normal [facility] Comment on above: Performed By: #### C MP, LIPID #### [facility] [address] [place] [address] Dr. Keanu Shafer AST [Catalytic activity/Vol] 15 U/L Normal 15-37 [facility] Comment on above: Performed By: #### C MP, LIPID #### [facility] [address] [place] [address] Dr. Keanu Shafer Bilirubin [Mass/Vol] 0.7 mg/dL Normal 0.2-1.0 [facility] Comment on above: Performed By: #### C MP, LIPID #### [facility] [address] [place] [address] Dr. Keanu Shafer Calcium [Mass/Vol] 8.7 mg/dL Normal 8.5-10.1 [facility] Comment on above: Performed By: #### C MP, LIPID #### [facility] [address] [place] [address] Dr. Keanu Shafer Chloride [Moles/Vol] 106 mmol/L Normal 98-107 [facility] Comment on above: Performed By: #### C MP, LIPID #### [facility] [address] [place] [address] Dr. Keanu Shafer CO2 [Moles/Vol] 28.4 mmol/L Normal 21.0-32.0 [facility] Comment on above: Performed By: #### C MP, LIPID #### [facility] [address] [place] [address] Dr. Keanu Shafer Creatinine [Mass/Vol] 1.25 mg/dL Normal 0.70-1.30 [facility] Comment on above: Performed By: #### C MP, LIPID #### [facility] [address] [address] [address] Keanu Shafer EGFR-AF BURMESE >60 Normal >=60 [facility] Comment on above: Performed By: #### C MP, LIPID #### [facility] [address] [address] [address] Keanu Shafer EGFR-NON AF BURMESE 59 mL/min/1.73m2 Critically low >=60 [facility] Comment on above: Performed By: #### C MP, LIPID #### [facility] [address] [place] [address] Dr. Keanu Shafer Globulin (S) [Mass/Vol] 3.1 g/dL Normal [facility] Comment on above: Performed By: #### C MP, LIPID #### [facility] [address] [place] [address] Dr. Keanu Shafer Glucose [Mass/Vol] 99 mg/dL Normal 74-106 [facility] Comment on above: Performed By: #### C MP, LIPID #### [facility] [address] [place] [address] Dr. Keanu Shafer Potassium [Moles/Vol] 4.2 mmol/L Normal 3.5-5.1 [facility] Comment on above: Performed By: #### C MP, LIPID #### [facility] [address] [place] [address] Dr. Keanu Shafer Protein [Mass/Vol] 7.0 g/dL Normal 6.4-8.2 [facility] Comment on above: Performed By: #### C MP, LIPID #### [facility] [address] [place] [address] Dr. Keanu Shafer Sodium [Moles/Vol] 139 mmol/L Normal 136-145 [facility] Comment on above: Performed By: #### C MP, LIPID #### [facility] [address] [place] [address] Dr. Keanu Shafer Urea nitrogen [Mass/Vol] 18.0 mg/dL Normal 7.0-18.0 [facility] Comment on above: Performed By: #### C MP, LIPID #### [facility] [address] [address] [address] Keanu Shafer Urea nitrogen/Creatinine [Mass ratio] 14.4 mg/mg Normal [facility] Comment on above: Performed By: #### C MP, LIPID #### [facility] [address] [address] [address] Keanu Shafer CBC With Platelet and Differ entialon 09-24-2021 Basophils (Bld) [#/Vol] 0.0 10*3/uL Normal 0.0-0.2 [facility] Comment on above: Performed By: #### C BCWD #### [facility] [address] [place] [address] Basophils/100 WBC (Bld) 0.3 % Normal [facility] Comment on above: Performed By: #### C BCWD #### [facility] [address] [place] [address] Eosinophils (Bld) [#/Vol] 0.1 10*3/uL Normal 0.0-0.7 [facility] Comment on above: Performed By: #### C BCWD #### [facility] [address] [place] [address] Eosinophils/100 WBC (Bld) 0.9 % Normal [facility] Comment on above: Performed By: #### C BCWD #### [facility] [address] [place] [address] Erythrocyte distribution width (RBC) [Ratio] 13.9 % Normal 11.5-14.5 [facility] Comment on above: Performed By: #### C BCWD #### [facility] [address] [place] [address] Hematocrit (Bld) [Volume fraction] 42.6 % Normal 42.0-52.0 [facility] Comment on above: Performed By: #### C BCWD #### [facility] [address] [place] [address] Hemoglobin (Bld) [Mass/Vol] 14.2 g/dL Normal 14.0-18.0 [facility] Comment on above: Performed By: #### C BCWD #### [facility] [address] [place] [address] Lymphocytes (Bld) [#/Vol] 0.9 10*3/uL Low 1.0-4.8 [facility] Comment on above: Performed By: #### C BCWD #### [facility] [address] [place] [address] Lymphocytes/100 WBC (Bld) 8.1 % Normal [facility] Comment on above: Performed By: #### C BCWD #### [facility] [address] [place] [address] MCH (RBC) [Entitic mass] 28.9 pg Normal 27.0-31.3 [facility] Comment on above: Performed By: #### C BCWD #### [facility] [address] [place] [address] MCHC 33.3 % Normal 33.0-37.0 [facility] Comment on above: Performed By: #### C BCWD #### [facility] [address] [place] [address] MCV (RBC) [Entitic vol] 86.8 fL Normal 80.0-100.0 [facility] Comment on above: Performed By: #### C BCWD #### [facility] [address] [place] [address] Monocytes (Bld) [#/Vol] 0.8 10*3/uL Normal 0.2-0.8 [facility] Comment on above: Performed By: #### C BCWD #### [facility] [address] [place] [address] Monocytes/100 WBC (Bld) 7.4 % Normal [facility] Comment on above: Performed By: #### C BCWD #### [facility] [address] [place] [address] Neutrophils (Bld) [#/Vol] 9.5 10*3/uL Critically high 1.4-6.5 [facility] Comment on above: Performed By: #### C BCWD #### [facility] [address] [place] [address] Neutrophils/100 WBC (Bld) 83.3 % Normal [facility] Comment on above: Performed By: #### C BCWD #### [facility] [address] [place] [address] Platelets (Bld) [#/Vol] 289 10*3/uL Normal 130-400 [facility] Comment on above: Performed By: #### C BCWD #### [facility] [address] [place] [address] RBC (Bld) [#/Vol] 4.90 10*6/uL Normal 4.70-6.10 [facility] Comment on above: Performed By: #### C BCWD #### [facility] [address] [place] [address] WBC (Bld) [#/Vol] 11.4 10*3/uL Critically high 4.8-10.8 [facility] Comment on above: Performed By: #### C BCWD #### [facility] [address] [place] [address] CBC with Auto Differentialon 09-24-2021 Basophils (Bld) [#/Vol] 0.0 10*3/uL 0.0 - 0.2 K/uL [facility] Basophils/100 WBC (Bld) 0.3 % [facility] Eosinophils (Bld) [#/Vol] 0.1 10*3/uL 0.0 - 0.7 K/uL [facility] Eosinophils/100 WBC (Bld) 0.9 % [facility] Hematocrit (Bld) [Volume fraction] 42.6 % 42.0 - 52.0 % [facility] Hemoglobin.gastroint estinal spec 1 Ql (Stl) 14.2 g/dL 14.0 - 18.0 g/dL [facility] Interpretation and review of laboratory results Abnormal [facility] Lymphocytes (Bld) [#/Vol] 0.9 10*3/uL Low 1.0 - 4.8 K/uL [facility] Lymphocytes/100 WBC (Bld) 8.1 % [facility] MCH (RBC) [Entitic mass] 28.9 pg 27.0 - 31.3 pg [facility] MCHC (RBC) [Mass/Vol] 33.3 % 33.0 - 37.0 % [facility] MCV (RBC) [Entitic vol] 86.8 fL 80.0 - 100.0 fL [facility] Monocytes (Bld) [#/Vol] 0.8 10*3/uL 0.2 - 0.8 K/uL [facility] Monocytes/100 WBC (Bld) 7.4 % [facility] Neutrophils Absolute 9.5 K/uL High 1.4 - 6 .5 K/uL [facility] Neutrophils/100 WBC (Bld) 83.3 % [facility] Platelet distribution width (Bld) [Ratio] 13.9 % 11.5 - 14.5 % [facility] Platelets (Bld) [#/Vol] 289 10*3/uL 130 - 400 K/uL [facility] RBC (Bld) [#/Vol] 4.90 10*6/uL [facility] WBC (Bld) [#/Vol] 11.4 10*3/uL High 4.8 - 10.8 K/uL [facility] Comprehensive Metabolic Pane erasmo 09-24-2021 Albumin [Mass/Vol] 4.3 g/dL Normal 3.5-4.6 [facility] Comment on above: Performed By: #### C MP #### [facility] [address] [place] [address] [phone] ALP [Catalytic activity/Vol] 68 U/L Normal 35-104 [facility] Comment on above: Performed By: #### C MP #### [facility] [address] [place] [address] ALT [Catalytic activity/Vol] 14 U/L Normal 0-41 [facility] Comment on above: Performed By: #### C MP #### [facility] [address] [place] [address] Anion gap [Moles/Vol] 11 mmol/L Normal 9-15 [facility] Comment on above: Performed By: #### C MP #### [facility] [address] [place] [address] AST [Catalytic activity/Vol] 14 U/L Normal 0-40 [facility] Comment on above: Result Comment: Spec imen hemolysis has exceeded the interference as defined by Ayla. Value may be falsely increased. Suggest recollection if clinically indicated. Performed By: #### C MP #### [facility] [address] [place] [address] Bilirubin [Mass/Vol] 0.3 mg/dL Normal 0.2-0.7 [facility] Comment on above: Performed By: #### C MP #### [facility] [address] [place] [address] Calcium [Mass/Vol] 9.0 mg/dL Normal 8.5-9.9 [facility] Comment on above: Performed By: #### C MP #### [facility] [address] [place] [address] Chloride [Moles/Vol] 102 mmol/L Normal 95-107 [facility] Comment on above: Performed By: #### C MP #### [facility] [address] [place] [address] CO2 [Moles/Vol] 27 mmol/L Normal 20-31 [facility] Comment on above: Performed By: #### C MP #### [facility] [address] [place] [address] Creatinine [Mass/Vol] 1.27 mg/dL Critically high 0.70-1.20 [facility] Comment on above: Performed By: #### C MP #### [facility] [address] [place] [address] GFR 57.5 Low >60 [facility] Comment on above: Result Comment: >60 mL/min/1.73m2 EGFR, calc. for ages 18 and older using the MDRD formula (not corrected for weight), is valid for stable renal function. Performed By: #### C MP #### [facility] [address] [place] [address] GFR/1.73 sq M.predicted among blacks MDRD (S/P/Bld) [Vol rate/Area] mL/min/{1.73_m2} Normal >60 [facility] Comment on above: Result Comment: >60 mL/min/1.73m2 EGFR, calc. for ages 18 and older using the MDRD formula (not corrected for weight), is valid for stable renal function. Performed By: #### C MP #### [facility] [address] [place] [address] Globulin (S) [Mass/Vol] 2.9 g/dL Normal 2.3-3.5 [facility] Comment on above: Performed By: #### C MP #### [facility] [address] [place] [address] Glucose [Mass/Vol] 114 mg/dL Critically high 70-99 [facility] Comment on above: Performed By: #### C MP #### [facility] [address] [place] [address] Potassium [Moles/Vol] 4.2 mmol/L Normal 3.4-4.9 [facility] Comment on above: Performed By: #### C MP #### [facility] [address] [place] [address] Protein [Mass/Vol] 7.2 g/dL Normal 6.3-8.0 [facility] Comment on above: Performed By: #### C MP #### [facility] [address] [place] [address] Sodium [Moles/Vol] 140 mmol/L Normal 135-144 [facility] Comment on above: Performed By: #### C MP #### [facility] [address] [place] [address] Urea nitrogen [Mass/Vol] 18 mg/dL Normal 8-23 [facility] Comment on above: Performed By: #### C MP #### [facility] [address] [place] [address] Albumin [Mass/Vol] 4.3 g/dL 3.5 - 4.6 g/dL [facility] ALP (Bld) [Catalytic activity/Vol] 68 U/L 35 - 104 U/L [facility] ALT [Catalytic activity/Vol] 14 U/L 0 - 41 U/L [facility] Anion gap [Moles/Vol] 11 mmol/L [facility] AST [Catalytic activity/Vol] 14 U/L 0 - 40 U/L [facility] Comment on above: Specimen hemolysis h as exceeded the interference as defined by Ayla. Value may be falsely increased. Suggest recollection if clinically indicated. Bilirubin [Mass/Vol] 0.3 mg/dL 0.2 - 0 .7 mg/dL [facility] Calcium [Mass/Vol] 9.0 mg/dL 8.5 - 9.9 mg/dL [facility] [facility] Chloride [Moles/Vol] 102 mmol/L [facility] CO2 [Moles/Vol] 27 mmol/L [facility] [employer] Creatinine [Mass/Vol] 1.27 mg/dL High 0.70 - 1.20 mg/dL [facility] [employer] Free PSA/Total PSA [Mass fraction] 7.2 g/dL 6.3 - 8.0 g/dL [facility] [employer] GFR >60.0 >60 [facility] [employer]. Comment on above: >60 mL/min/1.73m2 EG FR, calc. for ages 18 and older using the MDRD formula (not corrected for weight), is valid for stable renal function. GFR Non- 57.5 Low >60 [facility] Comment on above: >60 mL/min/1.73m2 EG FR, calc. for ages 18 and older using the MDRD formula (not corrected for weight), is valid for stable renal function. Globulin (S) [Mass/Vol] 2.9 g/dL 2.3 - 3.5 g/dL [facility] Glucose [Mass/Vol] 114 mg/dL High 70 - 99 mg/dL [facility] Interpretation and review of laboratory results Abnormal [facility] Potassium [Moles/Vol] 4.2 mmol/L [facility] Sodium [Moles/Vol] 140 mmol/L [facility] Urea nitrogen (BldV) [Mass/Vol] 18 mg/dL 8 - 23 mg/dL [facility] US DUP LOWER EXTREMITY LEFT VENon 09-24-2021 [...] Jamie Thornton MD 09/24/21 Final result Normal [facility] NEGATIVE STUDY FOR ACUTE PROXIMAL DVT IN THE LEFT LOWER EXTREMITY. NEGATIVE STUDY FOR ACUTE CALF DVT IN THE LEFT LOWER EXTREMITY. NEGATIVE STUDY FOR SUPERFICIAL THROMBOPHLEBITIS IN THE LEFT LOWER EXTREMITY [facility] LEFT LOWER EXTREMITY DEEP VENOUS ULTRASOUND [...] in the proximal calf, not otherwise assessed. [facility] Jamie Thornton MD - 09/24/2021 LEFT LOWER [...] SUPERFICIAL THROMBOPHLEBITIS IN THE LEFT LOWER EXTREMITY [employer] Phone: Radiology Study observation (narrative) [employer] Phone: US DUP LOWER EXTREMITY LEFT VENOrdered By: Jamie Thornton on 09-24-2021 [employer] Phone: Coding Summary.on 01-21-2017 Coding Summary. CODING DATE: 01/21/2017 FINAL [facility] DSC STATUS: Home (Routine DC) PAYOR: Medical [place] APC DESCRIPTION 5372 Level 2 Urology and [...] Arriaza Date Saved: 01/21/2017 08:35 pm Normal [facility] Main OR Intraoperative Recor hali 01-17-2017 Main OR Intraoperative Record IntraOp Document Type FTURO Summary Primary Physician: Jeremiah Moore MD, Royer Stuart Finalized Date/Time: 01/17/17 15:22:06 Pt. Name: ASHWIN AVERY/Sex: 1960 Male Med Rec #: [id number] Physician: Jeremiah Moore MD, Royer Stuart Financial #: [id number] Pt. Type: O Room/Bed: / Admit/Disch: 01/17/17 14:24:05 - Institution: Case Times FTURO Entry 1 Patient Times In Room 01/17/17 15:04:00 Out Room 01/17/17 15:17:00 Procedure Times Start 01/17/17 15:09:00 Stop 01/17/17 15:12:00 Anesthesia Times Last Modified By: Javon MCCOLLUM, KAROLINAOR, Radha 01/17/17 15:12:44 Case Attendance FTURO Entry 1 Entry 2 Entry 3 Case Attendee Javon RN, CNOR, [facility], Ivy Daniels Jr., MD, Royer Garcia Role Performed Backup Engineer - Primary Scrub - Primary Surgeon - Primary Time In 01/17/17 15:04:00 01/17/17 15:04:00 01/17/17 15:04:00 Time Out 01/17/17 15:17:00 01/17/17 15:17:00 01/17/17 15:17:00 Procedure CYSTOSCOPY LOCAL(.) CYSTOSCOPY LOCAL(.) CYSTOSCOPY LOCAL(.) Comments Last Modified By: Javon RN, CNOR, Javon MCCOLLUM, CNOR, Javon RN, KAROLINAOR, Radha 01/17/17 Radha 01/17/17 Radha 01/17/17 15:17:54 15:17:54 15:17:54 Surgical Procedures FTURO Entry 1 Procedure Description Procedure CYSTOSCOPY LOCAL Modifiers . Surgeon Description CYSTOSCOPY, Primary Procedure Yes Primary Surgeon Royer Daniels Jr., MD Start 01/17/17 15:09:00 Stop 01/17/17 15:12:00 Anesthesia Type Local Surgical Service Urology Wound Class 2 - Clean-Contaminated Last Modified By: Javon MCCOLLUM, KAROLINAOR, Radha 01/17/17 15:17:58 General Case Data FTURO Pre-Care [...] CST, Time Out Complete 01/17/17 15:08:00 Participants ARIELLE Alejandro RN, Ruthann, Smith Jr. MD, Donald L Allergies Reviewed? Yes Allergies Reviewed Self/Patient With [...] ARIELLE Alejandro RN, Ruthann 01/17/17 15:22 Normal [facility] Main OR Preoperative Recordo n 01-17-2017 Main OR Preoperative Record Holding Area Document Type FTURO Summary Primary Physician: Royer Daniels Jr., MD Finalized Date/Time: 01/17/17 15:14:14 Pt. Name: ASHWIN AVERY/Sex: 1960 Male Med Rec #: [id number] Physician: Royer Daniels Jr., MD Financial #: [id number] Pt. Type: O Room/Bed: / Admit/Disch: 01/17/17 [...] Patient NPO after Midnight: n/a Personal Items: [employer] Personal Items watch on Complaints of Pain: No Comment: Skin Integrity Intact, [place], Warm, & Dry Vitals - EU Blood Pressure 132/80 Pulse 88 bpm Respirations 16 br/min SPO2 RN Reviewed Yes Last Modified By: ARIELLE Alejandro RN, Ruthann 01/17/17 15:14:11 Finalized By: ARIELLE Alejandro RN, Ruthann Document Signatures Signed By: Kalma Spears LPN 01/17/17 14:38 ARIELLE Alejandro RN, Ruthann 01/17/17 15:13 ARIELLE Alejandro RN, Ruthann 01/17/17 15:14 Normal [facility] Operative Reporton 7 Operative Report Patient: ASHWIN [...] with antibiotic coverage, Follow up arranged. Normal [facility] Comment on above: Result Comment: Elec tronically Signed By: Jeremiah Moore MD, Royer Stuart\.br\Date and Time Signed: 01/17/17 15:16 EDT Vital Signs Date Time Vital Sign Value Performing Clinician Facility 05-08-2024 10:12-0500 Body height 177.8 cm [facility] 05-08-2024 10:12-0500 Body mass index (BMI) [Ratio] 30 kg/m2 [facility] 05-08-2024 10:12-0500 Body weight 95.02 kg [facility] 05-08-2024 10:12-0500 Diastolic blood pressure 73 mm[Hg] [facility] 05-08-2024 10:12-0500 Heart rate 74 /min [facility] 05-08-2024 10:12-0500 Respiratory rate 12 /min [facility] 05-08-2024 10:12-0500 Systolic blood pressure 117 mm[Hg] [facility] 03-30-2024 15:52-0500 Body height 177.8 cm Marcelo Ma DO Work Phone: [facility] 03-30-2024 15:52-0500 Body mass index (BMI) [Ratio] 28.7 kg/m2 Marcelo Fostercek DO Work Phone: [facility] 03-30-2024 15:52-0500 Body weight 90.72 kg Marcelo Ma DO Work Phone: [facility] 01-31-2024 08:36-0400 Body height 177.8 cm [facility] 01-31-2024 08:36-0400 Body mass index (BMI) [Ratio] 29.4 kg/m2 [facility] 01-31-2024 08:36-0400 Body weight 92.98 kg [facility] 01-31-2024 08:36-0400 Diastolic blood pressure 77 mm[Hg] [facility] 01-31-2024 08:36-0400 Heart rate 79 /min [facility] 01-31-2024 08:36-0400 Respiratory rate 12 /min [facility] 01-31-2024 08:36-0400 Systolic blood pressure 134 mm[Hg] [facility] 12-13-2023 11:57-0400 Body height 177.8 cm [facility] 12-13-2023 11:57-0400 Body mass index (BMI) [Ratio] 29.1 kg/m2 [facility] 12-13-2023 11:57-0400 Body weight 92.07 kg [facility] 12-13-2023 11:57-0400 Diastolic blood pressure 73 mm[Hg] [facility] 12-13-2023 11:57-0400 Heart rate 68 /min [facility] 12-13-2023 11:57-0400 Respiratory rate 12 /min [facility] 12-13-2023 11:57-0400 Systolic blood pressure 128 mm[Hg] [facility] 2023 15:09-0400 Body height 177.8 cm [facility] 2023 15:09-0400 Body mass index (BMI) [Ratio] 29 kg/m2 [facility] 2023 15:09-0400 Body weight 91.85 kg [facility] 2023 15:09-0400 Diastolic blood pressure 70 mm[Hg] [facility] 2023 15:09-0400 Heart rate 86 /min [facility] 2023 15:09-0400 Respiratory rate 12 /min [facility] 2023 15:09-0400 Systolic blood pressure 112 mm[Hg] [facility] 07-19-2023 13:32-0400 Body height 177.8 cm [facility] 07-19-2023 13:32-0400 Body mass index (BMI) [Ratio] 30 kg/m2 [facility] 07-19-2023 13:32-0400 Body weight 94.97 kg [facility] 07-19-2023 13:32-0400 Diastolic blood pressure 77 mm[Hg] [facility] 07-19-2023 13:32-0400 Heart rate 71 /min [facility] 07-19-2023 13:32-0400 Systolic blood pressure 128 mm[Hg] [facility] 08-10-2022 10:00-0400 Body height 177.8 cm Marcelo Ball Other [facility] [employer] Other 08-10-2022 10:00-0400 Body mass index (BMI) [Ratio] 28.15 kg/m2 Marcelo Ball Other [facility] [employer] Other 08-10-2022 10:00-0400 Body weight 89 kg Marcelo Ball Other [facility] [employer] Other 08-10-2022 10:00-0400 Diastolic blood pressure 80 mm[Hg] Marcelo Ball Other [facility] [employer] Other 08-10-2022 10:00-0400 Respiratory rate 12 /min Marcelo Ball Other [employer] [facility] [employer] Other 08-10-2022 10:00-0400 Systolic blood pressure 143 mm[Hg] Marcelo Ball Other [employer] Other 07-13-2022 11:00-0400 Body height 177.8 cm Marcelo Ball Other [facility] [employer] Other 07-13-2022 11:00-0400 Body mass index (BMI) [Ratio] 28.64 kg/m2 Marcelo Ball Other [employer] Other 07-13-2022 11:00-0400 Body weight 90.54 kg Marcelo Ball Other [employer] Other 07-13-2022 11:00-0400 Diastolic blood pressure 85 mm[Hg] Marcelo Ball Other [employer] Other 07-13-2022 11:00-0400 Respiratory rate 16 /min Marcelo Ball Other [employer] Other 07-13-2022 11:00-0400 Systolic blood pressure 141 mm[Hg] Marcelo Ball Other [employer] Other 09-24-2021 14:07-0400 Body height 177.8 cm Marcelo Ball DO Work Phone: [employer] 09-24-2021 14:07-0400 Body mass index (BMI) [Ratio] 27.98 kg/m2 Marcelo Ball DO Work Phone: [employer] 09-24-2021 14:07-0400 Body temperature 97.7 [degF] Marcelo Ball DO Work Phone: [employer] 09-24-2021 14:07-0400 Body weight 88.45 kg Marcelo Ball DO Work Phone: [employer] 09-24-2021 14:07-0400 Diastolic blood pressure 83 mm[Hg] Marcelo Ball DO Work Phone: [employer] 09-24-2021 14:07-0400 Heart rate 82 /min Marcelo Ball DO Work Phone: [employer] 09-24-2021 14:07-0400 Respiratory rate 18 /min Marcelo Ball DO Work Phone: [employer] 09-24-2021 14:07-0400 SaO2% (BldA) [Mass fraction] 97 % Marcelo Thompson DO Work Phone: [facility] [id number] 09-24-2021 14:07-0400 Systolic blood pressure 138 mm[Hg] Marcelo Thompson DO Work Phone: [facility] [id number] Encounters Encounter Date Encounter Type Care Provider Facility Start: 05-08-2024 End: 05-08-2024 ambulatory [facility] Work Phone: Start: 05-08-2024 End: 05-08-2024 Patient encounter procedure [facility] Work Phone: Start: 03-30-2024 End: 03-30-2024 Office outpatient visit 25 minutes Marcelo Ma DO Work Phone: [facility] [place] Comment on above: Globus pharyngeus (P rimary Dx) Start: 03-30-2024 End: 03-30-2024 ambulatory MARCELO MA Not Available Start: 03-30-2024 End: 03-30-2024 Bamboo flowsheet Marcelo Alas Sladek DO Work Phone: [facility] [place] Start: 03-30-2024 End: 03-30-2024 Bamboo flowsheet Marcelo Ma DO Work Phone: [facility] [place] Start: 03-10-2024 End: 03-10-2024 Bamboo flowsheet Marcelo Bishop Sladejacqui DO Work Phone: [facility] [place] Start: 03-10-2024 End: 03-10-2024 Bamboo flowsheet Marcelo Bishop Francesca DO Work Phone: [facility] [place] Start: 03-10-2024 End: 03-10-2024 ambulatory MARCELO Bishop FRANCESCA Not Available Start: 03-10-2024 End: 03-10-2024 Office outpatient new 45 minutes Marcelo Ma DO Work Phone: [facility] [place] Comment on above: Neck mass (Primary D x); Multiple thyroid nodules (CMS/HCC) Start: 01-31-2024 End: 01-31-2024 ambulatory [facility] Work Phone: Start: 01-31-2024 End: 01-31-2024 Encounter for general adult medical examination without abnormal findings [facility] Start: 01-31-2024 End: 01-31-2024 Patient encounter procedure [facility] Work Phone: Start: 01-29-2024 Patient encounter status [facility] Start: 01-08-2024 Non-patient / Non-visit [facility] [employer] Work Phone: Start: 12-13-2023 End: 12-13-2023 ambulatory [facility] Work Phone: Start: 12-13-2023 End: 12-13-2023 Patient encounter procedure [facility] Work Phone: Start: 2023 End: 2023 ambulatory [facility] Work Phone: Start: 2023 End: 2023 Patient encounter procedure [facility] Work Phone: Start: 10-13-2023 Non-patient / Non-visit [facility] [employer] Work Phone: Start: 10-07-2023 End: 10-07-2023 ambulatory [facility] Work Phone: Start: 10-07-2023 End: 10-07-2023 Patient encounter procedure [facility] Work Phone: Start: 08-09-2023 Non-patient / Non-visit [facility] [employer] Work Phone: Start: 07-19-2023 End: 07-19-2023 ambulatory [facility] Work Phone: Start: 07-19-2023 End: 07-19-2023 Patient encounter procedure [facility] Work Phone: Start: 06-07-2023 End: 06-07-2023 ambulatory Marcelo Thompson Other [employer] Other Start: 06-07-2023 Telephone encounter Marcelo Thompson FP [facility] Start: 03-08-2023 End: 03-08-2023 ambulatory Marcelo Thompson Other [employer] Other Start: 03-08-2023 Telephone encounter Marcelo Thompson FP [facility] Start: 02-22-2023 End: 02-22-2023 ambulatory Marcelo Thompson Other [employer] Other Start: 02-22-2023 Telephone encounter Marcelo Thompson FP [facility] Start: 01-26-2023 End: 01-26-2023 ambulatory Marcelo Thompson Other [employer] Other Start: 01-26-2023 Encounter for genera l adult medical examination without abnormal findings Marcelo Jay [facility] Start: 01-26-2023 Telephone encounter Marcelo Thompson FP [facility] Start: 08-17-2022 End: 08-18-[address] MARCELO THOMPSON Facility: Start: 08-15-2022 End: 08-15-2022 ambulatory Marcelo Thompson Other [employer] Other Start: 08-15-2022 Telephone encounter Marcelo Thompson FP [facility] Start: 08-10-2022 End: 08-10-2022 ambulatory Marcelo Thompson Other [employer] Other Start: 08-10-2022 Office outpatient vi sit 15 minutes Marcelo Thompson [facility] Start: 07-30-2022 End: 07-30-2022 ambulatory Marcelo Thompson Other [employer] Other Start: 07-30-2022 Telephone encounter Marcelo Thompson FP [facility] Start: 07-13-2022 Office outpatient vi sit 25 minutes Marcelo Thompson [facility] Start: 07-13-2022 End: 07-14-[address] MARCELO THOMPSON [facility] [employer] Other Start: 01-23-2022 Encounter for genera l adult medical examination without abnormal findings DR MARCELO THOMPSON [facility] Start: 01-19-2022 End: 01-20-[address] MARCELO THOMPSON Facility:[facility] Start: 01-19-2022 End: 01-20-2022 Encounter for general adult medical examination without abnormal findings DR MARCELO THOMPSON Facility:[facility] Start: 09-24-2021 End: 09-24-2021 Emergency department patient visit MARCELO THOMPSON [facility] Start: 09-24-2021 End: 09-24-2021 Emergency department patient visit Marcelo Thompson DO Work Phone: [facility] ED Comment on above: Cellulitis of left l ower extremity (Primary Dx) Start: 01-17-2017 End: 01-18-2017 Ambulatory Jos Mclaughlin [facility] Procedures Date Procedure Procedure Detail Performing Clinician Start: 01-19-[address] SAGASTUME IN [place] Comment on above: Performed By: #### P [facility] #### [facility] [address] [place] [address] Dr. Keanu Shafer Start: 09-24-2021 Dup-scan xtr veins unilateral/limited study Luciano Maradiaga PA-C Work Phone: Start: 09-24-2021 Comprehensive metabo lic panel Luciano Maradiaga PA-C Work Phone: Plan of Treatment Date Care Activity Detail Author Start: 03-30-2024 End: 03-30-2024 Patient encounter procedure 03/30/2024 4:00 PM EST Office Visit [facility] [place] [address] [place] [id number] Marcelo Ma DO [address] [place] [address] Arrived [facility] [place] Comment on above: Arrived Start: 03-18-2024 End: 03-18-2024 Patient encounter procedure 03/18/2024 4:00 PM EST Office Visit [facility] [address] [place] [phone] Marcelo Ma, DO [address] [place] [address] [facility] [place] Start: 01-31-2024 Patient referral [facility] Work Phone: Start: 12-28-2021 Influenza vaccination Flu vacc ine (Season Ended) [facility] Start: 10-20-2009 Shingles vaccine (1 of 2) Newton gles vaccine (1 of 2) [facility] Start: 10-20-2004 Screening for malign ant neoplasm of colon [facility] [employer] [facility] Start: 1999 Lipid panel Lipids [facility] [employer] Start: 1999 Prostate specific an tigen measurement Prostate Specific Antigen (PSA) Screening or Monitoring [facility] Start: 10-20-1994 Diabetes screen Diabetes screen [facility] Start: 10-20-1978 DTaP/Tdap/Td vaccine (1 - Tdap) DTaP/Tdap/Td vaccine (1 - Tdap) [facility] Start: 10-20-1977 Hepatitis C screening Hepatitis C sc reen [facility] Start: 10-20-1974 HIV screening HIV screen [facility] Start: 1971 Depression Screen Depression Screen [facility] Start: 10-20-1964 COVID-19 Vaccine (1) COVID-19 Vaccin e (1) [facility] Barium swallow [facility] Comprehensive metabo lic 1999 panel - Serum or Plasma [facility] Comprehensive metabo lic 2000 panel - Serum or Plasma [facility] MR Brain WO contrast [facility] Patient referral [facility] Work Phone: Thyroid gland [facility] US.doppler Carotid arteries - bilateral [facility] Payers Date Payer Category Payer Private Health Insurance [employer] [id number] 2017 Unknown [id number] 1960 Unknown [id number] 1960 Unknown [id number] 1960 Unknown [id number] 1960 Unknown [id number] 1960 Unknown [id number] 1960 Unknown [id number] 1960 Unknown [id number] Self-pay Self Pay [id number] Social History Date Type Detail Facility Start: 09-24-2021 End: 07-19-2023 Tobacco smoking status NCIS Never smoked tobacco [facility] [employer] Work Phone: Start: 09-24-2021 Tobacco use and exposure Smokeless tobacco non-user [employer] Phone: Start: 09-24-2021 Alcohol intake Ex-drinker (finding) [employer] Phone: Start: 1960 Sex Assigned At Not on file B [facility] [place] Phone: Start: 09-14-2021 End: 09-24-2021 Exposure to SARS-CoV-2 (event) Not sure [employer] Phone: Sex Assigned At [employer] Other Start: 1960 Sex Assigned At Male F [facility] Start: 03-10-2024 Tobacco smoking status NHIS Tobacco smoking consumption unknown [facility] Start: 05-08-2024 Sex Male (finding) [facility] Clinical Notes 07-13-2022 to 03-30-2024 Marcelo Ma, DO - 03/30/2024 4:00 PM Fransico Ma, DO - 03/10/2024 8:30 AM EST Note Date & Type Note Facility 03-30-2024 History of Present illness Narrative Formatting of this note might be differe nt from the original. Subjective Patient ID: HPI Patient presents today for follow-up. Last visit, he had had a CT of the neck with it I could not obtained. I did obtain a couple of days later. I personally reviewed this. I really do not see any significant thyroid pathology or anything around the thyroid to be concerned about. The small mass he has in the suprasternal area is a lipoma. Again, he continues to complain of feeling like somebody is wrapping their hands around his neck. Review of Systems ROS The specialty specific review of systems is noncontributory except for that recorded in the intake questionnaire and /or described in the history of present illness. Objective ENT Physical Exam Physical Exam Constitutional: Appearance: Normal appearance. HENT: Head: Atraumatic. Ears: External ear shows no abnormality Bilateral ear canals are clear Tympanic membranes intact, no evidence of middle ear fluid or other pathology. Nose: External nose appears to be normal Nares patent. Septal deviation to the No evidence of polyp, mass or pus bilaterally. Oral Cavity: No evidence of trismus Lips appear normal Dental decent Tongue of normal size and configuration, floor of mouth mucosa clear. Buccal mucosa shows no evidence of ulceration, mass or other abnormality Hard palate soft palate mucosa intact with no evidence of mass, ulceration or other abnormality Uvula of normal size and configuration Oropharynx: Tonsils atrophic Posterior pharyngeal wall normal Neck: No evidence of palpable abnormality Thyroid without evidence of thyromegaly or mass. No cervical lymphadenopathy present. Cardiovascular: Rate and Rhythm: Normal rate and regular rhythm. . Skin: General: Skin is warm and dry. Neurological: General: No focal deficit present. Mental Status: alert and oriented to person, place, and time. FIBEROPTIC NASOPHARYNGOLARYNGOSCOPY A diagnostic flexible fiberoptic laryngoscopy was performed. The flexible fiberoptic laryngoscope was placed into the nose and advanced to the level of the tip of the epiglottis. Examination of the larynx including both surfaces of the epiglottis false and true vocal folds, arytenoids and surrounding mucosal surfaces show no evidence of lesion, ulceration or mass. Normal bilateral true vocal fold motion is present. Bilateral piriform sinuses and base of tongue appear without lesion Assessment/Plan Ashwin was seen today for globus sensation. Diagnoses and all orders for this visit: Globus pharyngeus (Primary) Comments: I had a francisco j discussion with the patient about this. Extensive workup including an esophagram, an upper endoscopy and fiberoptic laryngoscopy as well as thyroid ultrasound and CT. There is nothing revealing here. I assured him this is not cancer or anything structurally obstructive. More than likely this is muscle tension related perhaps secondary to anxiety. I do not have much more to offer the patient and asked him to return to his PCP for further guidance. I will see him back as needed documented in this encounter [facility] 03-10-2024 History of Present illness Narrative Formatting of this note might be differe nt from the original. Subjective Patient ID: HPI Patient is 63-year-old male referred for thyroid nodules. Patient was being worked up for essentially globus sensation a neck CT scan was performed. I unfortunately do not have that. There was some issue about some type of a nodule on the left side that may or may not be part of the thyroid. There measurement is 5 mm. Patient shows me an area in the suprasternal notch to the right of midline when he swallows that is soft measures about a cm or so in size. The patient comes and goes. He said he had an esophagram which was negative. Review of Systems ROS The specialty specific review of systems is noncontributory except for that recorded in the intake questionnaire and /or described in the history of present illness. Objective ENT Physical Exam Physical Exam Constitutional: Appearance: Normal appearance. HENT: Head: Atraumatic. Ears: External ear shows no abnormality Bilateral ear canals are clear Tympanic membranes intact, no evidence of middle ear fluid or other pathology. Nose: External nose appears to be normal Nares patent. Septal deviation to the right No evidence of polyp, mass or pus bilaterally. Oral Cavity: No evidence of trismus Lips appear normal Dental decent Tongue of normal size and configuration, floor of mouth mucosa clear. Buccal mucosa shows no evidence of ulceration, mass or other abnormality Hard palate soft palate mucosa intact with no evidence of mass, ulceration or other abnormality Uvula of normal size and configuration Oropharynx: Tonsils atrophic Posterior pharyngeal wall normal Neck: No evidence of palpable abnormality Thyroid without evidence of thyromegaly or mass. No cervical lymphadenopathy present. Cardiovascular: Rate and Rhythm: Normal rate and regular rhythm. . Skin: General: Skin is warm and dry. Neurological: General: No focal deficit present. Mental Status: alert and oriented to person, place, and time. THYROID ULTRASOUND EXAMINATION Indication: Thyroid nodule After informed consent was obtained the patient was placed supine on the examining table. Patient was asked to extend the neck. Topical ultrasound jelly was used. The right lobe of the thyroid gland measures __ 4.4 cm in greatest dimension. There is a somewhat lobular hypoechoic lesion in the posterior aspect of the upper pole with no internal vascular microcalcification measuring 6 mm in greatest dimension. Inferiorly there was a very tiny hypoechoic nodule measuring about 2 mm. Putting the patient through maneuvers to capture images of this other nodule were unsuccessful. The isthmus is unremarkable. The left lobe of the thyroid gland measures __ 3 point cm greatest dimension. No identifiable nodular mass, I do not see what they are talking about on the CT scan. There is no adenopathy in the central compartment. There is no appreciable adenopathy in either lateral neck. Assessment/Plan Diagnoses and all orders for this visit: Neck mass (Primary) Comments: I am going to obtain the images to look at the CT scan myself, I will see the patient back in a week Multiple thyroid nodules (CMS/HCC) Comments: None of these nodules need biopsied. documented in this encounter [facility] 10-07-2023 Evaluation note Diagnosis Onset Date Dysesthesia acute Elevated cholesterol acute Essential hypertension acute Renal cyst, left acute Stage 3a chronic kidney disease acute Tinea unguium acute Intermittent paresthesia of right hand and foot noneactive Essential hypertension acute Acute bronchitis due to othe r specified organisms noneactive [facility] Work Phone: [phone]) 754-919603-22-2024 Evaluation note* Diagnosis Onset Date Resolution Status Elevated cholesterol acute Essential hypertension acute Renal cyst, left acute Stage 3a chronic kidney disease acute [facility] Work Phone: [phone]) 472-680711-10-2023 Evaluation note* Encounter Date Diagnosis Assessment Notes Treatment Notes Treatment Clinical Notes Feb, Hypokalemia (ICD-10 - E87.6) [employer] Other 10-27-2023 Evaluation note* Encounter Date Diagnosis Assessment Notes Treatment Notes Treatment Clinical Notes Jan, Stage 3a chronic kidney disease (ICD-10 - N18.31) [employer] Other 09-30-2023 Evaluation note* Encounter Date Diagnosis Assessment Notes Treatment Notes Treatment Clinical Notes Dec, Essential hypertension (ICD-10 - I10) Dec, Wellness examination (ICD-10 - Z00.00) [employer] Other 04-19-2023 Evaluation note* Encounter Date Diagnosis Assessment Notes Treatment Notes Treatment Clinical Notes Jul, Left lower quadrant abdominal pain (ICD-10 - R10.32) [employer] Other 04-14-2023 Evaluation note* Encounter Date Diagnosis [...] (ICD-10 - Z87.442) Push fluids, check CT [employer] Other 04-03-2023 Evaluation note* Encounter Date Diagnosis Assessment Notes Treatment Notes Treatment Clinical Notes Jul, Essential hypertension (ICD-10 - I10) [employer] Other 03-17-2023 Evaluation note* Encounter Date Diagnosis [...] of nephrolithiasis (ICD-10 - Z87.442) Push fluids [employer] Other Evaluation note* Diagnosis Cellulitis of left lower extremity- Primary Cellulitis and abscess of leg, except foot documented in this encounter [facility] [employer] [facility] Work Phone: evaluation noteNo [facility] [employer] Other Evaluation note* Diagnosis Onset Date Resolution Status Essential hypertension acute Acute bronchitis due to other specified organisms noneactive [facility] Work Phone: Evaluation note* Diagnosis Onset Date Resolution Status Essential hypertension acute Acute bronchitis due to other specified organisms noneactive Allergic rhinitis acute Post-viral cough syndrome no neactive Acute bronchitis due to other specified organisms noneactive [facility] Work Phone: Evaluation note* Diagnosis Onset Date Resolution Status Globus sensation acute Elevated cholesterol acute Essential hypertension acute Globus sensation acute Renal cyst, left acute Screening PSA (prostate specific antigen) acute Stage 3a chronic kidney disease acute Wellness examination acute Intermittent paresthesia of right hand and foot noneactive [facility] Work Phone: Evaluation note* Diagnosis Onset Date Resolution Status Globus sensation acute Elevated cholesterol acute Essential hypertension acute Globus sensation acute Screening PSA (prostate specific antigen) acute Stage 3a chronic kidney disease acute Thyroid nodule acute Wellness examination acute [facility] Work Phone: Evaluation note* Diagnosis Neck mass- Primary Swelling, mass, or lump in head and neck Multiple thyroid nodules (CMS/HCC) Nontoxic multinodular goiter documented in this encounter [facility]* Diagnosis Globus pharyngeus- Primary Conversion disorder documented in this encounter [facility]* Diagnosis Onset Date Resolution Status Admit Date Chronic kidney disease acute 2024 9:51am Elevated cholesterol acute Victoriano erica2024 9:51am Essential hypertension acute [facility] 2024 9:51am Globus sensation acute May 08, 2024 9:51am Obesity acute May 08, 2024 9:51am Thyroid nodule acute May 082024 9:51am [facility] Work Phone: History general Narrative - Reported* [...] ARM 20 18 Hospitalization History See Above [employer] Other Hospital Discharge instructions* Attachments The following attachments cannot be sent through Care Everywhere. * [facility] (Spanish) [facility] Discharge instructionsAmbulatory Orders* Referral to ENT Time Frame: 01/31/24, Location: None [facility] Work Phone: Summary Purpose Family History Relationship [...] Advance Directives No May 21, 2023 4:29pm Advance Directive Response Recorded Date/ Time Advance Directives No May 21, 2023 3:29pm Chief Complaint and Reason for Visit Chief Complaint 6 month follow up Reason for Visit Elevated cholesterol Essential hypertension Renal cyst, left Stage 3a chronic kidney disease Chief Complaint 6 month follow up [phone] URI Reason for Visit Dysesthesia Elevated cholesterol Essential hypertension Renal cyst, left Stage 3a chronic kidney disease Tinea unguium Intermittent paresthesia of right hand and foot Essential hypertension Acute bronchitis due to other specified organisms Chief Complaint [phone] URI TB ER follow up Reason for Visit Essential hypertensi on Acute bronchitis due to other specified organisms Chief Complaint [phone] URI TBH ER follow up lump in throat Reason for Visit Essential hypertensi on Acute bronchitis due to other specified organisms Allergic rhinitis Post-viral cough syndrome Acute bronchitis due to other specified organisms Chief Complaint lump in throat wellness Reason for Visit Globus sensation Elevated cholesterol Essential hypertension Globus sensation Renal cyst, left Screening PSA (prostate specific antigen) Stage 3a chronic kidney disease Wellness examination Intermittent paresthesia of right hand and foot Chief Complaint lump in throat wellness Reason for Visit Globus sensation Elevated cholesterol Essential hypertension Globus sensation Screening PSA (prostate specific antigen) Stage 3a chronic kidney disease Thyroid nodule Wellness examination Chief Complaint Admit Date 6 month f/u May 08, 2024 9 :51am Reason for Visit Admit Date Chronic kidney disease May 08 9:51am Elevated cholesterol May 08, 2024 9:51am Essential hypertension May 08 9:51am Globus sensation May 08, 2024 9 :51am Obesity May 08, 2024 9 :51am Thyroid nodule May 08, 2024 9 :51am Additional Source Comments (unrecognized sect ion and content) No Status Records FoundNo Status Records FoundNo Status Records FoundNo Status Records Found INFORMATION SOURCE (unrecogn ized section and content) DATE CREATED AUTHOR 10/23/2017 [facility] DATE CREATED AUTHOR AUTHOR'S ORGANIZ ATION [facility] DATE CREATED AUTHOR AUTHOR'S ORGANIZ ATION 08/24/2022 [facility] DATE CREATED AUTHOR AUTHOR'S ORGANIZ ATION 04/01/2024 [facility] EPIC Reason for Visit (unrecogniz ed section and content) Reason Comments Leg Swelling left lower leg Reason Comments Globus Sensation 1 week kira Ordered Prescriptions (unrec ognized section and content) [...] Marcelo Thompson DO Primary Care Provider Active Start: October 13, 2023 Paulo Alford DO Attending Provider Active S tart: October 13, [...] Attending Provider Active Start: August 09, 2023 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 Start Date End Date Marcelo Thompson DO [address] [place] [address] PCP - General Internal Medicine 09/24/21 Team Status: Inactive Member Role Status Dates Marcelo Thompson DO Primary Care Provide r, Attending Provider Active Start: July 19, 2023 End: July 19, 2023 Team Status: Active Member Role Status Dates Marcelo Thompson DO Primary Care Provide r, Attending Provider Active Start: January 08, 2024 Team Status: Inactive Member Role Status Dates Marcelo Thompson DO Primary Care Provide r, Attending Provider Active Start: January 31, 2024 End: January 31, 2024 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 Start Date End Date Marcelo Thompson MD [address] [place] [id number] PCP - General Internal Medicine 03/10/24 Marcelo Ma DO [address] [place] [id number] Otolaryngology 03/10/24 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 Start Date End Date Marcelo Thompson MD [address] [place] [id number] PCP - General Internal Medicine 03/10/24 Marcelo Ma DO [address] [place] [address] Otolaryngology 03/10/24 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 [facility] [employer] provides no warranty or guarantee of the accuracy or completeness of information in this document.
[2024-05-16 04:15] LABS: PSA, Free 0.35 ng/mL; Prostate Specific Ag 1.6 ng/mL (0.0-4.0)
== END 2024-05-15 09:08 | disposition home or self-care (01) ==
PROVIDERS: PCP Internal Medicine; Visit Provider Internal Medicine
DX: R97.20 Elevated prostate specific antigen [PSA] (principal)
CPT/HCPCS: 36415; 84153; 84154

== ENCOUNTER 2024-09-11 11:26 | Outpatient (OUT) | payer OTHER, SELFPAY ==
--- OUTSIDE RECORDS SUMMARY | 2024-09-11 11:37 | XMS_ITS | CCD ---
Author Organization [facility] Care Team Providers Care Assembler [employer] Name Role Phone Arnoldo, Jos W Unavailable Unavailable Rice, Jos W Unavailable Unavailable Rice, Jos W Unavailable Unavailable BALL, [phone] UNKNOWN Unavailable Unavailable Marcelo Thompson DO Primary [...] [sulfa drugs] Propensity to adverse reactions (disorder) [facility]ository (7 sources) Sulfonamides (Antibiotic) Propensity to adverse reactions to drug 09-25-19 Nausea And Vomiting [facility] (20 sources) Ciprofloxacin Drug Allergy 07-19-19 Unknown, Unknown Reaction [facility] (4 sources) Hmg-Coa Reductase Inhibitors (Statins) Propensity to adverse reactions MUSCLE PAIN [employer] Other (8 sources) Sulfacetamide / Sulfur Drug Allergy Unknown [facility] Other (16 sources) sulfADIAZINE Drug Allergy 03-22-20 24 Unknown, Comment:Sulfa [facility] (8 sources) tamsulosin Drug Allergy Unknown [facility] [employer] Other (1 source) black walnut pollen extract Drug Allergy [facility] (1 source) Sulfonamides (Antibiotic) Drug allergy (disorder) 03-02-20 14 [facility] (18 sources) predniSONE Drug Allergy 07-19-19 24 Unknown, Unknown Reaction [facility] (4 sources) Statins Depletion *DIETARY PRODUCTS/DIETARY MANAGE Propensity to adverse reactions Comment:ALL Statins [facility] [employer] Other (14 sources) tamsulosin Drug Allergy 07-19-19 Unknown Reaction [facility] (8 sources) Sgseznm-NDK-TmO Reductase Inhibitor Allergy to substance 07-19-19 Comment:ALL Statins [facility] Medications Current Medications Medication Drug Class(es) Dates Sig (Normalized) Sig (Original) amLODIPine 10 mg oral tablet (6 sources) Dihydropyridine Calcium Channel Cate Start: 02-14-2024 take 1 tablet by mouth once daily Amlodipine 10 mg tablet Active 10 MG PO Daily February 14, 2024 12:00am take 1 tablet by james th every [...] 0 .ROUTE .COMPLEX 30 Crissy 5th, 2024 7:29am TAKE 1 TABLET BY MOUTH EVERY DAY Start: 07-18-2023 End: 11-01-2023 take 1 tablet by mouth once daily Ezetimibe 10 mg tablet Discontinued 10 MG PO Daily July 18, [...] Active 0 .ROUTE .COMPLEX February 27, 2024 1:31pm SPRAY 2 SPRAYS INTO EACH NOSTRIL ONCE DAILY Start: 07-18-2023 fluticasone (F lonase) 50 MCG/ACT nasal spray Daily 07/18/2023 Active Start: 07-18-2023 End: 02-27-2024 Fluticasone Propionate 50 mcg/actuation spray,suspension Discontinued 2 SPRAY INTRANASAL Daily July 18, 2023 12:00am February 27, 2024 1:31pm take 2 spray(s) nasa l route once daily Fluticasone Propionate 50 MCG/ACT USE 2 SPRAYS IN EACH NOSTRIL ONCE DAILY for 30 Active take 2 spray(s) nasa l route once daily Fluticasone Propionate 50 MCG/ACT USE 2 SPRAYS IN EACH NOSTRIL ONCE DAILY for 30 Active hydroCHLOROthiazide 25 mg oral tablet (2 sources) Thiazide Diuretic Start: 02-14-2024 take 1 tablet by mouth once daily Hydrochlorothiazide 25 mg tablet Active 25 MG PO Daily February 14, 2024 12:00am labetalol hydrochloride 300 mg oral tablet (20 sources) beta-Adrenerg ic Cate Start: 05-28-2024 take 1 tablet by mouth twice daily Labetalol 300 mg tablet Active 0 .ROUTE .COMPLEX May 28, 2024 8:08am TAKE 1 TABLET BY MOUTH TWICE A DAY Start: 07-18-2023 End: 05-28-2024 take 1 tablet by mouth twice daily Labetalol 300 mg tablet Discontinued 300 MG PO Twice daily July 18, 2023 12:00am May 28, 2024 8:08am Labetalol HCl 30 0 MG TAKE 1 TABLET BY MOUTH TWICE A DAY FOR 30 DAYS for 30 Active take 2 tablets by mo [facility] every twelve hours Labetalol HCl 100 MG 2 TABLETS Orally Twice a day Active olmesartan medoxomil 40 mg oral tablet (2 sources) Angiotensin 2 Receptor Cate Start: 02-14-2024 take 1 tablet by mouth once daily Olmesartan 40 mg tablet Active 40 MG PO Daily February 14, 2024 12:00am omeprazole 40 mg delayed release oral capsule (12 sources) Proton Pump Inhibitor Start: 01-14-2024 End: 05-08-2024 take 1 capsule by mouth once daily Omeprazole 40 mg capsule,delayed release(DR/EC) Active 40 MG PO Daily May 08, 2024 11:25am Completed/Discontinued Medications Medication Drug Class(es) Dates Sig (Normalized) Sig (Original) amLODIPine 10 mg / hydroCHLOROthiazide 25 mg / olmesartan medoxomil 40 mg oral tablet (20 sources) Thiazide Diuretic, Dihydropyridine Calcium Channel Cate, Angiotensin 2 Receptor Cate Start: End: take 1 tablet by mouth once daily Olmesartan-Amlod ipin-Hcthiazid 40-10-25 mg tablet Discontinued 0 .ROUTE .COMPLEX February 02, 2024 7:39pm May 08, 2024 11:18am TAKE 1 TABLET BY MOUTH EVERY DAY FOR 30 DAYS Start: 07-18-2023 Olmesartan-amL ODIPine-HCTZ 40-10-25 MG tablet 1 tablet 07/18/2023 Active Start: 07-18-2023 End: 02-02-2024 take 1 tablet by mouth once daily Ahiadhnrcl-Fgwyyugtl-Qdzgkxnga 40-10-25 mg tablet Discontinued 1 TAB PO Daily July 18, 2023 12:00am February 02, 2024 7:39pm Start: 01-25-2023 [facility] Husfpfnxij-zmUSAVBsuw-VALD 40-10-25 MG 1 tablet Orally Once a day for 30 days Dec, Active azithromycin 250 mg oral tablet (7 sources) Macrolide Antimicrobial Start: 10-07-2023 End: 12-13-2023 Azithromycin 250 mg tablet Discontinued 250 MG PO As Directed 6 October 07, 2023 12:00am December 13, 2023 11:50am potassium chloride 10 meq extended release oral tablet (10 sources) Start: 07-18-2023 End: 07-19-2023 take 1 tablet by mouth once daily Potassium Chloride 10 mEq tablet extended release Discontinued 10 MEQ PO Daily July 18, [...] or unspecified chronic kidney disease] Chronic Mycoses (14 sources) Onychomycosis due to dermatophyte ; Translations: [...] Episodic Other diseases of kidney and ureters (14 sources) Cyst of kidney; Translations: [Cyst of [...] sputum] 2023 Episodic Other nervous system disorders (13 sources) Abnormal sensation; Translations: [Other disturbances of skin sensation] Onset: 03-09-2024 Resolved: 03-09-2024 07-19-2023 Episodic Other nervous system disorders (1 source) Other disturbances of skin sensation; Translations: [Disturbance of skin sensation] 07-19-2023 Episodic Other nervous system disorders (2 sources) Paresthesia of skin; Translations: [Disturbance of skin sensation] 07-19-2023 Episodic Other nutritional; endocrine; and metabolic disorders (2 sources) Obesity; Translations: [Obesity, unspecified] 05-08-2024 Chronic Other nutritional; endocrine; and metabolic disorders (1 source) Obesity, unspecified; Translations: [Obesity, unspecified] 05-08-2024 Chronic Other nutritional; endocrine; and metabolic disorders (1 source) Overweight Episodic Other screening for suspected conditions (not mental disorders or infectious disease) (15 sources) Encounter for screening for malignant neoplasm of prostate; Translations: [Patient encounter status] Onset: 01-23-2022 Resolved: 03-09-2024 01-29-2024 Episodic Comment on above: PSA: 1.64 - 12/2020, 1.68 - 12/2021, 1.54 - 12/2022, 2.85 - 01/2024 PSA: 1.64 - 12/2020, 1.68 - 12/2021, 1.54 - 12/2022, 2.85 - 01/2024, 1.6 (21.9) - 05/15/24, Other skin disorders (2 sources) Mass of neck; Translations: [Localized swelling, mass and lump, neck] 03-10-2024 Episodic Other upper respiratory disease (11 sources) Allergic rhinitis; Translations: [Allergic rhinitis, unspecified] Onset: 03-09-2024 Resolved: 03-09-2024 2023 Chronic Other upper respiratory disease (1 source) Allergic rhinitis, unspecified; Translations: [Allergic rhinitis, cause unspecified] 2023 Chronic Other upper respiratory disease (17 sources) Feeling of lump in throat; Translations: [Globus sensation] Onset: 03-09-2024 Resolved: 03-09-2024 12-13-2023 Episodic Skin and subcutaneous tissue infections (9 sources) Cellulitis of left lower limb; Translations: [Cellulitis of left lower limb] Episodic Thyroid disorders (14 sources) Thyroid nodule; Translations: [Nontoxic single thyroid nodule] Onset: 03-09-2024 Resolved: 03-09-2024 01-08-2024 Chronic Comment on above: US: 12mm TR3 left si ded nodule - T: 7mm right, 5mm left nodule - 12/2023 Transient cerebral ischemia (13 sources) Transient cerebral ischemia; Translations: [Transient cerebral [...] (S/P/Bld) [Vol rate/Area] 47 mL/min/{1.73_m2} Low >=60 [facility] Laboratory - Chemistry and C hemistry - challengeon 01-08-2024 Creatinine [Mass/Vol] 1.50 mg/dL High 0.70-1.30 [facility] GFR/1.73 sq M.predicted MDRD (S/P/Bld) [Vol rate/Area] 57 mL/min/{1.73_m2} Low >=60 [facility] Basophils Auto (Bld) [#/Vol] on 10-13-2023 Basophils (Bld) [#/Vol] 0.0 10 3/uL 0.0-0.1 [facility] Basophils/100 WBC Auto (Bld) on 10-13-2023 Basophils/100 WBC (Bld) 0.2 % 0.2-2.0 [facility] Eosinophils/100 WBC Auto (Bl d)on 10-13-2023 Eosinophils/100 WBC (Bld) 1.8 % 0.9-7.0 [facility] Erythrocyte distribution wid th Auto (RBC) [Ratio]on 10-13-2023 Erythrocyte distribution width (RBC) [Ratio] 12.9 % 11.0-15.0 [facility] Estimated glomerular filtrat ion rate (GFR) non- Americanon 10-13-2023 GFR/1.73 sq M.predicted among non-blacks MDRD (S/P/Bld) [Vol rate/Area] 44 mL/min/{1.73_m2} Low >=60 [facility] Hematocrit Auto (Bld) [Volum e fraction]on 10-13-2023 Hematocrit (Bld) [Volume fraction] 39.9 % Low 42.0-54.0 [facility] Hemoglobin [Mass/volume] in Bloodon 10-13-2023 Hemoglobin (Bld) [Mass/Vol] 13.3 g/dL Low 14.0-18.0 [facility] Laboratory - Chemistry and C hemistry - challengeon 10-13-2023 Calcium [Mass/Vol] 8.7 mg/dL 8.5-10.1 [facility] Chloride [Moles/Vol] 102 mmol/L 98-107 [facility] CO2 [Moles/Vol] 25.9 mmol/L 21.0-32.0 [facility] Creatinine [Mass/Vol] 1.59 mg/dL High 0.70-1.30 [facility] GFR/1.73 sq M.predicted MDRD (S/P/Bld) [Vol rate/Area] 54 mL/min/{1.73_m2} Low >=60 [facility] Glucose [Mass/Vol] 100 mg/dL 74-106 [facility] Potassium [Moles/Vol] 4.2 mmol/L 3.5-5.1 [facility] Sodium [Moles/Vol] 141 mmol/L 136-145 [facility] Urea nitrogen [Mass/Vol] 32.0 mg/dL High 7.0-18.0 [facility] Urea nitrogen/Creatinine [Mass ratio] 20.1 mg/mg [facility] Laboratory - Hematology and Cell countson 10-13-2023 Immature granulocytes/100 WBC (Bld) 0.4 % 0.0-0.5 [facility] Leukocytes [#/volume] correc cipriano for nucleated erythrocytes in Blood by Automated counon 10-13-2023 WBC corrected for nucl RBC Auto (Bld) [#/Vol] 5.0 10 3/uL 4.0-11.0 [facility] Lymphocytes Auto (Bld) [#/Vo l]on 10-13-2023 Lymphocytes (Bld) [#/Vol] 1.2 10 3/uL 1.2-3.8 [facility] Lymphocytes/100 WBC Auto (Bl d)on 10-13-2023 Lymphocytes/100 WBC (Bld) 23.8 % 20.5-60.0 [facility] MCH Auto (RBC) [Entitic mass ]on 10-13-2023 MCH (RBC) [Entitic mass] 28.9 pg 25.9-34.0 [facility] MCHC Auto (RBC) [Mass/Vol]on 10-13-2023 MCHC (RBC) [Mass/Vol] 33.3 g/dL 29.9-35.2 [facility] MCV Auto (RBC) [Entitic vol] on 10-13-2023 MCV (RBC) [Entitic vol] 86.6 fL 80.0-94.0 [facility] Monocytes Auto (Bld) [#/Vol] on 10-13-2023 Monocytes (Bld) [#/Vol] 0.4 10 3/uL 0.3-0.8 [facility] Monocytes/100 WBC Auto (Bld) on 10-13-2023 Monocytes/100 WBC (Bld) 8.8 % 1.7-12.0 [facility] Neutrophils Auto (Bld) [#/Vo l]on 10-13-2023 Neutrophils (Bld) [#/Vol] 3.2 10 3/uL 1.4-6.5 [facility] Neutrophils/100 WBC Auto (Bl d)on 10-13-2023 Neutrophils/100 WBC (Bld) 65.0 % 43.0-75.0 [facility] No Panel Informationon 10-12 Eosinophils # (Auto) 0.1 10 3/uL 0.0-0.7 [facility] Immature Granulocyte # (Auto) 0.02 10 3/uL 0.00-0.03 [facility] Troponin I High Sensitivity 6.5 pg/mL 4.0-76.1 [facility] Comment on above: CUT-OFF POINTS HAVE [...] (Bld) [Entitic vol] 8.3 fL Low 9.5-13.5 [facility] Platelets Auto (Bld) [#/Vol] on 10-13-2023 Platelets (Bld) [#/Vol] 233 10 3/uL 150-450 [facility] RBC Auto (Bld) [#/Vol]on RBC (Bld) [#/Vol] 4.61 10 6/uL Low 4.70-6.10 [facility] Serum or plasma anion gap de terminationon 10-13-2023 Anion gap [Moles/Vol] 17.3 mmol/L [facility] Basophils Auto (Bld) [#/Vol] on 08-09-2023 Basophils (Bld) [#/Vol] 0.0 10 3/uL 0.0-0.1 [facility] Basophils/100 WBC Auto (Bld) on 08-09-2023 Basophils/100 WBC (Bld) 0.4 % 0.2-2.0 [facility] Eosinophils/100 WBC Auto (Bl d)on 08-09-2023 Eosinophils/100 WBC (Bld) 2.6 % 0.9-7.0 [facility] Erythrocyte distribution wid th Auto (RBC) [Ratio]on 08-09-2023 Erythrocyte distribution width (RBC) [Ratio] 13.1 % 11.0-15.0 [facility] Estimated glomerular filtrat ion rate (GFR) non- Americanon 08-09-2023 GFR/1.73 sq M.predicted among non-blacks MDRD (S/P/Bld) [Vol rate/Area] 46 mL/min/{1.73_m2} >=60 [facility] Globulin Calc (S) [Mass/Vol] on 08-09-2023 Globulin (S) [Mass/Vol] 3.4 g/dL [facility] Hematocrit Auto (Bld) [Volum e fraction]on 08-09-2023 Hematocrit (Bld) [Volume fraction] 42.7 % 42.0-54.0 [facility] Hemoglobin [Mass/volume] in Bloodon 08-09-2023 Hemoglobin (Bld) [Mass/Vol] 14.0 g/dL 14.0-18.0 [facility] Laboratory - Chemistry and C hemistry - challengeon 08-09-2023 Albumin [Mass/Vol] 3.7 g/dL 3.4-5.0 [facility] ALP [Catalytic activity/Vol] 57 U/L 46-116 [facility] ALT [Catalytic activity/Vol] 30 U/L 16-63 [facility] AST [Catalytic activity/Vol] 17 U/L 15-37 [facility] Bilirubin [Mass/Vol] 0.4 mg/dL 0.2-1.0 [facility] Calcium [Mass/Vol] 9.2 mg/dL 8.5-10.1 [facility] Chloride [Moles/Vol] 104 mmol/L 98-107 [facility] CO2 [Moles/Vol] 30.3 mmol/L 21.0-32.0 [facility] Cobalamin (Vitamin B12) [Mass/Vol] 270.0 pg/mL 193.0-986.0 [facility] Creatinine [Mass/Vol] 1.55 mg/dL 0.70-1.30 [facility] GFR/1.73 sq M.predicted MDRD (S/P/Bld) [Vol rate/Area] 55 mL/min/{1.73_m2} >=60 [facility] Glucose [Mass/Vol] 99 mg/dL 74-106 [facility] Potassium [Moles/Vol] 3.6 mmol/L 3.5-5.1 [facility] Protein [Mass/Vol] 7.1 g/dL 6.4-8.2 [facility] Sodium [Moles/Vol] 144 mmol/L 136-145 [facility] TSH Qn 2.981 m[IU]/L 0.358-3.740 [facility] Urea nitrogen [Mass/Vol] 29.0 mg/dL 7.0-18.0 [facility] Urea nitrogen/Creatinine [Mass ratio] 18.7 mg/mg [facility] Laboratory - Hematology and Cell countson 08-09-2023 Immature granulocytes/100 WBC (Bld) 0.3 % 0.0-0.5 [facility] Leukocytes [#/volume] correc cipriano for nucleated erythrocytes in Blood by Automated counon 08-09-2023 WBC corrected for nucl RBC Auto (Bld) [#/Vol] 6.8 10 3/uL 4.0-11.0 [facility] Lymphocytes Auto (Bld) [#/Vo l]on 08-09-2023 Lymphocytes (Bld) [#/Vol] 1.2 10 3/uL 1.2-3.8 [facility] Lymphocytes/100 WBC Auto (Bl d)on 08-09-2023 Lymphocytes/100 WBC (Bld) 18.0 % 20.5-60.0 [facility] MCH Auto (RBC) [Entitic mass ]on 08-09-2023 MCH (RBC) [Entitic mass] 28.9 pg 25.9-34.0 [facility] MCHC Auto (RBC) [Mass/Vol]on 08-09-2023 MCHC (RBC) [Mass/Vol] 32.8 g/dL 29.9-35.2 [facility] MCV Auto (RBC) [Entitic vol] on 08-09-2023 MCV (RBC) [Entitic vol] 88.2 fL 80.0-94.0 [facility] Monocytes Auto (Bld) [#/Vol] on 08-09-2023 Monocytes (Bld) [#/Vol] 0.8 10 3/uL 0.3-0.8 [facility] Monocytes/100 WBC Auto (Bld) on 08-09-2023 Monocytes/100 WBC (Bld) 11.1 % 1.7-12.0 [facility] Neutrophils Auto (Bld) [#/Vo l]on 08-09-2023 Neutrophils (Bld) [#/Vol] 4.6 10 3/uL 1.4-6.5 [facility] Neutrophils/100 WBC Auto (Bl d)on 08-09-2023 Neutrophils/100 WBC (Bld) 67.6 % 43.0-75.0 [facility] No Panel Informationon 08-08 Eosinophils # (Auto) 0.2 10 3/uL 0.0-0.7 [facility] Immature Granulocyte # (Auto) 0.02 10 3/uL 0.00-0.03 [facility] Platelet mean volume Auto (B ld) [Entitic vol]on 08-09-2023 Platelet mean volume (Bld) [Entitic vol] 8.1 fL 9.5-13.5 [facility] Platelets Auto (Bld) [#/Vol] on 08-09-2023 Platelets (Bld) [#/Vol] 257 10 3/uL 150-450 [facility] RBC Auto (Bld) [#/Vol]on RBC (Bld) [#/Vol] 4.84 10 6/uL 4.70-6.10 [facility] Serum or plasma albumin/glob ulin mass ratioon 08-09-2023 Albumin/Globulin [Mass ratio] 1.1 {ratio} [facility] Serum or plasma anion gap de terminationon 08-09-2023 Anion gap [Moles/Vol] 13.3 mmol/L [facility] CREATININEon 08-17-2022 Creatinine [Mass/Vol] 1.59 mg/dL Critically high 0.70-1.30 [facility] Comment on above: Performed By: #### C DIANELYS #### [facility] [address] [address] [address] Keanu Shafer EGFR-AF DANISH 54 mL/min/1.73m2 Critically low >=60 [facility] Comment on above: Performed By: #### C DIANELYS #### [facility] [address] [address] [address] Keanu Shafer EGFR-NON AF DANISH 44 mL/min/1.73m2 Critically low >=60 [facility] Comment on above: Performed By: #### C DIANELYS #### [facility] [address] ABD/PELV W CONon [...] by: ANSHUL AMADOR Date: 2022-08-17 08:53 Normal [facility] Basic Metabolic Panelon 03-1 Calcium [Mass/Vol] 9.0418590 mg/dL 8.5-10 .1 mg/dL [employer] Other CO2 [Moles/Vol] 28.81333434 mmol/L 21.0-3 2.0 mmol/L [employer] Other Creatinine [Mass/Vol] 1.91865656 mg/dL Critically high 0.70-1.30 mg/dL [employer] Other Potassium [Moles/Vol] 4.39286079 mmol/L 3.5-5.1 mmol/L [employer] Other Urea nitrogen [Mass/Vol] 21.7369277 mg/dL Critically high 7.0-18.0 mg/dL [facility] Other Basic Metabolic Panel see note [employer] Other Basic Metabolic Panel 144 mmol/L 136-145 mmol/L [employer] Other Basic Metabolic Panel 99 mg/dL 74-106 mg/dL [facility] Other Basic Metabolic Panel 55 mL/min/1.73m2 Critically low >=60 mL/min/1.73m2 [employer] Other Basic Metabolic Panel >60 mL/min/1.73m2 >=60 mL/min/1.73m2 [employer] Other Anion gap [Moles/Vol] 11.0 mmol/L Normal [employer] Other Comment on above: Performed By: #### B MP #### [facility] [address] [place] [address] Dr. Keanu Shafer Chloride [Moles/Vol] 109 mmol/L Critically high 98-107 [facility] Other Comment on above: Performed By: #### B MP #### [facility] [address] [place] [address] Dr. Keanu Shafer Urea nitrogen/Creatinine [Mass ratio] 16.0 mg/mg Normal [facility] [employer] Other Comment on above: Performed By: #### B MP #### [facility] [address] [address] [address] Keanu Shafer PROF CHEM 8 (BAS METB)on Calcium [Mass/Vol] 9.0 mg/dL Normal 8.5-10.1 [facility] Comment on above: Performed By: #### B MP #### [facility] [address] [place] [address] Dr. Keanu Shafer CO2 [Moles/Vol] 28.3 mmol/L Normal 21.0-32.0 [facility] Comment on above: Performed By: #### B MP #### [facility] [address] [address] [address] Keanu Shafer Creatinine [Mass/Vol] 1.31 mg/dL Critically high 0.70-1.30 [facility] Comment on above: Performed By: #### B MP #### [facility] [address] [address] [address] Keanu Shafer EGFR-AF DANISH >60 Normal >=60 [facility] Comment on above: Performed By: #### B MP #### [facility] [address] [address] [address] Keanu Shafer EGFR-NON AF DANISH 55 mL/min/1.73m2 Critically low >=60 [facility] Comment on above: Performed By: #### B MP #### [facility] [address] [address] [address] Keanu Shafer Glucose [Mass/Vol] 99 mg/dL Normal 74-106 [facility] Comment on above: Performed By: #### B MP #### [facility] [address] [address] [address] Keanu Shafer Potassium [Moles/Vol] 4.3 mmol/L Normal 3.5-5.1 [facility] Comment on above: Performed By: #### B MP #### [facility] [address] [place] [address] Dr. Keanu Shafer Sodium [Moles/Vol] 144 mmol/L Normal 136-145 [facility] Comment on above: Performed By: #### B MP #### [facility] [address] [address] [address] Keanu Shafer Urea nitrogen [Mass/Vol] 21.0 mg/dL Critically high 7.0-18.0 [facility] Comment on above: Performed By: #### B MP #### [facility] [address] [place] [address] Dr. Keanu Shafer CBC AUTO DIFFon 01-19-2022 BASO # 0.0 103/ul Normal 0.0-0.1 [facility] Comment on above: Performed By: #### C BC #### [facility] [address] [place] [address] Dr. Keanu Shafer Basophils/100 WBC (Bld) 0.3 % Normal 0.2-2.0 [facility] Comment on above: Performed By: #### C BC #### [facility] [address] [place] [address] Dr. Keanu Shafer EO # 0.2 103/ul Normal 0.0-0.7 [facility] Comment on above: Performed By: #### C BC #### [facility] [address] [place] [address] Dr. Keanu Shafer Eosinophils/100 WBC (Bld) 2.4 % Normal 0.9-7.0 [facility] Comment on above: Performed By: #### C BC #### [facility] [address] [place] [address] Dr. Keanu Shafer Erythrocyte distribution width (RBC) [Ratio] 13.2 % Normal 11.0-15.0 [facility] Comment on above: Performed By: #### C BC #### [facility] [address] [place] [address] Dr. Keanu Shafer Hematocrit (Bld) [Volume fraction] 42.1 % Normal 42.0-54.0 [facility] Comment on above: Performed By: #### C BC #### [facility] [address] [place] [address] Dr. Keanu Shafer Hemoglobin (Bld) [Mass/Vol] 14.2 g/dL Normal 14.0-18.0 [facility] Comment on above: Performed By: #### C BC #### [facility] [address] [place] [address] Dr. Keanu Shafer IG # 0.02 10e3/ul Normal 0.00-0.03 [facility] Comment on above: Performed By: #### C BC #### [facility] [address] [place] [address] Dr. Keanu Shafer IG % 0.3 % Normal 0.0-0.5 [facility] Comment on above: Performed By: #### C BC #### [facility] [address] [place] [address] Dr. Keanu Shafer LYMPH # 1.0 103/ul Critically low 1.2-3.8 [facility] Comment on above: Performed By: #### C BC #### [facility] [address] [place] [address] Dr. Keanu Shafer Lymphocytes/100 WBC (Bld) 16.0 % Critically low 20.5-60.0 [facility] Comment on above: Performed By: #### C BC #### [facility] [address] [place] [address] Dr. Keanu Shafer MANUAL DIFF REQ NO Normal [facility] Comment on above: Performed By: #### C BC #### [facility] [address] [place] [address] Dr. Keanu Shafer MCH (RBC) [Entitic mass] 29.2 pg Normal 25.9-34.0 [facility] Comment on above: Performed By: #### C BC #### [facility] [address] [place], [place] [id number] Dr. Keanu Shafer MCHC (RBC) [Mass/Vol] 33.7 g/dL Normal 29.9-35.2 [facility] Comment on above: Performed By: #### C BC #### [facility] [address] [place] [address] Dr. Keanu Shafer MCV (RBC) [Entitic vol] 86.6 fL Normal 80.0-94.0 [facility] Comment on above: Performed By: #### C BC #### [facility] [address] [place] [address] Dr. Keanu Shafer MONO # 0.6 103/ul Normal 0.3-0.8 [facility] Comment on above: Performed By: #### C BC #### [facility] [address] [place] [address] Dr. Keanu Shafer Monocytes/100 WBC (Bld) 9.2 % Normal 1.7-12.0 [facility] Comment on above: Performed By: #### C BC #### [facility] [address] [place] [address] Dr. Keanu Shafer NEUT # 4.5 103/ul Normal 1.4-6.5 [facility] Comment on above: Performed By: #### C BC #### [facility] [address] [place] [address] Dr. Keanu Shafer Neutrophils/100 WBC (Bld) 71.8 % Normal 43.0-75.0 [facility] Comment on above: Performed By: #### C BC #### [facility] [address] [place] [address] Dr. Keanu Shafer Platelet mean volume (Bld) [Entitic vol] 7.8 fL Critically low 9.5-13.5 [facility] Comment on above: Performed By: #### C BC #### [facility] [address] [place] [address] Dr. Keanu Shafer PLT 233 103/ul Normal 150-450 [facility] Comment on above: Performed By: #### C BC #### [facility] [address] [place] [address] Dr. Keanu Shafer RBC 4.86 106/ul Normal 4.70-6.10 [facility] Comment on above: Performed By: #### C BC #### [facility] [address] [place] [address] Dr. Keanu Shafer WBC 6.2 103/ul Normal 4.0-11.0 [facility] Comment on above: Performed By: #### C BC #### [facility] [address] [place] [address] Dr. Keanu Shafer LIPID PROFILEon 01-19-2022 CHOL-HDL RATIO NORM SEE BELOW Normal [facility] Comment on above: Result Comment: 3.3 - 4.4 LOW RISK 4.4 - 7.1 AVERAGE RISK 7.1 - 11.0 MODERATE RISK >11.0 HIGH RISK Performed By: #### C MP, LIPID #### [facility] [address] [place] [address] Dr. Keanu Shafer Cholesterol [Mass/Vol] 222 mg/dL Critically high <=200 [facility] Comment on above: Performed By: #### C MP, LIPID #### [facility] [address] [address] [address] Keanu Shafer Cholesterol in HDL [Mass/Vol] 40 mg/dL Normal 40-60 [facility] Comment on above: Performed By: #### C MP, LIPID #### [facility] [address] [address] [address] Keanu Shafer Cholesterol in LDL [Mass/Vol] 160.6 mg/dL Normal [facility] Comment on above: Performed By: #### C MP, LIPID #### [facility] [address] [place] [address] Dr. Keanu Shafer Cholesterol.total/Ch olesterol in HDL [Mass ratio] 5.6 {ratio} Normal [facility] Comment on above: Performed By: #### C MP, LIPID #### [facility] [address] [place] [address] Dr. Keanu Shafer HDL NORMAL > or = 60 mg/dl - LOW CARDIOVASCULAR RISK <40 mg/dl - HIGH CARDIOVASCULAR RISK Normal [facility] Comment on above: Performed By: #### C MP, LIPID #### [facility] [address] [place] [address] Dr. Keanu Shafer LDL CALC NORMAL SEE BELOW Normal [facility] Comment on above: Result Comment: <100 mg/dl OPTIMAL 100 - 129 mg/dl NEAR OR ABOVE OPTIMAL 130 - 159 mg/dl BORDERLINE HIGH 160 - 189 mg/dl HIGH >190 mg/dl VERY HIGH Performed By: #### C MP, LIPID #### [facility] [address] [place] [address] Dr. Keanu Shafer Triglyceride [Mass/Vol] 107 mg/dL Normal <=150 [facility] Comment on above: Performed By: #### C MP, LIPID #### [facility] [address] [address] [address] Keanu Shafer VLDL CALC 21.4 mg/dL Normal [facility] Comment on above: Performed By: #### C MP, LIPID #### [facility] [address] [place] [address] Dr. Keanu Shafer PROF 14(COMP METB)on 022 Albumin [Mass/Vol] 3.9 g/dL Normal 3.4-5.0 [facility] Comment on above: Performed By: #### C MP, LIPID #### [facility] [address] [place] [address] Dr. Keanu Shafer Albumin/Globulin [Mass ratio] 1.3 {ratio} Normal [facility] Comment on above: Performed By: #### C MP, LIPID #### [facility] [address] [address] [address] Keanu Shafer ALP [Catalytic activity/Vol] 55 U/L Normal 46-116 [facility] Comment on above: Performed By: #### C MP, LIPID #### [facility] [address] [place] [address] Dr. Keanu Shafer ALT [Catalytic activity/Vol] 25 U/L Normal 16-63 [facility] Comment on above: Performed By: #### C MP, LIPID #### [facility] [address] [place] [address] Dr. Keanu Shafer Anion gap [Moles/Vol] 8.8 mmol/L Normal [facility] Comment on above: Performed By: #### C MP, LIPID #### [facility] [address] [place] [address] Dr. Keanu Shafer AST [Catalytic activity/Vol] 15 U/L Normal 15-37 [facility] Comment on above: Performed By: #### C MP, LIPID #### [facility] [address] [place] [address] Dr. Keanu Shafer Bilirubin [Mass/Vol] 0.7 mg/dL Normal 0.2-1.0 [facility] Comment on above: Performed By: #### C MP, LIPID #### [facility] [address] [address] [address] Keanu Shafer Calcium [Mass/Vol] 8.7 mg/dL Normal 8.5-10.1 [facility] Comment on above: Performed By: #### C MP, LIPID #### [facility] [address] [address] [address] Keanu Shafer Chloride [Moles/Vol] 106 mmol/L Normal 98-107 [facility] Comment on above: Performed By: #### C MP, LIPID #### [facility] [address] [address] [address] Keanu Shafer CO2 [Moles/Vol] 28.4 mmol/L Normal 21.0-32.0 [facility] Comment on above: Performed By: #### C MP, LIPID #### [facility] [address] [address] [address] Keanu Shafer Creatinine [Mass/Vol] 1.25 mg/dL Normal 0.70-1.30 [facility] Comment on above: Performed By: #### C MP, LIPID #### [facility] [address] [address] [address] Keanu Shafer EGFR-AF DANISH >60 Normal >=60 [facility] Comment on above: Performed By: #### C MP, LIPID #### [facility] [address] [address] [address] Keanu Shafer EGFR-NON AF DANISH 59 mL/min/1.73m2 Critically low >=60 [facility] Comment on above: Performed By: #### C MP, LIPID #### [facility] [address] [address] [address] Keanu Shafer Globulin (S) [Mass/Vol] 3.1 g/dL Normal [facility] Comment on above: Performed By: #### C MP, LIPID #### [facility] [address] [address] [address] Keanu Shafer Glucose [Mass/Vol] 99 mg/dL Normal 74-106 [facility] Comment on above: Performed By: #### C MP, LIPID #### [facility] [address] [address] [address] Keanu Shafer Potassium [Moles/Vol] 4.2 mmol/L Normal 3.5-5.1 [facility] Comment on above: Performed By: #### C MP, LIPID #### [facility] [address] [address] [address] Keanu Shafer Protein [Mass/Vol] 7.0 g/dL Normal 6.4-8.2 [facility] Comment on above: Performed By: #### C MP, LIPID #### [facility] [address] [address] [address] Keanu Shafer Sodium [Moles/Vol] 139 mmol/L Normal 136-145 [facility] Comment on above: Performed By: #### C MP, LIPID #### [facility] [address] [address] [address] Keanu Shafer Urea nitrogen [Mass/Vol] 18.0 mg/dL Normal 7.0-18.0 [facility] Comment on above: Performed By: #### C MP, LIPID #### [facility] [address] [address] [address] Keanu Shafer Urea nitrogen/Creatinine [Mass ratio] 14.4 mg/mg Normal [facility] Comment on above: Performed By: #### C MP, LIPID #### [facility] [address] [address] [address] Keanu Shafer CBC With Platelet and Differ entialon 09-24-2021 Basophils (Bld) [#/Vol] 0.0 10*3/uL Normal 0.0-0.2 [facility] Comment on above: Performed By: #### C BCWD #### [facility] [address] [place] [address] Basophils/100 WBC (Bld) 0.3 % Normal [facility] Comment on above: Performed By: #### C BCWD #### [facility] [address] [place] [address] Eosinophils (Bld) [#/Vol] 0.1 10*3/uL Normal 0.0-0.7 [facility] Comment on above: Performed By: #### C BCWD #### [facility] [address] [place] [address] Eosinophils/100 WBC (Bld) 0.9 % Normal [facility] Comment on above: Performed By: #### C BCWD #### [facility] [address] [place] [address] Erythrocyte distribution width (RBC) [Ratio] 13.9 % Normal 11.5-14.5 [facility] Comment on above: Performed By: #### C BCWD #### [facility] [address] [place] [address] Hematocrit (Bld) [Volume fraction] 42.6 % Normal 42.0-52.0 [facility] Comment on above: Performed By: #### C BCWD #### [facility] [address] [place] [address] Hemoglobin (Bld) [Mass/Vol] 14.2 g/dL Normal 14.0-18.0 [facility] Comment on above: Performed By: #### C BCWD #### [facility] [address] [place] [address] Lymphocytes (Bld) [#/Vol] 0.9 10*3/uL Low 1.0-4.8 [facility] Comment on above: Performed By: #### C BCWD #### [facility] [address] [place] [address] Lymphocytes/100 WBC (Bld) 8.1 % Normal [facility] Comment on above: Performed By: #### C BCWD #### [facility] [address] [place] [address] MCH (RBC) [Entitic mass] 28.9 pg Normal 27.0-31.3 [facility] Comment on above: Performed By: #### C BCWD #### [facility] [address] [place] [address] MCHC 33.3 % Normal 33.0-37.0 [facility] Comment on above: Performed By: #### C BCWD #### [facility] [address] [place] [address] MCV (RBC) [Entitic vol] 86.8 fL Normal 80.0-100.0 [facility] Comment on above: Performed By: #### C BCWD #### [facility] [address] [place] [address] Monocytes (Bld) [#/Vol] 0.8 10*3/uL Normal 0.2-0.8 [facility] Comment on above: Performed By: #### C BCWD #### [facility] [address] [place] [address] Monocytes/100 WBC (Bld) 7.4 % Normal [facility] Comment on above: Performed By: #### C BCWD #### [facility] [address] [place] [address] Neutrophils (Bld) [#/Vol] 9.5 10*3/uL Critically high 1.4-6.5 [facility] Comment on above: Performed By: #### C BCWD #### [facility] [address] [place] [address] Neutrophils/100 WBC (Bld) 83.3 % Normal [facility] Comment on above: Performed By: #### C BCWD #### [facility] [address] [place] [address] Platelets (Bld) [#/Vol] 289 10*3/uL Normal 130-400 [facility] Comment on above: Performed By: #### C BCWD #### [facility] [address] [place] [address] RBC (Bld) [#/Vol] 4.90 10*6/uL Normal 4.70-6.10 [facility] Comment on above: Performed By: #### C BCWD #### [facility] [address] [place] [address] WBC (Bld) [#/Vol] 11.4 10*3/uL Critically high 4.8-10.8 [facility] Comment on above: Performed By: #### C BCWD #### [facility] [address] [place] [address] CBC with Auto Differentialon 09-24-2021 Basophils (Bld) [#/Vol] 0.0 10*3/uL 0.0 - 0.2 K/uL [facility] Basophils/100 WBC (Bld) 0.3 % [facility] Eosinophils (Bld) [#/Vol] 0.1 10*3/uL 0.0 - 0.7 K/uL [facility] Eosinophils/100 WBC (Bld) 0.9 % [facility] Hematocrit (Bld) [Volume fraction] 42.6 % 42.0 - 52.0 % [facility] Hemoglobin.gastroint estinal spec 1 Ql (Stl) 14.2 g/dL 14.0 - 18.0 g/dL [facility] Interpretation and review of laboratory results Abnormal [facility] Lymphocytes (Bld) [#/Vol] 0.9 10*3/uL Low 1.0 - 4.8 K/uL [facility] Lymphocytes/100 WBC (Bld) 8.1 % [facility] MCH (RBC) [Entitic mass] 28.9 pg 27.0 - 31.3 pg [facility] MCHC (RBC) [Mass/Vol] 33.3 % 33.0 - 37.0 % [facility] MCV (RBC) [Entitic vol] 86.8 fL 80.0 - 100.0 fL [facility] Monocytes (Bld) [#/Vol] 0.8 10*3/uL 0.2 - 0.8 K/uL [facility] Monocytes/100 WBC (Bld) 7.4 % [facility] Neutrophils Absolute 9.5 K/uL High 1.4 - 6 .5 K/uL [facility] Neutrophils/100 WBC (Bld) 83.3 % [facility] Platelet distribution width (Bld) [Ratio] 13.9 % 11.5 - 14.5 % [facility] Platelets (Bld) [#/Vol] 289 10*3/uL 130 - 400 K/uL [facility] RBC (Bld) [#/Vol] 4.90 10*6/uL [facility] WBC (Bld) [#/Vol] 11.4 10*3/uL High 4.8 - 10.8 K/uL [facility] Comprehensive Metabolic Pane erasmo 09-24-2021 Albumin [Mass/Vol] 4.3 g/dL Normal 3.5-4.6 [facility] Comment on above: Performed By: #### C MP #### [facility] [address] [place] [address] ALP [Catalytic activity/Vol] 68 U/L Normal 35-104 [facility] Comment on above: Performed By: #### C MP #### [facility] [address] [place] [address] ALT [Catalytic activity/Vol] 14 U/L Normal 0-41 [facility] Comment on above: Performed By: #### C MP #### [facility] [address] [place] [address] Anion gap [Moles/Vol] 11 mmol/L Normal 9-15 [facility] Comment on above: Performed By: #### C MP #### [facility] [address] [place] [address] AST [Catalytic activity/Vol] 14 U/L Normal 0-40 [facility] Comment on above: Result Comment: Spec imen hemolysis has exceeded the interference as defined by Ayla. Value may be falsely increased. Suggest recollection if clinically indicated. Performed By: #### C MP #### [facility] [address] [place] [address] Bilirubin [Mass/Vol] 0.3 mg/dL Normal 0.2-0.7 [facility] Comment on above: Performed By: #### C MP #### [facility] [address] [place] [address] Calcium [Mass/Vol] 9.0 mg/dL Normal 8.5-9.9 [facility] Comment on above: Performed By: #### C MP #### [facility] [address] [place] [address] Chloride [Moles/Vol] 102 mmol/L Normal 95-107 [facility] Comment on above: Performed By: #### C MP #### [facility] [address] [place] [address] CO2 [Moles/Vol] 27 mmol/L Normal 20-31 [facility] Comment on above: Performed By: #### C MP #### [facility] [address] [place] [address] Creatinine [Mass/Vol] 1.27 mg/dL Critically high 0.70-1.20 [facility] Comment on above: Performed By: #### C MP #### [facility] [address] [place] [address] GFR 57.5 Low >60 [facility] Comment on above: Result Comment: >60 mL/min/1.73m2 EGFR, calc. for ages 18 and older using the MDRD formula (not corrected for weight), is valid for stable renal function. Performed By: #### C MP #### [facility] [address] [place] [address] GFR/1.73 sq M.predicted among blacks MDRD (S/P/Bld) [Vol rate/Area] mL/min/{1.73_m2} Normal >60 [facility] Comment on above: Result Comment: >60 mL/min/1.73m2 EGFR, calc. for ages 18 and older using the MDRD formula (not corrected for weight), is valid for stable renal function. Performed By: #### C MP #### [facility] [address] [place] [address] Globulin (S) [Mass/Vol] 2.9 g/dL Normal 2.3-3.5 [facility] Comment on above: Performed By: #### C MP #### [facility] [address] [place] [address] Glucose [Mass/Vol] 114 mg/dL Critically high 70-99 [facility] Comment on above: Performed By: #### C MP #### [facility] [address] [place] [address] Potassium [Moles/Vol] 4.2 mmol/L Normal 3.4-4.9 [facility] Comment on above: Performed By: #### C MP #### [facility] [address] [place] [address] Protein [Mass/Vol] 7.2 g/dL Normal 6.3-8.0 [facility] Comment on above: Performed By: #### C MP #### [facility] [address] [place] [address] Sodium [Moles/Vol] 140 mmol/L Normal 135-144 [facility] Comment on above: Performed By: #### C MP #### [facility] [address] [place] [address] Urea nitrogen [Mass/Vol] 18 mg/dL Normal 8-23 [facility] Comment on above: Performed By: #### C MP #### [facility] [address] [place] [address] Albumin [Mass/Vol] 4.3 g/dL 3.5 - 4.6 [facility] CO2 [Moles/Vol] 27 mmol/L [facility] Creatinine [Mass/Vol] 1.27 mg/dL High 0.70 - 1.20 mg/dL [facility] Free PSA/Total PSA [Mass fraction] 7.2 g/dL 6.3 - 8.0 g/dL [facility] 3D GFR >60.0 >60 [facility] Comment on above: >60 mL/min/1.73m2 EG FR, calc. for ages 18 and older using the MDRD formula (not corrected for weight), is valid for stable renal function. GFR Non- 57.5 Low >60 [facility] Comment on above: >60 mL/min/1.73m2 EG [...] [facility] Sodium [Moles/Vol] 140 mmol/L [facility] Urea nitrogen (BldV) [Mass/Vol] 18 mg/dL 8 - 23 mg/dL [facility] US DUP LOWER EXTREMITY LEFT [...] and small saphenous veins were imaged in urtledge scale with compression maneuvers at their insertion [...] Jamie Thornton MD 09/24/21 Final result Normal [facility] NEGATIVE STUDY FOR ACUTE PROXIMAL DVT IN THE LEFT LOWER EXTREMITY. NEGATIVE STUDY FOR ACUTE CALF DVT IN THE LEFT LOWER EXTREMITY. NEGATIVE STUDY FOR SUPERFICIAL THROMBOPHLEBITIS IN THE LEFT LOWER EXTREMITY [facility] RADIOLOGY LEFT LOWER EXTREMITY DEEP VENOUS ULTRASOUND [...] in the proximal calf, not otherwise assessed. [facility] RADIOLOGY Jamie Thornton MD - 09/24/2021 LEFT [...] SUPERFICIAL THROMBOPHLEBITIS IN THE LEFT LOWER EXTREMITY [employer] Mobile Phone: Radiology Study observation (narrative) [employer] Mobile Phone: US DUP LOWER EXTREMITY LEFT VENOrdered By: Jamie Thornton on 09-24-2021 [employer] Mobile Phone: Coding Summary.on 01-21-2017 Coding Summary. CODING DATE: 01/21/2017 FINAL [facility] STATUS: Home (Routine DC) PAYOR: [facility] [place] [employer] DESCRIPTION 5372 Level 2 Urology and [...] Arriaza Date Saved: 01/21/2017 08:35 pm Normal [facility] Main OR Intraoperative Recor hali 01-17-2017 Main OR Intraoperative Record IntraOp Document Type FTURO Summary Primary Physician: Royer Daniels Jr., MD Finalized Date/Time: 01/17/17 15:22:06 Pt. Name: BENNIEASHWIN/Sex: 1960 Male Med Rec #: [id number] Physician: Royer Daniels Jr., MD Financial #: [id number] Pt. Type: O Room/Bed: / Admit/Disch: 01/17/17 14:24:05 - Institution: Case Times FTURO Entry 1 Patient Times In Room 01/17/17 15:04:00 Out Room 01/17/17 15:17:00 Procedure Times Start 01/17/17 15:09:00 Stop 01/17/17 15:12:00 Anesthesia Times Last Modified By: Javon MCCOLLUM, ARIELLE, Radha 01/17/17 15:12:44 Case Attendance FTURO Entry 1 Entry 2 Entry 3 Case Attendee Javon RN, CNOR, [place] RUST, Royre Coleman Jr., MD Role Performed Oven Dumper - Primary Scrub - Primary Surgeon - Primary Time In 01/17/17 15:04:00 01/17/17 15:04:00 01/17/17 15:04:00 Time Out 01/17/17 15:17:00 01/17/17 15:17:00 01/17/17 15:17:00 Procedure CYSTOSCOPY LOCAL(.) CYSTOSCOPY LOCAL(.) CYSTOSCOPY LOCAL(.) Comments Last Modified By: Javon MCCOLLUM, KAROLINAOR, Javon MCCOLLUM, KAROLINAOR, Javon MCCOLLUM, KAROLINAOR, Radha [...] Equipment, Medication Verified (If Applicable) Time Out [place] SUBRAMANIAN, Time Out Complete 01/17/17 15:08:00 Participants ARIELLE Alejandro RN, Ruthann, Jeremiah Moore MD, Royer Stuart Allergies Reviewed? Yes Allergies [...] ARIELLE Alejandro RN, Ruthann 01/17/17 15:22 Normal [facility] Main OR Preoperative Recordo n 01-17-2017 Main OR Preoperative Record Holding Area Document Type FTURO Summary Primary Physician: Royer Daniels Jr., MD Finalized Date/Time: 01/17/17 15:14:14 Pt. Name: ASHWIN AVERY /Sex: 1960 Male Med Rec #: [id number] Physician: Royer Daniels Jr., MD Financial #: [id number] Pt. Type: O Room/Bed: / Admit/Disch: 01/17/17 [...] of Pain: No Comment: Skin Integrity Intact, [place], Warm, & Dry Vitals - EU Blood Pressure 132/80 Pulse 88 bpm Respirations 16 br/min SPO2 RN Reviewed Yes Last Modified By: ARIELLE Alejandro RN, Ruthann 01/17/17 15:14:11 Finalized By: ARIELLE Alejandro RN, Ruthann Document Signatures Signed By: Kamla Spears LPN 01/17/17 14:38 ARIELLE Alejandro RN, Ruthann 01/17/17 15:13 ARIELLE Alejandro RN, Ruthann 01/17/17 15:14 Normal [facility] Operative Reporton 7 Operative Report Patient: [...] with antibiotic coverage, Follow up arranged. Normal [facility] Comment on above: Result Comment: Elec tronically Signed By: Jeremiah Moore MD, Royer Stuart\.br\Date and Time Signed: 01/17/17 15:16 EDT Vital Signs Date Time Vital Sign Value Performing Clinician Facility 08-21-2024 11:47-0400 Body height 177.8 cm [facility] 08-21-2024 11:47-0400 Body mass index (BMI) [Ratio] 29.1 kg/m2 [facility] 08-21-2024 11:47-0400 Body weight 92.13 kg [facility] 08-21-2024 11:47-0400 Diastolic blood pressure 77 mm[Hg] [facility] 08-21-2024 11:47-0400 Heart rate 67 /min [facility] 08-21-2024 11:47-0400 Respiratory rate 12 /min [facility] 08-21-2024 11:47-0400 Systolic blood pressure 124 mm[Hg] [facility] 05-08-2024 10:12-0500 Body height 177.8 cm [facility] 05-08-2024 10:12-0500 Body mass index (BMI) [Ratio] 30 kg/m2 [facility] 05-08-2024 10:12-0500 Body weight 95.02 kg [facility] 05-08-2024 10:12-0500 Diastolic blood pressure 73 mm[Hg] [facility] 05-08-2024 10:12-0500 Heart rate 74 /min [facility] 05-08-2024 10:12-0500 Respiratory rate 12 /min [facility] 05-08-2024 10:12-0500 Systolic blood pressure 117 mm[Hg] [facility] 03-30-2024 15:52-0500 Body height 177.8 cm Marcelo Fosterreba DO Work Phone: [facility] 03-30-2024 15:52-0500 Body mass index (BMI) [Ratio] 28.7 kg/m2 Marcelo Juneclipkit DO Work Phone: [facility] 03-30-2024 15:52-0500 Body weight 90.72 kg Marcelo Ma DO Work Phone: [facility] 01-31-2024 08:36-0400 Body height 177.8 cm [facility] 01-31-2024 08:36-0400 Body mass index (BMI) [Ratio] 29.4 kg/m2 [facility] 01-31-2024 08:36-0400 Body weight 92.98 kg [facility] 01-31-2024 08:36-0400 Diastolic blood pressure 77 mm[Hg] [facility] 01-31-2024 08:36-0400 Heart rate 79 /min [facility] 01-31-2024 08:36-0400 Respiratory rate 12 /min [facility] 01-31-2024 08:36-0400 Systolic blood pressure 134 mm[Hg] [facility] 12-13-2023 11:57-0400 Body height 177.8 cm [facility] 12-13-2023 11:57-0400 Body mass index (BMI) [Ratio] 29.1 kg/m2 [facility] 12-13-2023 11:57-0400 Body weight 92.07 kg [facility] 12-13-2023 11:57-0400 Diastolic blood pressure 73 mm[Hg] [facility] 12-13-2023 11:57-0400 Heart rate 68 /min [facility] 12-13-2023 11:57-0400 Respiratory rate 12 /min [facility] 12-13-2023 11:57-0400 Systolic blood pressure 128 mm[Hg] [facility] 2023 15:09-0400 Body height 177.8 cm [facility] 2023 15:09-0400 Body mass index (BMI) [Ratio] 29 kg/m2 [facility] 2023 15:09-0400 Body weight 91.85 kg [facility] 2023 15:09-0400 Diastolic blood pressure 70 mm[Hg] [facility] 2023 15:09-0400 Heart rate 86 /min [facility] 2023 15:09-0400 Respiratory rate 12 /min [facility] 2023 15:09-0400 Systolic blood pressure 112 mm[Hg] [facility] 07-19-2023 13:32-0400 Body height 177.8 cm [facility] 07-19-2023 13:32-0400 Body mass index (BMI) [Ratio] 30 kg/m2 [facility] 07-19-2023 13:32-0400 Body weight 94.97 kg [facility] 07-19-2023 13:32-0400 Diastolic blood pressure 77 mm[Hg] [facility] 07-19-2023 13:32-0400 Heart rate 71 /min [facility] 07-19-2023 13:32-0400 Systolic blood pressure 128 mm[Hg] [facility] 08-10-2022 10:00-0400 Body height 177.8 cm Marcelo Ball Other [employer] Other 08-10-2022 10:00-0400 Body mass index (BMI) [Ratio] 28.15 kg/m2 Marcelo Ball Other [employer] Other 08-10-2022 10:00-0400 Body weight 89 kg Marcelo Ball Other [employer] Other 08-10-2022 10:00-0400 Diastolic blood pressure 80 mm[Hg] Marcelo Ball Other [employer] Other 08-10-2022 10:00-0400 Respiratory rate 12 /min Marcelo Ball Other [employer] Other 08-10-2022 10:00-0400 Systolic blood pressure 143 mm[Hg] Marcelo Ball Other [employer] Other 07-13-2022 11:00-0400 Body height 177.8 cm Marcelo Ball Other [employer] Other 07-13-2022 11:00-0400 Body mass index (BMI) [Ratio] 28.64 kg/m2 Marcelo Ball Other [employer] Other 07-13-2022 11:00-0400 Body weight 90.54 kg Marcelo Ball Other [employer] Other 07-13-2022 11:00-0400 Diastolic blood pressure 85 mm[Hg] Marcelo Ball Other [employer] Other 07-13-2022 11:00-0400 Respiratory rate 16 /min Marcelo Ball Other [employer] Other 07-13-2022 11:00-0400 Systolic blood pressure 141 mm[Hg] Marcelo Ball Other [employer] Other 09-24-2021 14:07-0400 Body height 177.8 cm Marcelo Currently DO Work Phone: [email or web address] 09-24-2021 14:07-0400 Body mass index (BMI) [Ratio] 27.98 kg/m2 Marcelo Ball DO Work Phone: [facility] [employer] 09-24-2021 14:07-0400 Body temperature 97.7 [degF] Marcelo Currently DO Work Phone: [facility] [employer] 09-24-2021 14:07-0400 Body weight 88.45 kg Marcelo Currently DO Work Phone: [facility] [employer] 09-24-2021 14:07-0400 Diastolic blood pressure 83 mm[Hg] Marcelo Currently DO Work Phone: [email or web address] 09-24-2021 14:07-0400 Heart rate 82 /min Marcelo Currently DO Work Phone: [facility] [employer] 09-24-2021 14:07-0400 Respiratory rate 18 /min Marcelo Currently DO Work Phone: [facility] [employer] 09-24-2021 14:07-0400 SaO2% (BldA) [Mass fraction] 97 % Marcelo Currently DO Work Phone: [facility] [employer] 09-24-2021 14:07-0400 Systolic blood pressure 138 mm[Hg] Marcelo Currently DO Work Phone: [facility] [employer] Encounters Encounter Date Encounter Type Care Provider Facility Start: 08-21-2024 End: 08-21-2024 ambulatory [facility] Work Phone: Start: 08-21-2024 End: 08-21-2024 Patient encounter procedure [facility] Work Phone: Start: 05-08-2024 End: 05-08-2024 ambulatory [facility] Work Phone: Start: 05-08-2024 End: 05-08-2024 Patient encounter procedure [facility] Work Phone: Start: 03-30-2024 End: 03-30-2024 Office outpatient visit 25 minutes Marcelo Ma DO Work Phone: [facility] [place] Comment on above: Globus pharyngeus (P rimary Dx) Start: 03-30-2024 End: 03-30-2024 ambulatory MARCELO MA Not Available Start: 03-30-2024 End: 03-30-2024 Bamboo flowsheet Marcelo Ma DO Work Phone: [facility] [place] Start: 03-30-2024 End: 03-30-2024 Bamboo flowsheet Marcelo Ma DO Work Phone: [facility] [place] Start: 03-10-2024 End: 03-10-2024 Bamboo flowsheet Marcelo Ma DO Work Phone: [facility] [place] Start: 03-10-2024 End: 03-10-2024 Bamboo flowsheet Marcelo Ma DO Work Phone: [facility] [place] Start: 03-10-2024 End: 03-10-2024 ambulatory MARCELO MA Not Available Start: 03-10-2024 End: 03-10-2024 Office outpatient new 45 minutes Marcelo Ma DO Work Phone: [facility] [place] Comment on above: Neck mass (Primary D x); Multiple thyroid nodules (CMS/HCC) Start: 01-31-2024 End: 01-31-2024 ambulatory [facility] Work Phone: Start: 01-31-2024 End: 01-31-2024 Encounter for general adult medical examination without abnormal findings [facility] Start: 01-31-2024 End: 01-31-[address] [facility] Work Phone: Start: 01-29-2024 Patient encounter status [facility] Start: 01-08-2024 Non-patient / Non-visit [facility] Work Phone: Start: 12-13-2023 End: 12-13-2023 ambulatory [facility] Work Phone: Start: 12-13-2023 End: 12-13-2023 Patient encounter procedure [facility] Work Phone: Start: 2023 End: 2023 ambulatory [facility] Work Phone: Start: 2023 End: 2023 Patient encounter procedure [facility] Work Phone: Start: 10-13-2023 Non-patient / Non-visit [facility] Work Phone: Start: 10-07-2023 End: 10-07-2023 ambulatory [facility] Work Phone: Start: 10-07-2023 End: 10-07-2023 Patient encounter procedure [facility] Work Phone: Start: 08-09-2023 Non-patient / Non-visit [facility] Work Phone: Start: 07-19-2023 End: 07-19-2023 ambulatory [facility] Work Phone: Start: 07-19-2023 End: 07-19-2023 Patient encounter procedure [facility] Work Phone: Start: 06-07-2023 End: 06-07-2023 ambulatory Marcelo Thompson Other [employer] Other Start: 06-07-2023 Telephone encounter Marcelo Thompson [facility] Start: 03-08-2023 End: 03-08-2023 ambulatory Marcelo Jay Other [employer] Other Start: 03-08-2023 Telephone encounter Marcelo Thompson [facility] Start: 02-22-2023 End: 02-22-2023 ambulatory Marcelo Thompson Other [employer] Other Start: 02-22-2023 Telephone encounter Marcelo Thompson [facility] Start: 01-26-2023 End: 01-26-2023 ambulatory Marcelo Thompson Other [employer] Other Start: 01-26-2023 Encounter for genera l adult medical examination without abnormal findings Marcelo Thompson [facility] Start: 01-26-2023 Telephone encounter Marcelo Thompson [facility] Start: 08-17-2022 End: 08-18-[address] MARCELO THOMPSON Facility:[facility] Start: 08-15-2022 End: 08-15-2022 ambulatory Marcelo Thompson Other [employer] Other Start: 08-15-2022 Telephone encounter Marcelo Thompson [facility] Start: 08-10-2022 End: 08-10-2022 ambulatory Marcelo Thompson Other [employer] Other Start: 08-10-2022 Office outpatient vi sit 15 minutes Marcelo Thompson [facility] Start: 07-30-2022 End: 07-30-2022 ambulatory Marcelo Thompson Other [employer] Other Start: 07-30-2022 Telephone encounter Marcelo Thompson [facility] Start: 07-13-2022 Office outpatient vi sit 25 minutes Marcelo Thompson [facility] Start: 07-13-2022 End: 07-14-[address] MARCELO THOMPSON [facility] [employer] Other Start: 01-23-2022 Encounter for genera l adult medical examination without abnormal findings DR MARCELO THOMPSON [facility] Start: 01-19-2022 End: 01-20-[address] MARCELO THOMPSON Facility:[facility] Start: 01-19-2022 End: 01-20-2022 Encounter for general adult medical examination without abnormal findings DR MARCELO THOMPSON Facility:[facility] Start: 09-24-2021 End: 09-24-2021 Emergency department patient visit MARCELO THOMPSON [facility] Start: 09-24-2021 End: 09-24-2021 Emergency department patient visit Marcelo Thompson DO Work Phone: [facility] Comment on above: Cellulitis of left l ower extremity (Primary Dx) Start: 01-17-2017 End: 01-18-2017 Ambulatory [facility] Facility:[facility] Procedures Date Procedure Procedure Detail Performing Clinician Start: 01-19-[address] SAGASTUME IN [facility] Comment on above: Performed By: #### [facility] #### [facility] [address] [place] [address] Dr. Keanu Shafer Start: 09-24-2021 Dup-scan xtr veins unilateral/limited study Luciano Maradiaga PA-C Work Phone: Start: 09-24-2021 Comprehensive metabo lic panel Luciano Maradiaga PA-C Work Phone: Plan of Treatment Date Care Activity Detail Author Start: 03-30-2024 End: 03-30-2024 Patient encounter procedure 03/30/2024 4:00 PM EST Office Visit [facility] [place] [address] [place] [id number] Marcelo Ma, DO [address] [place] [address] Arrived [facility] [place] Comment on above: Arrived Start: 03-18-2024 End: 03-18-2024 Patient encounter procedure 03/18/2024 4:00 PM EST Office Visit [facility] [place] [address] [place] [id number] Marcelo Ma, DO [address] [place] [address] [facility] [place] Start: 01-31-2024 Patient referral [facility] Work Phone: Start: 12-28-2021 Influenza vaccination Flu vacc ine (Season Ended) [facility] Start: 10-20-2009 Shingles vaccine (1 of 2) Newton gles vaccine (1 of 2) [facility] Start: 10-20-2004 Screening for malign ant neoplasm of colon [facility] [employer] Start: 1999 Lipid panel Lipids [facility] [employer] Start: 1999 Prostate specific an tigen measurement Prostate Specific Antigen (PSA) Screening or Monitoring [facility] [employer] Start: 10-20-1994 Diabetes screen Diabetes screen [facility] [employer] Start: 10-20-1978 DTaP/Tdap/Td vaccine (1 - Tdap) DTaP/Tdap/Td vaccine (1 - Tdap) [facility] Start: 10-20-1977 Hepatitis C screening Hepatitis C sc reen [facility] Start: 10-20-1974 HIV screening HIV screen [facility] Start: 1971 Depression Screen Depression Screen [facility] Start: 10-20-1964 COVID-19 Vaccine (1) COVID-19 Vaccin e (1) [facility] Barium swallow [facility] Comprehensive metabo lic 1999 panel - Serum or Plasma [facility] metabo lic 2000 panel - Serum or Plasma [facility] MR Brain WO contrast [facility] Patient referral [facility] Work Phone: US Thyroid gland [facility] US.doppler Carotid arteries - bilateral [facility] Payers Date Payer Category Payer Private Health Insurance [employer] [id number] 2017 Unknown [id number] 1960 Unknown [id number] 1960 Unknown [id number] 1960 Unknown [id number] 1959 Unknown [id number] 1959 Unknown [id number] 1960 Unknown [id number] 1960 Unknown [id number] Self-pay Self Pay [id number] Social History Date Type Detail Facility Start: 09-24-2021 End: 07-19-2023 Tobacco smoking status [facility] Never smoked tobacco [employer] Mobile Phone: Start: 09-24-2021 Tobacco use and exposure Smokeless tobacco non-user [employer] Mobile Phone: Start: 09-24-2021 Alcohol intake Ex-drinker (finding) [facility] Mobile Phone: Start: 1960 Sex Assigned At Not on file [facility] Phone: Start: 09-14-2021 End: 05-29-2022 Exposure to SARS-CoV-2 (event) Not sure [facility] Work Phone: Sex Assigned At [employer] Other Start: 1960 Sex Assigned At Male F [facility] Start: 03-10-2024 Tobacco smoking status NHIS Tobacco smoking consumption unknown [facility] Start: 05-08-2024 End: 08-21-2024 Sex Male (finding) [facility] Clinical Notes 07-13-2022 to 03-30-2024 Marcelo Ma, DO - 03/30/2024 4:00 PM ESTBenowenmyke Ma, DO - 03/10/2024 8:30 AM EST [...] back as needed documented in this encounter [facility] 03-10-2024 History of Present illness Narrative [...] nodules need biopsied. documented in this encounter [facility] 10-07-2023 Evaluation note Diagnosis Onset Date Dysesthesia acute Elevated cholesterol acute Essential hypertension acute Renal cyst, left acute Stage 3a chronic kidney disease acute Tinea unguium acute Intermittent paresthesia of right hand and foot noneactive Essential hypertension acute Acute bronchitis due to othe r specified organisms noneactive [facility] Work Phone: [phone]) 298-663703-22-2024 Evaluation note* Diagnosis Onset Date Resolution Status Elevated cholesterol acute Essential hypertension acute Renal cyst, left acute Stage 3a chronic kidney disease acute [facility] Work Phone: [phone]) 254-537911-10-2023 Evaluation note* Encounter Date Diagnosis Assessment Notes Treatment Notes Treatment Clinical Notes Feb, Hypokalemia (ICD-10 - E87.6) [employer] Other 10-27-2023 Evaluation note* Encounter Date Diagnosis Assessment Notes Treatment Notes Treatment Clinical Notes Jan, Stage 3a chronic kidney disease (ICD-10 - N18.31) [employer] Other 09-30-2023 Evaluation note* Encounter Date Diagnosis Assessment Notes Treatment Notes Treatment Clinical Notes Dec, Essential hypertension (ICD-10 - I10) Dec, Wellness examination (ICD-10 - Z00.00) [employer] Other 04-19-2023 Evaluation note* Encounter Date Diagnosis Assessment Notes Treatment Notes Treatment Clinical Notes Jul, Left lower quadrant abdominal pain (ICD-10 - R10.32) [facility] Other 04-14-2023 Evaluation note* Encounter Date Diagnosis [...] (ICD-10 - Z87.442) Push fluids, check CT [employer] Other 04-03-2023 Evaluation note* Encounter Date Diagnosis Assessment Notes Treatment Notes Treatment Clinical Notes Jul, Essential hypertension (ICD-10 - I10) [employer] Other 03-17-2023 Evaluation note* Encounter Date Diagnosis [...] of nephrolithiasis (ICD-10 - Z87.442) Push fluids [employer] Other Evaluation note* Diagnosis Cellulitis of left lower extremity- Primary Cellulitis and abscess of leg, except foot documented in this encounter [facility] Work Phone: evaluation noteNo InformationNort [employer] Other Evaluation note* Diagnosis Onset Date Resolution Status Essential hypertension acute Acute bronchitis due to other specified organisms noneactive [facility] Work Phone: Evaluation note* Diagnosis Onset Date Resolution Status Essential hypertension acute Acute bronchitis due to other specified organisms noneactive Allergic rhinitis acute Post-viral cough syndrome no neactive Acute bronchitis due to other specified organisms noneactive [facility] Work Phone: Evaluation note* Diagnosis Onset Date Resolution Status Globus sensation acute Elevated cholesterol acute Essential hypertension acute Globus sensation acute Renal cyst, left acute Screening PSA (prostate specific antigen) acute Stage 3a chronic kidney disease acute Wellness examination acute Intermittent paresthesia of right hand and foot noneactive [facility] Work Phone: Evaluation note* Diagnosis Onset Date Resolution Status Globus sensation acute Elevated cholesterol acute Essential hypertension acute Globus sensation acute Screening PSA (prostate specific antigen) acute Stage 3a chronic kidney disease acute Thyroid nodule acute Wellness examination acute [facility] Work Phone: Evaluation note* Diagnosis Neck mass- Primary Swelling, mass, or lump in head and neck Multiple thyroid nodules (CMS/HCC) Nontoxic multinodular goiter documented in this encounter [facility] HealthcareEvaluation note* Diagnosis Globus pharyngeus- Primary Conversion disorder documented in this encounter [facility]* Diagnosis Onset Date Resolution Status Admit Date Chronic kidney disease acute [facility] 2024 9:51am Elevated cholesterol acute [facility] 2024 9:51am Essential hypertension acute [facility] 2024 9:51am Globus sensation acute May 08, 2024 9:51am Obesity acute May 08, 2024 9:51am Thyroid nodule acute May 082024 9:51am [facility] Work Phone: Evaluation noteNo assessment information available [facility] Work Phone: History general Narrative - Reported* [...] ARM 20 18 Hospitalization History See Above [employer] Other Hospital Discharge instructions* Attachments The following attachments cannot be sent through Care Everywhere. * Cellulitis (Slovenian) [facility]: Hospital Discharge instructionsAmbulatory Orders* Referral to ENT Time Frame: 01/31/24, Location: None [facility] Work Phone: Summary Purpose Family History Relationship [...] disease Chief Complaint 6 month follow up [phone] URI Reason for Visit Dysesthesia Elevated cholesterol Essential hypertension Renal cyst, left Stage 3a chronic kidney disease Tinea unguium Intermittent paresthesia of right hand and foot Essential hypertension Acute bronchitis due to other specified organisms Chief Complaint [phone] URI TB ER follow up Reason for Visit Essential hypertensi on Acute bronchitis due to other specified organisms Chief Complaint [phone] URI TB ER follow up lump in throat Reason [...] Thyroid nodule May 08, 2024 9 :51am Chief Complaint Admit Date pain on back below shoulder blade, right side August 21, 2024 11:22am Additional Source Comments (unrecognized sect ion and content) No Status Records FoundNo Status Records FoundNo Status Records FoundNo Status Records Found INFORMATION SOURCE (unrecogn ized section and content) DATE CREATED AUTHOR 10/23/2017 [facility] DATE CREATED AUTHOR AUTHOR'S ORGANIZ ATION [facility]/24/20[facility] DATE CREATED AUTHOR AUTHOR'S ORGANIZ ATION 08/24/2022 [facility] DATE CREATED AUTHOR AUTHOR'S ORGANIZ ATION 04/01/2024 [facility] EPIC Reason for Visit [...] Attending Provider Active Start: August 09, 2023 [employer] Relationship Specialty Start Date End Date Marcelo Thompson DO [address] [place] [phone] PCP - General Internal Medicine 09/24/21 Team [...] January 31, 2024 End: January 31, 2024 [employer] Relationship Specialty Start Date End Date Marcelo Thompson MD [address] [place] [phone] PCP - General Internal Medicine 03/10/24 Marcelo Ma DO [address] [place] [address] Otolaryngology 03/10/24 [employer] Relationship Specialty Start Date End Date Marcelo Thompson MD [address] [place] [phone] PCP - General Internal Medicine 03/10/24 Marcelo Ma DO [address] [place] [address] Otolaryngology 03/10/24 [employer] Relationship Specialty Start Date End Date Marcelo Thompson MD [address] [place] [address] PCP - General Internal Medicine 03/10/24 Marcelo Ma, [address] [place] [address] Otolaryngology 03/10/24 Team Status: Inactive Member Role Status Dates Marcelo Thompson DO Primary Care Provide r, Attending Provider Active Start: May 08, 2024 End: May 08, 2024 Team Status: Inactive Member Role Status Dates Marcelo Thompson DO Primary Care Provide r, Attending Provider Active Start: August 21, 2024 End: August 21, 2024 Goals (unrecognized section and content) Goals [...] BE BASED ON THE PRIMARY CLINICAL RECORDS. [facility] [employer] [facility]. provides no warranty or guarantee of the accuracy or completeness of information in this document.
--- NOTE | 2024-09-11 11:44 | XR_ITS ---
The [address] [address] Patient Name: RICHY AVERY MRN: [id number] date: 1960 Sex: M Assigned Patient Location: [facility] Current Patient Location: [facility] Accession/Order Number: [id number] Exam Date: 09/11/2024 12:09 Report Date: 09/11/2024 12:12 At the request of: JOHNNIE GILL DO Procedure: XR cervical spine w flex/ext XR cervical spine w flex/ext 09/11/2024 11:44 AM SIGNS AND SYMPTOMS: ^Neck Pain Right Side PROTOCOLS: Frontal, lateral, and flexion extension views of the cervical spine COMPARISON: None FINDINGS: There is 4 mm of anterolisthesis of C5 upon C6. No pathologic movement on flexion or extension. Facet degenerative changes are present, greatest at C3-C4, C4-C5, and C5-C6. There is mild intervertebral disc height loss at C5-C6 and C6-C7 with anterior osteophyte formation. The atlantoaxial joint is preserved. There is preservation of the vertebral body heights. There is no fracture or destructive lesion. XR/XR cervical spine w flex/ext IMPRESSION: There is 4 mm of anterolisthesis of C5 upon C6. No pathologic movement on flexion or extension. Additional degenerative changes are as described above. Impression dictated by: Jarod Le M.D. 09/11/2024 12:12 PM Dictation Location: [place] [address] Electronically authenticated by: [id number] Date: 09/11/2024 12:12
== END 2024-09-11 11:27 | disposition home or self-care (01) ==
LOC: RAD 11:27
PROVIDERS: PCP Internal Medicine; Visit Provider Internal Medicine
DX: M54.2 Cervicalgia (principal); M43.12 Spondylolisthesis, cervical region
CPT/HCPCS: 72052

== ENCOUNTER 2024-10-16 08:57 | Outpatient (OUT) | payer OTHER, SELFPAY ==
--- NOTE | 2024-10-16 | MR_ITS ---
The [address] [address] Patient Name: RICHY AVERY MRN: [id number] date: 1960 Sex: M Assigned Patient Location: [facility] Current Patient Location: [facility] Accession/Order Number: [id number] Exam Date: 10/16/2024 16:24 Report Date: 10/16/2024 16:29 At the request of: JOHNNIE GILL DO Procedure: MR cervical spine wo con MR cervical spine wo con 10/16/2024 10:14 AM SIGNS AND SYMPTOMS: Chronic neck pain radiating into right shoulder PROTOCOL: Multiplanar multisequence MR images of the cervical spine without IV contrast COMPARISON: 09/11/2024 FINDINGS: The bones of the cervical spine are in anatomic alignment. There is preservation of vertebral body heights and intervertebral disc spaces. The marrow signal is within normal limits. The cord is normal in signal. No epidural or paraspinous fluid collection is appreciated. The visualized paraspinous soft tissues are within normal limits. The prevertebral soft tissues are within normal limits. Polypoid mucosal thickening is noted in the left maxillary sinus. At C2-C3: There is a normal disc, central canal, and neural foramen. At C3-C4: There is a broad-based disc bulge with uncovertebral joint spurring. There is moderate right and mild left neural foraminal narrowing with minimal spinal canal narrowing. At C4-C5: There is facet hypertrophy with uncovertebral joint spurring. There is mild bilateral neural foraminal narrowing with mild spinal canal stenosis. At C5-C6: There is facet hypertrophy with uncovertebral joint spurring. There is mild bilateral neural foraminal narrowing without significant spinal canal stenosis. At C6-C7: There is a broad-based disc bulge with uncovertebral joint spurring. There is mild bilateral neural foraminal narrowing without significant spinal canal stenosis. At C7-T1: There is a broad-based disc bulge with uncovertebral joint spurring. There is moderate to severe right and moderate left neural foraminal narrowing with mild spinal canal stenosis. MR/MR cervical spine wo con IMPRESSION: No cord compression or cord signal abnormality. At C3-C4: There is a broad-based disc bulge with uncovertebral joint spurring. There is moderate right and mild left neural foraminal narrowing with minimal spinal canal narrowing. At C7-T1: There is a broad-based disc bulge with uncovertebral joint spurring. There is moderate to severe right and moderate left neural foraminal narrowing with mild spinal canal stenosis. Impression dictated by: Jarod Le M.D. 10/16/2024 4:29 PM Dictation Location: [facility] Electronically authenticated by: [id number] Y Date: 10/16/2024 16:29
--- NOTE | 2024-10-16 | XR_ITS ---
The [place] [id number] Patient Name: RICHY AVERY MRN: [id number] date: 1960 Sex: M Assigned Patient Location: RAD Current Patient Location: [facility] Accession/Order Number: [id number] Exam Date: 10/16/2024 09:22 Report Date: 10/16/2024 09:23 At the request of: JOHNNIE GILL DO Procedure: XR foreign body eye LIDYA ORBITS FOR FOREIGN BODY - 2 views CLINICAL DATA: MRI clearance in patient who grinds/welds COMPARISON: 08/09/2023 Lateral and Connor views were obtained. No radiopaque orbital foreign bodies are identified. The imaged paranasal sinuses appear clear. No soft tissue abnormalities are noted. XR/XR foreign body eye LIDYA IMPRESSION: NO ORBITAL RADIOPAQUE FOREIGN BODIES. Impression dictated by: Julieta Benjamin M.D. 10/16/2024 9:23 AM Dictation Location: [place] [address] Electronically authenticated by: [id number] Y Date: 10/16/2024 09:23
== END 2024-10-16 08:58 | disposition home or self-care (01) ==
LOC: RAD 08:58
PROVIDERS: PCP Internal Medicine; Visit Provider Internal Medicine
DX: Z01.89 Encounter for other specified special examinations (principal); M54.9 Dorsalgia, unspecified; M50.31 Other cervical disc degeneration, high cervical region; M50.33 Other cervical disc degeneration, cervicothoracic region
CPT/HCPCS: 70030; 72141

== ENCOUNTER 2024-11-03 16:51 | Outpatient (RCR) | payer OTHER, SELFPAY | END 2024-12-09 06:48 | disposition home or self-care (01) | LOC: PT 16:51 | PROVIDERS: PCP Internal Medicine; Visit Provider Internal Medicine | DX: M25.511 Pain in right shoulder (principal) | CPT/HCPCS: 97012; 97110; 97140; 97161; 97535 ==

== ENCOUNTER 2025-01-29 09:10 | Outpatient (OUT) | payer OTHER, SELFPAY ==
--- NOTE | 2025-01-29 09:13 | US_ITS ---
[facility] [place] [id number] Patient Name: RICHY AVERY MRN: [id number] date: 1960 Sex: M Assigned Patient Location: [place] Current Patient Location: Accession/Order Number: [id number] Exam Date: 01/29/2025 09:15 Report Date: 01/29/2025 14:25 At the request of: JOHNNIE GILL DO Procedure: US thyroid Thyroid ultrasound Reason for exam: Thyroid nodule Comparison: Thyroid ultrasound 12/24/2023 Technique: Grayscale and color Doppler images of the thyroid gland were obtained. Findings: The right lobe measures 3.5 x 1.5 x 2.0 cm. The left lobe measures 2.4 x 1.1 x 0.8 cm. Isthmus measures 5 mm. Once again demonstrated is a solid/cystic nodule involving the mid aspect of the left lobe now measuring 8 x 6 x 7 mm. This is grossly unchanged in configuration to the prior study from 2023. No new suspicious nodules are noted. US/US thyroid Impression: Stable nodule involving the mid aspect of the left lobe of the thyroid gland. Ultrasound follow-up in one year suggested. Impression dictated by: Wyatt Haines Jr., D.O. 01/29/2025 2:25 PM Dictation Location: [place] [address] Electronically authenticated by: [id number] Date: 01/29/2025 14:25
--- OUTSIDE RECORDS SUMMARY | 2025-01-29 09:13 | XMS_ITS | CCD ---
Author Organization [facility] Care Team Providers Care Botany Teacher Name Role Phone Arnoldo, Jos W Unavailable Unavailable Rice, Jos W Unavailable Unavailable Rice, Jos W Unavailable Unavailable BALL, [phone] UNKNOWN Unavailable Unavailable Marcelo Thompson DO Primary [...] Primary Care Provider Marcelo Ma DO Unavailable [phone] MARCELO MA Attending Unavailable MARCELO THOMPSON Referring Unavailable MURMARCELO MELGOZA Attending Unavailable MARCELO THOMPSON Referring Unavailable Allergies Allergy Classification Reported Allergen(s) Allergy Type Date of Onset Reaction(s) Facility (1 source) Sulfonamides (Antibiotic); Translations: [sulfa drugs] Propensity to adverse reactions (disorder) [facility] (7 sources) Sulfonamides (Antibiotic) Propensity to adverse reactions to drug 09-25-19 Nausea And Vomiting [facility] (20 sources) Ciprofloxacin Drug Allergy 07-19-19 Unknown, Unknown Reaction [facility] (4 sources) Hmg-Coa Reductase Inhibitors (Statins) Propensity to adverse reactions MUSCLE PAIN [employer] Other (8 sources) Sulfacetamide / Sulfur Drug Allergy Unknown [employer] Other (16 sources) sulfADIAZINE Drug Allergy 03-22-20 24 Unknown, Comment:Sulfa [facility] (8 sources) tamsulosin Drug Allergy Unknown [facility] [employer] Other (1 source) black walnut pollen extract Drug Allergy [facility] (1 source) Sulfonamides (Antibiotic) Drug allergy (disorder) 03-02-20 14 [facility] (18 sources) predniSONE Drug Allergy 07-19-19 24 Unknown, Unknown Reaction [facility] (4 sources) Statins Depletion *DIETARY PRODUCTS/DIETARY MANAGE Propensity to adverse reactions Comment:ALL Statins [facility] [employer] Other (14 sources) tamsulosin Drug Allergy 07-19-19 Unknown Reaction [facility] (8 sources) Xnuupkv-FVI-DgE Reductase Inhibitor Allergy to substance 07-19-19 Comment:ALL Statins [facility] Medications Current Medications Medication Drug Class(es) [...] Active take 2 tablets by mo [facility] every twelve hours Labetalol HCl 100 MG [...] take 1 tablet by mouth once daily Tpamjmisdn-Chscoegdw-Npnnsqorx 40-10-25 mg tablet Discontinued 1 TAB PO Daily July 18, 2023 12:00am February 02, 2024 7:39pm Start: 01-25-2023 take 1 tablet by [facility] every twenty-four hours Yklmknbrzb-vaPVOGHgxf-OGLB 40-10-25 MG 1 tablet Orally Once a [...] (S/P/Bld) [Vol rate/Area] 47 mL/min/{1.73_m2} Low >=60 [facility] - Chemistry and C hemistry - challengeon 01-08-2024 Creatinine [Mass/Vol] 1.50 mg/dL High 0.70-1.30 [facility] GFR/1.73 sq M.predicted MDRD (S/P/Bld) [Vol rate/Area] 57 mL/min/{1.73_m2} Low >=60 [facility] Basophils Auto (Bld) [#/Vol] on 10-13-2023 Basophils (Bld) [#/Vol] 0.0 10 3/uL 0.0-0.1 [facility] Basophils/100 WBC Auto (Bld) on 10-13-2023 Basophils/100 WBC (Bld) 0.2 % 0.2-2.0 [facility] Eosinophils/100 WBC Auto (Bl d)on 10-13-2023 Eosinophils/100 WBC (Bld) 1.8 % 0.9-7.0 [facility] Erythrocyte distribution wid th Auto (RBC) [Ratio]on 10-13-2023 Erythrocyte distribution width (RBC) [Ratio] 12.9 % 11.0-15.0 [facility] Estimated glomerular filtrat ion rate (GFR) non- Americanon 10-13-2023 GFR/1.73 sq M.predicted among non-blacks MDRD (S/P/Bld) [Vol rate/Area] 44 mL/min/{1.73_m2} Low >=60 [facility] Hematocrit Auto (Bld) [Volum e fraction]on 10-13-2023 Hematocrit (Bld) [Volume fraction] 39.9 % Low 42.0-54.0 [facility] Hemoglobin [Mass/volume] in Bloodon 10-13-2023 Hemoglobin (Bld) [Mass/Vol] 13.3 g/dL Low 14.0-18.0 [facility] - Chemistry and C hemistry - challengeon 10-13-2023 Calcium [Mass/Vol] 8.7 mg/dL 8.5-10.1 [facility] Chloride [Moles/Vol] 102 mmol/L 98-107 [facility] CO2 [Moles/Vol] 25.9 mmol/L 21.0-32.0 [facility] Creatinine [Mass/Vol] 1.59 mg/dL High 0.70-1.30 [facility] GFR/1.73 sq M.predicted MDRD (S/P/Bld) [Vol rate/Area] 54 mL/min/{1.73_m2} Low >=60 [facility] Glucose [Mass/Vol] 100 mg/dL 74-106 [facility] Potassium [Moles/Vol] 4.2 mmol/L 3.5-5.1 [facility] Sodium [Moles/Vol] 141 mmol/L 136-145 [facility] Urea nitrogen [Mass/Vol] 32.0 mg/dL High 7.0-18.0 [facility] Urea nitrogen/Creatinine [Mass ratio] 20.1 mg/mg [facility] - Hematology and Cell countson 10-13-2023 Immature granulocytes/100 WBC (Bld) 0.4 % 0.0-0.5 [facility] Leukocytes [#/volume] correc cipriano for nucleated erythrocytes in Blood by Automated counon 10-13-2023 WBC corrected for nucl RBC Auto (Bld) [#/Vol] 5.0 10 3/uL 4.0-11.0 [facility] Lymphocytes Auto (Bld) [#/Vo l]on 10-13-2023 Lymphocytes (Bld) [#/Vol] 1.2 10 3/uL 1.2-3.8 [facility] Lymphocytes/100 WBC Auto (Bl d)on 10-13-2023 Lymphocytes/100 WBC (Bld) 23.8 % 20.5-60.0 [facility] MCH Auto (RBC) [Entitic mass ]on 10-13-2023 MCH (RBC) [Entitic mass] 28.9 pg 25.9-34.0 [facility] MCHC Auto (RBC) [Mass/Vol]on 10-13-2023 MCHC (RBC) [Mass/Vol] 33.3 g/dL 29.9-35.2 [facility] MCV Auto (RBC) [Entitic vol] on 10-13-2023 MCV (RBC) [Entitic vol] 86.6 fL 80.0-94.0 [facility] Monocytes Auto (Bld) [#/Vol] on 10-13-2023 Monocytes (Bld) [#/Vol] 0.4 10 3/uL 0.3-0.8 [facility] Monocytes/100 WBC Auto (Bld) on 10-13-2023 Monocytes/100 WBC (Bld) 8.8 % 1.7-12.0 [facility] Neutrophils Auto (Bld) [#/Vo l]on 10-13-2023 Neutrophils (Bld) [#/Vol] 3.2 10 3/uL 1.4-6.5 [facility] Neutrophils/100 WBC Auto (Bl d)on 10-13-2023 Neutrophils/100 WBC (Bld) 65.0 % 43.0-75.0 [facility] No Panel Informationon 10-12 Eosinophils # (Auto) 0.1 10 3/uL 0.0-0.7 [facility] Immature Granulocyte # (Auto) 0.02 10 3/uL 0.00-0.03 [facility] Troponin I High Sensitivity 6.5 pg/mL 4.0-76.1 [facility] Comment on above: CUT-OFF POINTS HAVE [...] (Bld) [Entitic vol] 8.3 fL Low 9.5-13.5 [facility] Platelets Auto (Bld) [#/Vol] on 10-13-2023 Platelets (Bld) [#/Vol] 233 10 3/uL 150-450 [facility] RBC Auto (Bld) [#/Vol]on RBC (Bld) [#/Vol] 4.61 10 6/uL Low 4.70-6.10 [facility] Serum or plasma anion gap de terminationon 10-13-2023 Anion gap [Moles/Vol] 17.3 mmol/L [facility] Basophils Auto (Bld) [#/Vol] on 08-09-2023 Basophils (Bld) [#/Vol] 0.0 10 3/uL 0.0-0.1 [facility] Basophils/100 WBC Auto (Bld) on 08-09-2023 Basophils/100 WBC (Bld) 0.4 % 0.2-2.0 [facility] Eosinophils/100 WBC Auto (Bl d)on 08-09-2023 Eosinophils/100 WBC (Bld) 2.6 % 0.9-7.0 [facility] Erythrocyte distribution wid th Auto (RBC) [Ratio]on 08-09-2023 Erythrocyte distribution width (RBC) [Ratio] 13.1 % 11.0-15.0 [facility] Estimated glomerular filtrat ion rate (GFR) non- Americanon 08-09-2023 GFR/1.73 sq M.predicted among non-blacks MDRD (S/P/Bld) [Vol rate/Area] 46 mL/min/{1.73_m2} >=60 [facility] Globulin Calc (S) [Mass/Vol] on 08-09-2023 Globulin (S) [Mass/Vol] 3.4 g/dL [facility] Hematocrit Auto (Bld) [Volum e fraction]on 08-09-2023 Hematocrit (Bld) [Volume fraction] 42.7 % 42.0-54.0 [facility] Hemoglobin [Mass/volume] in Bloodon 08-09-2023 Hemoglobin (Bld) [Mass/Vol] 14.0 g/dL 14.0-18.0 [facility] - Chemistry and C hemistry - challengeon 08-09-2023 Albumin [Mass/Vol] 3.7 g/dL 3.4-5.0 [facility] ALP [Catalytic activity/Vol] 57 U/L 46-116 [facility] ALT [Catalytic activity/Vol] 30 U/L 16-63 [facility] AST [Catalytic activity/Vol] 17 U/L 15-37 [facility] Bilirubin [Mass/Vol] 0.4 mg/dL 0.2-1.0 [facility] Calcium [Mass/Vol] 9.2 mg/dL 8.5-10.1 [facility] Chloride [Moles/Vol] 104 mmol/L 98-107 [facility] CO2 [Moles/Vol] 30.3 mmol/L 21.0-32.0 [facility] Cobalamin (Vitamin B12) [Mass/Vol] 270.0 pg/mL 193.0-986.0 [facility] Creatinine [Mass/Vol] 1.55 mg/dL 0.70-1.30 [facility] GFR/1.73 sq M.predicted MDRD (S/P/Bld) [Vol rate/Area] 55 mL/min/{1.73_m2} >=60 [facility] Glucose [Mass/Vol] 99 mg/dL 74-106 [facility] Potassium [Moles/Vol] 3.6 mmol/L 3.5-5.1 [facility] Protein [Mass/Vol] 7.1 g/dL 6.4-8.2 [facility] Sodium [Moles/Vol] 144 mmol/L 136-145 [facility] TSH Qn 2.981 m[IU]/L 0.358-3.740 [facility] Urea nitrogen [Mass/Vol] 29.0 mg/dL 7.0-18.0 [facility] Urea nitrogen/Creatinine [Mass ratio] 18.7 mg/mg [facility] - Hematology and Cell countson 08-09-2023 Immature granulocytes/100 WBC (Bld) 0.3 % 0.0-0.5 [facility] Leukocytes [#/volume] correc cipriano for nucleated erythrocytes in Blood by Automated counon 08-09-2023 WBC corrected for nucl RBC Auto (Bld) [#/Vol] 6.8 10 3/uL 4.0-11.0 [facility] Lymphocytes Auto (Bld) [#/Vo l]on 08-09-2023 Lymphocytes (Bld) [#/Vol] 1.2 10 3/uL 1.2-3.8 [facility] Lymphocytes/100 WBC Auto (Bl d)on 08-09-2023 Lymphocytes/100 WBC (Bld) 18.0 % 20.5-60.0 [facility] MCH Auto (RBC) [Entitic mass ]on 08-09-2023 MCH (RBC) [Entitic mass] 28.9 pg 25.9-34.0 [facility] MCHC Auto (RBC) [Mass/Vol]on 08-09-2023 MCHC (RBC) [Mass/Vol] 32.8 g/dL 29.9-35.2 [facility] MCV Auto (RBC) [Entitic vol] on 08-09-2023 MCV (RBC) [Entitic vol] 88.2 fL 80.0-94.0 [facility] Monocytes Auto (Bld) [#/Vol] on 08-09-2023 Monocytes (Bld) [#/Vol] 0.8 10 3/uL 0.3-0.8 [facility] Monocytes/100 WBC Auto (Bld) on 08-09-2023 Monocytes/100 WBC (Bld) 11.1 % 1.7-12.0 [facility] Neutrophils Auto (Bld) [#/Vo l]on 08-09-2023 Neutrophils (Bld) [#/Vol] 4.6 10 3/uL 1.4-6.5 [facility] Neutrophils/100 WBC Auto (Bl d)on 08-09-2023 Neutrophils/100 WBC (Bld) 67.6 % 43.0-75.0 [facility] No Panel Informationon 08-08 Eosinophils # (Auto) 0.2 10 3/uL 0.0-0.7 [facility] Immature Granulocyte # (Auto) 0.02 10 3/uL 0.00-0.03 [facility] Platelet mean volume Auto (B ld) [Entitic vol]on 08-09-2023 Platelet mean volume (Bld) [Entitic vol] 8.1 fL 9.5-13.5 [facility] Platelets Auto (Bld) [#/Vol] on 08-09-2023 Platelets (Bld) [#/Vol] 257 10 3/uL 150-450 [facility] RBC Auto (Bld) [#/Vol]on RBC (Bld) [#/Vol] 4.84 10 6/uL 4.70-6.10 [facility] Serum or plasma albumin/glob ulin mass ratioon 08-09-2023 Albumin/Globulin [Mass ratio] 1.1 {ratio} [facility] Serum or plasma anion gap de terminationon 08-09-2023 Anion gap [Moles/Vol] 13.3 mmol/L [facility] CREATININEon 08-17-2022 Creatinine [Mass/Vol] 1.59 mg/dL Critically high 0.70-1.30 [facility] Comment on above: Performed By: #### C DIANELYS #### [facility] [address] [address] [address] Keanu Shafer EGFR-AF SUDANESE 54 mL/min/1.73m2 Critically low >=60 [facility] Comment on above: Performed By: #### C DIANELYS #### [facility] [address] [address] [address] Keanu Shafer EGFR-NON AF SUDANESE 44 mL/min/1.73m2 Critically low >=60 [facility] Comment on above: Performed By: #### C DIANELYS #### [facility] [address] ABD/PELV W CONon [...] by: ANSHUL AMADOR Date: 2022-08-17 08:53 Normal [facility] Basic Metabolic Panelon 03-1 Calcium [Mass/Vol] 9.0479662 mg/dL 8.5-10 .1 mg/dL [employer] Other CO2 [Moles/Vol] 28.68253185 mmol/L 21.0-3 2.0 mmol/L [employer] Other Creatinine [Mass/Vol] 1.68471178 mg/dL Critically high 0.70-1.30 mg/dL [employer] Other Potassium [Moles/Vol] 4.13563594 mmol/L 3.5-5.1 mmol/L [employer] Other Urea nitrogen [Mass/Vol] 21.8446682 mg/dL Critically high 7.0-18.0 mg/dL [employer] Other Basic Metabolic Panel see note [employer] Other Basic Metabolic Panel 144 mmol/L 136-145 mmol/L [employer] Other Basic Metabolic Panel 99 mg/dL 74-106 mg/dL [employer] Other Basic Metabolic Panel 55 mL/min/1.73m2 Critically low >=60 mL/min/1.73m2 [employer] Other Basic Metabolic Panel >60 mL/min/1.73m2 >=60 mL/min/1.73m2 [employer] Other Anion gap [Moles/Vol] 11.0 mmol/L Normal [employer] Other Comment on above: Performed By: #### B MP #### [facility] [address] [place] [address] Dr. Keanu Shafer Chloride [Moles/Vol] 109 mmol/L Critically high 98-107 [employer] Other Comment on above: Performed By: #### B MP #### [facility] [address] [place] [address] Dr. Keanu Shaefr Urea nitrogen/Creatinine [Mass ratio] 16.0 mg/mg Normal [facility] [employer] Other Comment on above: Performed By: #### B MP #### [facility] [address] [address] [address] Keanu Shafer PROF CHEM 8 (BAS METB)on Calcium [Mass/Vol] 9.0 mg/dL Normal 8.5-10.1 [facility] Comment on above: Performed By: #### B MP #### [facility] [address] [place] [address] Dr. Keanu Shafer CO2 [Moles/Vol] 28.3 mmol/L Normal 21.0-32.0 [facility] Comment on above: Performed By: #### B MP #### [facility] [address] [address] [address] Keanu Shafer Creatinine [Mass/Vol] 1.31 mg/dL Critically high 0.70-1.30 [facility] Comment on above: Performed By: #### B MP #### [facility] [address] [address] [address] Keanu Shafer EGFR-AF SUDANESE >60 Normal >=60 [facility] Comment on above: Performed By: #### B MP #### [facility] [address] [address] [address] Keanu Shafer EGFR-NON AF SUDANESE 55 mL/min/1.73m2 Critically low >=60 [facility] Comment on above: Performed By: #### B MP #### [facility] [address] [address] [address] Keanu Shafer Glucose [Mass/Vol] 99 mg/dL Normal 74-106 [facility] Comment on above: Performed By: #### B MP #### [facility] [address] [address] [address] Keanu Shafer Potassium [Moles/Vol] 4.3 mmol/L Normal 3.5-5.1 [facility] Comment on above: Performed By: #### B MP #### [facility] [address] [place] [address] Dr. Keanu Shafer Sodium [Moles/Vol] 144 mmol/L Normal 136-145 [facility] Comment on above: Performed By: #### B MP #### [facility] [address] [address] [address] Keanu Shafer Urea nitrogen [Mass/Vol] 21.0 mg/dL Critically high 7.0-18.0 [facility] Comment on above: Performed By: #### B MP #### [facility] [address] [place] [address] Dr. Keanu Shafer CBC AUTO DIFFon 01-19-2022 BASO # 0.0 103/ul Normal 0.0-0.1 [facility] Comment on above: Performed By: #### C BC #### [facility] [address] [place] [address] Dr. Keanu Shafer Basophils/100 WBC (Bld) 0.3 % Normal 0.2-2.0 [facility] Comment on above: Performed By: #### C BC #### [facility] [address] [place] [address] Dr. Keanu Shafer EO # 0.2 103/ul Normal 0.0-0.7 [facility] Comment on above: Performed By: #### C BC #### [facility] [address] [place] [address] Dr. Keanu Shafer Eosinophils/100 WBC (Bld) 2.4 % Normal 0.9-7.0 [facility] Comment on above: Performed By: #### C BC #### [facility] [address] [place] [address] Dr. Keanu Shafer Erythrocyte distribution width (RBC) [Ratio] 13.2 % Normal 11.0-15.0 [facility] Comment on above: Performed By: #### C BC #### [facility] [address] [place] [address] Dr. Keanu Shafer Hematocrit (Bld) [Volume fraction] 42.1 % Normal 42.0-54.0 [facility] Comment on above: Performed By: #### C BC #### [facility] [address] [place] [address] Dr. Keanu Shafer Hemoglobin (Bld) [Mass/Vol] 14.2 g/dL Normal 14.0-18.0 [facility] Comment on above: Performed By: #### C BC #### [facility] [address] [place] [address] Dr. Keanu Shafer IG # 0.02 10e3/ul Normal 0.00-0.03 [facility] Comment on above: Performed By: #### C BC #### [facility] [address] [place] [address] Dr. Keanu Shafer IG % 0.3 % Normal 0.0-0.5 [facility] Comment on above: Performed By: #### C BC #### [facility] [address] [place] [address] Dr. Keanu Shafer LYMPH # 1.0 103/ul Critically low 1.2-3.8 [facility] Comment on above: Performed By: #### C BC #### [facility] [address] [place] [address] Dr. Keanu Shafer Lymphocytes/100 WBC (Bld) 16.0 % Critically low 20.5-60.0 [facility] Comment on above: Performed By: #### C BC #### [facility] [address] [place] [address] Dr. Keanu Shafer MANUAL DIFF REQ NO Normal [facility] Comment on above: Performed By: #### C BC #### [facility] [address] [place] [address] Dr. Keanu Shafer MCH (RBC) [Entitic mass] 29.2 pg Normal 25.9-34.0 [facility] Comment on above: Performed By: #### C BC #### [facility] [address] [place] [address] Dr. Keanu Shafer MCHC (RBC) [Mass/Vol] 33.7 g/dL Normal 29.9-35.2 [facility] Comment on above: Performed By: #### C BC #### [facility] [address] [place] [address] Dr. Keanu Shafer MCV (RBC) [Entitic vol] 86.6 fL Normal 80.0-94.0 [facility] Comment on above: Performed By: #### C BC #### [facility] [address] [place] [address] Dr. Keanu Shafer MONO # 0.6 103/ul Normal 0.3-0.8 [facility] Comment on above: Performed By: #### C BC #### [facility] [address] [place] [address] Dr. Keanu Shafer Monocytes/100 WBC (Bld) 9.2 % Normal 1.7-12.0 [facility] Comment on above: Performed By: #### C BC #### [facility] [address] [place] [address] Dr. Keanu Shafer NEUT # 4.5 103/ul Normal 1.4-6.5 [facility] Comment on above: Performed By: #### C BC #### [facility] [address] [place] [address] Dr. Keanu Shafer Neutrophils/100 WBC (Bld) 71.8 % Normal 43.0-75.0 [facility] Comment on above: Performed By: #### C BC #### [facility] [address] [place] [address] Dr. Keanu Shafer Platelet mean volume (Bld) [Entitic vol] 7.8 fL Critically low 9.5-13.5 [facility] Comment on above: Performed By: #### C BC #### [facility] [address] [place] [address] Dr. Keanu Shafer PLT 233 103/ul Normal 150-450 [facility] Comment on above: Performed By: #### C BC #### [facility] [address] [place] [address] Dr. Keanu Shafer RBC 4.86 106/ul Normal 4.70-6.10 [facility] Comment on above: Performed By: #### C BC #### [facility] [address] [place] [address] Dr. Keanu Shafer WBC 6.2 103/ul Normal 4.0-11.0 [facility] Comment on above: Performed By: #### C BC #### [facility] [address] [place] [address] Dr. Keanu Shafer LIPID PROFILEon 01-19-2022 CHOL-HDL RATIO NORM SEE BELOW Normal [facility] Comment on above: Result Comment: 3.3 - 4.4 LOW RISK 4.4 - 7.1 AVERAGE RISK 7.1 - 11.0 MODERATE RISK >11.0 HIGH RISK Performed By: #### C MP, LIPID #### [facility] [address] [place] [address] Dr. Keanu Shafer Cholesterol [Mass/Vol] 222 mg/dL Critically high <=200 [facility] Comment on above: Performed By: #### C MP, LIPID #### [facility] [address] [address] [address] Keanu Shafer Cholesterol in HDL [Mass/Vol] 40 mg/dL Normal 40-60 [facility] Comment on above: Performed By: #### C MP, LIPID #### [facility] [address] [address] [address] Keanu Shafer Cholesterol in LDL [Mass/Vol] 160.6 mg/dL Normal [facility] Comment on above: Performed By: #### C MP, LIPID #### [facility] [address] [place] [address] Dr. Keanu Shafer Cholesterol.total/Ch olesterol in HDL [Mass ratio] 5.6 {ratio} Normal [facility] Comment on above: Performed By: #### C MP, LIPID #### [facility] [address] [place] [address] Dr. Keanu Shafer HDL NORMAL > or = 60 mg/dl - LOW CARDIOVASCULAR RISK <40 mg/dl - HIGH CARDIOVASCULAR RISK Normal [facility] Comment on above: Performed By: #### C MP, LIPID #### [facility] [address] [place] [address] Dr. Keanu Shafer LDL CALC NORMAL SEE BELOW Normal [facility] Comment on above: Result Comment: <100 mg/dl OPTIMAL 100 - 129 mg/dl NEAR OR ABOVE OPTIMAL 130 - 159 mg/dl BORDERLINE HIGH 160 - 189 mg/dl HIGH >190 mg/dl VERY HIGH Performed By: #### C MP, LIPID #### [facility] [address] [place] [address] Dr. Keanu Shafer Triglyceride [Mass/Vol] 107 mg/dL Normal <=150 [facility] Comment on above: Performed By: #### C MP, LIPID #### [facility] [address] [address] [address] Keanu Shafer VLDL CALC 21.4 mg/dL Normal [facility] Comment on above: Performed By: #### C MP, LIPID #### [facility] [address] [place] [address] Dr. Keanu Shafer PROF 14(COMP METB)on 022 Albumin [Mass/Vol] 3.9 g/dL Normal 3.4-5.0 [facility] Comment on above: Performed By: #### C MP, LIPID #### [facility] [address] [place] [address] Dr. Keanu Shafer Albumin/Globulin [Mass ratio] 1.3 {ratio} Normal [facility] Comment on above: Performed By: #### C MP, LIPID #### [facility] [address] [address] [address] Keanu Shafer ALP [Catalytic activity/Vol] 55 U/L Normal 46-116 [facility] Comment on above: Performed By: #### C MP, LIPID #### [facility] [address] [place] [address] Dr. Keanu Shafer ALT [Catalytic activity/Vol] 25 U/L Normal 16-63 [facility] Comment on above: Performed By: #### C MP, LIPID #### [facility] [address] [place] [address] Dr. Keanu Shafer Anion gap [Moles/Vol] 8.8 mmol/L Normal [facility] Comment on above: Performed By: #### C MP, LIPID #### [facility] [address] [place] [address] Dr. Keanu Shafer AST [Catalytic activity/Vol] 15 U/L Normal 15-37 [facility] [facility] Comment on above: Performed By: #### C MP, LIPID #### [facility] [address] [place] [address] Dr. Keanu Shafer Bilirubin [Mass/Vol] 0.7 mg/dL Normal 0.2-1.0 [facility] Comment on above: Performed By: #### C MP, LIPID #### [facility] [address] [address] [address] Keanu Shafer Calcium [Mass/Vol] 8.7 mg/dL Normal 8.5-10.1 [facility] Comment on above: Performed By: #### C MP, LIPID #### [facility] [address] [address] [address] Keanu Shafer Chloride [Moles/Vol] 106 mmol/L Normal 98-107 [facility] Comment on above: Performed By: #### C MP, LIPID #### [facility] [address] [address] [address] Keanu Shafer CO2 [Moles/Vol] 28.4 mmol/L Normal 21.0-32.0 [facility] Comment on above: Performed By: #### C MP, LIPID #### [facility] [address] [address] [address] Keanu Shafer Creatinine [Mass/Vol] 1.25 mg/dL Normal 0.70-1.30 [facility] Comment on above: Performed By: #### C MP, LIPID #### [facility] [address] [address] [address] Keanu Shafer EGFR-AF SUDANESE >60 Normal >=60 [facility] Comment on above: Performed By: #### C MP, LIPID #### [facility] [address] [address] [address] Keanu Shafer EGFR-NON AF SUDANESE 59 mL/min/1.73m2 Critically low >=60 [facility] Comment on above: Performed By: #### C MP, LIPID #### [facility] [address] [address] [address] Keanu Shafer Globulin (S) [Mass/Vol] 3.1 g/dL Normal [facility] Comment on above: Performed By: #### C MP, LIPID #### [facility] [address] [address] [address] Keanu Shafer Glucose [Mass/Vol] 99 mg/dL Normal 74-106 [facility] Comment on above: Performed By: #### C MP, LIPID #### [facility] [address] [address] [address] Keanu Shafer Potassium [Moles/Vol] 4.2 mmol/L Normal 3.5-5.1 [facility] Comment on above: Performed By: #### C MP, LIPID #### [facility] [address] [address] [address] Keanu Shafer Protein [Mass/Vol] 7.0 g/dL Normal 6.4-8.2 [facility] Comment on above: Performed By: #### C MP, LIPID #### [facility] [address] [address] [address] Keanu Shafer Sodium [Moles/Vol] 139 mmol/L Normal 136-145 [facility] Comment on above: Performed By: #### C MP, LIPID #### [facility] [address] [address] [address] Keanu Shafer Urea nitrogen [Mass/Vol] 18.0 mg/dL Normal 7.0-18.0 [facility] Comment on above: Performed By: #### C MP, LIPID #### [facility] [address] [address] [address] Keanu Shafer Urea nitrogen/Creatinine [Mass ratio] 14.4 mg/mg Normal [facility] Comment on above: Performed By: #### C MP, LIPID #### [facility] [address] [address] [address] Keanu Shafer CBC With Platelet and Differ entialon 09-24-2021 Basophils (Bld) [#/Vol] 0.0 10*3/uL Normal 0.0-0.2 [facility] Comment on above: Performed By: #### C BCWD #### [facility] [address] [place] [address] Basophils/100 WBC (Bld) 0.3 % Normal [facility] Comment on above: Performed By: #### C BCWD #### [facility] [address] [place] [address] Eosinophils (Bld) [#/Vol] 0.1 10*3/uL Normal 0.0-0.7 [facility] Comment on above: Performed By: #### C BCWD #### [facility] [address] [place] [address] Eosinophils/100 WBC (Bld) 0.9 % Normal [facility] Comment on above: Performed By: #### C BCWD #### [facility] [address] [place] [address] Erythrocyte distribution width (RBC) [Ratio] 13.9 % Normal 11.5-14.5 [facility] Comment on above: Performed By: #### C BCWD #### [facility] [address] [place] [address] Hematocrit (Bld) [Volume fraction] 42.6 % Normal 42.0-52.0 [facility] Comment on above: Performed By: #### C BCWD #### [facility] [address] [place] [address] Hemoglobin (Bld) [Mass/Vol] 14.2 g/dL Normal 14.0-18.0 [facility] Comment on above: Performed By: #### C BCWD #### [facility] [address] [place] [address] Lymphocytes (Bld) [#/Vol] 0.9 10*3/uL Low 1.0-4.8 [facility] Comment on above: Performed By: #### C BCWD #### [facility] [address] [place] [address] Lymphocytes/100 WBC (Bld) 8.1 % Normal [facility] Comment on above: Performed By: #### C BCWD #### [facility] [address] [place] [address] MCH (RBC) [Entitic mass] 28.9 pg Normal 27.0-31.3 [facility] Comment on above: Performed By: #### C BCWD #### [facility] [address] [place] [address] MCHC 33.3 % Normal 33.0-37.0 [facility] Comment on above: Performed By: #### C BCWD #### [facility] [address] [place] [address] MCV (RBC) [Entitic vol] 86.8 fL Normal 80.0-100.0 [facility] Comment on above: Performed By: #### C BCWD #### [facility] [address] [place] [address] Monocytes (Bld) [#/Vol] 0.8 10*3/uL Normal 0.2-0.8 [facility] Comment on above: Performed By: #### C BCWD #### [facility] [address] [place] [address] Monocytes/100 WBC (Bld) 7.4 % Normal [facility] Comment on above: Performed By: #### C BCWD #### [facility] [address] [place] [address] Neutrophils (Bld) [#/Vol] 9.5 10*3/uL Critically high 1.4-6.5 [facility] Comment on above: Performed By: #### C BCWD #### [facility] [address] [place] [address] Neutrophils/100 WBC (Bld) 83.3 % Normal [facility] Comment on above: Performed By: #### C BCWD #### [facility] [address] [place] [address] Platelets (Bld) [#/Vol] 289 10*3/uL Normal 130-400 [facility] Comment on above: Performed By: #### C BCWD #### [facility] [address] [place] [address] RBC (Bld) [#/Vol] 4.90 10*6/uL Normal 4.70-6.10 [facility] Comment on above: Performed By: #### C BCWD #### [facility] [address] [place] [address] WBC (Bld) [#/Vol] 11.4 10*3/uL Critically high 4.8-10.8 [facility] Comment on above: Performed By: #### C BCWD #### [facility] [address] [place] [address] CBC with Auto Differentialon 09-24-2021 Basophils (Bld) [#/Vol] 0.0 10*3/uL 0.0 - 0.2 K/uL [facility] Basophils/100 WBC (Bld) 0.3 % [facility] Eosinophils (Bld) [#/Vol] 0.1 10*3/uL 0.0 - 0.7 K/uL [facility] Eosinophils/100 WBC (Bld) 0.9 % [facility] Hematocrit (Bld) [Volume fraction] 42.6 % 42.0 - 52.0 % [facility] Hemoglobin.gastroint estinal spec 1 Ql (Stl) 14.2 g/dL 14.0 - 18.0 g/dL [facility] Interpretation and review of laboratory results Abnormal [facility] Lymphocytes (Bld) [#/Vol] 0.9 10*3/uL Low 1.0 - 4.8 K/uL [facility] Lymphocytes/100 WBC (Bld) 8.1 % [facility] MCH (RBC) [Entitic mass] 28.9 pg 27.0 - 31.3 pg [facility] MCHC (RBC) [Mass/Vol] 33.3 % 33.0 - 37.0 % [facility] MCV (RBC) [Entitic vol] 86.8 fL 80.0 - 100.0 fL [facility] Monocytes (Bld) [#/Vol] 0.8 10*3/uL 0.2 - 0.8 K/uL [facility] Monocytes/100 WBC (Bld) 7.4 % [facility] Neutrophils Absolute 9.5 K/uL High 1.4 - 6 .5 K/uL [facility] Neutrophils/100 WBC (Bld) 83.3 % [facility] Platelet distribution width (Bld) [Ratio] 13.9 % 11.5 - 14.5 % [facility] Platelets (Bld) [#/Vol] 289 10*3/uL 130 - 400 K/uL [facility] RBC (Bld) [#/Vol] 4.90 10*6/uL [facility] WBC (Bld) [#/Vol] 11.4 10*3/uL High 4.8 - 10.8 K/uL [facility] Comprehensive Metabolic Pane erasmo 09-24-2021 Albumin [Mass/Vol] 4.3 g/dL Normal 3.5-4.6 [facility] Comment on above: Performed By: #### C MP #### [facility] [address] [place] [address] ALP [Catalytic activity/Vol] 68 U/L Normal 35-104 [facility] Comment on above: Performed By: #### C MP #### [facility] [address] [place] [address] ALT [Catalytic activity/Vol] 14 U/L Normal 0-41 [facility] Comment on above: Performed By: #### C MP #### [facility] [address] [place] [address] Anion gap [Moles/Vol] 11 mmol/L Normal 9-15 [facility] Comment on above: Performed By: #### C MP #### [facility] [address] [place] [address] AST [Catalytic activity/Vol] 14 U/L Normal 0-40 [facility] Comment on above: Result Comment: Spec imen hemolysis has exceeded the interference as defined by Ayla. Value may be falsely increased. Suggest recollection if clinically indicated. Performed By: #### C MP #### [facility] [address] [place] [address] Bilirubin [Mass/Vol] 0.3 mg/dL Normal 0.2-0.7 [facility] Comment on above: Performed By: #### C MP #### [facility] [address] [place] [address] Calcium [Mass/Vol] 9.0 mg/dL Normal 8.5-9.9 [facility] Comment on above: Performed By: #### C MP #### [facility] [address] [place] [address] Chloride [Moles/Vol] 102 mmol/L Normal 95-107 [facility] Comment on above: Performed By: #### C MP #### [facility] [address] [place] [address] CO2 [Moles/Vol] 27 mmol/L Normal 20-31 [facility] Comment on above: Performed By: #### C MP #### [facility] [address] [place] [address] Creatinine [Mass/Vol] 1.27 mg/dL Critically high 0.70-1.20 [facility] Comment on above: Performed By: #### C MP #### [facility] [address] [place] [address] GFR 57.5 Low >60 [facility] Comment on above: Result Comment: >60 mL/min/1.73m2 EGFR, calc. for ages 18 and older using the MDRD formula (not corrected for weight), is valid for stable renal function. Performed By: #### C MP #### [facility] [address] [place] [address] GFR/1.73 sq M.predicted among blacks MDRD (S/P/Bld) [Vol rate/Area] mL/min/{1.73_m2} Normal >60 [facility] Comment on above: Result Comment: >60 mL/min/1.73m2 EGFR, calc. for ages 18 and older using the MDRD formula (not corrected for weight), is valid for stable renal function. Performed By: #### C MP #### [facility] [address] [place] [address] Globulin (S) [Mass/Vol] 2.9 g/dL Normal 2.3-3.5 [facility] Comment on above: Performed By: #### C MP #### [facility] [address] [place] [address] Glucose [Mass/Vol] 114 mg/dL Critically high 70-99 [facility] Comment on above: Performed By: #### C MP #### [facility] [address] [place] [address] Potassium [Moles/Vol] 4.2 mmol/L Normal 3.4-4.9 [facility] Comment on above: Performed By: #### C MP #### [facility] [address] [place] [address] Protein [Mass/Vol] 7.2 g/dL Normal 6.3-8.0 [facility] Comment on above: Performed By: #### C MP #### [facility] [address] [place] [address] Sodium [Moles/Vol] 140 mmol/L Normal 135-144 [facility] Comment on above: Performed By: #### C MP #### [facility] [address] [place] [address] Urea nitrogen [Mass/Vol] 18 mg/dL Normal 8-23 [facility] Comment on above: Performed By: #### C MP #### [facility] [address] [place] [address] Albumin [Mass/Vol] 4.3 g/dL 3.5 - 4.6 g/dL [facility] ALP (Bld) [Catalytic activity/Vol] 68 U/L 35 - 104 U/L [facility] ALT [Catalytic activity/Vol] 14 U/L 0 - 41 U/L [facility] Anion gap [Moles/Vol] 11 mmol/L [facility] AST [Catalytic activity/Vol] 14 U/L 0 - 40 U/L [facility] Comment on above: Specimen hemolysis h as exceeded the interference as defined by Ayla. Value may be falsely increased. Suggest recollection if clinically indicated. Bilirubin [Mass/Vol] 0.3 mg/dL 0.2 - 0 .7 mg/dL [facility] Calcium [Mass/Vol] 9.0 mg/dL 8.5 - 9.9 mg/dL [facility] Chloride [Moles/Vol] 102 mmol/L [facility] CO2 [Moles/Vol] 27 mmol/L [facility] Creatinine [Mass/Vol] 1.27 mg/dL High 0.70 - 1.20 mg/dL [facility] Free PSA/Total PSA [Mass fraction] 7.2 g/dL 6.3 - 8.0 g/dL [facility] [email or web address] GFR >60.0 >60 [facility] Comment on above: >60 mL/min/1.73m2 EG FR, calc. for ages 18 and older using the MDRD formula (not corrected for weight), is valid for stable renal function. GFR Non- 57.5 Low >60 [facility] Comment on above: >60 mL/min/1.73m2 EG FR, calc. for ages 18 and older using the MDRD formula (not corrected for weight), is valid for stable renal function. Globulin (S) [Mass/Vol] 2.9 g/dL 2.3 - 3.5 g/dL [facility] Glucose [Mass/Vol] 114 mg/dL High 70 - 99 mg/dL [facility] Interpretation and review of laboratory results Abnormal [facility] Potassium [Moles/Vol] 4.2 mmol/L [facility] Sodium [Moles/Vol] 140 mmol/L [facility] Urea nitrogen (BldV) [Mass/Vol] 18 [...] femoral, femoral and popliteal veins was performed. Rutledeg scale with compression maneuvers of the peroneal [...] Jamie Thornton MD 09/24/21 Final result Normal [facility] NEGATIVE STUDY FOR ACUTE PROXIMAL DVT IN THE LEFT LOWER EXTREMITY. NEGATIVE STUDY FOR ACUTE CALF DVT IN THE LEFT LOWER EXTREMITY. NEGATIVE STUDY FOR SUPERFICIAL THROMBOPHLEBITIS IN THE LEFT LOWER EXTREMITY [facility] LEFT LOWER EXTREMITY DEEP VENOUS ULTRASOUND [...] in the proximal calf, not otherwise assessed. [facility] Jamie Thornton MD - 09/24/2021 LEFT [...] SUPERFICIAL THROMBOPHLEBITIS IN THE LEFT LOWER EXTREMITY [employer] Phone: Radiology Study observation (narrative) [employer] Phone: US DUP LOWER EXTREMITY LEFT VENOrdered By: Jamie Thornton on 09-24-2021 [employer] Phone: Coding Summary.on 01-21-2017 Coding Summary. CODING DATE: 01/21/2017 FINAL [facility] STATUS: Home (Routine DC) PAYOR: Medical Felicity APC DESCRIPTION 5372 Level 2 Urology and [...] Arriaza Date Saved: 01/21/2017 08:35 pm Normal [facility] Main OR Intraoperative Recor hali 01-17-2017 Main OR Intraoperative Record IntraOp Document Type FTURO Summary Primary Physician: Royer Daniels Jr., MD Finalized Date/Time: 01/17/17 15:22:06 Pt. Name: BENNIEASHWIN/Sex: 1960 Male Med Rec #: [id number] Physician: Royer Daniels Jr., MD Financial #: [id number] Pt. 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 Name: ASHWIN AVERY /Sex: 1960 Male Med Rec #: [id number] Physician: Royer Daniels Jr., MD Financial #: [id number] Pt. Type: O Room/Bed: / Admit/Disch: 01/17/17 [...] of Pain: No Comment: Skin Integrity Intact, [place], Warm, & Dry Vitals - EU Blood Pressure 132/80 Pulse 88 bpm Respirations 16 br/min SPO2 RN Reviewed Yes Last Modified By: ARIELLE Alejandro RN, Ruthann 01/17/17 15:14:11 Finalized By: ARIELLE Alejandro RN, Ruthann Document Signatures Signed By: Kamla Spears LPN 01/17/17 14:38 ARIELLE Alejandro RN, Ruthann 01/17/17 15:13 ARIELLE Alejandro RN, Ruthann 01/17/17 15:14 Normal [facility] Operative Reporton 7 Operative Report Patient: [...] with antibiotic coverage, Follow up arranged. Normal [facility] Comment on above: Result Comment: Elec tronically Signed By: Jeremiah Moore MD, Royer Stuart\.br\Date and Time Signed: 01/17/17 15:16 EDT Vital Signs Date Time Vital Sign Value Performing Clinician Facility 08-21-2024 11:47-0400 Body height 177.8 cm [facility] 08-21-2024 11:47-0400 Body mass index (BMI) [Ratio] 29.1 kg/m2 [facility] 08-21-2024 11:47-0400 Body weight 92.13 kg [facility] 08-21-2024 11:47-0400 Diastolic blood pressure 77 mm[Hg] [facility] 08-21-2024 11:47-0400 Heart rate 67 /min [facility] 08-21-2024 11:47-0400 Respiratory rate 12 /min [facility] 08-21-2024 11:47-0400 Systolic blood pressure 124 mm[Hg] [facility] 05-08-2024 10:12-0500 Body height 177.8 cm [facility] 05-08-2024 10:12-0500 Body mass index (BMI) [Ratio] 30 kg/m2 [facility] 05-08-2024 10:12-0500 Body weight 95.02 kg [facility] 05-08-2024 10:12-0500 Diastolic blood pressure 73 mm[Hg] [facility] 05-08-2024 10:12-0500 Heart rate 74 /min [facility] 05-08-2024 10:12-0500 Respiratory rate 12 /min [facility] 05-08-2024 10:12-0500 Systolic blood pressure 117 mm[Hg] [facility] 03-30-2024 15:52-0500 Body height 177.8 cm Marcelo Fosterreba DO Work Phone: [facility] 03-30-2024 15:52-0500 Body mass index (BMI) [Ratio] 28.7 kg/m2 Marcelo JuneeMazeMe DO Work Phone: [facility] 03-30-2024 15:52-0500 Body weight 90.72 kg Marcelo Ma DO Work Phone: [facility] 01-31-2024 08:36-0400 Body height 177.8 cm [facility] 01-31-2024 08:36-0400 Body mass index (BMI) [Ratio] 29.4 kg/m2 [facility] 01-31-2024 08:36-0400 Body weight 92.98 kg [facility] 01-31-2024 08:36-0400 Diastolic blood pressure 77 mm[Hg] [facility] 01-31-2024 08:36-0400 Heart rate 79 /min [facility] 01-31-2024 08:36-0400 Respiratory rate 12 /min [facility] 01-31-2024 08:36-0400 Systolic blood pressure 134 mm[Hg] [facility] 12-13-2023 11:57-0400 Body height 177.8 cm [facility] 12-13-2023 11:57-0400 Body mass index (BMI) [Ratio] 29.1 kg/m2 [facility] 12-13-2023 11:57-0400 Body weight 92.07 kg [facility] 12-13-2023 11:57-0400 Diastolic blood pressure 73 mm[Hg] [facility] 12-13-2023 11:57-0400 Heart rate 68 /min [facility] 12-13-2023 11:57-0400 Respiratory rate 12 /min [facility] 12-13-2023 11:57-0400 Systolic blood pressure 128 mm[Hg] [facility] 2023 15:09-0400 Body height 177.8 cm [facility] 2023 15:09-0400 Body mass index (BMI) [Ratio] 29 kg/m2 [facility] 2023 15:09-0400 Body weight 91.85 kg [facility] 2023 15:09-0400 Diastolic blood pressure 70 mm[Hg] [facility] 2023 15:09-0400 Heart rate 86 /min [facility] 2023 15:09-0400 Respiratory rate 12 /min [facility] 2023 15:09-0400 Systolic blood pressure 112 mm[Hg] [facility] 07-19-2023 13:32-0400 Body height 177.8 cm [facility] 07-19-2023 13:32-0400 Body mass index (BMI) [Ratio] 30 kg/m2 [facility] 07-19-2023 13:32-0400 Body weight 94.97 kg [facility] 07-19-2023 13:32-0400 Diastolic blood pressure 77 mm[Hg] [facility] 07-19-2023 13:32-0400 Heart rate 71 /min [facility] 07-19-2023 13:32-0400 Systolic blood pressure 128 mm[Hg] [facility] 08-10-2022 10:00-0400 Body height 177.8 cm Marcelo Ball Other [employer] Other 08-10-2022 10:00-0400 Body mass index (BMI) [Ratio] 28.15 kg/m2 Marcelo Ball Other [employer] Other 08-10-2022 10:00-0400 Body weight 89 kg Marcelo Ball Other [employer] Other 08-10-2022 10:00-0400 Diastolic blood pressure 80 mm[Hg] Marcelo Ball Other [employer] Other 08-10-2022 10:00-0400 Respiratory rate 12 /min Marcelo Ball Other [employer] Other 08-10-2022 10:00-0400 Systolic blood pressure 143 mm[Hg] Marcelo Ball Other [employer] Other 07-13-2022 11:00-0400 Body height 177.8 cm Marcelo Ball Other [employer] Other 07-13-2022 11:00-0400 Body mass index (BMI) [Ratio] 28.64 kg/m2 Marcelo Ball Other [employer] Other 07-13-2022 11:00-0400 Body weight 90.54 kg Marcelo Ball Other [employer] Other 07-13-2022 11:00-0400 Diastolic blood pressure 85 mm[Hg] Marcelo Ball Other [employer] Other 07-13-2022 11:00-0400 Respiratory rate 16 /min Marcelo Ball Other [employer] Other 07-13-2022 11:00-0400 Systolic blood pressure 141 mm[Hg] Marcelo Ball Other [employer] Other 09-24-2021 14:07-0400 Body height 177.8 cm Marcelo Airware DO Work Phone: [employer] 09-24-2021 14:07-0400 Body mass index (BMI) [Ratio] 27.98 kg/m2 Marcelo Ball DO Work Phone: [facility] [employer] 09-24-2021 14:07-0400 Body temperature 97.7 [degF] Marcelo Airware DO Work Phone: [facility] [employer] 09-24-2021 14:07-0400 Body weight 88.45 kg Marcelo Airware DO Work Phone: [facility] [employer] 09-24-2021 14:07-0400 Diastolic blood pressure 83 mm[Hg] Marcelo Airware DO Work Phone: [employer] 09-24-2021 14:07-0400 Heart rate 82 /min Marceol Airware DO Work Phone: [facility] [employer] 09-24-2021 14:07-0400 Respiratory rate 18 /min Marcelo Airware DO Work Phone: [facility] [employer] 09-24-2021 14:07-0400 SaO2% (BldA) [Mass fraction] 97 % Marcelo Airware DO Work Phone: [facility] [employer] 09-24-2021 14:07-0400 Systolic blood pressure 138 mm[Hg] Marcelo Airware DO Work Phone: [facility] [employer] Encounters Encounter Date Encounter Type Care Provider Facility Start: 08-21-2024 End: 08-21-2024 ambulatory [facility] Work Phone: Start: 08-21-2024 End: 08-21-2024 Patient encounter procedure [facility] Work Phone: Start: 05-08-2024 End: 05-08-2024 ambulatory [facility] Work Phone: Start: 05-08-2024 End: 05-08-2024 Patient encounter procedure [facility] Work Phone: Start: 03-30-2024 End: 03-30-2024 [...] nodules (CMS/HCC) Start: 01-31-2024 End: 01-31-2024 ambulatory [facility] Work Phone: Start: 01-31-2024 End: 01-31-2024 Encounter for general adult medical examination without abnormal findings [facility] Start: 01-31-2024 End: 01-31-2024 Patient encounter procedure [facility] Work Phone: Start: 01-29-2024 Patient encounter status [facility] Start: 01-08-2024 Non-patient / Non-visit [facility] [place] Work Phone: Start: 12-13-2023 End: 12-13-2023 ambulatory [facility] Work Phone: Start: 12-13-2023 End: 12-13-2023 Patient encounter procedure [facility] Work Phone: Start: 2023 End: 2023 ambulatory [facility] Work Phone: Start: 2023 End: 2023 Patient encounter procedure [facility] Work Phone: Start: 10-13-2023 Non-patient / Non-visit [facility] [place] Work Phone: Start: 10-07-2023 End: 10-07-2023 ambulatory [facility] Work Phone: Start: 10-07-2023 End: 10-07-2023 Patient encounter procedure [facility] Work Phone: Start: 08-09-2023 Non-patient / Non-visit [facility] [place] Work Phone: Start: 07-19-2023 End: 07-19-2023 ambulatory [facility] Work Phone: Start: 07-19-2023 End: 07-19-2023 Patient encounter procedure [facility] Work Phone: Start: 06-07-2023 End: 06-07-2023 ambulatory Marcelo Thompson Other [employer] Other Start: 06-07-2023 Telephone encounter Marcelo Thompson [facility] Start: 03-08-2023 End: 03-08-2023 ambulatory Marcelo Jay Other [employer] Other Start: 03-08-2023 Telephone encounter Marcelo Thompson [facility] Start: 02-22-2023 End: 02-22-2023 ambulatory Marcelo Thompson Other [employer] Other Start: 02-22-2023 Telephone encounter Marcelo Thompson [facility] Start: 01-26-2023 End: 01-26-2023 ambulatory Marcelo Thompson Other [employer] Other Start: 01-26-2023 Encounter for genera l adult medical examination without abnormal findings Marcelo Thompson [facility] Start: 01-26-2023 Telephone encounter Marcelo Thompson [facility] Start: 08-17-2022 End: 08-18-[address] MARCELO THOMPSON Facility:[facility] Start: 08-15-2022 End: 08-15-2022 ambulatory Marcelo Thompson Other [employer] Other Start: 08-15-2022 Telephone encounter Marcelo Thompson [facility] Start: 08-10-2022 End: 08-10-2022 ambulatory Marcelo Thompson Other [employer] Other Start: 08-10-2022 Office outpatient vi sit 15 minutes Marcelo Thompson [facility] Start: 07-30-2022 End: 07-30-2022 ambulatory Marcelo Thompson Other [employer] Other Start: 07-30-2022 Telephone encounter Marcelo Thompson [facility] Start: 07-13-2022 Office outpatient vi sit 25 minutes Marcelo Thompson [facility] Start: 07-13-2022 End: 07-14-[address] MARCELO THOMPSON [facility] [employer] Other Start: 01-23-2022 Encounter for genera l adult medical examination without abnormal findings DR MARCELO THOMPSON [facility] Start: 01-19-2022 End: 01-20-[address] MARCELO THOMPSON Facility:[facility] Start: 01-19-2022 End: 01-20-2022 Encounter for general adult medical examination without abnormal findings DR MARCELO THOMPSON Facility:[facility] Start: 09-24-2021 End: 09-24-2021 Emergency department patient visit MARCELO THOMPSON [facility] Start: 09-24-2021 End: 09-24-2021 Emergency department patient visit Marcelo Thompson DO Work Phone: [facility] ED Comment on above: Cellulitis of left l ower extremity (Primary Dx) Start: 01-17-2017 End: 01-18-2017 Ambulatory [facility] Facility:[facility] Procedures Date Procedure Procedure Detail Performing Clinician Start: 01-19-[address] SAGASTUME IN [facility] Comment on above: Performed By: #### P [facility] #### [facility] [address] [place] [address] Dr. Keanu Shafer Start: 09-24-2021 Dup-scan xtr veins unilateral/limited study Luciano Maradiaga PA-C Work Phone: Start: 09-24-2021 Comprehensive metabo lic panel Luciano Maradiaga PA-C Work Phone: Plan of Treatment Date Care Activity Detail Author Start: 03-30-2024 End: 03-30-2024 Patient encounter procedure 03/30/2024 4:00 PM EST Office Visit [facility] [place] [address] [place] [id number] Marcelo Ma, DO [address] [place] [address] Arrived [facility] Comment on above: Arrived Start: 03-18-2024 End: 03-18-2024 Patient encounter procedure 03/18/2024 4:00 PM EST Office Visit [facility] [place] [address] [place] [id number] Marcelo Ma, DO [address] [place] [address] [facility] [place] Start: 01-31-2024 Patient referral [facility] Work Phone: Start: 12-28-2021 Influenza vaccination Flu vacc ine (Season Ended) [facility] Start: 10-20-2009 Shingles vaccine (1 of 2) Newton gles vaccine (1 of 2) [facility] Start: 10-20-2004 Screening for malign ant neoplasm of colon [facility] [email or web address] Start: 1999 Lipid panel Lipids [facility] [email or web address] Start: 1999 Prostate specific an tigen measurement Prostate Specific Antigen (PSA) Screening or Monitoring [facility] [employer] Start: 10-20-1994 Diabetes screen Diabetes screen [facility] [email or web address] Start: 10-20-1978 DTaP/Tdap/Td vaccine (1 - Tdap) DTaP/Tdap/Td vaccine (1 - Tdap) [facility] Start: 10-20-1977 Hepatitis C screening Hepatitis C sc reen [facility] Start: 10-20-1974 HIV screening HIV screen [facility] Start: 1971 Depression Screen Depression Screen [facility] Start: 10-20-1964 COVID-19 Vaccine (1) COVID-19 Vaccin e (1) [facility] Barium swallow [facility] Comprehensive metabo lic 1999 panel - Serum or Plasma [facility] metabo lic 2000 panel - Serum or Plasma [facility] MR Brain WO contrast [facility] Patient referral [facility] Work Phone: US Thyroid gland [facility] US.doppler Carotid arteries - bilateral [facility] Payers Date Payer Category Payer Private Health Insurance [employer] [id number] 2017 Unknown [id number] 1960 Unknown [id number] 1959 Unknown [id number] 1959 Unknown [id number] 1959 Unknown [id number] 1959 Unknown [id number] 1959 Unknown [id number] 1959 Unknown [id number] Self-pay Self Pay [id number] Social History Date Type Detail Facility Start: 09-24-2021 End: 07-19-2023 Tobacco smoking status [facility] Never smoked tobacco [employer] Phone: Start: 09-24-2021 Tobacco use and exposure Smokeless tobacco non-user [employer] Phone: Start: 09-24-2021 Alcohol intake Ex-drinker (finding) [employer] Phone: Start: 1960 Sex Assigned At Not on file B ON [employer] Phone: Start: 09-14-2021 End: 05-29-2022 Exposure to SARS-CoV-2 (event) Not sure [facility] [employer] Work Phone: Sex Assigned At [employer] Other Start: 1960 Sex Assigned At Male [facility] Start: 03-10-2024 Tobacco smoking status NHIS Tobacco smoking consumption unknown [facility] Start: 05-08-2024 End: 08-21-2024 Sex Male (finding) [facility] Clinical Notes 07-13-2022 to 03-30-2024 Marcelo [...] back as needed documented in this encounter [facility] 03-10-2024 History of Present illness Narrative [...] nodules need biopsied. documented in this encounter [facility] 10-07-2023 Evaluation note Diagnosis Onset Date Dysesthesia acute Elevated cholesterol acute Essential hypertension acute Renal cyst, left acute Stage 3a chronic kidney disease acute Tinea unguium acute Intermittent paresthesia of right hand and foot noneactive Essential hypertension acute Acute bronchitis due to othe r specified organisms noneactive [facility] Work Phone: [phone] 829-651803-22-2024 Evaluation note* Diagnosis Onset Date Resolution Status Elevated cholesterol acute Essential hypertension acute Renal cyst, left acute Stage 3a chronic kidney disease acute [facility] Work Phone: 1(684) 108-839911-10-2023 Evaluation note* Encounter Date Diagnosis Assessment Notes Treatment Notes Treatment Clinical Notes Feb, Hypokalemia (ICD-10 - E87.6) [employer] Other 10-27-2023 Evaluation note* Encounter Date Diagnosis Assessment Notes Treatment Notes Treatment Clinical Notes Jan, Stage 3a chronic kidney disease (ICD-10 - N18.31) [employer] Other 09-30-2023 Evaluation note* Encounter Date Diagnosis Assessment Notes Treatment Notes Treatment Clinical Notes Dec, Essential hypertension (ICD-10 - I10) Dec, Wellness examination (ICD-10 - Z00.00) [employer] Other 04-19-2023 Evaluation note* Encounter Date Diagnosis Assessment Notes Treatment Notes Treatment Clinical Notes Jul, Left lower quadrant abdominal pain (ICD-10 - R10.32) [employer] Other 04-14-2023 Evaluation note* Encounter Date Diagnosis [...] (ICD-10 - Z87.442) Push fluids, check CT [employer] Other 04-03-2023 Evaluation note* Encounter Date Diagnosis Assessment Notes Treatment Notes Treatment Clinical Notes Jul, Essential hypertension (ICD-10 - I10) [employer] Other 03-17-2023 Evaluation note* Encounter Date Diagnosis [...] of nephrolithiasis (ICD-10 - Z87.442) Push fluids [employer] Other Evaluation note* Diagnosis Cellulitis of left lower extremity- Primary Cellulitis and abscess of leg, except foot documented in this encounter [facility] Work Phone: evaluation noteNo [employer] Other Evaluation note* Diagnosis Onset Date Resolution Status Essential hypertension acute Acute bronchitis due to other specified organisms noneactive [facility] Work Phone: Evaluation note* Diagnosis Onset Date Resolution Status Essential hypertension acute Acute bronchitis due to other specified organisms noneactive Allergic rhinitis acute Post-viral cough syndrome no neactive Acute bronchitis due to other specified organisms noneactive [facility] Work Phone: Evaluation note* Diagnosis Onset Date Resolution Status Globus sensation acute Elevated cholesterol acute Essential hypertension acute Globus sensation acute Renal cyst, left acute Screening PSA (prostate specific antigen) acute Stage 3a chronic kidney disease acute Wellness examination acute Intermittent paresthesia of right hand and foot noneactive [facility] Work Phone: Evaluation note* Diagnosis Onset Date Resolution Status Globus sensation acute Elevated cholesterol acute Essential hypertension acute Globus sensation acute Screening PSA (prostate specific antigen) acute Stage 3a chronic kidney disease acute Thyroid nodule acute Wellness examination acute [facility] Work Phone: Evaluation note* Diagnosis Neck mass- Primary Swelling, mass, or lump in head and neck Multiple thyroid nodules (CMS/HCC) Nontoxic multinodular goiter documented in this encounter [facility] Healthcare[facility] note* Diagnosis Globus pharyngeus- Primary Conversion disorder documented in this encounter [facility]* Diagnosis Onset Date Resolution Status Admit Date Chronic kidney disease acute [facility] 2024 9:51am Elevated cholesterol acute [facility] 2024 9:51am Essential hypertension acute [facility] 2024 9:51am Globus sensation acute May 08, 2024 9:51am Obesity acute May 08, 2024 9:51am Thyroid nodule acute May 082024 9:51am [facility] Work Phone: Evaluation noteNo assessment information available [facility] Work Phone: History general Narrative - Reported* [...] ARM 20 18 Hospitalization History See Above [employer] Other Hospital Discharge instructions* Attachments The following attachments cannot be sent through Care Everywhere. * [facility] Hospital Discharge instructionsAmbulatory Orders* Referral to ENT Time Frame: 01/31/24, Location: None [facility] Work Phone: Summary Purpose Family History Relationship [...] disease Chief Complaint 6 month follow up [phone] URI Reason for Visit Dysesthesia Elevated cholesterol Essential hypertension Renal cyst, left Stage 3a chronic kidney disease Tinea unguium Intermittent paresthesia of right hand and foot Essential hypertension Acute bronchitis due to other specified organisms Chief Complaint [phone] URI TB ER follow up Reason for Visit Essential hypertensi on Acute bronchitis due to other specified organisms Chief Complaint [phone] URI TB ER follow up lump in [...] section and content) DATE CREATED AUTHOR 10/23/2017 [facility] DATE CREATED AUTHOR AUTHOR'S ORGANIZ ATION [facility] DATE CREATED AUTHOR AUTHOR'S ORGANIZ ATION 08/24/2022 [facility] DATE CREATED AUTHOR AUTHOR'S ORGANIZ ATION 04/01/2024 [facility] EPIC Reason for Visit [...] Attending Provider Active Start: August 09, 2023 Botany 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 Relationship Specialty Start Date End Date Marcelo Thompson DO [address] [place] [phone] PCP - General Internal Medicine 09/24/21 Team [...] January 31, 2024 End: January 31, 2024 Botany Teacher Relationship Specialty Start Date End Date Marcelo Thompson MD [address] [place] [phone] PCP - General Internal Medicine 03/10/24 Marcelo Ma DO [address] [place] [address] Otolaryngology 03/10/24 Botany Teacher Relationship Specialty Start Date End Date Marcelo Thompson MD [address] [place] [phone] PCP - General Internal Medicine 03/10/24 Marcelo Ma DO [address] [place] [address] Otolaryngology 03/10/24 Botany Teacher Relationship Specialty Start Date End Date Marcelo Thompson MD [address] [place] [address] PCP - General Internal Medicine 03/10/24 Marcelo Ma, [address] [place] [address] Otolaryngology 03/10/24 Team Status: Inactive Member Role [...] BE BASED ON THE PRIMARY CLINICAL RECORDS. [facility]. provides no warranty or guarantee of the accuracy or completeness of information in this document.
== END 2025-01-29 09:11 | disposition home or self-care (01) ==
LOC: US 09:10
PROVIDERS: PCP Internal Medicine; Visit Provider Internal Medicine
DX: E04.1 Nontoxic single thyroid nodule (principal)
CPT/HCPCS: 76536

== ENCOUNTER 2025-02-19 08:59 | Outpatient (OUT) | payer OTHER, SELFPAY ==
--- OUTSIDE RECORDS SUMMARY | 2025-02-12 07:13 | XMS_ITS | Continuity of Care Document ---
Author Organization [facility] Address [address] [place] [address] Phone Care Team Providers Care Heading Matcher And Assembler Name Role Phone Marcelo Thompson DO Primary Care Provider [phone] Marcelo Thompson DO Attending Provider Care Teams Patient Care Team Team Status: Active Member Role/Relationship Status Dates Marcelo Thompson DO Primary Care Provider Active Patient Care Team Team Status: Inactive Member Role/Relationship Status Dates Marcelo Thompson DO Primary Care Provider Active Start: February 12, 2025 End: February 12enjamyke Thompson DOAttending ProviderActiveStart: February 12, 2025 End: February 12, 2025 Chief Complaint and Reason for Visit Chief Complaint Admit Date Wellness February 12, 2025 1 0:17am Reason for Visit Admit Date Chronic kidney disease February 12 10:17am Elevated cholesterol February 12, 2025 10:17am Essential hypertension February 12 10:17am Globus sensation February 12, 2025 1 0:17am Screening PSA (prostate specific antigen ) February 12, 2025 10:17am Thyroid nodule February 12, 2025 1 0:17am Wellness examination February 12, 2025 10:17am Screening for colon cancer February 12, 2025 10:17am Allergies, Adverse Reactions, Alerts Allergen Type Severity Reaction Last Updated Verified Status ciprofloxacin Allergy Unknown Unknown Reaction Octob er 2024 10:35am Yes Active prednisone Allergy Unknown Unknown Reaction February 12, 2025 10:35am Yes Active Jklsbil-MQA-MgR Reductase Inhibitor Allergy Unknown Comment:ALL Statins February 12, 2025 10:35am Yes Active sulfadiazine Allergy Unknown Comment:Sulfa January 272024 10:35am Yes Active tamsulosin Allergy Unknown Unknown Reaction February 12, 2025 10:35am Yes Active Social History Smoking Status Status Start Date End Date Date of Observa tion Never smoked tobacco (finding) July 19, 2023 2:14pm Observation Status Observation Response Date of Response Legal Sex Male (finding) [facility] 1960 Family History Relationship Condition Age at Onset Recorded Date/T kameron father Heart disease Unknown Diabetes mellitusUnknownDementiaUnknownMalignant neoplasmUnknownmotherDeceased UnknownHypertensionUnknownHeart diseaseUnknownsisterHypertensionUnknown Problems Active Problems Problem Diagnosis/Recorded Date Onset Date Status C omments Increased prostate specific antigen (PSA) velocity February 02, 2024 7:26pm Unknown Active Upper back pain on right sideApril 2024 12:26pmUnknownActiveScreening PSA (prostate specific antigen)January 29, 2024 7:37amUnknownActivePSA: 1.64 - 12/2020, 1.68 - 12/2021, 1.54 - 12/2022, 2.85 - 01/2024, 1.6 (21.9) - 05/15/24,Neck pain on right sideMay 2024 11:09amUnknownActiveThyroid noduleAugust 2023 1:28pmUnknownActiveUS: 12mm TR3 left sided nodule - 11/2023,CT: 7mm right, 5mm left nodule - 12/2023,US: 8mm left nodule- 01/2025Globus sensationAugust 2023 12:13pmUnknownActiveElevated cholesterolMarch 2023 4:38pm UnknownActiveTIA (transient ischemic attack)July 19, 2023 2:19pmUnknownActive Wellness examinationOctober 2023 7:36amUnknownActiveChronic kidney disease May 05, 2024 10:54pmUnknownActiveDysesthesiaMarch 2023 2:15pmUnknown ActiveEssential hypertensionMarch 2023 4:38pmUnknownActiveStage 3a chronic kidney diseaseMarch 2023 4:38pmUnknownActiveCreat/GFR:1.65/42 - 01/2024, 1.50/47 - 12/2023, 1.59/44 - 09/2023, 1.59/44 - 07/2022, 1.25/59 - 12/2021, 1.21/60 - 12History of nephrolithiasisMarch 2023 4:38pmUnknownActiveTinea unguiumMet[facility] 2023 2:14pmUnknownActiveAllergic rhinitisJune 2023 10:22pmUnknownActiveRenal cyst, leftMar 2023 4:53pmUnknownActiveCT: 2.1cm cortical cyst - 07/2022ObesityJanuary 2024 11:36amUnknownActive Medications Medication Status Dose Units Route Directions Qty Days Refills S tart Date Stop Date End Date Reason(s) Instructions Adherence Ezetimibe 10 mg tablet Discontinued 0 .ROUTE.[id number] 2023 7:29amJune 2024 6:54amTAKE 1 TABLET BY MOUTH EVERY DAYOmeprazole 40 mg capsule,delayed release(DR/EC)Vieyvenptoxe27SVSO Mikbw883Mqrqrlmoc 2023 12:00amJanuary 2024 11:26am Euvnyxzxmz-Knsktzomx-Fwawovcuu 40-10-25 mg tabletDiscontinued0.ROUTE.OAEZPIW9385 February 02, 2024 7:39pmJanuary 2024 11:18amTAKE 1 TABLET BY MOUTH EVERY DAY FOR 30 DAYSOlmesartan 40 mg obqqkvAiottr91FIUUItnat381798Glpakit 2023 12:00amComplies with drug therapyAmlodipine 10 mg kmccpqZbxkcq94TZWWLqpgt986200 February 14, 2024 12:00amComplies with drug therapyHydrochlorothiazide 25 mg vrhyyhYzvciu63CHIBZbwzp184303Axxniyt 2023 12:00amComplies with drug therapyFluticasone Propionate 50 mcg/actuation spray,suspensionActive0.ROUTE .WDPAVII5323Ccmrefi 2023 1:31pmSPRAY 2 SPRAYS INTO EACH NOSTRIL ONCE DAILY Complies with drug therapyLabetalol 300 mg tabletActive0.ROUTE.OZHAWJN2800 May 28, 2024 8:08amTAKE 1 TABLET BY MOUTH TWICE A DAYComplies with drug therapyEzetimibe 10 mg tabletActive0.ROUTE.APBBWIV7254Ccxq 2024 6:54amTAKE 1 TABLET BY MOUTH EVERY DAYComplies with drug therapyLabetalol 300 mg tablet Xehcaqlboekg968AMXNEpxbo dailyMetrohealth [facility] 2023 12:00amJanuary 2024 8:08am Fluticasone Propionate 50 mcg/actuation spray,zptkuaawzlQuudrqjgflpf0KIIOW INTRANASALDaMcDowell [facility] 2023 12:00amOctober 2023 1:31pmEzetimibe 10 mg borvxiYfzahmpcbkwa95XLDAAfbqsAulvl 2023 12:00amJuly 2023 7:29am Potassium Chloride 10 mEq tablet extended dwowfcyMjiinlusgrrq73UDXNWMwvceRamyv 2023 12:00amMarch 2023 1:88jnKpecggxtgx-Barifuxao-Ghewojivh 40-10-25 mg judpxvRnarzwtikbje9YSVEKFrqgxGdarl 2023 12:00amOctober 2023 7:39pm Azithromycin 250 mg sdguegZdbnthqeorjw150OMTUDv Djudsyfm600Kdaz 2023 12:00amAugust 2023 11:50amOmeprazole 40 mg capsule,delayed release(DR/EC) Syhfje20SUHDRubwl899Yickish 2024 11:25amComplies with drug therapy Vital Signs Vital Reading Result Reference Range Collection Date/Time Height 70 [in_i] February 12, 2025 10:64lnUjaqna68.68 kgOctfleming county hospital 2024 10:37amHeart Rate69 /ivj38-714Ynbeehl 2024 10:37amRespiratory rate12 /saa56-78Wvpknha 2024 10:37amBP Vgvehkwp529 mm[Hg]100-140[facility] 2024 10:37amBP Pzchyyzjo73 mm[Hg]60-100[facility] 2024 10:37amBMI (Body Mass Index)29.0 kg/b8Cqflxyt2024 10:37am Advance Directives Advance Directive Response Recorded Date/ Time Advance Directives No May 21, 2023 4:29pm Insurance Providers Guarantor Ashwin Grewal Address [address] [place] [address]Mmbqtnc Info.Home Phone: Payer Group Member ID Coverage Type Subscriber Relationship to Subscriber Effective Date Expiration Date MMO Id: [id number] K Kryling Id: [id number] [address] [place] [address] Home Phone: Selv Encounters Encounter Location(s) Arrival/Admit Date Discharge/Departure Date Discharge/Departure Disposition Provider(s) Departed Physician/ Provider Office Visit -[facility] February 12, 2025 10:17am February 12, 2025 11:12am Discharged to home care or self care (routine discharge) Marcelo Thompson , Recent Diagnosis Onset Date Admit Date Chronic kidney disease Unknown January 272024 10:17am Elevated cholesterol Unknown January 10:17am Essential hypertension Unknown January 272024 10:17am Globus sensation Unknown February 12, 10:17am Screening PSA (prostate specific antigen) Unknow n February 12, 2025 10:17am Thyroid nodule Unknown February 12 10:17am Wellness examination Unknown January 10:17am Screening for colon cancer Unknown er 2024 10:17am Assessments Diagnosis Onset Date Resolution Status Admit Date Chronic kidney disease acuteOctober 2024 10:17amElevated cholesterolacuteFebruary 12, 2025 10:17amEssential hypertensionacuteFebruary 12, 2025 10:17amGlobus sensation acuteFebruary 12, 2025 10:17amScreening PSA (prostate specific antigen)acute February 12, 2025 10:17amThyroid noduleacuteOctober 2024 10:17amWellness examinationacuteOct2024 10:17amScreening for colon cancernoneactive February 12, 2025 10:17am Plan of Treatment Author Marcelo Thompson [facility] CenterAuthoredOctober 2024 7:23amI have instructed this patient to consume a healthy, low-fat, low-salt diet. I have also encouraged them to continue exercise with weight loss to achieve/maintain a BMI < 30. I have instructed this patient on the correct procedure for obtaining home BP measurements:? - rest for 5 minutes w/o talking. - positioned w/ feet on floor and arms supported. - average best 2/3 readings w/ goal < 135/85. - update office w/ home readings in 2 weeks. Continue Labetolol, AMlodipipine, HCTZ and Olmesartan without interruption I have instructed this patient on a low fat, high fiber diet and exercise. I have discussed the primary and secondary prevention benefits attributed to lowering LDL cholesterol. I have also discussed the medical treatment of elevated cholesterol, which is based on the 10 year ASCVD risk. Continue Zetia without interruption I instructed this patient on the benefits of adequate control of hypertension and diabetes, if appropriate. I have also instructed them to avoid use of NSAIDs due to the adverse effects on renal function. I instructed them on adequate fluid balance and to consume at least 48 oz of fluids daily. I also instructed them to monitor for an unexplained increase in weight and lower extremity edema. They have been instructed to notify the office for any changes or concerns. Creat/GFR: 1.21/60 - 03/2021, 1.25/59 - 12/2021, 1.59/44 - 07/2022, 1.59/44 - 09/2023, 1.50/47 - 12/2023, 1.65/42 - 01/2024 Counseled on GERD precautions - avoid lying flat after eating, avoid eating prior to bedtime - initiated PPI 3 wks ago w/o benefit Thyroid US and CT neck completed w/ two thyroid nodules measuring 5 and 7mm in size. MBS completed and normal. Flonase for any post nasal drainage. ENT evaluation w/o findings to explain symptoms. Improved, starting to wean use of PPI w/o exacerbation. GI if symptoms recur US: 12mm TR3 left sided nodule - 11/2023, CT: 7mm right, 5mm left nodule - 12/2023, US: 8mm left nodule - 01/2025 I have instructed this patient on the recommended lifestyle changes, which includes a low fat, high fiber diet along with a regular exercise routine. I have also reviewed the recommended age-appropriate preventive testing for this patient. I have also reviewed the recommended vaccines for their age and risk factors. I have recommended yearly PSA testing. I have informed him that the PSA can be elevated w/ cancer, infection and enlarged prostates. I have explained to the patient, that If his PSA is elevated, while there are many causes, referral will be recommended to r/o cancer. He would be referred to Urology, who may recommend an MRI, TRUS/bx or possibly continued monitoring. He is agreeable to this plan of action PSA: 1.64 - 12/2020, 1.68 - 12/2021, 1.54 - 12/2022, 2.85 - 01/2024, 1.6 (21.9) - 05/15/24, 1.6 - 08/2024 This is an asymptomatic, low risk patient, who is due for a screening. There has been no change in appetite, weight or bowel habits. There is no history of abdominal pain, heartburn, dysphagia, melena or hematochezia. Order for Cologuard printed and faxed Future Tests Future scheduled test information is unavailable Pending Tests Test Name Ordered Date Scheduled Date Comprehensive Metabolic Panel February 12, 2025 11:04am Future Visits Future appointment information is unavailable Future Procedures Procedure Name Ordered Date Scheduled Date Complete Blood Count Auto Diff February 12 11:04am [facility] PanelOctfle[facility] 2024 11:04amMicroAlb Creat Ratio,UOctfleming county hospital 2024 11:04amPSA Screen (Yearly Only)February 12, 2025 11:04am Future Medications Future medication information is unavailable Patient Instructions Patient instructions are unavailable
--- OUTSIDE RECORDS SUMMARY | 2025-02-19 09:03 | XMS_ITS | CCD ---
Author Organization [facility] Care Team Providers Care Job Training Supervisor Name Role Phone Arnoldo, Jso W Unavailable Unavailable Rice, Jos W Unavailable Unavailable Rice, Jos W Unavailable Unavailable BALL, [phone] UNKNOWN Unavailable Unavailable Marcelo Thompson DO Primary Care Provider [phone] MARCELO THOMPSON Primary Care Unavailable Marcelo Thompson JAIRO, DR BLAIR Consulting Unavailable BALL, DR BLAIR [...] Ma DO Unavailable MARCELO MA Attending Unavailable BALL, MARCELO Lopez Referring Unavailable MURCEK, MARCELO Alas Attending Unavailable BALL, MARCELO Lopez Referring Unavailable Ball Marcelo CALERO Primary Care Provider Marcelo Thompson DO Attending Provider Allergies Allergy ClassificationReported Allergen(s)Allergy TypeDate of OnsetReaction(s) Facility (1 source)Sulfonamides (Antibiotic); Translations: [sulfa drugs]Propensity to adverse reactions (disorder)[facility] Repository (7 sources)Sulfonamides (Antibiotic)Propensity to adverse reactions to drug 50-14-6028[facility]itingB[facility] (20 sources)CiprofloxacinDrug Fuytsin98-63-4729Ttaflqg, Unknown Reaction [facility] (4 sources)Hmg-Coa Reductase Inhibitors (Statins)Propensity to adverse reactions [facility]No[facility] [employer] Other (8 sources)Sulfacetamide / SulfurDrug AllergyUnkRhode Island Homeopathic Hospital [employer] Other (17 sources)sulfADIAZINEDrug Hwyrayr90-37-0412Zqudfaw, Comment:SulfaFBarnesville Hospital (8 sources)tamsulosinDrug AllergyUnkRhode Island Homeopathic Hospital [employer] Other (1 source)black walnut pollen extractDrug AllergyFostoria City [facility] Repository (1 source)Sulfonamides (Antibiotic)Drug allergy (disorder)33-45-2561Pui [facility] Repository (19 sources)predniSONEDrug Bgbplpp62-55-5862Bnufduk, Unknown ReactionSelect Medical [facility]health Rehabilitation Hospital (4 sources)Statins Depletion *DIETARY PRODUCTS/DIETARY MANAGEPropensity to adverse reactionsComment:ALL StatinsKittitas Valley Healthcare [employer] Other (15 sources)tamsulosinDrug Idlshgi99-95-3064Amohhoh ReactionSelect Medical [facility] Hospital (9 sources)Ookunwr-UBD-GkO Reductase InhibitorAllergy to tbenerfyx09-46-2452 Comment:ALL [facility] Medications Current Medications MedicationDrug Class(es)DatesSig (Normalized)Sig (Original)amLODIPine 10 mg oral tablet (7 sources)Dihydropyridine Calcium Channel BlockerStart: 94-35-9880ubwp 1 tablet by mouth once dailyAmlodipine 10 mg tablet Active 10 MG PO Daily February 14, 2024 12:00am Complies with drug therapytake 1 tablet by mouth every twelve hoursamLODIPine Besylate 5 MG 1 tablet Orally TWICE A DAY Active benazepril hydrochloride 40 mg oral tablet (4 sources)Angiotensin Converting Enzyme Inhibitortake 1 tablet by mouth every twenty-four hoursBenazepril HCl 40 MG 1 tablet Orally Once a day Active chlorthalidone 25 mg oral tablet (3 sources)Thiazide-like DiureticStart: 04-03-0992yjqh 0.5 tablet by mouth once dailyChlorthalidone 25 MG 1/2 tablet Orally Once a day for 30 days Jul, Activedoxycycline hyclate 100 mg oral tablet (1 source)Tetracycline-class DrugStart: 09-24-2021 End: 68-71-9965zkss 1 tablet by mouth twice dailydoxycycline hyclate (VIBRA- TABS) 100 MG tablet Take 1 tablet by mouth 2 times daily for 7 days 14 tablet 0 09/24/2021 10/01/2021 Activeezetimibe 10 mg oral tablet (20 sources)Dietary Cholesterol Absorption InhibitorStart: 11-01-2023 End: 17-07-5639ufkl 1 tablet by mouth once dailyEzetimibe 10 mg tablet Active 0 .ROUTE .COMPLEX 28 03October 21, 2024 6:54am TAKE 1 TABLET BY MOUTHEVERY DAY Complies with drug therapyStart: 07-18-2023 End: 02-38-0993dukg 1 tablet by mouth once dailyEzetimibe 10 mg tablet Discontinued 10 MG PO Daily July 18, 2023 12:00am November 01, 2023 7:29amtake 1 tablet by mouth once dailyEzetimibe 10 MG TAKE 1 TABLET BY MOUTH EVERY DAY Activefluticasone propionate 0.05 mg/actuat metered dose nasal spray (20 sources)CorticosteroidStart: 84-03-7333tmzg 2 spray(s) nasal route once dailyFluticasone Propionate 50 mcg/actuation spray,suspension Active 0 .ROUTE .COMPLEX 14 03February 27, 2024 1:31pm SPRAY 2 SPRAYS INTO EACH NOSTRIL ONCE DAILY Complies with drug therapyStart: 31-82-1893lnnyqkixojx (Flonase) 50 MCG/ACT nasal spray Daily 07/18/2023 ActiveStart: 07-18-2023 End: 44-84-6017Aeijgtgrhns Propionate 50 mcg/actuation spray,suspension Discontinued 2 SPRAY INTRANASAL Daily July 18, 2023 12:00am February 27, 2024 1:31pmtake 2 spray(s) nasal route once dailyFluticasone Propionate 50 MCG/ACT USE 2 SPRAYS IN EACH NOSTRIL ONCE DAILY for 30 Activetake 2 spray(s) nasal route once dailyFluticasone Propionate 50 MCG/ACT USE 2 SPRAYS IN EACH NOSTRIL ONCE DAILY for 30 ActivehydroCHLOROthiazide 25 mg oral tablet (3 sources)Thiazide DiureticStart: 92-48-6202bdaw 1 tablet by mouth once daily Hydrochlorothiazide 25 mg tablet Active 25 MG PO Daily February 14, 2024 12:00am Complieswith drug therapylabetalol hydrochloride 300 mg oral tablet (20 sources)beta-Adrenergic BlockerStart: 37-75-5920kkvk 1 tablet by mouth twice dailyLabetalol 300 mg tablet Active 0 .ROUTE .COMPLEX 60 May 28, 2024 8:08am TAKE 1 TABLET BY MOUTH TWICE A DAY Complies with drug therapyStart: 07-18-2023 End: 42-15-3651fgqs 1 tablet by mouth twice dailyLabetalol 300 mg tablet Discontinued 300 MG PO Twice daily July 18, 2023 12:00am May 28, 2024 8:08amLabetalol HCl 300 MG TAKE 1 TABLET BY MOUTH TWICE A DAY FOR 30 DAYS for 30 Activetake 2 tablets by mouth every twelve hoursLabetalol HCl 100 MG 2 TABLETS Orally Twice a day Activeolmesartan medoxomil 40 mg oral tablet (3 sources)Angiotensin 2 Receptor BlockerStart: 76-46-4637zxzy 1 tablet by mouth once dailyOlmesartan 40 mg tablet Active 40 MG PO Daily February 14, 2024 12:00am Complies with drug therapyomeprazole 40 mg delayed release oral capsule (14 sources)Proton Pump InhibitorStart: 01-14-2024 End: 43-15-3149ysdb 1 capsule by mouth once dailyOmeprazole 40 mg capsule,delayed release(DR/EC) Active 40 MG PO Daily May 08, 2024 11:25am Complies with drug therapy Completed/Discontinued Medications MedicationDrug Class(es)DatesSig (Normalized)Sig (Original)amLODIPine 10 mg / hydroCHLOROthiazide 25 mg / olmesartan medoxomil 40 mg oral tablet (20 sources)Thiazide Diuretic, Dihydropyridine Calcium Channel Cate, Angiotensin 2 Receptor BlockerStart: 02-02-2024 End: 31-72-4653ypff 1 tablet by mouth once krxhsOhwwojntko-Nxgqsopll-Hfvmzbfzk 40-10-25 mg tablet Discontinued 0 .ROUTE .COMPLEX 30 January 7:39pm May 08, 2024 11:18am TAKE 1 TABLET BY MOUTH EVERY DAY FOR 30 DAYSStart: 16-80-0309Loufsftauo-amLODIPine-HCTZ 40-10-25 MG tablet 1 tablet 07/18/2023 ActiveStart: 07-18-2023 End: 21-38-6094oicf 1 tablet by mouth once qfxxkHlphafdsrv-Lyduotwsu-Kpstgnugl 40-10-25 mg tablet Discontinued 1 TAB PO Daily July 18, 2023 12:00am February 02, 2024 7:39pmStart: 81-40-7483nyqc 1 tablet by mouth every twenty-four hours Vdpwlgeoih-vcDHAQFkux-RCDG 40-10-25 MG 1 tablet Orally Once a day for 30 days Dec, Activeazithromycin 250 mg oral tablet (8 sources)Macrolide AntimicrobialStart: 10-07-2023 End: 62-83-5714Xbhqnnkbjtol 250 mg tablet Discontinued 250 MG PO As Directed 6 5 0 October 07, 2023 12:00am December 13, 2023 11:50ampotassium chloride 10 meq extended release oral tablet (11 sources)Start: 07-18-2023 End: 30-05-9809hvre 1 tablet by mouth once dailyPotassium Chloride 10 mEq tablet extended release Discontinued 10 MEQ PO Daily July 18, 2023 12:00am July 19, 2023 1:31pmStart: 75-43-7107lrja 1 tablet by mouth every twenty-four hours Potassium Chloride ER 10 MEQ 1 tablet with food Orally Once a day for 30 days Feb, Active Problems Active Problems Problem ClassificationProblemDateDocumented DateEpisodic/ChronicAbdominal pain (6 sources)Left lower quadrant pain; Translations: [LEFT LOWER QUADRANT PAIN] Onset: 49-39-7180LhqcgtyzSdzfv bronchitis (4 sources)Acute bronchitis due to other specified organisms; Translations: [Acute bronchitis]78-05-5978UdsmllngUzpignbt of urinary tract (20 sources)History of calculus of kidney; Translations: [Personal history of urinary calculi]Onset: 03-09-2024 Resolved: 84-78-1719YzuxkaoiYcqugjg dysrhythmias (8 sources)Ventricular premature complex; Translations: [Ventricular premature depolarization]ChronicChronic kidney disease (20 sources)Chronic kidney disease stage 3; Translations: [Chronic kidney disease, stage 3 (moderate)]Onset: 03-09-2024 Resolved: 475403-15-8654EldvaqdAjzhbnd on above:Creat/GFR:1.65/42 - 01/2024, 1.50/47 - 12/2023, 1.59/44 - 09/2023, 1.59/44 - 07/2022, 1.25/59 - 12/2021, 1.21/60 - 121Chronic ulcer of skin (8 sources)Non-pressure chronic ulcer of other part of left foot limited to breakdown of skin; Translations: [Ulcer of left foot (disorder)]Chronic Deficiency and other anemia (8 sources)Anemia; Translations: [Anemia, unspecified]EpisodicDisorders of lipid metabolism (20 sources)Dyslipidemia; Translations: [Hyperlipidemia, unspecified]Onset: 03-09-2024 Resolved: 32-07-8599VslmkidVxlgnutoq hypertension (20 sources)Essential hypertension; Translations: [Essential (primary) hypertension]Onset: 03-09-2024 Resolved: 38-83-7489YkhpbbwHaimh and electrolyte disorders (1 source)HypokalemiaEpisodicGenitourinary symptoms and ill-defined conditions (8 sources)Francisco J hematuria; Translations: [Gross hematuria]EpisodicHyperplasia of prostate (9 sources)Lower urinary tract symptoms due to benign prostatic hypertrophy; Translations: [Benign prostatic hyperplasia with lower urinary tract symptoms] ChronicHypertension with complications and secondary hypertension (8 sources)Chronic kidney disease due to hypertension; Translations: [Hypertensive chronic kidney disease withstage 1 through stage 4 chronic kidney disease, or unspecified chronic kidney disease]ChronicMycoses (15 sources)Onychomycosis due to dermatophyte ; Translations: [Tinea unguium] Onset: 03-09-2024 Resolved: 158603-89-8388ErymcslyLposaddnodpukd (8 sources)Localized, primary osteoarthritis of the shoulder region; Translations: [Primary osteoarthritis, right shoulder]ChronicOther connective tissue disease (8 sources)Synovial cyst of popliteal space; Translations: [Synovial cyst of popliteal space [Yousif], left knee]EpisodicOther connective tissue disease (8 sources)Prepatellar bursitis, left knee; Translations: [Bursitis, prepatellar, left]EpisodicOther diseases of kidney and ureters (8 sources)Acquired renal cystic disease; Translations: [Cyst of kidney, acquired]EpisodicOther diseases of kidney and ureters (15 sources)Cyst of kidney; Translations: [Cyst of kidney, acquired]Onset: 03-09-2024 Resolved: 117473-80-2215PjosxpxcWayqxyw on above:CT: 2.1cm cortical cyst - 07/2022Other diseases of kidney and ureters (3 sources)Cyst of kidney, acquired; Translations: [Cystic kidney disease, unspecified]70-56-2789CdekizewAkxec hereditary and degenerative nervous system conditions (8 sources)Restless legs; Translations: [Restless legs syndrome]ChronicOther lower respiratory disease (1 source)Postviral cough; Translations: [Cough with frothy sputum]2023 EpisodicOther nervous system disorders (14 sources)Abnormal sensation; Translations: [Other disturbances of skin sensation]Onset: 03-09-2024 Resolved: 930552-21-9020TaycfanfEjrzx nervous system disorders (1 source)Other disturbances of skin sensation; Translations: [Disturbance of skin sensation]39-51-6959QivagyatQdqxu nervous system disorders (2 sources)Paresthesia of skin; Translations: [Disturbance of skin sensation] 12-17-7497MlegpwpuMgluq nutritional; endocrine; and metabolic disorders (3 sources)Obesity; Translations: [Obesity, unspecified]88-06-7884DgqwcovLagdx nutritional; endocrine; and metabolic disorders (1 source)Obesity, unspecified; Translations: [Obesity, unspecified]05-08-2024 ChronicOther nutritional; endocrine; and metabolic disorders (1 source)OverweightEpisodicOther screening for suspected conditions (not mental disorders or infectious disease) (19 sources)Encounter for screening for malignant neoplasm of prostate; Translations: [Patient encounter status]Onset: 01-23-2022 Resolved: 929417-16-7422LtifdrafOccmpgf on above:PSA: 1.64 - 12/2020, 1.68 - 12/2021, 1.54 - 12/2022, 2.85 - SA: 1.64 - 12/2020, 1.68 - 12/2021, 1.54 - 12/2022, 2.85 - 01/2024, 1.6 (21.9) - 05/15/24,Other skin disorders (2 sources)Mass of neck; Translations: [Localized swelling, mass and lump, neck] 55-43-7792OcectpbwMhemc upper respiratory disease (12 sources)Allergic rhinitis; Translations: [Allergic rhinitis, unspecified] Onset: 03-09-2024 Resolved: 171478-38-5766PbajdhwGllib upper respiratory disease (1 source)Allergic rhinitis, unspecified; Translations: [Allergic rhinitis, cause unspecified]28-75-3395QtnadccXmbbj upper respiratory disease (19 sources)Feeling of lump in throat; Translations: [Globus sensation]Onset: 03-09-2024 Resolved: 594866-35-0823YvufityyJbwz and subcutaneous tissue infections (9 sources)Cellulitis of left lower limb; Translations: [Cellulitis of left lower limb]EpisodicSpondylosis; intervertebral disc disorders; other back problems (2 sources)Backache; Translations: [Dorsalgia, unspecified]54-32-2692Ijkiruli Thyroid disorders (16 sources)Thyroid nodule; Translations: [Nontoxic single thyroid nodule]Onset: 03-09-2024 Resolved: 829506-16-7654BpxjqlaLaumzwh on above:US: 12mm TR3 left sided nodule - T: 7mm right, 5mm left nodule - 12/2023US: 12mm TR3 left sided nodule - 11/2023,CT: 7mm right, 5mm left nodule - 12/2023,US: 8mm left nodule- 01/2025Transient cerebral ischemia (14 sources)Transient cerebral ischemia; Translations: [Transient cerebral ischemic attack, unspecified]Onset: 03-09-2024 Resolved: 719727-50-5548Gquhsjv Past or Other Problems Problem ClassificationProblemDateDocumented DateEpisodic/ChronicChronic kidney disease (6 sources)Chronic kidney disease; Translations: [CHRONIC KIDNEY DISEASE STAGE 3A]Onset: 07-13-2022 Results Test NameValueInterpretationReference RangeFacilityEstimated glomerular filtration rate (GFR) non- Americanon 71-79-9040MSE/1.73 sq M.predicted among non-blacks MDRD (S/P/Bld) [Vol rate/Area]47 mL/min/{1.73_m2}Low>=60 [facility] HospitalLaboratory - Chemistry and Chemistry - challengeon 12-86-1750Tptnhfwmay [Mass/Vol]1.50 mg/dLHigh0.70-1.30[facility] HospitalGFR/1.73 sq M.predicted MDRD (S/P/Bld) [Vol rate/Area]57 mL/min/{1.73_m2}Low>=60[facility] HospitalBasophils Auto (Bld) [#/Vol]on 69-46-0965Duyhqrsbk (Bld) [#/Vol]0.0 10 3/uL0.0-0.1FBarnesville HospitalBasophils/100 WBC Auto (Bld)on 67-48-0243Kczsjjruq/100 WBC (Bld) 0.2 %0.2-2.0[facility] HospitalEosinophils/100 WBC Auto (Bld)on 80-36-4637Artlxnvjapa/100 WBC (Bld)1.8 %0.9-7.0[facility] Erythrocyte distribution width Auto (RBC) [Ratio]on 79-94-2383Iqcqcmpjeje distribution width (RBC) [Ratio]12.9 %11.0-15.0[facility] Estimated glomerular filtration rate (GFR) non- Americanon 10-13-2023 GFR/1.73 sq M.predicted among non-blacks MDRD (S/P/Bld) [Vol rate/Area]44 mL/min/{1.73_m2}Low>=60[facility] HospitalHematocrit Auto (Bld) [Volume fraction]on 30-01-2730Qywokkaesp (Bld) [Volume fraction]39.9 %Low 42.0-54.0[facility] HospitalHemoglobin [Mass/volume] in Bloodon 26-20-7757Ehpwlfnxum (Bld) [Mass/Vol]13.3 g/dLLow14.0-18.0[facility] HospitalLaboratory - Chemistry and Chemistry - challengeon 10-13-2023 Calcium [Mass/Vol]8.7 mg/dL8.5-10.1FBarnesville HospitalChloride [Moles/Vol]102 mmol/O16-635TbfzunkfrSelect Medical Trihealth Rehabilitation HospitalCO2 [Moles/Vol]25.9 mmol/L21.0-32.0[facility] HospitalCreatinine [Mass/Vol]1.59 mg/dL High0.70-1.30[facility] HospitalGFR/1.73 sq M.predicted MDRD (S/P/Bld) [Vol rate/Area]54 mL/min/{1.73_m2}Low>=60[facility] HospitalGlucose [Mass/Vol]100 mg/cG19-191LofyuoqqaSelect Medical Trihealth Rehabilitation Hospital Potassium [Moles/Vol]4.2 mmol/L3.5-5.1FAvita Health System Ontario Hospitalodium [Moles/Vol]141 mmol/Y977-678GyegxhiofSelect Medical Trihealth Rehabilitation HospitalUrea nitrogen [Mass/Vol]32.0 mg/dLHigh7.0-18.0[facility] HospitalUrea nitrogen/Creatinine [Mass ratio]20.1 mg/mgSelect Medical [facility] Hospital Laboratory - Hematology and Cell countson 23-95-5688Dspagaed granulocytes/100 WBC (Bld)0.4 %0.0-0.5FBarnesville HospitalLeukocytes [#/volume] corrected for nucleated erythrocytes in Blood by Automated counon 11-92-6568HMD corrected for nucl RBC Auto (Bld) [#/Vol]5.0 10 3/uL4.0-11.0[facility] HospitalLymphocytes Auto (Bld) [#/Vol]on 81-46-5181Inuymafuuaf (Bld) [#/Vol]1.2 10 3/uL1.2-3.8[facility] HospitalLymphocytes/100 WBC Auto (Bld)on 70-70-6561Bhgjzejlvgm/100 WBC (Bld)23.8 %20.5-60.0[facility] HospitalMCH Auto (RBC) [Entitic mass]on 71-21-6427MHF (RBC) [Entitic mass]28.9 pg25.9-34.0[facility] HospitalMCHC Auto (RBC) [Mass/Vol]on 26-21-9555ZHUP (RBC) [Mass/Vol]33.3 g/dL29.9-35.2[facility] CenterMCV Auto (RBC) [Entitic vol]on 18-65-0234ZZI (RBC) [Entitic vol] 86.6 fL80.0-94.0[facility] HospitalMonocytes Auto (Bld) [#/Vol]on 01-47-5853Qivmdkhhq (Bld) [#/Vol]0.4 10 3/uL0.3-0.8[facility] HospitalMonocytes/100 WBC Auto (Bld)on 67-69-0139Ppnhllyip/100 WBC (Bld)8.8 % 1.7-12.0[facility] HospitalNeutrophils Auto (Bld) [#/Vol]on 24-71-9683Kjvtmpajcdx (Bld) [#/Vol]3.2 10 3/uL1.4-6.5FBarnesville HospitalNeutrophils/100 WBC Auto (Bld)on 11-47-8166Lkvyoxpepbl/100 WBC (Bld)65.0 % 43.0-75.0[facility] HospitalNo Panel Informationon 10-13-2023 Eosinophils # (Auto)0.1 10 3/uL0.0-0.7FBarnesville HospitalImmature Granulocyte # (Auto)0.02 10 3/uL0.00-0.03[facility] Troponin I High Sensitivity6.5 pg/mL4.0-76.1FBarnesville Hospital Comment on above:CUT-OFF POINTS HAVE BEEN ESTABLISHED BASED ON THE FOURTHUNIVERSAL DEFINITION OF MYOCARDIAL INFARCTION. THE UPPERREFERENCE LIMIT (URL) OF TROPONIN, DEFINED THE 99THPERCENTILE OF cTnI DISTRIBUTION IN A REFERENCE POPULATION,HAS BEEN CONFIRMED THE DECISION THRESHOLD FOR MIDIAGNOSIS.99TH PERCENTILE = 76.2 PG/MLNOTE: HIGH-SENSITIVITY TROPONIN ASSAY IS NOT INTENDED TO BEUSED IN ISOLATION BUT SHOULD BE INTERPRETED IN CONJUNCTIONWITH OTHER DIAGNOSTIC AND CLINICAL INFORMATION.Platelet mean volume Auto (Bld) [Entitic vol]on 94-13-6196Jzlxwnnf mean volume (Bld) [Entitic vol]8.3 fLLow9.5-13.5FBarnesville HospitalPlatelets Auto (Bld) [#/Vol]on 62-75-9995Gptnlchbu (Bld) [#/Vol]233 10 3/dB549-736DdlkjsbwsSelect Medical Trihealth Rehabilitation HospitalRBC Auto (Bld) [#/Vol]on 08-86-7677ZMZ (Bld) [#/Vol]4.61 10 6/uLLow 4.70-6.10[facility] Hospitalerum or plasma anion gap determinationon 53-83-2209Qxxcc gap [Moles/Vol]17.3 mmol/LFBarnesville HospitalBasophils Auto (Bld) [#/Vol]on 68-21-7850Bpjvlwxpu (Bld) [#/Vol] 0.0 10 3/uL0.0-0.1FBarnesville HospitalBasophils/100 WBC Auto (Bld) on 98-77-5052Zsitzdizo/100 WBC (Bld)0.4 %0.2-2.0[facility] HospitalEosinophils/100 WBC Auto (Bld)on 89-99-5254Htwbyxanywl/100 WBC (Bld)2.6 % 0.9-7.0[facility] HospitalErythrocyte distribution width Auto (RBC) [Ratio]on 13-20-2220Ifntiojoqyt distribution width (RBC) [Ratio]13.1 % 11.0-15.0[facility] HospitalEstimated glomerular filtration rate (GFR) non- Americanon 79-51-2829RVM/1.73 sq M.predicted among non-blacks MDRD (S/P/Bld) [Vol rate/Area]46 mL/min/{1.73_m2}>=60[facility] HospitalGlobulin Calc (S) [Mass/Vol]on 68-99-6598Qkglyodc (S) [Mass/Vol]3.4 g/dL [facility] HospitalHematocrit Auto (Bld) [Volume fraction]on 79-03-1374Nhvnhqrtfz (Bld) [Volume fraction]42.7 %42.0-54.0[facility] HospitalHemoglobin [Mass/volume] in Bloodon 27-15-9199Oufszaoqyu (Bld) [Mass/Vol]14.0 g/dL14.0-18.0[facility] HospitalLaboratory - Chemistry and Chemistry - challengeon 29-07-7013Tmxubjo [Mass/Vol]3.7 g/dL 3.4-5.0[facility] HospitalALP [Catalytic activity/Vol]57 U/L46-116 [facility] HospitalALT [Catalytic activity/Vol]30 U/L16-63 [facility] HospitalAST [Catalytic activity/Vol]17 U/L15-37 [facility] HospitalBilirubin [Mass/Vol]0.4 mg/dL0.2-1.0[facility] HospitalCalcium [Mass/Vol]9.2 mg/dL8.5-10.1FBarnesville HospitalChloride [Moles/Vol]104 mmol/P31-210JejtskayhSelect Medical Trihealth Rehabilitation HospitalCO2 [Moles/Vol]30.3 mmol/L21.0-32.0[facility] Cobalamin (Vitamin B12) [Mass/Vol]270.0 pg/mL193.0-986.0[facility] HospitalCreatinine [Mass/Vol]1.55 mg/dL0.70-1.30[facility] HospitalGFR/1.73 sq M.predicted MDRD (S/P/Bld) [Vol rate/Area]55 mL/min/{1.73_m2} >=60[facility] HospitalGlucose [Mass/Vol]99 mg/aX91-167GbdwxjznfSelect Medical Trihealth Rehabilitation HospitalPotassium [Moles/Vol]3.6 mmol/L3.5-5.1FBarnesville HospitalProtein [Mass/Vol]7.1 g/dL6.4-8.2FBarnesville Hospital Sodium [Moles/Vol]144 mmol/S582-958QrkjvusveSelect Medical Trihealth Rehabilitation HospitalTSH Qn2.981 m[IU]/L0.358-3.740[facility] HospitalUrea nitrogen [Mass/Vol]29.0 mg/dL7.0-18.0[facility] HospitalUrea nitrogen/Creatinine [Mass ratio]18.7 mg/mgSelect Medical Trihealth Rehabilitation HospitalLaboratory - Hematology and Cell countson 95-78-8805Zqyhdxgu granulocytes/100 WBC (Bld)0.3 %0.0-0.5FBarnesville HospitalLeukocytes [#/volume] corrected for nucleated erythrocytes in Blood by Automated counon 67-36-9551FGE corrected for nucl RBC Auto (Bld) [#/Vol]6.8 10 3/uL4.0-11.0[facility] Lymphocytes Auto (Bld) [#/Vol]on 71-04-3254Sofjftcmekl (Bld) [#/Vol]1.2 10 3/uL 1.2-3.8[facility] HospitalLymphocytes/100 WBC Auto (Bld)on 61-67-9132Gyfavntxyoc/100 WBC (Bld)18.0 %20.5-60.0[facility] HospitalH Auto (RBC) [Entitic mass]on 85-84-6217DMT (RBC) [Entitic mass]28.9 pg 25.9-34.0[facility] HospitalMCHC Auto (RBC) [Mass/Vol]on 08-97-4147UVEF (RBC) [Mass/Vol]32.8 g/dL29.9-35.2FBarnesville HospitalMCV Auto (RBC) [Entitic vol]on 85-76-5075BUT (RBC) [Entitic vol]88.2 fL 80.0-94.0[facility] HospitalMonocytes Auto (Bld) [#/Vol]on 03-76-4933Atbeooheo (Bld) [#/Vol]0.8 10 3/uL0.3-0.8[facility] HospitalMonocytes/100 WBC Auto (Bld)on 08-47-5727Xkcrnnicy/100 WBC (Bld)11.1 % 1.7-12.0[facility] HospitalNeutrophils Auto (Bld) [#/Vol]on 99-54-9222Mnqmhgghckn (Bld) [#/Vol]4.6 10 3/uL1.4-6.5FBarnesville HospitalNeutrophils/100 WBC Auto (Bld)on 77-78-3758Hewnupuztvx/100 WBC (Bld)67.6 % 43.0-75.0[facility] HospitalNo Panel Informationon 08-09-2023 Eosinophils # (Auto)0.2 10 3/uL0.0-0.7FBarnesville HospitalImmature Granulocyte # (Auto)0.02 10 3/uL0.00-0.03[facility] Platelet mean volume Auto (Bld) [Entitic vol]on 86-46-3024Jrthecmb mean volume (Bld) [Entitic vol]8.1 fL9.5-13.5FBarnesville HospitalPlatelets Auto (Bld) [#/Vol]on 90-87-6470Dfqidfmyv (Bld) [#/Vol]257 10 3/cQ478-149VosfxpihpSelect Medical Trihealth Rehabilitation HospitalRBC Auto (Bld) [#/Vol]on 26-78-0935LBU (Bld) [#/Vol]4.84 10 6/uL4.70-6.10[facility] Hospitalerum or plasma albumin/globulin mass ratioon 55-15-2330[place]/Globulin [Mass ratio]1.1 {ratio} [facility] Hospitalerum or plasma anion gap determinationon 20-24-3679Niilj gap [Moles/Vol]13.3 mmol/LFBarnesville Hospital CREATININEon 38-07-9980Uqcljryfah [Mass/Vol]1.59 mg/dLCritically high0.70-1.30 The [facility] HospitalComment on above:Performed By: #### CREA #### [facility] [address] [place] [address] Dr. Keanu SilvaGFR-AF VKPRPHWO64 mL/min/1.70k8Vqevydlqyp low>=60The [facility] HospitalComment on above:Performed By: #### CREA #### [facility] [address] [address] [address] Keanu SilvaGFR-NON AF LQNGUOKX94 mL/min/1.36h3Frvaenynls low>=60The [facility] HospitalComment on above:Performed By: #### CREA #### [facility] [address] [place] [address] Dr. Keanu ShaferCT ABD/PELV W CONon [id number] ABD/PELV W CONEXAMINATION: CT ABD/PELV W CON, 08/17/2022 7:13 AM [...] Electronically authenticated by: ANSHUL AMADOR Date: 2022-08-17 08:[address] [place] [address] Metabolic Panelon 10-83-4682Lsvwwnf [Mass/Vol]9.9685642 mg/dL8.5-10.1 mg/dLB[place] [employer] Other CO2 [Moles/Vol]28.20292788 mmol/L21.0-32.0 mmol/LNheartland behavioral health services [employer] Other Creatinine [Mass/Vol]1.25066114 mg/dLCritically high 0.70-1.30 mg/dLB[place] [employer] Other Potassium [Moles/Vol]4.30903058 mmol/L3.5-5.1 mmol/L [place] [employer] Other Urea nitrogen [Mass/Vol]21.4686242 mg/dLCritically high7.0-18.0 mg/dLB[place] [employer] Other Basic Metabolic Panelsee noteNochristian hospital [employer] Other Basic Metabolic Cgwdn233 mmol/O423-880 mmol/LNorth [employer] Other Basic Metabolic Panel99 mg/iU91-330 mg/dLB[place] [employer] Other Basic Metabolic Panel55 mL/min/1.76w6Ofqrwfvdon low >=60 mL/min/1.88e7Qsafe [employer] Other Basic Metabolic Panel>60 mL/min/1.73m2>=60 mL/min/1.87a1Sigzm [employer] Other Anion gap [Moles/Vol]11.0 mmol/LNormalB[place] [employer] Other Comment on above:Performed By: #### BMP #### [facility] [address] [address] [address] Keanu ShaferChloride [Moles/Vol]109 mmol/LCritically slmx57-041Gxdru [employer] Other Comment on above:Performed By: #### BMP #### [facility] [address] [place] [address] Dr. Keanu ShaferUrea nitrogen/Creatinine [Mass ratio]16.0 mg/mgNormalBrowns [place] [employer] Other Comment on above:Performed By: #### BMP #### [facility] [address] [address] [address] Keanu ShaferPROF CHEM 8 (BAS METB)on 88-52-5505Dekumkg [Mass/Vol]9.0 mg/dL Normal8.5-10.1Fostoria City HospitalComment on above:Performed By: #### BMP #### [facility] [address] [place] [address] Dr. Keanu ShaferCO2 [Moles/Vol]28.3 mmol/AXxstmy23.0-32.0The [facility] Comment on above:Performed By: #### BMP #### [facility] [address] [address] [address] Keanu ShaferCreatinine [Mass/Vol]1.31 mg/dLCritically high0.70-1.30The [facility] HospitalComment on above:Performed By: #### BMP #### [facility] [address] [address] [address] Colunga ChangEGFR-AF CITIZEN OF [place]>60Normal>=60The [facility] HospitalComment on above:Performed By: #### BMP #### [facility] [address] [address] [address] Keanu SilvaGFR-NON AF SEIBDSHG74 mL/min/1.57w6Tjhgbxpvda low>=60The [facility] HospitalComment on above:Performed By: #### BMP #### [facility] [address] [place] [address] Dr. Keanu ShaferGlucose [Mass/Vol]99 mg/qOHkcjbp25-531Paw [facility] Comment on above:Performed By: #### BMP #### [facility] [address] [place] [address] Dr. Keanu ShaferPotassium [Moles/Vol]4.3 mmol/LNormal3.5-5.1[facility] Comment on above:Performed By: #### BMP #### [facility] [address] [place] [address] Dr. Keanu ShaferSodium [Moles/Vol]144 mmol/AQabtsx273-813Zox [facility] Comment on above:Performed By: #### BMP #### [facility] [address] [place] [address] Dr. Keanu ShaferUrea nitrogen [Mass/Vol]21.0 mg/dLCritically high7.0-18.0The [facility] HospitalComment on above:Performed By: #### BMP #### [facility] [address] [place] [address] Dr. Keanu StevensonC AUTO DIFFon [id number] #0.0 103/ulNormal0.0-0.1The [facility] HospitalComment on above:Performed By: #### CBC #### [facility] [address] [address] [address] Keanu ShaferBasophils/100 WBC (Bld)0.3 %Normal0.2-2.0The [facility] Comment on above:Performed By: #### CBC #### [facility] [address] [place] [address] Dr. Keanu Elliott #0.2 103/ulNormal0.0-0.7The [facility] HospitalComment on above: Performed By: #### CBC #### [facility] [address] [place] [address] Dr. Keanu Silvaosinophils/100 WBC (Bld)2.4 %Normal0.9-7.0The [facility] Comment on above:Performed By: #### CBC #### [facility] [address] [place] [address] Dr. Keanu Silvarythrocyte distribution width (RBC) [Ratio]13.2 %Pcjfot19.0-15.0 The [facility] HospitalComment on above:Performed By: #### CBC #### [facility] [address] [place] [address] Dr. Keanu ShaferHematocrit (Bld) [Volume fraction]42.1 %Jgougd35.0-54.0The [facility] HospitalComment on above:Performed By: #### CBC #### [facility] [address] [place] [address] Dr. Keanu ShaferHemoglobin (Bld) [Mass/Vol]14.2 g/zBQwalnx70.0-18.0The [facility] HospitalComment on above:Performed By: #### CBC #### [facility] [address] [place] [address] Dr. Keanu Kenny #0.02 10e3/ulNormal0.00-0.03The [facility] HospitalComment on above:Performed By: #### CBC #### [facility] [address] [place] [address] Dr. Keanu Kenny %0.3 %Normal0.0-0.5The [facility] HospitalComment on above: Performed By: #### CBC #### [facility] [address] [address] [address] Keanu Linares #1.0 103/ulCritically low1.2-3.8The [facility] Comment on above:Performed By: #### CBC #### [facility] [address] [address] [address] Keanu Shankshocytes/100 WBC (Bld)16.0 %Critically low20.5-60.0The [facility] HospitalComment on above:Performed By: #### CBC #### [facility] [address] [place] [address] Dr. Keanu Hidalgo DIFF REQNONormalThe [facility] HospitalComment on above: Performed By: #### CBC #### [facility] [address] [place] [address] Dr. Keanu Turner (RBC) [Entitic mass]29.2 qaCezxie69.9-34.0The [facility] HospitalComment on above:Performed By: #### CBC #### [facility] [address] [place] [address] Dr. Keanu Francis (RBC) [Mass/Vol]33.7 g/eGPomdkz48.9-35.2The [facility] HospitalComment on above:Performed By: #### CBC #### [facility] [address] [place] [address] Dr. Keanu Cortez (RBC) [Entitic vol]86.6 aHMqayvn87.0-94.0The [facility] HospitalComment on above:Performed By: #### CBC #### [facility] [address] [place] [address] Dr. Keanu Florentino #0.6 103/ulNormal0.3-0.8The [facility] HospitalComment on above:Performed By: #### CBC #### [facility] [address] [place] [address] Dr. Keanu Branchocytes/100 WBC (Bld)9.2 %Normal1.7-12.0The [facility] Comment on above:Performed By: #### CBC #### [facility] [address] [place] [address] Dr. Keanu Prasad #4.5 103/ulNormal1.4-6.5The [facility] HospitalComment on above:Performed By: #### CBC #### [facility] [address] [place] [address] Dr. Keanu Menautrophils/100 WBC (Bld)71.8 %Qrlxwb28.0-75.0The [facility] HospitalComment on above:Performed By: #### CBC #### [facility] [address] [place] [address] Dr. Keanu Gilbert mean volume (Bld) [Entitic vol]7.8 fLCritically low 9.5-13.5The [facility] HospitalComment on above:Performed By: #### CBC #### [facility] [address] [place] [address] Dr. Keanu IbarraT233 103/zdDwtsuo530-032Pdx [facility] HospitalComment on above: Performed By: #### CBC #### [facility] [address] [place] [address] Dr. Keanu ShaferRBC4.86 106/ulNormal4.70-6.10The [facility] HospitalComment on above:Performed By: #### CBC #### [facility] [address] [place] [address] Dr. Keanu ShaferWBC6.2 103/ulNormal4.0-11.0The [facility] HospitalComment on above: Performed By: #### CBC #### [facility] [address] [place] [address] Dr. Keanu ShaferLIPID PROFILEon [id number]-HDL RATIO NORMSSelect Medical Specialty Hospital - AkronComment on above:Result Comment: 3.3 - 4.4 LOW RISK 4.4 - 7.1 AVERAGE RISK 7.1 - 11.0 MODERATE RISK >11.0 HIGH RISKPerformed By: #### CMP, LIPID #### [facility] [address] [address] [address] Keanu ShaferCholesterol [Mass/Vol]222 mg/dLCritically high<=200The [facility] on above:Performed By: #### CMP, LIPID #### [facility] [address] [address] [address] Keanu ShaferCholesterol in HDL [Mass/Vol]40 mg/yNCcgwdq26-20Tix [facility] HospitalComment on above:Performed By: #### CMP, LIPID #### [facility] [address] [address] [address] Keanu ShaferCholesterol in LDL [Mass/Vol]160.6 mg/dLMcKitrick HospitalComment on above:Performed By: #### CMP, LIPID #### [facility] [address] [place] [address] Dr. Keanu Wattsesterstaci.total/Cholesterol in HDL [Mass ratio]5.6 {ratio} NormalThe [facility] HospitalComment on above:Performed By: #### CMP, LIPID #### [facility] [address] [place] [address] Dr. Keanu Coleman NORMAL> or = 60 mg/dl - LOW CARDIOVASCULAR RISK <40 mg/dl - HIGH CARDIOVASCULAR RISKMcKitrick HospitalComjohn d. [facility] on above:Performed By: #### CMP, LIPID #### [facility] [address] [address] [address] Keanu ShaferLDL CALC NORMALSEE BELOWMcKitrick HospitalComment on above:Result Comment: <100 mg/dl OPTIMAL 100 - 129 mg/dl NEAR OR ABOVE OPTIMAL 130 - 159 mg/dl BORDERLINE HIGH 160 - 189 mg/dl HIGH >190 mg/dl VERY HIGH Performed By: #### CMP, LIPID #### [facility] [address] [place] [address] Dr. Keanu ShaferTriglyceride [Mass/Vol]107 mg/dLNormal<=150The [facility] Comment on above:Performed By: #### CMP, LIPID #### [facility] [address] [address] [address] Keanu FritzLDL CALC21.4 mg/dLNormalThe [facility] HospitalComment on above: Performed By: #### CMP, LIPID #### [facility] [address] [place] [address] Dr. Keanu RamosF 14(COMP METB)on [id number] [Mass/Vol]3.9 g/dLNormal 3.4-5.0The [facility] HospitalComment on above:Performed By: #### CMP, LIPID #### [facility] [address] [place] [address] Dr. Keanu ShaferAlbumin/Globulin [Mass ratio]1.3 {ratio}NormalThe [facility] HospitalComment on above:Performed By: #### CMP, LIPID #### [facility] [address] [place] [address] Dr. Keanu MarinP [Catalytic activity/Vol]55 U/RJluoxz73-883Twe [facility] HospitalComment on above:Performed By: #### CMP, LIPID #### [facility] [address] [place] [address] Dr. Keanu Raman [Catalytic activity/Vol]25 U/BFgqpde09-52Ykm [facility] Hospitalment on above:Performed By: #### CMP, LIPID #### [facility] [address] [place] [address] Dr. Keanu Medellin gap [Moles/Vol]8.8 mmol/LNormalThe [facility] HospitalComment on above:Performed By: #### CMP, LIPID #### [facility] [address] [place] [address] Dr. Keanu ShaferAST [Catalytic activity/Vol]15 U/XYcgpzl56-94Ewy [facility] on above:Performed By: #### CMP, LIPID #### [facility] [address] [place] [address] Dr. Keanu ShaferBilirubin [Mass/Vol]0.7 mg/dLNormal0.2-1.0The [facility] Comment on above:Performed By: #### CMP, LIPID #### [facility] [address] [address] [address] Keanu ShaferCalcium [Mass/Vol]8.7 mg/dLNormal8.5-10.1The [facility] Comment on above:Performed By: #### CMP, LIPID #### [facility] [address] [address] [address] Keanu ShaferChloride [Moles/Vol]106 mmol/CTjqamd71-812Wtc [facility] Comment on above:Performed By: #### CMP, LIPID #### [facility] [address] [address] [address] Keanu ShaferCO2 [Moles/Vol]28.4 mmol/AWosczv98.0-32.0The [facility] Comment on above:Performed By: #### CMP, LIPID #### [facility] [address] [place] [address] Dr. Keanu ShaferCreatinine [Mass/Vol]1.25 mg/dLNormal0.70-1.30The [facility] HospitalComment on above:Performed By: #### CMP, LIPID #### [facility] [address] [place] [address] Dr. Keanu SilvaGFR-AF CITIZEN [place]>60Normal>=60The [facility] HospitalComment on above:Performed By: #### CMP, LIPID #### [facility] [address] [place] [address] Dr. Keanu SilvaGFR-NON AF BJCENBLD03 mL/min/1.62p6Injuytanxp low>=60The [facility] HospitalComment on above:Performed By: #### CMP, LIPID #### [facility] [address] [place] [address] Dr. Keanu ShaferGlobulin (S) [Mass/Vol]3.1 g/dLNormalThe [facility] HospitalComment on above:Performed By: #### CMP, LIPID #### [facility] [address] [address] [address] Keanu ShaferGlucose [Mass/Vol]99 mg/sRXordyp01-014Ppu [facility] Comment on above:Performed By: #### CMP, LIPID #### [facility] [address] [address] [address] Keanu ShaferPotassium [Moles/Vol]4.2 mmol/LNormal3.5-5.1The [facility] Comment on above:Performed By: #### CMP, LIPID #### [facility] [address] [address] [address] Keanu ShaferProtein [Mass/Vol]7.0 g/dLNormal6.4-8.2[facility] Comment on above:Performed By: #### CMP, LIPID #### [facility] [address] [address] [address] Keanu ShaferSodium [Moles/Vol]139 mmol/WPexltz300-400KfdFostoria City Hospital Comment on above:Performed By: #### CMP, LIPID #### [facility] [address] [address] [address] Keanu ShaferUrea nitrogen [Mass/Vol]18.0 mg/dLNormal7.0-18.0[facility] City HospitalComment on above:Performed By: #### CMP, LIPID #### [facility] [address] [address] [address] Keanu Tong nitrogen/Creatinine [Mass ratio]14.4 mg/mgNormalThe [facility] HospitalComment on above:Performed By: #### CMP, LIPID #### [facility] [address] [address] [address] Keanu ShaferC With Platelet and Differentialon 65-15-2787Opuikiikb (Bld) [#/Vol]0.0 10*3/uLNormal0.0-0.2MSt. Francis HospitalComment on above: Performed By: #### CBCWD #### [facility] [address] [place] [address] Tpersjnzl/100 WBC (Bld)0.3 %[facility] Comment on above:Performed By: #### CBCWD #### [facility] [address] [place] [address] Krztwtayokw (Bld) [#/Vol]0.1 10*3/uLNormal0.0-0.7[facility] Medical CenterComment on above:Performed By: #### CBCWD #### [facility] [address] [place] [address] Mivygavntlz/100 WBC (Bld)0.9 %[facility] Comment on above:Performed By: #### CBCWD #### [facility] [address] [place] [address] Hdvjmsxnhoa distribution width (RBC) [Ratio]13.9 %Sqbtcg55.5-14.5 [facility] CenterComment on above:Performed By: #### CBCWD #### [facility] [address] [place] [address] Mscknbaaja (Bld) [Volume fraction]42.6 %Wfjdpu15.0-52.0[facility] CenterComment on above:Performed By: #### CBCWD #### [facility] [address] [place] [address] Gtjxomfdzx (Bld) [Mass/Vol]14.2 g/aCLejhxh78.0-18.0[facility] CenterComment on above:Performed By: #### CBCWD #### [facility] [address] [place] [address] Swscxgldpzv (Bld) [#/Vol]0.9 10*3/uLLow1.0-4.8[facility] CenterComment on above:Performed By: #### CBCWD #### [facility] [address] [place] [address] Rqdoqktrsfx/100 WBC (Bld)8.1 %[facility] Comment on above:Performed By: #### CBCWD #### [facility] [address] [place] [address] NLB (RBC) [Entitic mass]28.9 fsWwwozj00.0-31.3MSt. Francis HospitalComment on above:Performed By: #### CBCWD #### [facility] [address] [place] [address] RNIX61.3 %Wuubjh44.0-37.0[facility] CenterComment on above:Performed By: #### CBCWD #### [facility] [address] [place] [address] BHT (RBC) [Entitic vol]86.8 dLLnrjfk65.0-100.0[facility] CenterComment on above:Performed By: #### CBCWD #### [facility] [address] [place] [address] Laclgnbqm (Bld) [#/Vol]0.8 10*3/uLNormal0.2-0.8[facility] CenterComment on above:Performed By: #### CBCWD #### [facility] [address] [place] [address] Xxylbqrht/100 WBC (Bld)7.4 %[facility] Comment on above:Performed By: #### CBCWD #### [facility] [address] [place] [address] Sswqtsacupf (Bld) [#/Vol]9.5 10*3/uLCritically high1.4-6.5[facility] CenterComment on above:Performed By: #### CBCWD #### [facility] [address] [place] [address] Vdhsmqcupms/100 WBC (Bld)83.3 %[facility] Comment on above:Performed By: #### CBCWD #### [facility] [address] [place] [address] Igbbedzrt (Bld) [#/Vol]289 10*3/vAZzfjge036-783AwpzaLutheran Medical CenterComment on above:Performed By: #### CBCWD #### [facility] [address] [place] [address] XLH (Bld) [#/Vol]4.90 10*6/uLNormal4.70-6.10[facility] CenterComment on above:Performed By: #### CBCWD #### [facility] [address] [place] [address] NFD (Bld) [#/Vol]11.4 10*3/uLCritically high4.8-10.8[facility] CenterComment on above:Performed By: #### CBCWD #### [facility] [address] [place] [address] KQW with Auto Differentialon [id number] (Bld) [#/Vol]0.0 10*3/uL0.0 - 0.2 K/uLBON SECMETROHEALTH CLEVELAND HEIGHTS MEDICAL CENTERBasophils/100 WBC (Bld)0.3 %[facility] HOSPITALEosinophils (Bld) [#/Vol]0.1 10*3/uL0.0 - 0.7 K/uLBON SECMETROHEALTH CLEVELAND HEIGHTS MEDICAL CENTEREosinophils/100 WBC (Bld)0.9 %[facility] Hematocrit (Bld) [Volume fraction]42.6 %42.0 - 52.0 %[facility] Hemoglobin.gastrointestinal spec 1 Ql (Stl)14.2 g/dL14.0 - 18.0 g/dLBON SECMETROHEALTH CLEVELAND HEIGHTS MEDICAL CENTERInterpretation and review of laboratory resultsAbnormalBON SECMETROHEALTH CLEVELAND HEIGHTS MEDICAL CENTERLymphocytes (Bld) [#/Vol]0.9 10*3/uLLow1.0 - 4.8 K/uLBON SECMETROHEALTH CLEVELAND HEIGHTS MEDICAL CENTERLymphocytes/100 WBC (Bld)8.1 %[facility]ITALH (RBC) [Entitic mass]28.9 pg27.0 - 31.3 pgBON SECPOMERENE HOSPITALHC (RBC) [Mass/Vol] 33.3 %33.0 - 37.0 %[facility] SECPOMERENE HOSPITALV (RBC) [Entitic vol]86.8 fL80.0 - 100.0 fLBON SECMETROHEALTH CLEVELAND HEIGHTS MEDICAL CENTERMonocytes (Bld) [#/Vol]0.8 10*3/uL0.2 - 0.8 K/uL [facility]ICKMonocytes/100 WBC (Bld)7.4 %[facility] Neutrophils Absolute9.5 K/uLHigh1.4 - 6.5 K/uLPIONEER COMMUNITY [facility] Neutrophils/100 WBC (Bld)83.3 %[facility] PAT[facility]ICKPlatelet distribution width (Bld) [Ratio]13.9 %11.5 - 14.5 %[facility] HEALTHPlatelets (Bld) [#/Vol]289 10*3/uL130 - 400 K/uLBON [facility] HEALTHRBC (Bld) [#/Vol]4.90 10*6/uLBON LIMA MEMORIAL HOSPITALWBC (Bld) [#/Vol]11.4 10*3/uLHigh4.8 - 10.8 K/uL [facility] HOSPITALComprehensive Metabolic Panelon 70-82-3963Ceyaoqd [Mass/Vol]4.3 g/dLNormal3.5-4.6MSt. Francis Hospital Comment on above:Performed By: #### CMP #### [facility] [address] [place] [address] NZA [Catalytic activity/Vol]68 U/BKgpfph73-217WyzetLutheran Medical CenterComment on above:Performed By: #### CMP #### [facility] [address] [place] [address] IAQ [Catalytic activity/Vol]14 U/LNormal0-41L[facility] Medical CenterComment on above:Performed By: #### CMP #### [facility] [address] [place] [address] Gapft gap [Moles/Vol]11 mmol/LNormal9-15[facility]an Medical CenterComment on above:Performed By: #### CMP #### [facility] [address] [place] [address] NBM [Catalytic activity/Vol]14 U/LNormal0-40[facility] Medical CenterComment on above:Result Comment: Specimen hemolysis has exceeded the interference as defined by Ayla. Value may be falsely increased. Suggest recollection if clinically indicated.Performed By: #### CMP #### [facility] [address] [place] [address] Irrcbwazi [Mass/Vol]0.3 mg/dLNormal0.2-0.7[facility] Medical CenterComment on above:Performed By: #### CMP #### [facility] [address] [place] [address] Wfavars [Mass/Vol]9.0 mg/dLNormal8.5-9.9[facility] Medical CenterComment on above:Performed By: #### CMP #### [facility] [address] [place] [address] Yqhlaxfl [Moles/Vol]102 mmol/QOfmclg00-979IvrsvLutheran Medical CenterComment on above:Performed By: #### CMP #### [facility] [address] [place] [address] ZV6 [Moles/Vol]27 mmol/GGjeqyu32-08MqzvlLutheran Medical Center Comment on above:Performed By: #### CMP #### [facility] [address] [place] [address] Ojdjcthuce [Mass/Vol]1.27 mg/dLCritically high0.70-1.20[facility] Medical CenterComment on above:Performed By: #### CMP #### [facility] [address] [place] [address] LGT88.5Low>60[facility] Medical CenterComment on above:Result Comment: >60 mL/min/1.73m2 EGFR, calc. for ages 18 and older using the MDRD formula (not corrected for weight), is valid for stable renal function.Performed By: #### CMP #### [facility] [address] [place] [address] KTS/1.73 sq M.predicted among blacks MDRD (S/P/Bld) [Vol rate/Area] mL/min/{1.73_m2}Normal>60[facility] Medical CenterComment on above:Result Comment: >60 mL/min/1.73m2 EGFR, calc. for ages 18 and older using the MDRD formula (not corrected for weight), is valid for stable renal function.Performed By: #### CMP #### [facility] [address] [place] [address] Ywtglbvt (S) [Mass/Vol]2.9 g/dLNormal2.3-3.5[facility] Medical CenterComment on above:Performed By: #### CMP #### [facility] [address] [place] [address] Qfriiqt [Mass/Vol]114 mg/dLCritically tlly17-81QeuzoSt. Francis HospitalComment on above:Performed By: #### CMP #### [facility] [address] [place] [address] Bkgunwjmg [Moles/Vol]4.2 mmol/LNormal3.4-4.9[facility] Medical CenterComment on above:Performed By: #### CMP #### [facility] [address] [place] [address] Zkezexw [Mass/Vol]7.2 g/dLNormal6.3-8.0[facility] Comment on above:Performed By: #### CMP #### [facility] [address] [place] [address] Qnaldy [Moles/Vol]140 mmol/XKmdfuu433-564LhkxyLutheran Medical CenterComment on above:Performed By: #### CMP #### [facility] [address] [place] [address] Sjhu nitrogen [Mass/Vol]18 mg/dLNormal8-23[facility] Medical CenterComment on above:Performed By: #### CMP #### [facility] [address] [place] [address] Einwxxg [Mass/Vol]4.3 g/dL3.5 - 4.6 g/dLB[facility] HEALTHAL (Bld) [Catalytic activity/Vol]68 U/L35 - 104 U/LBON SECOURS MERCY HEALTHALT [Catalytic activity/Vol]14 U/L0 - 41 U/LBON [facility]OURS MERCY HEALTHAnion gap [Moles/Vol]11 mmol/LBON SECOURS MERCY HEALTHAST [Catalytic activity/Vol]14 U/L0 - 40 U/LBON SECOURS MERCY HEALTHComment on above:Specimen hemolysis has exceeded the interference as defined by Ayla. Value may be falsely increased. Suggest recollection if clinically indicated. Bilirubin [Mass/Vol]0.3 mg/dL0.2 - 0.7 mg/dLBON SECOURS MERCY HEALTHCalcium [Mass/Vol]9.0 mg/dL8.5 - 9.9 mg/dLBON SECOURS MERCY HEALTHChloride [Moles/Vol] 102 mmol/LBON SECOURS MERCY HEALTHCO2 [Moles/Vol]27 mmol/LBON SECOURS MERCY HEALTHCreatinine [Mass/Vol]1.27 mg/dLHigh0.70 - 1.20 mg/dLBON SECOURS MERCY HEALTHFree PSA/Total PSA [Mass fraction]7.2 g/dL6.3 - 8.0 g/dLBON SECOURS MERCY HEALTHGFR >60.0>60B[facility] MERCY HEALTHComment on above:>60 mL/min/1.73m2 EGFR, calc. for ages 18 and older using the MDRD formula (not corrected for weight), is valid for stable renal function. GFR Non- Ocurablf05.5Low>60B[facility] MERCY HEALTHComment on above:>60 mL/min/1.73m2 EGFR, calc. for ages 18 and older using the MDRD formula (not corrected for weight), is valid for stable renal function. Globulin (S) [Mass/Vol]2.9 g/dL2.3 - 3.5 g/dLBON SECOURS MERCY HEALTHGlucose [Mass/Vol]114 mg/wYBjnm20 - 99 mg/dLBON SECOURS MERCY HEALTHInterpretation and review of laboratory resultsAbnormalBON SECOURS MERCY HEALTHPotassium [Moles/Vol]4.2 mmol/LBON SECOURS MERCY HEALTHSodium [Moles/Vol]140 mmol/LBON SECOURS MERCY HEALTHUrea nitrogen (BldV) [Mass/Vol]18 mg/dL8 - 23 mg/dLBON [facility] HEALTHBON MERCY [facility] JU[facility] MEDICAL CENTERCandelario HEALTHUS DUP LOWER EXTREMITY LEFT VENon 62-97-8941AT DUP LOWER EXTREMITY LEFT VENLEFT LOWER EXTREMITY DEEP VENOUS ULTRASOUND WITH DOPPLER [...] Signed by: Jamie Thornton MD 09/24/21 Final resultNoSan Luis Valley Regional Medical CenterNEGATIVE STUDY FOR ACUTE PROXIMAL DVT IN THE LEFT LOWER EXTREMITY. NEGATIVE STUDY FOR ACUTE CALF DVT IN THE LEFT LOWER EXTREMITY. NEGATIVE STUDY FOR SUPERFICIAL THROMBOPHLEBITIS IN THE LEFT LOWER EXTREMITY [facility] LOWER EXTREMITY DEEP VENOUS ULTRASOUND WITH DOPPLER [...] in the proximal calf, not otherwise assessed. Jamie Younger MD - 09/24/2021 LEFT LOWER EXTREMITY DEEP [...] SUPERFICIAL THROMBOPHLEBITIS IN THE LEFT LOWER EXTREMITY [employer] Work Phone: radiology Study observation (narrative)KRISTEN [employer] Work Phone: US DUP LOWER EXTREMITY LEFT VENOrdered By: Jamie Thornton on [id number] Phone: Coding Summary.on [id number] Summary.CODING DATE: 01/21/2017 FINAL [facility] STATUS: Home (Routine DC) PAYOR: Medical [employer] DESCRIPTION 5372 Level 2 Urology and [...] By: Kelsie Arriaza Date Saved: 01/21/2017 08:35 [facility]Pro[facility] Intraoperative Recordon [id number] OR Intraoperative RecordIntraOp Document Type FTURO Summary Primary Physician: Royer Daniels Jr., MD Finalized Date/Time: 01/17/17 15:22:06 Pt. Name: ASHWIN AVERY/Sex: 1960 Male Med Rec #: [id number] Physician: Royer Daniels Jr., MD Financial #: [id number] Pt. Type: O Room/Bed: / Admit/Disch: 01/17/17 14:24:05 - Institution: Case Times FTURO Entry 1 Patient Times In Room 01/17/17 15:04:00 Out Room 01/17/17 15:17:00 Procedure Times Start 01/17/17 15:09:00 Stop 01/17/17 15:12:00 Anesthesia Times Last Modified By: Javon MCCOLLUM, Radha GUZMÁN 01/17/17 15:12:44 Case Attendance FTURO Entry 1 Entry 2 Entry 3 Case Attendee Javon RN, CNOR, [facility], Ivy Daniels Jr., MD, Royer Garcia Role Performed Coagulation Operator - Primary Scrub - Primary Surgeon - Primary Time In 01/17/17 15:04:00 01/17/17 15:04:00 01/17/17 15:04:00 Time Out 01/17/17 15:17:00 01/17/17 15:17:00 01/17/17 15:17:00 Procedure CYSTOSCOPY LOCAL(.) CYSTOSCOPY LOCAL(.) CYSTOSCOPY LOCAL(.) Comments Last Modified By: Javon RN, CNOR, Javon MCCOLLUM, CNOR, Javon MCCOLLUM, KAROLINAOR, Radha 01/17/17 Radha 01/17/17 Radha 01/17/17 15:17:54 15:17:54 15:17:54 Surgical Procedures FTURO Entry 1 Procedure Description Procedure CYSTOSCOPY LOCAL Modifiers . Surgeon Description CYSTOSCOPY, Primary Procedure Yes Primary Surgeon Jeremiah Moore MD, Royer Stuart Start 01/17/17 15:09:00 [...] HEMATURIA, BPH Postop Same As Preop No W ITH LUTS Postop Diagnosis , BPH WITH LUTS Outcomes Met? Yes Last Modified By: ARIELLE Alejandro RN, Radha 01/17/17 15:10:43 Post-Care Text: The patient is free from signs and symptoms of infection EU IntraOp - FTURO Pre-Care Text: Implements protective measures prior to operative or invasive procedure, confirms identity before the operative or invasive procedure, verifies operative procedure, surgical site, and laterality Entry 1 EU Perioperative Protocols Procedure(s) CYSTOSCOPY LOCAL(.) PatientIdentity Birthday, ID Band Verified (select at Check, Patient least 2): Participation Consents / H and P HandP, Surgery/Procedure Operative Site N/A Verified Consent Marking Verified Surgical Site Yes Laterality Verified Yes Verified Procedure Verified Yes Availability Equipment, Medication Verified (If Applicable) Time Out IndiahomaIvy maldonado CST, Time Out Complete 01/17/17 15:08:00 Participants Javon MCCOLLUM, ARIELLE, Jeremiah Garcia Jr., MD, Royer Stuart Allergies Reviewed? Yes Allergies Reviewed Self/Patient With Body Position Supine Prep Area PENIS Prep Agents Betadine Solution Skin. Condition Intact Additional None Specimens Collected Vitals - EU Blood Pressure 132/80 Pulse 85 bpm Respirations CCF4LFP 0 IandO - EU Total Intake 0 mL Total Output 0 mL Outcomes Met? Yes Last Modified By: ARIELLE Alejandro RN, Ruthann 01/17/17 15:22:02 Post-Care Text: The patient is free from signs and symptoms of injury caused by extraneous objects Case Comments Finalized By: ARIELLE Alejandro RN, Ruthann Document Signatures Signed By: ARIELLE Alejandro RN, Ruthann 01/17/17 15:22NormPremier Health [facility] CenterMain OR Preoperative Recordon 01-17-2017 Main OR Preoperative RecordHolding Area Document Type FTURO Summary Primary Physician: Royer Daniels Jr., MD Finalized Date/Time: 01/17/17 15:14:14 Pt. Name: LENARDFABIANCOOKIEASHWIN/Sex: 1960 [facility] Rec #: [id number] Physician: Royer Daniels Jr., MD Financial #: [id number] Pt. Type: O Room/Bed: / Admit/Disch: 01/17/17 14:24:05 - Institution: Case Times Holding FTURO Pre-Care Text: Verifies consent for planned procedure, identifies individual values and wishes concerning care, includes familymembers in perioperative teaching Secures patient's records' belongings, and valuables, maintains patient's dignity and privacy, and maintains patient confidentiality Entry 1 In Holding 01/17/17 14:34:00 Outcomes Met? Yes Last Modified By: Kamla Spears LPN 01/17/17 14:34:54 Post-Care Text: The patient participates in decisions affecting his or her perioperative plan of care The patient's rightto privacy is maintained Surgery Checklist FTURO Entry 1 Patient Birthday, ID Band Procedure History and Physical, Identification: Check, Patient Verification: Surgical Consent, With Participation Patient NPO after Midnight: n/a Personal Items: Jewelry Personal Items watch on Complaints of Pain: NoComment: Skin Integrity Intact, Murdo, Warm, & Dry Vitals - EU Blood Pressure 132/80 Pulse 88 bpm Respirations 16 br/min SPO2 RN Reviewed Yes Last Modified By: ARIELLE Alejandro RN, Ruthann 01/17/17 15:14:11 Finalized By: ARIELLE Alejandro RN, Ruthann Document Signatures Signed By: Kamla Spears LPN 01/17/17 14:38 ARIELLE Alejandro RN, Ruthann 01/17/17 15:13 ARIELLE Alejandro RN, Ruthann 01/17/17 15:14NoEast Liverpool City HospitalOperative Reporton [id number] ReportPatient: ASHWIN AVERY Age: 56 years Sex: Male : 1960 Associated Diagnoses: None Author: Jeremiah Moore MD, Royer Stuart Procedure Operative Information Details: Date/ Time: 01/17/17 15:13:00. Pre-Op Dx: Gross Hematuria - R31.0, Micro Hematuria - Asymptomatic - R31.21, BPH w/ LUTS - N40.1. Post-Op Dx: Same. Anesthesia Type: Local. Procedure: Local Cystoscopy. Complications: None. Risks/Benefits/Informed Consent: Surgical risks, benefits, details of the procedure have been explained to the patient, Full informed consent has been obtained. Intraoperative InformationPrepped: Patient is brought back to the endoscopy [...] discharged home with antibiotic coverage, Follow up arranged.[facility] at SouthwoodsComment on above:Result Comment: Electronically Signed By: Jeremiah Moore MD, Royer Beckford\Date and Time Signed: 01/17/1715:16 EDT Vital Signs Date TimeVital SignValuePerforming XvacrnhoyGoniydtz09-00-4117 10:37-0400Body zufibe200.8 cmBenjamin Ball DO Work Phone: [facility]10-17-2025 10:37-0400 Body mass index (BMI) [Ratio]29 kg/p1Dwcjbtgd Ball DO Work Phone: [phone]10-17-2025 10:37-0400 Body pumzbr04.68 kgBenjamin Ball DO Work Phone: [phone]10-17-2025 10:37-0400 Diastolic blood uvfimcfu89 mm[Hg]Marcelo Ball DO Work Phone: [facility]10-17-2025 10:37-0400 Heart rate69 /minBenjamin Ball DO Work Phone: [phone]10-17-2025 10:37-0400 Respiratory rate12 /minBenjamin Ball DO Work Phone: [phone]10-17-2025 10:37-0400 Systolic blood ofnixnwd622 mm[Hg]Marcelo Ball DO Work Phone: [phone]04-25-2025 11:47-0400 Body .8 cmSelect [facility]04-25-2025 11:47-0400Body mass index (BMI) [Ratio]29.1 kg/z4MzzeedkqqSelect Medical [facility]04-25-2025 11:47-0400Body bzpgba51.13 kgSelect [facility]04-25-2025 11:47-0400Diastolic blood wroxsryy72 mm[Hg][facility] 08-21-2024 11:47-0400Heart rate67 /[facility] 08-21-2024 11:47-0400Respiratory rate12 /[facility] 08-21-2024 11:47-0400Systolic blood coodtwau486 mm[Hg][facility]01-10-2025 10:12-0500Body cetfzp410.8 cmSelect [facility] 05-08-2024 10:12-0500Body mass index (BMI) [Ratio]30 kg/i2GgxrkjehnSelect Medical [facility]health Rehabilitation Hospital01-10-2025 10:12-0500Body jpesby72.02 kgSelect [facility]01-10-2025 10:12-0500Diastolic blood mm[Hg][facility]01-10-2025 10:12-0500Heart rate74 /[facility]01-10-2025 10:12-0500Respiratory rate12 /[facility]01-10-2025 10:12-0500Systolic blood qezznhaw341 mm[Hg][facility]12-02-2024 15:52-0500Body axmkyi306.8 cmBenjamin Murcek DO Work Phone: [facility] LouisLasjqkhexj33-77-0114 15:52-0500Body mass index (BMI) [Ratio]28.7 kg/e7Ngqpjlhm Murcek DO Work Phone: [facility] LouisQbcwnchrkc06-49-3069 15:52-0500Body sxhnhe45.72 kgBenjamin Murcek DO Work Phone: [facility] LouisFapcyjnuip20-41-9674 08:36-0400Body qyorac680.8 cmSelect [facility]10-04-2024 08:36-0400Body mass index (BMI) [Ratio]29.4 kg/g0CccfarshiSelect Medical [facility]health [facility] Hospital10-04-2024 08:36-0400Body mzuufu14.98 kgSelect [facility]10-04-2024 08:36-0400Diastolic blood pnuvditt00 mm[Hg][facility]10-04-2024 08:36-0400 Heart rate79 /[facility]10-04-2024 08:36-0400 Respiratory rate12 /[facility]10-04-2024 08:36-0400 Systolic blood rjrhizsq405 mm[Hg][facility]08-16-2024 11:57-0400Body .8 cmSelect [facility]08-16-2024 11:57-0400Body mass index (BMI) [Ratio]29.1 kg/f0LxuvwohhaSelect Medical [facility] Hospital08-16-2024 11:57-0400Body zuzklu40.07 kgSelect [facility] 12-13-2023 11:57-0400Diastolic blood jrquocnp15 mm[Hg][facility]08-16-2024 11:57-0400Heart rate68 /[facility] 12-13-2023 11:57-0400Respiratory rate12 /[facility] 12-13-2023 11:57-0400Systolic blood xgcdgujm345 mm[Hg][facility]06-24-2024 15:09-0400Body toxekd224.8 cmSelect [facility] 2023 15:09-0400Body mass index (BMI) [Ratio]29 kg/p9XdigwmqshSelect Medical [facility]health [facility]06-24-2024 15:09-0400Body qognov19.85 [facility]06-24-2024 15:09-0400Diastolic blood fcxogofj03 mm[Hg][facility]06-24-2024 15:09-0400Heart rate86 /[facility]06-24-2024 15:09-0400Respiratory rate12 /[facility]06-24-2024 15:09-0400Systolic blood uykxvmok621 mm[Hg][facility]03-22-2024 13:32-0400Body .8 cmSelect [facility]03-22-2024 13:32-0400Body mass index (BMI) [Ratio]30 kg/p3PmgcpgbqySelect Medical [facility]03-22-2024 13:32-0400Body qxqtyq44.97 kgSelect [facility]03-22-2024 13:32-0400Diastolic blood ctlwseta82 mm[Hg] [facility]03-22-2024 13:32-0400Heart rate71 /minSelect Medical [facility]health Rehabilitation Hospital03-22-2024 13:32-0400Systolic blood egvvbuki772 mm[Hg] [facility]04-14-2023 10:00-0400Body .8 cm Marcelo Ball Other [employer] Other 04-14-2023 10:00-0400Body mass index (BMI) [Ratio] 28.15 kg/i3Xmahltfz Ball Other [employer] Other 04-14-2023 10:00-0400Body eyfurh26 kgBenjamin Ball Other [employer] Other 04-14-2023 10:00-0400Diastolic blood izaisqqp97 mm[Hg] Marcelo Ball Other [employer] Other 04-14-2023 10:00-0400Respiratory rate12 /minBenjamin Ball Other [employer] Other 04-14-2023 10:00-0400Systolic blood hopqnzer184 mm[Hg] Marcelo Ball Other [employer] Other 03-17-2023 11:00-0400Body ablodc928.8 cmBenjamin Ball Other [employer] Other 03-17-2023 11:00-0400Body mass index (BMI) [Ratio] 28.64 kg/p9Egjiecuy Ball Other [employer] Other 03-17-2023 11:00-0400Body .54 kgBenjamin Ball Other [employer] Other 03-17-2023 11:00-0400Diastolic blood zikghgve16 mm[Hg] Marcelo Ball Other [facility] [employer] Other 03-17-2023 11:00-0400Respiratory rate16 /minBenjamin Ball Other [facility] [employer] Other 03-17-2023 11:00-0400Systolic blood xraewbxz861 mm[Hg] Marcelo Ball [facility] [employer] Other 05-29-2022 14:07-0400Body empoka361.8 cmBenjamin Ball DO Work Phone: [employer]05-29-2022 14:07-0400Body mass index (BMI) [Ratio]27.98 kg/d7Axqnmvaj Ball DO Work Phone: [employer]05-29-2022 14:07-0400Body ibvwxmloamv20.7 [degF]Marcelo Ball DO Work Phone: [employer]05-29-2022 14:07-0400Body pmvgvi62.45 kgBenjamin Ball DO Work Phone: [employer]05-29-2022 14:07-0400Diastolic blood benlpyxj72 mm[Hg]Marcelo Ball DO Work Phone: [employer]05-29-2022 14:07-0400Heart rate82 /minBenjamin Ball DO Work Phone: [employer]05-29-2022 14:07-0400 Respiratory rate18 /minBenjamin Ball DO Work Phone: [employer]05-29-2022 14:07-4329HwK6% (BldA) [Mass fraction]97 %Marcelo Ball DO Work Phone: [employer]05-29-2022 14:07-0400Systolic blood mm[Hg]Marcelo Thompson DO Work Phone: [facility] Encounters Encounter DateEncounter TypeCare ProviderFacilityStart: 02-12-2025 End: 56-89-5227gmhypuznvwEwseaoqv Ball DO Work Phone: -[facility] Northwesttart: 02-12-2025 End: 04-92-6467Gozrucz encounter procedureBeherlinda Thompson [facility] Work Phone: Start: 02-12-2025 End: 41-75-0124Xjnjqjj encounter statusBeunc health lenoirmyke [facility] Hospitaltart: 08-21-2024 End: 43-17-4069dwooxidwlhZngxvjikcFirelands [facility] Work Phone: Start: 08-21-2024 End: 47-20-9396Qgdmoln encounter procedureFirmountain states health alliance Physician GroupSelect [facility] Work Phone: Start: 05-08-2024 End: 09-20-8556mzlztuqnhlYxsmgevrqFirelands [facility] Work Phone: Start: 05-08-2024 End: 11-33-0520Rbunntg encounter procedureMaria Parham Health Physician GroupSelect [facility] Work Phone: Start: 03-30-2024 End: 10-47-5924Xufeck outpatient visit 25 minutesBenjamin W Murcek DO Work Phone: [facility] SANDUSKYComment on above:Globus pharyngeus (Primary Dx)Start: 03-30-2024 End: 64-96-4154ehdfchmwqnWXXXFUKX W MURCEKNot AvailableStart: 03-30-2024 End: 74-50-8346Ixvbsb flowsheetBenjamin W Murcek DO Work Phone: [facility] SANDUSKYStart: 03-30-2024 End: 88-19-4911Bvruoe flowsheetBenjamin W Murcek DO Work Phone: [facility] SANDUSKYStart: 03-10-2024 End: 52-18-5641Jvnlvn flowsheetBenjamin W Murcek DO Work Phone: [facility] SANDUSKYStart: 03-10-2024 End: 11-60-4831Lplhwh flowsheetBenjamin W Murcek DO Work Phone: [facility] SANDUSKYStart: 03-10-2024 End: 46-95-4314hhspjhkjxhZJYOFTEE W MURCEKNot AvailableStart: 03-10-2024 End: 55-27-6696Gbeosa outpatient new 45 minutesBenjamin W Murcek DO Work Phone: [facility] SANDUSKYComment on above:Neck mass (Primary Dx); Multiple thyroid nodules (CMS/HCC)Start: 01-31-2024 End: 03-95-1053cxqamlxxkpRpyejoxnuZanesville City Hospital Work Phone: Start: 01-31-2024 End: 03-23-7060Iboqhwjxx for general adult medical examination without abnormal findingsOhioHealth Mansfield Hospitaltart: 01-31-2024 End: 07-24-0651Kuvxhxx encounter procedureMaria Parham Health Physician GroupSelect [facility] Work Phone: Start: 34-06-4198Cggzteo encounter statusOhioHealth Mansfield Hospitaltart: 19-37-1556Gry-patient / Non-visitMaria [facility] Phys[facility] Work Phone: Start: 12-13-2023 End: 05-21-0768hatgjmndueAewybmcbpZanesville City Hospital Work Phone: Start: 12-13-2023 End: 65-91-5653Ifqenos encounter procedureMaria Parham Health Physician GroupSelect [facility] Work Phone: Start: 2023 End: 78-61-2874wrkggnfgkdGmrenniztZanesville City Hospital Work Phone: Start: 2023 End: 88-87-2468Vqdnwcd encounter procedureMaria [facility] Work Phone: Start: 48-24-8698Zpd-patient / Non-visitMaria [facility] Work Phone: Start: 10-07-2023 End: 29-16-0646lnhxyvrqwiPhddwvzoqZanesville City Hospital Work Phone: Start: 10-07-2023 End: 91-71-2567Dfkbiga encounter procedureMaria [facility] Work Phone: Start: 02-64-8034Asn-patient / Non-visitMaria [facility] Work Phone: Start: 07-19-2023 End: 87-69-9296jgkuvkcvyrNzdswkocaZanesville City Hospital Work Phone: Start: 07-19-2023 End: 51-82-8337Nmmmrdb encounter procedureMaria [facility] Work Phone: Start: 06-07-2023 End: 83-44-5220tuzgmmsrtwLlxfumpx Ball Other [employer] Other Start: 16-89-8933Hyzhphoxa encounterBenjamin BallFPG [facility] Medical ClinicStart: 03-08-2023 End: 78-20-3122lxyjobiaksEclptqbo Ball Other [employer] Other Start: 54-70-6902Klkzfkesu encounterBenjamin BallFPG [facility] ClinicStart: 02-22-2023 End: 05-43-8302piwnwsmnurJjrluyzn Ball Other [employer] [employer] Other Start: 49-63-8680Cfuskgufw encounterBenjamin BallFPG [facility] ClinicStart: 01-26-2023 End: 70-07-0494idqauttlckZjfsuvos Ball Other [employer] Other Start: 02-32-9023Nrczcywww for general adult medical examination without abnormal findingsBenjamin BallFPG [facility] Medical ClinicStart: 45-14-2873Rfptmrvkq encounterBenjamin BallFPG [facility] ClinicStart: 08-17-2022 End: 49-54-2165vszkuajhrmCT MARCELO BALLFacility:Y3Cjfjb: 08-15-2022 End: 32-88-7487zmazisfresAmgwygji Ball Other [employer] Other Start: 83-01-5479Gqyoeemoi encounterBenjamin BallFPG [facility] ClinicStart: 08-10-2022 End: 79-28-6085jhdynvrhlyQgqffwjr Ball Other [employer] Other Start: 03-21-9520Vwmsul outpatient visit 15 minutes Marcelo BallFPG [facility] ClinicStart: 07-30-2022 End: 10-31-4184zxbqqzbstxXgpfgzax Ball Other [employer] Other Start: 68-03-0782Upmcmkbag encounterBenjamin BallFPG [facility] Medical ClinicStart: 86-00-5997Dcxjec outpatient visit 25 minutesBenjamin BallFPG [facility] ClinicStart: 07-13-2022 End: 35-34-1489rqmwexnbbcER MARCELO JAIROBrowns Summit [employer] Other Start: 63-25-7678Yqzthguej for general adult medical examination without abnormal findingsDR MARCELO THOMPSONGrant Hospital HospitalStart: 01-19-2022 End: 17-64-7003sutwyqtvjmWX MARCELO BALLFacility:S4Eizyt: 01-19-2022 End: 45-55-5535Wpweiynyq for general adult medical examination without abnormal findingsDR MARCELO BALLFacility:I6Azxks: 09-24-2021 End: [id number] department patient visitBENJAMIN E BALLMercy Regional Medical CenterStart: 09-24-2021 End: 81-46-0766Kkmxkcsjo department patient visitMarcelo Thompson DO Work Phone: [facility] EDComment on above:Cellulitis of left lower extremity (Primary Dx)Start: 01-17-2017 End: 19-99-9897ZhxaaeemryNyfhst W RiceFacility:[facility] Procedures DateProcedureProcedure DetailPerforming ClinicianStart: 44-69-4497YKE screening DR MARCELO Ronquillo on above:Performed By: #### PSASC #### [facility] [address] [address] [address] Keanu ShaferStart: 32-61-3093Dja-scan xtr veins unilateral/limited study Luciano Maradiaga PA-C Work Phone: Start: 87-76-0456Xcuvzslcerypl metabolic panelLuciano Maradiaga PA-C Work Phone: Plan of Treatment DateCare ActivityDetailAuthorStart: 03-30-2024 End: 00-83-0514Slokapk encounter nrwcajhsz28/02/2024 4:00 PM EST Office Visit [facility] [place] [address] [place] [phone] Marcelo Ma, DO [address] [place] [address] ArrivedNOMS ENT HARLEENUSKYComment on above:ArrivedStart: 03-18-2024 End: 24-25-2838Tagujyi encounter pmcfnywek22/20/2024 4:00 PM EST Office Visit [facility] DAVIES[facility] [address] [place] [phone] Marcelo Ma, DO [address] [place] [address] [facility] SANDUSKYStart: 31-78-1343Glzkzfa referral [facility] Work Phone: Start: 02-86-6726Utpkjhgje vaccinationFlu vaccine (Season Ended)[facility]: 69-14-5719Vopkpxfn vaccine (1 of 2) Shingles vaccine (1 of 2)[facility]: 71-59-5992Qetcybjrs for malignant neoplasm of colonRiverside Regional Medical Center: 81-30-7509Gdszj panel LipidsRiverside Regional Medical Center: 30-62-6061Ecfcseud specific antigen measurementProstate Specific Antigen (PSA) Screening or MonitoringRiverside Regional Medical Center: 89-44-9684Vhavpeme screenDiabetes screenRiverside Regional Medical Center: 48-92-4848NPtM/Tdap/Td vaccine (1 - Tdap)DTaP/Tdap/Td vaccine (1 - Tdap)[facility]: 57-10-4753Dauryueuj C screeningHepatitis C screenRiverside Regional Medical Center: 33-36-2665TLG screeningHIV screenRiverside Regional Medical Center: 23-88-2045Ofobiudbdw ScreenDepression [facility]: 89-69-5150VDYTR-19 Vaccine (1)COVID-19 Vaccine (1)[facility] swallow[facility] Comprehensive metabolic 1999 panel - Serum or [facility]Com[facility] metabolic 2000 panel - Serum or [facility] HospitalComprehensive metabolic 2000 panel - Serum or [facility] HospitalMR Brain WO contrastSelect Medical [facility]health Rehabilitation Hospital Patient referralUniversity [facility] Work Phone: [place] Thyroid glandSelect Medical Trihealth Rehabilitation Hospital US.doppler Carotid arteries - bilateralOrlando Health [facility] Payers DatePayer CategoryPayerPolicy [id number] Health InsuranceMEDICAL MUTUAL [id number] [id number] [id number] [id number] [id number] [id number]-paySelf Pay [id number] Social History DateTypeDetailFacilityStart: 09-24-2021 End: 21-24-8605Yqhmsso smoking status NHISNever smoked tobaccoBON [employer] Allies Phone: start: 29-34-0033Gcuaram use and exposureSmokeless tobacco non-userB[employer] Phone: start: 67-10-5316Kbjaahh intakeEx-drinker (finding)KRISTEN Yoozon Work Phone: start: 34-71-7548Uec Assigned At BirthNot on fileKRISTEN [employer] Phone: start: 09-14-2021 End: 39-66-0626Usbmpsfo to SARS-CoV-2 (event)Not sureKRISTEN Yoozon Work Phone: sex Assigned At [facility] [employer] Other Start: 23-25-9131Lzq Assigned At [facility] Hospitaltart: 14-75-3651Cpkoixm smoking status NHISTobacco smoking consumption unknownTenet St. LouisStart: 05-08-2024 End: 62-75-1793DptWwrr (finding)[facility] Clinical Notes 07-13-2022 to 03-30-2024 Note Date & LbawGuxrZtrbekhr54-55-8272 History of Present illness Narrative* Marcelo Ma, DO - 03/30/2024 4:00 PM EST Subjective Patient ID: HPI Patient presents today [...] ulceration or mass. Normal bilateral true vocal foldmotion is present. Bilateral piriform sinuses and base of tongue appear without lesion Assessment/Plan Ashwin was seen today for globus sensation. Diagnoses and all orders for this visit: Globus pharyngeus (Primary) Comments: I had a francisco j discussion with the patient about this. Extensive workup including an esophagram, an upper endoscopy and fiberoptic laryngoscopy as well asthyroid ultrasound and CT. There is nothing revealing here. I assured him this is not cancer or anything structurally obstructive. More than likely this is muscle tension related perhaps secondary toanxiety. I do not have much more to offer the patient and asked him to return to his PCP for further guidance. I will see him back as needed documented in this encounterTenet St. LouisElizjlmnhm07-85-8772 History of Present illness Narrative* Marcelo Ma DO - 03/10/2024 8:30 AM EST Subjective Patient ID: HPI Patient is 63-year-old [...] suprasternal notch to the right of midline whenhe swallows that is soft measures about a [...] __ 3 point cm greatest dimension. No identifiablenodular mass, I do not see what they [...] these nodules need biopsied. documented in this encounterTenet St. LouisInfrdccqbm17-62-8946 Evaluation note* Diagnosis Onset Date Resolution Status Dysesthesia acuteElevated cholesterolacuteEssential hypertensionacuteRenal cyst, leftacute Stage 3a chronic kidney diseaseacuteTinea unguiumacuteIntermittent paresthesia of right hand and footnoneactiveEssential hypertensionacuteAcute bronchitis due to other specified organismsnonctive [facility] Work Phone: [phone]) 616-268803-22-2024 Evaluation note* Diagnosis Onset Date Resolution Status Elevated cholesterol acuteEssential hypertensionacuteRenal cyst, leftacuteStage 3a chronic kidney diseaseacute [facility] Work Phone: [phone]) [phone] Evaluation note* Encounter Date Diagnosis Assessment Notes Treatment Notes Treatment Clinical Notes Feb, Hypokalemia (ICD-10 - E87.6) [facility] Other 10-27-2023 Evaluation note* Encounter Date Diagnosis Assessment Notes Treatment Notes Treatment Clinical Notes Jan, Stage 3a chronic kidney disease (ICD-10 - N18.31) [facility] Other 09-30-2023 Evaluation note* Encounter Date Diagnosis Assessment Notes Treatment Notes Treatment Clinical Notes Dec, Essential hypertension (ICD-10 - I10) Dec,Wellness examination (ICD-10 - Z00.00) [facility] Other 04-19-2023 Evaluation note* Encounter Date Diagnosis Assessment Notes Treatment Notes Treatment Clinical Notes Jul, Left lower quadrant abdominal pa in (ICD-10 - R10.32) [facility] Other 04-14-2023 Evaluation note* Encounter Date Diagnosis Assessment Notes Treatment Notes Treatment Clinical Notes Jul, Left lower quadrant abdominal pa in (ICD-10 - R10.32) Increase dietary fiber. Hydrate CT to r/o ureteral stone, hydronephrosis and diverticulitis Jul,Essential hypertension (ICD-10 - I10)This patient is instructed to consume a healthy, low-fat, low-salt diet. They are also encouraged to continue exercise to achieve/maintain a normal BMI. Jul,History of nephrolithiasis (ICD-10 - Z87.442)Push fluids, check CT [facility] Other 04-03-2023 Evaluation note* Encounter Date Diagnosis Assessment Notes Treatment Notes Treatment Clinical Notes Jul, Essential hypertension (ICD-10 - I10) [facility] Other 03-17-2023 Evaluation note* Encounter Date Diagnosis [...] readings - average lowest 2 readings together Jun,Stage 3a chronic kidney disease (ICD-10 - N18.31)The patient is instructed on adequate control of hypertension and diabetes, if appropriate. They are also educated on the associated risks of NSAIDs and PPI use with kidney disease. They were instructed on adequate fluid balance and to avoid dehydration. Jun,Hyperlipidemia type II (ICD-10 - E78.01)Diet and exercise with continued statin therapy. Jun,Overweight (BMI 25.0-29.9) (ICD-10 - E66.3)This patient has been instructed on a low-fat, high-fiber diet. They are instructed to reduce calori es, portion sizes and snacks. It is recommended that they exercise for 30 minutes, 3-5 times weekly. Jun,enign prostatic hyperplasia with lower urinary tract symptoms (ICD- 10 - N40.1)Symptoms tolerable, yearly PSA Jun,History of nephrolithiasis (ICD-10 - Z87.442)Push fluids [facility] Other Evaluation note* Diagnosis Cellulitis of left lower extremity- Primary Cellulitis and abscess of leg, except foot documented in this encounter [facility] Work Phone: evaluation noteNo InformationNortMain Line Health/[facility] [employer] Other Evaluation note* Diagnosis Onset Date Resolution Status Essential hypertension acuteAcute bronchitis due to other specified organismsnoneactive [facility] Work Phone: Evaluation note* Diagnosis Onset Date Resolution Status Essential hypertension acuteAcute bronchitis due to other specified organismsnoneactiveAllergic rhinitisacutePost-viral cough syndromenoneactiveAcute bronchitis due to other specified organismsnoneactive [facility] Work Phone: Evaluation note* Diagnosis Onset Date Resolution Status Globus sensation acuteElevated cholesterolacuteEssential hypertensionacuteGlobus sensationacute Renal cyst, leftacuteScreening PSA (prostate specific antigen)acuteStage 3a chronic kidney diseaseacuteWellness examinationacuteIntermittent paresthesia of right hand and footnoneactive [facility] Work Phone: Evaluation note* Diagnosis Onset Date Resolution Status Globus sensation acuteElevated cholesterolacuteEssential hypertensionacuteGlobus sensationacute Screening PSA (prostate specific antigen)acuteStage 3a chronic kidney disease acuteThyroid noduleacuteWellness examinationacute [facility] Work Phone: Evaluation note* Diagnosis Neck mass- Primary Swelling, mass, or lump in head and neck Multiple thyroid nodules (CMS/HCC) Nontoxic multinodular goiter documented in this encounter [facility]* Diagnosis Globus pharyngeus- Primary Conversion disorder documented in this encounter [facility] HealthcareEvaluation note* Diagnosis Onset Date Resolution Status Admit Date Chronic kidney disease acuteJanuary 2024 9:51amElevated cholesterolacuteJanuary 2024 9:51am Essential hypertensionacuteJanuary 2024 9:51amGlobus sensationacuteJanuary 2024 9:51amObesityacuteJanuary 2024 9:51amThyroid noduleacute Reba 2024 9:51am [facility] Work Phone: Evaluation noteNo assessment information available [facility] Work Phone: Evaluation note* Diagnosis Onset Date Resolution Status Admit Date Chronic kidney disease acuteOctober 2024 10:17amElevated cholesterolacuteOctober 2024 10:17amEssential hypertensionacuteOctober 2024 10:17amGlobus sensation acuteOctober 2024 10:17amScreening PSA (prostate specific antigen)acute February 12, 2025 10:17amThyroid noduleacuteOctober 2024 10:17amWellness examinationacuteOctober 2024 10:17amScreening for colon cancernoneactive February 12, 2025 10:17am [facility] Work Phone: History general Narrative - Reported* Type Description Date Medical History hypertension Medical HistoryCKD CHRONIC KIDNEY DISEASE STAGE 3Medical HistoryHistory of nephrolithiasisMedical HistoryArthritis of shoulder region, rightMedical History Benign prostatic hyperplasia with lower urinary tract symptomsMedical History Premature ventricular contractionsMedical HistoryHyperlipidemia type IIMedical HistoryUlcer of left foot, limited to breakdown of skinMedical HistoryGross hematuriaMedical HistoryAnemiaMedical HistoryCellulitis of left legMedical HistoryBursitis, prepatellar, leftMedical HistoryUnruptured cyst of left popliteal spaceMedical HistoryRestless leg syndromeMedical HistoryCyst of right kidneyMedical HistoryEssential hypertensionSurgical Historyknee surgerySurgical Historyhernia repairSurgical HistoryRIGHT SHOULDER AND RIGHT [id number] Hospitalization HistorySee Above [facility] Other Hospital Discharge instructions* Attachments The following attachments cannot be sent through Care Everywhere. * Cellulitis (Korean) [facility] Work Phone: Hospital Discharge instructionsAmbulatory Orders* Referral to ENT Time Frame: 01/31/24, Location: None Selected [facility] Work Phone: Reason for referral (narrative)No reason for referral information availableUniversity Hospitals [facility] Center Work Phone: Summary Purpose Family History Relationship Condition Age at Onset Recorded Date/T kameron father Heart disease Unknown Diabetes mellitusUnknownDementiaUnknownMalignant neoplasmUnknownNot Specified DeceasedUnknownHypertensionUnknownHeart diseaseUnknownsisterHypertensionUnknown Relationship Condition Age at Onset Recorded Date/T kameron father Heart disease Unknown Diabetes mellitusUnknownDementiaUnknownMalignant neoplasmUnknownmotherDeceased UnknownHypertensionUnknownHeart diseaseUnknownsisterHypertensionUnknown Advance Directives Advance Directive Response Recorded Date/ Time Advance Directives No May 21, 2023 4:29pm Advance Directive Response Recorded Date/ Time Advance Directives No May 21, 2023 3:29pm Chief Complaint and Reason for Visit Chief Complaint 6 month follow up Reason for Visit Elevated cholesterol Essential hypertension Renal cyst, left Stage 3a chronic kidney disease Chief Complaint 6 month follow up [phone] URIReason for VisitDysesthesia Elevated cholesterol Essential hypertension Renal cyst, left Stage 3a chronic kidney disease Tinea unguium Intermittent paresthesia of right hand and foot Essential hypertension Acute bronchitis due to other specified organisms Chief Complaint [phone] [facility] follow upReason for VisitEssential hypertension Acute bronchitis due to other specified organisms Chief Complaint [phone] URI [facility] follow up lump in throatReason for VisitEssential hypertension Acute bronchitis due to other specified organisms Allergic rhinitis Post-viral cough syndrome Acute bronchitis due to other specified organisms Chief Complaint lump in throat wellnessReason for VisitGlobus sensation Elevated cholesterol Essential hypertension Globus sensation Renal cyst, left Screening PSA (prostate specific antigen) Stage 3a chronic kidney disease Wellness examination Intermittent paresthesia of right hand and foot Chief Complaint lump in throat wellnessReason for VisitGlobus sensation Elevated cholesterol Essential hypertension Globus sensation [...] blade, right side August 21, 2024 11:22am Chief Complaint Admit Date Wellness February 12, [...] for colon cancer February 12, 2025 10:17am Additional Source Comments (unrecognized sect ion and content) No Status Records FoundNo Status Records FoundNo Status Records FoundNo Status Records Found INFORMATION SOURCE (unrecogn ized section and content) DATE CREATED AUTHOR 10/23/2017 [facility] DATE CREATED AUTHOR AUTHOR'S ORGANIZ ATION 09/24/2021 [facility] DATE CREATED AUTHOR AUTHOR'S ORGANIZ ATION 08/24/2022 [facility] DATE CREATED AUTHOR AUTHOR'S ORGANIZ ATION 04/01/2024 [facility] EPIC Reason for Visit (unrecogniz ed section and content) ReasonCommentsLeg Swellingleft lower legReasonCommentsGlobus Sensation1 week kira Ordered Prescriptions (unrec ognized section and content) PrescriptionSigDispensedRefillsStart DateEnd Date doxycycline hyclate (VIBRA-TABS) 100 MG tablet Take 1 tablet by mouth 2 times daily for 7 days 14 tablet /08/2021 Care Teams (unrecognized sec tion and content) [...] Start: October 13, 2023 Paulo Alford , DOAttending ProviderActiveStart: October 13, 2023 Team Status: Inactive Member [...] Provider Active Start: August 09, 2023 Team MemberRelationshipSpecialtyStart DateEnd Date Marcelo Thompson DO [address] [place] [address] PCP - [facility]La [facility] Hospitalnal Medicine09/24/21 Team Status: Inactive Member Role Status Dates [...] Start: January 31, 2024 End: January 31, 2024Team MemberRelationshipSpecialtyStart DateEnd Date Marcelo Thompson MD [address] [place] [address] [facility] Zukhdspm81/12/24 Marcelo Ma DO [address] [place] [address] Xsugpbouofofqm99/12/24Team MemberRelationshipSpecialtyStart DateEnd Date Marcelo Thompson MD [address] [place] [phone] PCP - GeneralLa Paz Regional Hospitalnal Afowrduo83/12/24 Marcelo Ma DO [address] [place] [address] Bkmgoxllitlqok85/12/24Team MemberRelationshipSpecialtyStart DateEnd Date Marcelo Thompson MD [address] [facility] [place] [address] PCP - GeneralInternal Qyclcdtn18/12/24 Marcelo Ma DO [address] [facility] [place] [address] Bnwtnwwjygvrrz04/12/24 Team Status: Inactive Member Role Status Dates Marcelo Thompson DO Primary Care Provide r, Attending Provider Active Start: May 08, 2024 End: May 08, 2024 Team Status: Inactive Member Role Status Dates Marcelo Thompson DO Primary Care Provide r, Attending Provider Active Start: August 21, 2024 End: August 21, 2024 Team Status: Active Member Role/Relationship Status Irma Thompson DO Primary Care Provider Active Team Status: Inactive Member Role/Relationship Status Irma Thompson DO Primary Care Provider Active Start: February 12, 2025 End: February 12enjamyke Thompson DOAttending ProviderActiveStart: February 12, 2025 End: February 12, 2025 Goals (unrecognized section and content) Goals may [...] BE BASED ON THE PRIMARY CLINICAL RECORDS. [facility] [employer] provides no warranty or guarantee of the accuracy or completeness of information in this document.
[2025-02-19 09:52] LABS: Hematocrit 39.9 % (42.0-54.0); Hemoglobin 13.5 g/dL (14.0-18.0); Immature Granulocytes Abs Auto 0.03 10^3/uL (0.00-0.03); Immature Granulocytes Pct Auto 0.4 % (0.0-0.5); Lymphocytes Absolute Auto 1.0 10^3/uL (1.2-3.8); Mean Corpuscular HGB Conc 33.8 g/dL (29.9-35.2); Mean Corpuscular Hemoglobin 29.8 pg (25.9-34.0); Mean Corpuscular Volume 88.1 fL (80.0-94.0); Platelet Count 268 10^3/uL (150-450); Red Blood Count 4.53 10^6/uL (4.70-6.10); White Blood Count 6.7 10^3/uL (4.0-11.0)
[2025-02-19 10:13] LABS: Alanine Aminotransferase 26 U/L (16-63); Albumin Globulin Ratio 1.1; Albumin Level 3.8 g/dL (3.4-5.0); Alkaline Phosphatase 62 U/L (46-116); Anion Gap 14.9; Aspartate Amino Transferase 19 U/L (15-37); Blood Urea Nitrogen 29.0 mg/dL (7.0-18.0); Calcium 8.8 mg/dL (8.5-10.1); Carbon Dioxide 25.7 mmol/L (21.0-32.0); Chloride 103 mmol/L (98-107); Cholesterol 212 mg/dL (<=200); Estimated GFR (African America 57 (>=60 mL/min/1.73m^2); Estimated GFR (Non-African Ame 47 (>=60 mL/min/1.73m^2); Globulin 3.4 g/dL; Glucose 104 mg/dL (74-106); HDL Cholesterol 39 mg/dL (40-60); Potassium 3.6 mmol/L (3.5-5.1); Sodium 140 mmol/L (136-145); Total Protein 7.2 g/dL (6.4-8.2); Triglycerides 102 mg/dL (<=150); VLDL CHOLESTEROL 20.4 mg/dL
== END 2025-02-19 09:00 | disposition home or self-care (01) ==
LOC: LAB 09:00
PROVIDERS: PCP Internal Medicine; Visit Provider Internal Medicine
DX: Z00.00 Encounter for general adult medical examination without abnormal findings (principal); Z12.5 Encounter for screening for malignant neoplasm of prostate
CPT/HCPCS: 36415; 80053; 80061; 82043; 82570; 85025; G0103